=== PATIENT | male | born 1975 | race Caucasian/White ===

== ENCOUNTER 2023-06-04 09:07 | Outpatient (OUT) | payer OTHER, SELFPAY ==
[2023-06-04 09:30] LABS: Basophils Absolute Auto 0.1 10^3/uL (0.0-0.1); Basophils Percent Auto 1.1 % (0.2-2.0); Bilirubin Urine NEGATIVE (NEGATIVE); Blood Urine TRACE-I (NEGATIVE); Clarity Urine CLEAR (CLEAR); Color Urine YELLOW (YELLOW); Eosinophils Absolute Auto 0.3 10^3/uL (0.0-0.7); Eosinophils Percent Auto 3.3 % (0.9-7.0); Glucose Urine UA NEGATIVE (NEGATIVE); Hemoglobin 15.8 g/dL (14.0-18.0); Immature Granulocytes Abs Auto 0.02 10^3/uL (0.00-0.03); Immature Granulocytes Pct Auto 0.2 % (0.0-0.5); Ketones Urine NEGATIVE (NEGATIVE); Leukocyte Esterase Urine TRACE (NEGATIVE); Lymphocytes Absolute Auto 1.5 10^3/uL (1.2-3.8); Lymphocytes Percent Auto 17.6 % (20.5-60.0); Mean Corpuscular HGB Conc 34.3 g/dL (29.9-35.2); Mean Corpuscular Hemoglobin 29.8 pg (25.9-34.0); Mean Corpuscular Volume 86.6 fL (80.0-94.0); Mean Platelet Volume 10.4 fL (9.5-13.5); Monocytes Absolute Auto 0.9 10^3/uL (0.3-0.8); Monocytes Percent Auto 10.8 % (1.7-12.0); Neutrophils Absolute Auto 5.5 10^3/uL (1.4-6.5); Nitrite Urine NEGATIVE (NEGATIVE); Platelet Count 273 10^3/uL (150-450); Protein Urine NEGATIVE (NEG/TRACE); Red Blood Count 5.31 10^6/uL (4.70-6.10); Specific Gravity Urine >=1.030 (1.005-1.025); Urobilinogen Urine 0.2 EU/dL (0.2-1.0); White Blood Count 8.3 10^3/uL (4.0-11.0); pH Urine 5.5 (5.0-9.0)
[2023-06-04 09:39] LABS: Bacteria Urine NONE SEEN #/HPF (NONE SEEN); Mucus Urine NONE SEEN (NONE SEEN); RBC Urine 0-2 #/HPF (0-2); Squamous Epithelial Cell Urine RARE #/LPF (NONE/RARE); WBC Urine 0-2 #/HPF (NONE SEEN)
[2023-06-04 10:26] LABS: Free T4 0.94 ng/dL (0.76-1.46)
[2023-06-04 10:30] LABS: Alanine Aminotransferase 25 U/L (16-63); Albumin Globulin Ratio 1.1; Albumin Level 3.5 g/dL (3.4-5.0); Alkaline Phosphatase 130 U/L (46-116); Anion Gap 12.8; Aspartate Amino Transferase 15 U/L (15-37); BUN Creatinine Ratio 8.9; Bilirubin Total 0.6 mg/dL (0.2-1.0); Calcium 8.7 mg/dL (8.5-10.1); Carbon Dioxide 25.5 mmol/L (21.0-32.0); Chloride 104 mmol/L (98-107); Chol HDL Ratio 4.2; Cholesterol 129 mg/dL (<=200); Estimated GFR (African America >60 (>=60); Estimated GFR (Non-African Ame >60 (>=60); Globulin 3.2 g/dL; Glucose 101 mg/dL (74-106); HDL Cholesterol 31 mg/dL (40-60); Potassium 4.3 mmol/L (3.5-5.1); Sodium 138 mmol/L (136-145); Thyroid Stimulating Hormone 1.275 uIU/mL (0.358-3.740); Total Protein 6.7 g/dL (6.4-8.2); Triglycerides 86 mg/dL (<=150); VLDL CHOLESTEROL 17.2 mg/dL
[2023-06-04 12:10] LABS: Estimated Average Glucose 105 mg/dL; Glycohemoglobin A1C 5.3 % (4.5-6.2)
== END 2023-06-04 09:08 | disposition home or self-care (01) ==
LOC: LAB 09:10
PROVIDERS: PCP Nurse Practitioner; Visit Provider Nurse Practitioner
DX: E66.9 Obesity, unspecified (principal); Z72.0 Tobacco use; Z68.30 Body mass index [BMI] 30.0-30.9, adult
CPT/HCPCS: 36415; 80053; 80061; 81001; 83036; 84439; 84443; 85025

== ENCOUNTER 2023-07-06 15:11 | Outpatient (OUT) | payer OTHER, SELFPAY ==
[2023-07-06 16:23] LABS: Alanine Aminotransferase 23 U/L (16-63); Albumin Globulin Ratio 1.1; Albumin Level 3.6 g/dL (3.4-5.0); Alkaline Phosphatase 135 U/L (46-116); Aspartate Amino Transferase 12 U/L (15-37); Bilirubin Direct 0.1 mg/dL (0.0-0.2); Bilirubin Total 0.6 mg/dL (0.2-1.0); Gamma Glutamyl Transpeptidase 35 U/L (15-85); Globulin 3.3 g/dL; Total Protein 6.9 g/dL (6.4-8.2)
== END 2023-07-06 15:12 | disposition home or self-care (01) ==
LOC: LAB 15:12
PROVIDERS: PCP Nurse Practitioner; Visit Provider Nurse Practitioner
DX: R74.8 Abnormal levels of other serum enzymes (principal)
CPT/HCPCS: 36415; 80076; 82977

== ENCOUNTER 2024-01-18 14:38 | Outpatient (OUT) | payer OTHER, SELFPAY | END 2024-01-18 14:39 | disposition home or self-care (01) | LOC: PST 14:38 | PROVIDERS: PCP Nurse Practitioner; Visit Provider Surgery | DX: Z01.818 Encounter for other preprocedural examination (principal); Z12.11 Encounter for screening for malignant neoplasm of colon ==

== ENCOUNTER 2024-02-03 06:53 | Day surgery (SDC) | payer OTHER, SELFPAY ==
--- NOTE | 2024-02-03 | OP_ITS ---
OPERATION DATE: 02/03/2024 PREOPERATIVE DIAGNOSIS: Colorectal screening. POSTOPERATIVE DIAGNOSIS: Normal colonoscopy to cecum. PROCEDURE: Colonoscopy to cecum. SURGEON: Abhijeet Farias M.D. ANESTHESIA: Monitored anesthesia care. ESTIMATED BLOOD LOSS: Zero. INDICATIONS AND CONSENT: Patient is a 48-year-old male presents for colorectal screening. Indications, risks, benefits, alternatives of proceeding with colonoscopy were explained extensively to the patient, including the risks of bleeding, colon perforation or anesthetic complications. All of his questions were answered. Informed consent was obtained. PROCEDURE: Patient brought to the operating room, placed in the left lateral decubitus position. Monitored anesthesia care was provided. Rectal exam was performed which showed no masses or blood. The scope was inserted into the anal canal. Under direct visualization was advanced. It was advanced to the cecum where cecal markings were clearly identified. There was noted to be a good prep. Upon withdrawal of the scope, mucosal surfaces were carefully examined. There were no mass lesions or polyps. No inflammatory changes or ulcerations. No significant diverticulosis. The scope was retroflexed in the anal canal. There was no significant hemorrhoidal disease. Scope was then withdrawn. Patient tolerated procedure well, was sent to recovery room in good condition. Follow up screening colonoscopy should be in 10 years. CC: Saima Issa, DULCE DENT
[2024-02-03 07:00] VITALS: BP 113/77; PULSE 76; TEMP 36.3; O2SAT 97; BMI 34.3
[2024-02-03] MEDS: LACTATED RINGER'S SOLUTION 1,000 ML 50 ML IV (07:16)
[2024-02-03 08:47] VITALS: BP 111/72; PULSE 75; O2SAT 94
[2024-02-03 09:02] VITALS: BP 115/77; PULSE 71; O2SAT 98
== END 2024-02-03 09:18 | disposition home or self-care (01) ==
PROVIDERS: PCP Nurse Practitioner; Visit Provider Surgery
PROC: (CPT 812; principal; 2024-02-03 08:05)
DX: Z12.11 Encounter for screening for malignant neoplasm of colon (principal); E66.01 Morbid (severe) obesity due to excess calories; Z68.36 Body mass index [BMI] 36.0-36.9, adult; F17.210 Nicotine dependence, cigarettes, uncomplicated
CPT/HCPCS: 45378; J2704

== ENCOUNTER 2024-09-30 11:08 | Outpatient (OUT) | payer OTHER, SELFPAY ==
[2024-09-30 11:33] LABS: Basophils Absolute Auto 0.1 10^3/uL (0.0-0.1); Basophils Percent Auto 1.3 % (0.2-2.0); Eosinophils Absolute Auto 0.2 10^3/uL (0.0-0.7); Eosinophils Percent Auto 2.3 % (0.9-7.0); Hematocrit 46.1 % (42.0-54.0); Hemoglobin 15.8 g/dL (14.0-18.0); Immature Granulocytes Abs Auto 0.01 10^3/uL (0.00-0.03); Immature Granulocytes Pct Auto 0.1 % (0.0-0.5); Lymphocytes Percent Auto 21.4 % (20.5-60.0); Mean Corpuscular HGB Conc 34.3 g/dL (29.9-35.2); Mean Corpuscular Hemoglobin 30.9 pg (25.9-34.0); Mean Platelet Volume 10.4 fL (9.5-13.5); Monocytes Absolute Auto 1.2 10^3/uL (0.3-0.8); Monocytes Percent Auto 12.6 % (1.7-12.0); Neutrophils Absolute Auto 5.7 10^3/uL (1.4-6.5); Neutrophils Percent Auto 62.3 % (43.0-75.0); Platelet Count 267 10^3/uL (150-450); Red Blood Count 5.12 10^6/uL (4.70-6.10); Red Cell Distribution Width 12.5 % (11.0-15.0); White Blood Count 9.1 10^3/uL (4.0-11.0)
[2024-09-30 11:33] LABS: Bilirubin Urine NEGATIVE (NEGATIVE); Blood Urine NEGATIVE (NEGATIVE); Clarity Urine CLEAR (CLEAR); Color Urine LT. YELLOW (YELLOW); Glucose Urine UA NEGATIVE (NEGATIVE); Ketones Urine NEGATIVE (NEGATIVE); Leukocyte Esterase Urine NEGATIVE (NEGATIVE); Nitrite Urine NEGATIVE (NEGATIVE); Protein Urine NEGATIVE (NEG/TRACE); Specific Gravity Urine 1.015 (1.005-1.025); Urobilinogen Urine 0.2 EU/dL (0.2-1.0)
--- NOTE | 2024-09-30 11:40 | XR_ITS ---
The [address] [address] Patient Name: JENNY RAMAN MRN: [id number] date: 1975 Sex: M Assigned Patient Location: LAB Current Patient Location: Accession/Order Number: [id number] Exam Date: 09/30/2024 11:32 Report Date: 10/03/2024 07:17 At the request of: ZAMZAM MORRELL Procedure: XR knee RT 3V PROCEDURE: XR knee RT 3V COMPARISON: None. HISTORY: chronic right knee pain FINDINGS: BONES:No fracture, acute abnormality, or significant arthropathy. SOFT TISSUES:Negative. No visible soft tissue swelling. EFFUSION:None visible. OTHER: Negative. XR/XR knee RT 3V IMPRESSION: No acute radiographic abnormality Electronically authenticated by: GUILLERMO YOUNGBLOOD Date: 10/03/2024 07:17
[2024-09-30 11:45] LABS: Estimated Average Glucose 111 mg/dL; Glycohemoglobin A1C 5.5 % (4.5-6.2)
[2024-09-30 11:46] LABS: Bacteria Urine NONE SEEN #/HPF (NONE SEEN); Cast Seen? NONE SEEN #/LPF (NONE SEEN); Crystals Seen? None Seen #/HPF (None Seen); Mucus Urine NONE SEEN (NONE SEEN); RBC Urine 0-2 #/HPF (0-2); Squamous Epithelial Cell Urine NONE SEEN #/LPF (NONE/RARE); Urine Microscopic Indicated YES; WBC Urine 0-2 #/HPF (NONE SEEN)
[2024-09-30 11:47] LABS: Urine Culture Indicated NO
[2024-09-30 11:53] LABS: Erythrocyte Sedimentation Rate 10 mm/hr (<=15)
[2024-09-30 12:11] LABS: Alanine Aminotransferase 17 U/L (16-63); Albumin Globulin Ratio 1.2; Albumin Level 3.4 g/dL (3.4-5.0); Alkaline Phosphatase 133 U/L (46-116); Anion Gap 13.2; Aspartate Amino Transferase 10 U/L (15-37); BUN Creatinine Ratio 8.6; Bilirubin Total 0.5 mg/dL (0.2-1.0); C Reactive Protein <0.50 mg/dL (<=0.50); Calcium 8.5 mg/dL (8.5-10.1); Carbon Dioxide 26.2 mmol/L (21.0-32.0); Chloride 105 mmol/L (98-107); Estimated GFR (African America >60 (>=60 mL/min/1.73m^2); Estimated GFR (Non-African Ame >60 (>=60 mL/min/1.73m^2); Globulin 2.9 g/dL; Glucose 88 mg/dL (74-106); Potassium 4.4 mmol/L (3.5-5.1); Sodium 140 mmol/L (136-145); Total Protein 6.3 g/dL (6.4-8.2)
== END 2024-09-30 11:09 | disposition home or self-care (01) ==
LOC: LAB 11:10
PROVIDERS: PCP Nurse Practitioner; Visit Provider Nurse Practitioner
DX: R19.7 Diarrhea, unspecified (principal); R63.4 Abnormal weight loss; Z72.0 Tobacco use; M25.561 Pain in right knee; G89.29 Other chronic pain
CPT/HCPCS: 36415; 73562; 80053; 81001; 83036; 84443; 85025; 85652; 86140

== ENCOUNTER 2024-10-01 15:22 | Outpatient (REF) | payer OTHER, SELFPAY ==
--- OUTSIDE RECORDS SUMMARY | 2024-10-01 15:26 | XMS_ITS | CCD ---
Author Organization [facility] Care Team Providers Care Sales Specialist Name Role Phone Unavailable Primary Care Provider UnavailRUDY Davila Admitting Unavailable RUDY YANG Attending Unavailable MARY, DR CORCORAN LISTED Primary Care Unavaila MG Pedraza Consulting Unavailable RUDY YANG Consulting Unavailable TAWANNA, DR FENTON Admitting Unavailable TAWANNA, DR FENTON Attending Unavailable AICHHOLZ, CROP PICKER SAIMA Primary Care Unavailable TYRA KINGSLEY Consulting Unavailable REG, STU Consulting Unavailable SAIMA ISSA Primary Care Physician [phone] MD Clive Phillips Attending Provider [phone] Clive Phillips Attending Unavailable Clive Phillips Admitting Unavailable NON STAFF Primary Care Unavailable Aichholyumiko INDEPENDENT DRIVER, Saima Unavailable Samuel Santiago MD Primary Care Provider [phone] Mg FARIAS Attending Unavailable SAIMA ISSA Referring Unavailable Mg FARIAS Attending Unavailable Aichholz INDEPENDENT DRIVER, Saima Unavailable Aicpage INDEPENDENT DRIVER, Saima Unavailable SAIMA ISSA Attending Unavailable AMITA LARIOS Attending Unavailable AICHHOLZSAIMA Attending Unavailable FERHDAYANNAZ SAIMA Attending Unavailable FERHBERT SAIMA Attending Unavailable Allergies Allergy Classification Reported Allergen(s) Allergy Type Date of Onset Reaction(s) Facility (1 source) Penicillins Propensity to adverse reactions to drug 3 [facility] [place] (6 sources) Penicillin; Translations: [penicillin] Drug Allergy 1 Eruption of skin (disorder) [facility] (4 sources) Chlorhexidine; Translations: [chlorhexidine topical] Drug Allergy Eruption of skin (disorder) [facility] (6 sources) Penicillin V Drug Allergy 4 Unknown [facility] (3 sources) Penicillins Drug Intolerance 3 [facility] Medications Current Medications Medication Drug Class(es) Dates Sig (Normalized) Sig (Original) bacitracin 0.5 unt/mg / neomycin 0.0035 mg/mg / polymyxin b 10 unt/mg topical ointment (1 source) Aminoglycoside Antibacterial, Polymyxin-class Antibacterial Start: 03-11-2020 neomycin-bacitrac in-polymyxin (NEOSPORIN) ointment Start: 03-11-2020 neomycin-bacit racin-polymyxin (NEOSPORIN) ointment dicyclomine hydrochloride 20 mg oral tablet (2 sources) Anticholinergic Start: 09-26-2024 End: 10-11-2024 take 1 tablet by mouth every eight hours as needed for diarrhea and diarrhea dicyclomine (Bentyl) 20 MG tablet Indications: Diarrhea, unspecified type Take 1 tablet (20 mg) by mouth every 8 (eight) hours if needed (abd cramping/diarrhea) for up to 15 days 45 tablet 1 09/26/2024 10/11/2024 Active ibuprofen 400 mg oral tablet (1 source) Nonsteroidal Anti-inflammatory Drug take 1 tablet by mouth every six hours as needed ibuprofen (ADVIL;MOTRIN) 400 MG tablet Take 400 mg by mouth every 6 hours as needed. 0 Active naproxen 500 mg oral tablet (4 sources) Nonsteroidal Anti-inflammatory Drug Start: 05-28-2022 take 1 tablet by mouth twice daily as needed naproxen 500 mg Tab 500 mg = 1 tab(s), Oral, BID, PRN Inflammation, Refills(s) 0 Start Date: 05/28/22 Status: Ordered Start: 08-15-2013 End: 03-11-2020 take 1 tablet by mouth twice daily at mealtime naproxen sodium (ANAPROX DS) 550 MG tablet Take 1 tablet by mouth 2 times daily (with meals). 30 tablet 0 08/15/2013 03/11/2020 Discontinued (Therapy completed) ondansetron 4 mg disintegrating oral tablet (3 sources) Serotonin-3 Receptor Antagonist Start: 05-28-2022 take 1 tablet by mouth every six hours as needed for nausea ondansetron 4 mg Dis Tab 4 mg = 1 tab(s), Oral, q6hr, PRN Nausea/Vomiting, Refills(s) 0 Start Date: 05/28/22 Status: Ordered varenicline 0.5 mg oral tablet (2 sources) Partial Cholinergic Nicotinic Agonist Start: 06-09-2022 take 1 tablet by mouth once daily varenicline 0.5 mg oral tablet 0.5 mg = 1 tab(s), Oral, Daily, Other (see comment) Start Date: 06/09/22 Status: Ordered Completed/Discontinued Medications Medication Drug Class(es) Dates Sig (Normalized) Sig (Original) cetirizine hydrochloride 10 mg oral tablet (6 sources) Histamine-1 Receptor Antagonist Start: 11-25-2023 End: 09-26-2024 take 1 tablet by mouth in the morning cetirizine (ZyrTEC) 10 MG tablet Indications: Rash Take 1 tablet (10 mg) by mouth in the morning. 30 tablet 2 11/25/2023 09/26/2024 Discontinued doxycycline hyclate 100 mg oral capsule (2 sources) Tetracycline-clas s Drug Start: 03-11-2020 End: 03-11-2020 doxycycline hyclate (VIBRAMYCIN) capsule 100 mg Start: 03-11-2020 End: 03-21-2020 take 1 tablet by mouth twice daily doxycycline hyclate (VIBRA-TABS) 100 MG tablet Take 1 tablet by mouth 2 times daily for 10 days 20 tablet 0 03/11/2020 03/21/2020 Active metroNIDAZOLE 250 mg oral tablet (2 sources) Nitroimidazole Antimicrobial Start: 03-11-2020 End: 03-11-2020 metroNIDAZOLE (FLAGYL) tablet 500 mg Start: 03-11-2020 End: 03-21-2020 take 1 tablet by mouth three times daily metroNIDAZOLE (FLAGYL) 500 MG tablet Take 1 tablet by mouth 3 times daily for 10 days 30 tablet 0 03/11/2020 03/21/2020 Active Problems Active Problems Problem Classification Problem Date Documented Da te Episodic/Chronic Neoplasms of unspecified nature or uncertain behavior (1 source) Neoplasm of unspecified behavior of bone, soft tissue, and skin; Translations: [Neoplasm of unspecified behavior of bone, soft tissue, and skin] Onset: 09-16-2022 Episodic Open wounds of extremities (1 source) Dog bite of upper limb; Translations: [Dog bite of left upper extremity, initial encounter] Episodic Other congenital anomalies (3 sources) Dermoid cyst of face 06-09-2022 Chronic Other diseases of bladder and urethra (6 sources) Overactive bladder; Translations: [Overactive bladder] Onset: 11-25-2023 11-25-2023 Chronic Other gastrointestinal disorders (4 sources) Diarrhea; Translations: [Diarrhea, unspecified] Onset: 09-26-2024 09-26-2024 Episodic Other non-traumatic joint disorders (4 sources) Pain in right knee; Translations: [Pain in joint, lower leg] Onset: 09-26-2024 09-26-2024 Episodic Other nutritional; endocrine; and metabolic disorders (16 sources) Body mass index 30+ - obesity; Translations: [Body mass index (BMI) 36.0-36.9, adult] Onset: 11-25-2023 Resolved: 04-14-2024 06-02-2022 Chronic Other nutritional; endocrine; and metabolic disorders (1 source) Morbid obesity 12-22-2023 Chronic Other nutritional; endocrine; and metabolic disorders (4 sources) Unintentional weight loss; Translations: [Abnormal weight loss] Onset: 09-26-2024 09-26-2024 Episodic Residual codes; unclassified (11 sources) Tobacco user; Translations: [Tobacco use] Onset: 11-25-2023 11-25-2023 Episodic Screening and history of mental health and substance abuse codes (3 sources) Tobacco use and exposure - finding 06-04-2022 Chronic Substance-related disorders (3 sources) Nicotine dependence, cigarettes, uncomplicated; Translations: [Smoker] Onset: 05-26-2022 06-09-2022 Chronic Comment on above: Added secondary to d ocumentation in Social History. Substance-related disorders (9 sources) Marijuana user; Translations: [Cannabis use, unspecified, uncomplicated] Onset: 11-25-2023 11-25-2023 Episodic Unclassified (1 source) Patient encounter status 12-22-2023 Viral infection (1 source) COVID-19; Translations: [COVID-19] Onset: 08-15-2021 Past or Other Problems Problem Classification Problem Date Documented Da te Episodic/Chronic Abdominal hernia (15 sources) Unilateral inguinal hernia, without obstruction or gangrene, not specified as recurrent; Translations: [Inguinal hernia] Onset: 05-25-2022 Episodic E Codes: Natural/environment (1 source) Exposure to other specified factors, initial encounter; Translations: [EXPOSURE OTHER SPEC FACTORS INITIAL] Onset: 08-15-2021 Episodic Other connective tissue disease (3 sources) Plantar fasciitis; Translations: [Plantar fascial fibromatosis] Onset: 01-13-2024 01-13-2024 Episodic Other liver diseases (6 sources) Alkaline phosphatase raised; Translations: [Abnormal levels of other serum enzymes] Onset: 11-25-2023 11-25-2023 Episodic Other screening for suspected conditions (not mental disorders or infectious disease) (8 sources) Patient encounter status; Translations: [Encounter for screening for malignant neoplasm of colon] Onset: 11-25-2023 11-25-2023 Episodic Other skin disorders (6 sources) Miliaria; Translations: [Miliaria, unspecified] Onset: 11-25-2023 11-25-2023 Episodic Other skin disorders (6 sources) Lump on face; Translations: [Localized swelling, mass and lump, head] Onset: 11-25-2023 11-25-2023 Episodic Other skin disorders (7 sources) Eruption; Translations: [Rash and other nonspecific skin eruption] Onset: 11-25-2023 11-25-2023 Episodic Spondylosis; intervertebral disc disorders; other back problems (4 sources) Dorsalgia, unspecified; Translations: [Muscle spasm of back] Onset: 08-13-2021 Episodic Sprains and strains (1 source) Strain of muscle, fascia and tendon of lower back, initial encounter; Translations: [STRAIN MUSC FASC TENDON LW BACK INT] Onset: 08-15-2021 Episodic Viral infection (6 sources) Disease caused by 2019-nCoV; Translations: [COVID-19] Onset: 11-25-2023 Resolved: 11-25-2023 11-25-2023 Episodic Results Test Name Value Interpretation Reference Range Facility Outside Colonoscopyon 2023 Outside Colonoscopy [id number] #1.00TIFF Normal [facility] Reminderson 02-04-2024 Reminders - From: Sheila Smith LPN To: THAIN - Clinical; Sent: 02/04/2024 09:45:05 EDT Show up: 01/02/2034 07:00:00 EDT Subject: colonoscopy recall Due Date/Time: 02/02/2034 07:00:00 EDT Reminder/Recall Patient due for screening colonoscopy 02/02/2034. Normal [facility] Insurance Correspondenceon 0 01-21-2024 Insurance Correspondence [id number]#1.00TIFF [facility] Consent for Procedure/Surger yon 12-24-2023 Consent for Procedure/Surgery [id number] #1.00TIFF [facility] Facesheeton 12-23-2023 Facesheet [id number]# 1.00TIFF [facility] Ambulatory Visit Summaryon 0 12-22-2023 Ambulatory Visit Summary JENNY SU :1975 Visit Date:12/22/2023 Ambulatory Visit Instructions Your Diagnosis Screening for malignant neoplasm of colon Your Care Team Attending Physician - Mg FARIAS MD Primary Care Physician - SAIMA ISSA CNP Referring Physician - SAIMA ISSA CNP This Is Your Medications List Contact prescribing physician if questions or concerns cetirizine (cetirizine 10 mg Tab) Procedures Performed Repair of inguinal hernia using surgical mesh (06/16/2022), Excision of cyst (1984), Excision of cyst. Discharge Vitals Heart Rate (Peripheral) 76 Respiratory Rate 16 Blood Pressure 126/82 Height 177 cm Height 70 in Weight 114 kg Weight 250.8 lb BMI 36.39 Medications What How Much When Instructions Unchanged cetirizine (cetirizine 10 mg Tab) 1 Tablets By Mouth Every day Contact prescribing physician if questions or concerns Medications and Immunizations Administered Not Given influenza virus vaccine, inactivated, Patient Refuses Allergies chlorhexidine topical (Rash) penicillin (Rash) Problems Ongoing - Any problem that you are currently receiving treatment for. BMI 36.0-36.9,adult Left inguinal hernia Morbid obesity Screening for malignant neoplasm of colon Tobacco use Patient Survey You may receive a survey via text or e-mail asking about your office visit. Please share your experience with us by completing your survey. We appreciate your feedback and thank you for choosing us for your care. [facility] Physician Referralon 024 Physician Referral [id number] #1.00TIFF Normal [facility] Joel 09-16-2022 L Specimen: [id number] Received: 09/17/22 Status: MILDRED Barrerathuy Num: [id number] Spec Type: Surgical Subm Dr: Clive Phillips MD Tissues: A Soft Tissue/Surgical Margin-Other than Tumor,Mass,Lip or Lupe (RT FOREHEAD) Procedures: Rosa ROLLE/Neva L4 Age/ Patient Sex Location Account Attending Physician Jenny Su/Rosa CHAPMAN [id number] Clive Phillips MD SPEC NUM: [id number] RECD: 09/17/22 STATUS: MILDRED BARRERA NUM: [id number] KADE: 09/16/22 [facility] DR: Clive Phillips MD ENTERED: 09/17/22 [facility] DR: TIGIST TYPE: Surgical DEPT: S ORDERED: HE, Gross/Micro L4 ORDERED: HE, Gross/Micro L4 Pathological Diagnosis Soft tissue, right forehead, excision: - Mature adipose tissue consistent with lipoma. Clinical Information Mass, increasing in size, primary biopsy, D 49.2neoplasm of unspecified behavior of bone, soft tissue and skin Gross Description Received in formalin labeled with the patient's name, number and right forehead is a 3.8 x 3.0 x 1.3 cm yellow-benitez, firm tissue which is inked and sectioned revealing a homogeneous, yellow-benitez cut surface. Axle Turner sections are submitted in one cassette labeled A1. Microscopic Description One glass slide with H E stained material has been examined. The microscopic findings support the above pathologic diagnosis. CPT Codes 25170 Specimen: [id number] Received: 09/17/22 Status: MILDRED Barrera Num: [id number] Spec Type: Surgical Subm Dr: Clive Phillips MD Tissues: A Soft Tissue/Surgical Margin-Other than Tumor,Mass,Lip or Lupe (RT FOREHEAD) Procedures: HE, Gross/Micro L4 Patient: Jenny Su Gorge [id number] (Continued) Signed (signature on file) Juan Tavares MD 09/18/22956 [facility] CBC AUTO DIFFon 05-25-2022 BASO # 0.1 103/ul Normal 0.0-0.1 [facility] Comment on above: Performed By: #### C BC #### [facility] [address] [place] [address] Dr. Tacho Pena Basophils/100 WBC (Bld) 1.2 % Normal 0.2-2.0 [facility] Comment on above: Performed By: #### C BC #### [facility] [address] [place] [address] Dr. Tacho Pena EO # 0.3 103/ul Normal 0.0-0.7 [facility] Comment on above: Performed By: #### C BC #### [facility] [address] [place] [address] Dr. Tacho Pena Eosinophils/100 WBC (Bld) 3.3 % Normal 0.9-7.0 [facility] Comment on above: Performed By: #### C BC #### [facility] [address] [place] [address] Dr. Tacho Pena Erythrocyte distribution width (RBC) [Ratio] 13.0 % Normal 11.0-15.0 [facility] Comment on above: Performed By: #### C BC #### [facility] [address] [place] [address] Dr. Tacho Pena Hematocrit (Bld) [Volume fraction] 46.3 % Normal 42.0-54.0 [facility] Comment on above: Performed By: #### C BC #### [facility] [address] [place] [address] Dr. Tacho Pena Hemoglobin (Bld) [Mass/Vol] 15.7 g/dL Normal 14.0-18.0 [facility] Comment on above: Performed By: #### C BC #### [facility] [address] [place] [address] Dr. Tacho Pena IG # 0.03 10e3/ul Normal 0.00-0.03 [facility] Comment on above: Performed By: #### C BC #### [facility] [address] [place] [address] Dr. Tacho Pena IG % 0.4 % Normal 0.0-0.5 [facility] Comment on above: Performed By: #### C BC #### [facility] [address] [place] [address] Dr. Tacho Pena LYMPH # 2.2 103/ul Normal 1.2-3.8 [facility] Comment on above: Performed By: #### C BC #### [facility] [address] [place] [address] Dr. Tacho Pena Lymphocytes/100 WBC (Bld) 25.4 % Normal 20.5-60.0 [facility] Comment on above: Performed By: #### C BC #### [facility] [address] [place] [address] Dr. Tacho Pena MANUAL DIFF REQ NO Normal [facility] Comment on above: Performed By: #### C BC #### [facility] [address] [address] [address] Tacho Pena MCH (RBC) [Entitic mass] 29.7 pg Normal 25.9-34.0 [facility] Comment on above: Performed By: #### C BC #### [facility] [address] [place] [address] Dr. Tacho Pena MCHC (RBC) [Mass/Vol] 33.9 g/dL Normal 29.9-35.2 [facility] Comment on above: Performed By: #### C BC #### [facility] [address] [place] [address] Dr. Tacho Pena MCV (RBC) [Entitic vol] 87.7 fL Normal 80.0-94.0 [facility] Comment on above: Performed By: #### C BC #### [facility] [address] [place] [address] Dr. Tacho Pena MONO # 1.1 103/ul Critically high 0.3-0.8 [facility] Comment on above: Performed By: #### C BC #### [facility] [address] [place] [address] Dr. Tacho Pena Monocytes/100 WBC (Bld) 12.5 % Critically high 1.7-12.0 [facility] Comment on above: Performed By: #### C BC #### [facility] [address] [place] [address] Dr. Tacho Pena NEUT # 4.9 103/ul Normal 1.4-6.5 [facility] Comment on above: Performed By: #### C BC #### [facility] [address] [place] [address] Dr. Tacho Pena Neutrophils/100 WBC (Bld) 57.2 % Normal 43.0-75.0 [facility] Comment on above: Performed By: #### C BC #### [facility] [address] [place] [address] Dr. Tacho Pena Platelet mean volume (Bld) [Entitic vol] 10.2 fL Normal 9.5-13.5 [facility] Comment on above: Performed By: #### C BC #### [facility] [address], [place] [address] Dr. Tacho Pena PLT 269 103/ul Normal 150-450 [facility] Comment on above: Performed By: #### C BC #### [facility] [address], [place] [address] Dr. Tacho Pena RBC 5.28 106/ul Normal 4.70-6.10 [facility] Comment on above: Performed By: #### C BC #### [facility] [address], [place] [address] Dr. Tacho Pena WBC 8.6 103/ul Normal 4.0-11.0 [facility] Comment on above: Performed By: #### C BC #### [facility] [address], [place] [address] ABD/PELV W CONon 05-25-20 CT ABD/PELV W CON EXAMINATION: CT ABD/PELV W CON 05/25/2022. COMPARISON STUDY: None. HISTORY: Inguinal hernia TECHNIQUE: 3 mm sections were obtained from the lung bases through the pubic symphysis following administration of intravenous contrast. Coronal and sagittal reconstructed images were obtained. Dose reduction techniques were achieved by using automated exposure control and/or adjustment of mA and/or kV according to patient size and/or use of iterative reconstruction technique. CT abdomen: Subcentimeter right lower lobe calcified granulomas noted. The heart size is normal. There is no effusion identified. The gallbladder is partially contracted. Tiny calcified stones may be present proximally. Liver, spleen, pancreas and adrenals demonstrate no acute abnormality. A subcentimeter midpole right renal cyst, axial image #37 measures 3 mm. A midpole calyceal stone on the left measures [address] PELVIS: A left inguinal hernia contains fat as well as a segment of the proximal sigmoid colon. The hernia sac has transverse width of 6.9 cm. Bowel pattern does not appear to be obstructive. Urinary bladder and prostate appear unremarkable. Seminal vesicles are symmetric. Mild colonic diverticular disease is noted. Negative for appendicitis or diverticulitis. No significantly enlarged adenopathy or ascites noted. Lower lumbar spondylitic/facet arthritic changes most apparent at L5-S1. No acute osseous abnormality. IMPRESSION: 1. Left inguinal hernia contains fat as well as a short segment of the proximal sigmoid colon without obstruction. 2. Subcentimeter nonobstructive midpole left renal calculus. 3. Colonic diverticulosis without diverticulitis or appendicitis. Electronically authenticated by: STU REG Date: 2022-05-25 17:16 Normal [facility] ER URINE PROFILEon 2 Bilirubin Ql (U) Negative Normal NEGATIVE [facility] Comment on above: Performed By: #### E RUR #### [facility] [address] [place] [address] Dr. Tacho Pena Clarity (U) CLEAR Normal CLEAR [facility] Comment on above: Performed By: #### E RUR #### [facility] [address] [place] [address] Dr. Tacho Pena Color (U) YELLOW Normal YELLOW [facility] Comment on above: Performed By: #### E RUR #### [facility] [address] [place] [address] Dr. Tacho Pena ERUQUAN A micrscopic examination will be performed if indicated. Normal [facility] Comment on above: Performed By: #### E RUR #### [facility] [address] [place] [address] Dr. Tacho Pena Glucose Ql (U) Negative Normal NEGATIVE [facility] Comment on above: Performed By: #### E RUR #### [facility] [address] [address] [address] Tacho Pena Hemoglobin Ql (U) Negative Normal NEGATIVE [facility] Comment on above: Performed By: #### E RUR #### [facility] [address] [address] [address] Tacho Pena Ketones Ql (U) Negative Normal NEGATIVE [facility] Comment on above: Performed By: #### E RUR #### [facility] [address] [place] [address] Dr. Tacho Pena LEUKOCYTES Negative Normal NEGATIVE [facility] Comment on above: Performed By: #### E RUR #### [facility] [address] [place] [address] Dr. Tacho Pena Nitrite Ql (U) Negative Normal NEGATIVE [facility] Comment on above: Performed By: #### E RUR #### [facility] [address] [place] [address] Dr. Tacho Pena pH (U) 5.5 [pH] Normal 5-9 [facility] Comment on above: Performed By: #### E RUR #### [facility] [address] [place] [address] Dr. Tacho Pena SPEC GRAVITY 1.025 Normal 1.005-<=1.025 [facility] Comment on above: Performed By: #### E RUR #### [facility] [address] [place] [address] Dr. Tacho Pena UA PROTEIN Negative Normal NEGATIVE/ TRACE [facility] Comment on above: Performed By: #### E RUR #### [facility] [address] [place] [address] Dr. Tacho Pena UR MICRO IND NOT INDICATED Normal [facility] Comment on above: Performed By: #### E RUR #### [facility] [address] [place] [address] Dr. Tacho Pena Urobilinogen Qn (U) 0.2 {Darion'U}/dL Normal 0.2 - 1. 0 [facility] Comment on above: Performed By: #### E RUR #### [facility] [address] [place] [address] Dr. Tacho Pena PROF 14(COMP METB)on 022 Albumin [Mass/Vol] 3.4 g/dL Normal 3.4-5.0 [facility] Comment on above: Performed By: #### C MP #### [facility] [address] [place] [address] Dr. Tacho Pena Albumin/Globulin [Mass ratio] 1.1 {ratio} Normal [facility] Comment on above: Performed By: #### C MP #### [facility] [address] [place] [address] Dr. Tacho Pena ALP [Catalytic activity/Vol] 153 U/L Critically high 46-116 [facility] Comment on above: Performed By: #### C MP #### [facility] [address] [address] [address] Tacho Pena ALT [Catalytic activity/Vol] 16 U/L Normal 16-63 [facility] Comment on above: Performed By: #### C MP #### [facility] [address] [address] [address] Tacho Pena Anion gap [Moles/Vol] 13.2 mmol/L Normal [facility] Comment on above: Performed By: #### C MP #### [facility] [address] [address] [address] Tacho Pena AST [Catalytic activity/Vol] 12 U/L Critically low 15-37 [facility] Comment on above: Performed By: #### C MP #### [facility] [address] [address] [address] Tacho Pena Bilirubin [Mass/Vol] 0.4 mg/dL Normal 0.2-1.0 [facility] Comment on above: Performed By: #### C MP #### [facility] [address] [address] [address] Tacho Pena Calcium [Mass/Vol] 8.6 mg/dL Normal 8.5-10.1 [facility] Comment on above: Performed By: #### C MP #### [facility] [address] [address] [address] Tacho Pena Chloride [Moles/Vol] 103 mmol/L Normal 98-107 [facility] Comment on above: Performed By: #### C MP #### [facility] [address] [address] [address] Tacho Pena CO2 [Moles/Vol] 25.9 mmol/L Normal 21.0-32.0 [facility] Comment on above: Performed By: #### C MP #### [facility] [address] [address] [address] Tacho Pena Creatinine [Mass/Vol] 0.91 mg/dL Normal 0.70-1.30 [facility] Comment on above: Performed By: #### C MP #### [facility] [address] [address] [address] Tacho Pena EGFR-AF MICRONESIAN >60 Normal >=60 [facility] Comment on above: Performed By: #### C MP #### [facility] [address] [address] [address] Tacho Pena EGFR-NON AF MICRONESIAN >60 Normal >=60 [facility] Comment on above: Performed By: #### C MP #### [facility] [address] [address] [address] Tacho Pena Globulin (S) [Mass/Vol] 3.2 g/dL Normal [facility] Comment on above: Performed By: #### C MP #### [facility] [address] [place] [address] Dr. Tacho Pena Glucose [Mass/Vol] 93 mg/dL Normal 74-106 [facility] Comment on above: Performed By: #### C MP #### [facility] [address] [address] [address] Tacho Pena Potassium [Moles/Vol] 4.1 mmol/L Normal 3.5-5.1 [facility] Comment on above: Performed By: #### C MP #### [facility] [address] [place] [address] Dr. Tacho Pena Protein [Mass/Vol] 6.6 g/dL Normal 6.4-8.2 [facility] Comment on above: Performed By: #### C MP #### [facility] [address] [address] [address] Tacho Pena Sodium [Moles/Vol] 138 mmol/L Normal 136-145 [facility] Comment on above: Performed By: #### C MP #### [facility] [address] [address] [address] Tacho Pena Urea nitrogen [Mass/Vol] 9.0 mg/dL Normal 7.0-18.0 [facility] Comment on above: Performed By: #### C MP #### [facility] [address] [place] [address] Dr. Tacho Pena Urea nitrogen/Creatinine [Mass ratio] 9.9 mg/mg Normal [facility] Comment on above: Performed By: #### C MP #### [facility] [address] [place] [address] Dr. Tacho Pena PROTIMEon 05-25-2022 INR Coag (PPP) [Relative time] 0.96 {INR} Normal [facility] Comment on above: Performed By: #### P T, PTT #### [facility] [address] [place] [address] Dr. Tacho Pena INR GUIDELINES SEE BELOW Normal [facility] Comment on above: Result Comment: TRAVIS RED INR: 2.0 - 3.0 CONDITIONS NOT LISTED BELOW 2.5 - 3.5 FOR PROSTHETIC HEART VALVE REPLACEMENT 2.5 - 3.5 RECURRENT THROMBOSIS Performed By: #### P T, PTT #### [facility] [address] [place] [address] Dr. Tacho Pena PT Coag (PPP) [Time] 10.4 s Normal 9.0-11.6 [facility] Comment on above: Performed By: #### P T, PTT #### [facility] [address] [place] [address] Dr. Tacho Pena PTTon 05-25-2022 aPTT Coag (Bld) [Time] 28.4 s Normal 22.3-36.2 [facility] Comment on above: Performed By: #### P T, PTT #### [facility] [address] [place] [address] Dr. Tacho Pena Covid-19 PCR (CVDTB)on 07-20 SARS-CoV-2 (COVID-19) RNA SHERLEY+probe Ql (Unsp spec) Detected Critically abnormal NOT DETECTED [facility] Comment on above: Result Comment: This test is not yet approved or cleared by the [place] FDA. When there are no FDA-approved or cleared tests available, and other criteria are met, FDA can make tests available under an emergency access mechanism called an Emergency Use Authorization (EUA). The EUA for this test is supported by the [place] of Health and Human Service's (HHS's) declaration that circumstances exist to justify the emergency use of in vitro diagnostics for the detection and/or diagnosis of the virus that causes COVID-19. This EUA will remain in effect (meaning this test can be used) for the duration of the COVID-19 declaration justifying emergency of IVDs, unless it is terminated or revoked by FDA (after which the test may no longer be used). Performed By: #### C [facility] #### [facility] [address] [address] [address] Tacho Pena XR CHEST 1 Von 08-13-2021 XR CHEST 1 V EXAM: Portable chest REASON FOR EXAM: Midthoracic back pain and general body aches for 2 days. TECHNIQUE: A portable frontal view of the chest was obtained. COMPARISON: None. FINDINGS: The lungs are well-inflated and clear. The heart and mediastinum are normal. There is no mass or pathologic adenopathy. Osseous structures are normal. IMPRESSION: No acute cardiopulmonary process. Electronically authenticated by: MG POE Date: 2021-08-13 09:42 Normal [facility] XR RADIUS ULNA LEFT (2 VIEWS )on 03-11-2020 XR RADIUS ULNA LEFT (2 VIEWS) EXAMINATION: TWO XRAY VIEWS OF THE LEFT FOREARM 03/11/2020 5:15 pm COMPARISON: None. HISTORY: ORDERING SYSTEM PROVIDED HISTORY: dog bite TECHNOLOGIST PROVIDED HISTORY: dog bite FINDINGS: AP and lateral views of the left forearm demonstrate no acute osseous abnormality. No focal soft tissue abnormality. No soft tissue gas or radiopaque foreign body is identified. IMPRESSION: No acute osseous or soft tissue abnormality of the left forearm. Interpreted by: Srini Powell MD Signed by: Srini Powell MD 03/11/20 Final result Normal [facility] Vital Signs Date Time Vital Sign Value Performing Clinician Facility 09-26-2024 17:55-0500 Body height 177.8 cm Saima Issa NP Work Phone: [facility] 09-26-2024 17:55-0500 Body mass index (BMI) [Ratio] 33.12 kg/m2 Saima Issa NP Work Phone: [facility] 09-26-2024 17:55-0500 Body temperature 97.81 [degF] Saima Ferhholz INDEPENDENT DRIVER Work Phone: [facility] 09-26-2024 17:55-0500 Body weight 104.69 kg Saima Aichholz INDEPENDENT DRIVER Work Phone: [facility] 09-26-2024 17:55-0500 Diastolic blood pressure 88 mm[Hg] Saima Aichholz INDEPENDENT DRIVER Work Phone: [facility] 09-26-2024 17:55-0500 Heart rate 87 /min Saima Aichholz INDEPENDENT DRIVER Work Phone: [facility] 09-26-2024 17:55-0500 Respiratory rate 20 /min Saima Aichholz INDEPENDENT DRIVER Work Phone: [facility] 09-26-2024 17:55-0500 SaO2% (BldA) [Mass fraction] 97 % Saima Aichholz INDEPENDENT DRIVER Work Phone: [facility] 09-26-2024 17:55-0500 Systolic blood pressure 122 mm[Hg] Saima Aichholz INDEPENDENT DRIVER Work Phone: [facility] 12-22-2023 14:56-0500 Blood Pressure Location Mg MIKEL [facility] 12-22-2023 14:56-0500 Diastolic blood pressure 82 mm[Hg] Mg MCKEONL [facility] 12-22-2023 14:56-0500 Heart rate 76 /min Mg NILL [facility] 12-22-2023 14:56-0500 Respiratory rate 16 /min Mg MCKEONL [facility] 12-22-2023 14:56-0500 Systolic blood pressure 126 mm[Hg] Mg NILL [facility] 11-25-2023 15:01-0500 Body height 177.8 cm Saima Aichholz INDEPENDENT DRIVER Work Phone: [facility] 11-25-2023 15:01-0500 Body mass index (BMI) [Ratio] 36.13 kg/m2 Saimamariano Lacyholz INDEPENDENT DRIVER Work Phone: [facility] 11-25-2023 15:01-0500 Body temperature 97.81 [degF] Saimamariano Lacyholz INDEPENDENT DRIVER Work Phone: [facility] 11-25-2023 15:01-0500 Body weight 114.22 kg Saimamariano Lacyholz INDEPENDENT DRIVER Work Phone: [facility] 11-25-2023 15:01-0500 Diastolic blood pressure 86 mm[Hg] Saima Lacyholz INDEPENDENT DRIVER Work Phone: [facility] 11-25-2023 15:01-0500 Heart rate 86 /min Saima Bambiholz INDEPENDENT DRIVER Work Phone: [facility] 11-25-2023 15:01-0500 Respiratory rate 19 /min Saimamariano De Guzmanz INDEPENDENT DRIVER Work Phone: [facility] 11-25-2023 15:01-0500 SaO2% (BldA) [Mass fraction] 98 % Saimamariano Lacyholz INDEPENDENT DRIVER Work Phone: [facility] 11-25-2023 15:01-0500 Systolic blood pressure 142 mm[Hg] Saimamariano Lacyholz INDEPENDENT DRIVER Work Phone: [facility] 06-02-2022 14:02-0400 Blood Pressure Location Mg MCKEONAngeles [facility] 06-02-2022 14:02-0400 Diastolic blood pressure 83 mm[Hg] Mg MCKEONL [facility] 06-02-2022 14:02-0400 Heart rate 73 /min Mg FARIAS [facility] 06-02-2022 14:02-0400 Respiratory rate 16 /min Mg FARIAS [facility] 06-02-2022 14:02-0400 Systolic blood pressure 127 mm[Hg] Mg FARIAS [facility] 03-11-2020 16:10-0400 Body Temperature 98.6 [degF] [employer] [employer], [place] 03-11-2020 16:10-0400 BP Diastolic 84 mm[Hg] [facility] [place] [facility] [place] 03-11-2020 16:10-0400 BP Systolic 129 mm[Hg] [facility] [place] 03-11-2020 16:10-0400 Pulse (Heart Rate) 85 /min [facility] [place] 03-11-2020 16:10-0400 Pulse Oximetry 96 % [employer] , [place] 03-11-2020 16:10-0400 Respiratory Rate 16 /min [facility] [employer] [place] Encounters Encounter Date Encounter Type Care Provider Facility Start: 09-26-2024 End: 09-26-2024 Office outpatient visit 25 minutes Saima Issa INDEPENDENT DRIVER Work Phone: [facility] Comment on above: Weight loss, uninten tional (Primary Dx); Tobacco user; Obesity (BMI 30-39.9); Marijuana smoker; Chronic pain of right knee; Diarrhea, unspecified type Start: 09-26-2024 End: 09-26-2024 ambulatory SAIMA ISSA Not Available Start: 09-26-2024 End: 09-26-2024 Bamboo flowsheet Saima Issa INDEPENDENT DRIVER Work Phone: [facility] Start: 09-26-2024 End: 09-26-2024 Bamboo flowsheet Saima Issa INDEPENDENT DRIVER Work Phone: [facility] Start: 04-14-2024 End: 04-14-2024 ambulatory SAIMA AICSanazHOLZ Not Available Start: 02-03-2024 End: 02-04-2024 ambulatory Mg FARIAS Facility::[id number] Start: 01-13-2024 End: 01-13-2024 ambulatory SAIMA AICSanazHOLZ Not Available Start: 01-04-2024 End: 01-04-2024 ambulatory AMITA LARIOS Not Available Start: 12-22-2023 End: 12-23-2023 ambulatory Mg FARIAS Facility:[facility] Start: 12-22-2023 End: 12-22-2023 Patient encounter procedure Mg [place] [facility] Start: 12-18-2023 ambulatory Mg FARIAS Facility:Ifeanyi [facility] Start: 11-25-2023 End: 11-25-2023 Office outpatient visit 15 minutes Saima Aicsanazdayannaz INDEPENDENT DRIVER Work Phone: [facility] Comment on above: Rash (Primary Dx); Marijuana smoker; Tobacco user; BMI 36.0-36.9,adult; Colon cancer screening Start: 11-25-2023 End: 11-25-2023 ambulatory SAIMA LACYHOLZ Not Available Start: 11-25-2023 Bamboo flowsheet Saima Aichholz INDEPENDENT DRIVER Work Phone: [facility] Start: 11-25-2023 Bamboo flowsheet Saima Aichholz INDEPENDENT DRIVER Work Phone: [facility] Start: 09-16-2022 End: 09-16-2022 ambulatory Clive Phillips Facility:[facility] Start: 09-16-2022 End: 09-16-2022 ambulatory MD Clive Phillips Work Phone: [facility] Work Phone: Start: 09-16-2022 End: 09-16-2022 Departed Referred MD Clive Phillips Work Phone: [facility] [place] Start: 07-10-2022 End: 07-10-2022 Patient encounter procedure Mg FARIAS [facility] [employer] Start: 06-26-2022 End: 06-26-2022 Patient encounter procedure Mg FARIAS [facility] [employer] Start: 06-02-2022 End: 06-02-2022 Patient encounter procedure Mg FARIAS [facility] [employer] Start: 05-25-2022 End: 05-25-[address] JOSSY STACY Facility:[facility] Start: 08-13-2021 End: 08-13-2021 ambulatory RUDY YANG Facility:[facility] Start: 03-11-2020 End: 03-11-2020 Emergency department patient visit [facility] Start: 03-11-2020 End: 03-11-2020 Emergency department patient visit [facility] ED Comment on above: Dog bite of left upp er extremity, initial encounter (Primary Dx) Procedures Date Procedure Procedure Detail Performing Clinician Start: 02-03-2024 Colonoscopy Saima de la torre INDEPENDENT DRIVER Work Phone: Start: 06-16-2022 Inguinal hernioplasty Rosa FARIAS Start: 03-11-2020 MISCELLANEOUS NURSIN G CARE ORDER (SPECIFY) Start: 03-11-2020 Radex forearm 2 views Start: 10-19-1984 Excision of cyst Michae l NILL Comment on above: forehead Excision of cyst Mg NIL L Comment on above: forehead Excision of cyst Mg NIL L Comment on above: right face Plan of Treatment Date Care Activity Detail Author Start: 02-02-2034 Screening for malign ant neoplasm of colon [facility] Start: 03-11-2030 DTaP/Tdap/Td vaccine (2 - Td) DTaP/Tdap/Td vaccine (2 - Td) [facility] [place], [place] Start: 10-10-2024 End: 10-10-2024 Patient encounter procedure 10/10/2024 1:40 PM EST Office Visit [facility] [address] [place] [address] Saima Issa, INDEPENDENT DRIVER [address] [place] [phone] [facility] Start: 09-26-2024 End: 09-26-2024 Patient encounter procedure 09/26/2024 7:00 PM EST Office Visit [facility] [address] [place] [phone] Saima Issa, INDEPENDENT DRIVER [address] [place] [phone] Tobacco user (Primary Dx); Obesity (BMI 30-39.9) [facility] Comment on above: Tobacco user (Primar y Dx); Obesity (BMI 30-39.9) Start: 09-26-2024 End: 09-26-2025 C reactive protein [Mass/volume] in Serum or Plasma C-reactive protein Lab Routine Diarrhea, unspecified type Expected: 09/26/2024 (Approximate), Expires: 09/26/2025 [facility] Comment on above: Expected: 09/26/2024 (Approximate), Expires: 09/26/2025 Start: 09-26-2024 End: 09-26-2025 CBC W Auto Differential panel - Blood CBC and differential Lab Routine Weight loss, unintentional Diarrhea, unspecified type Expected: 09/26/2024 (Approximate), Expires: 09/26/2025 [facility] Comment on above: Expected: 09/26/2024 (Approximate), Expires: 09/26/2025 Start: 09-26-2024 End: 09-26-2025 Clostridioides difficile toxin A+B tcdA+tcdB genes [Presence] in Stool by SHERLEY with probe detection Clostridium difficile,EIA Microbiology Routine Diarrhea, unspecified type Expected: 09/26/2024 (Approximate), Expires: 09/26/2025 [facility] Comment on above: Expected: 09/26/2024 (Approximate), Expires: 09/26/2025 Start: 09-26-2024 End: 09-26-2025 Comprehensive metabolic 2000 panel - Serum or Plasma Comprehensive metabolic panel Lab Routine Weight loss, unintentional Diarrhea, unspecified type Expected: 09/26/2024 (Approximate), Expires: 09/26/2025 [facility] Comment on above: Expected: 09/26/2024 (Approximate), Expires: 09/26/2025 Start: 09-26-2024 End: 09-26-2025 Erythrocyte sedimentation rate Sedimentation rate, automated Lab Routine Diarrhea, unspecified type Expected: 09/26/2024 (Approximate), Expires: 09/26/2025 [facility] Comment on above: Expected: 09/26/2024 (Approximate), Expires: 09/26/2025 Start: 09-26-2024 End: 09-26-2025 Measurement of occult blood in single stool specimen Occult blood x 1, stool Lab Routine Diarrhea, unspecified type Expected: 09/26/2024 (Approximate), Expires: 09/26/2025 [facility] Comment on above: Expected: 09/26/2024 (Approximate), Expires: 09/26/2025 Start: 09-26-2024 End: 09-26-2025 Stool culture Stool culture Microbiology Routine Diarrhea, unspecified type Expected: 09/26/2024 (Approximate), Expires: 09/26/2025 [facility] Comment on above: Expected: 09/26/2024 (Approximate), Expires: 09/26/2025 Start: 09-26-2024 End: 09-26-2025 Thyrotropin [Units/volume] in Serum or Plasma TSH Lab Routine Weight loss, unintentional Expected: 09/26/2024 (Approximate), Expires: 09/26/2025 [facility] Comment on above: Expected: 09/26/2024 (Approximate), Expires: 09/26/2025 Start: 09-26-2024 End: 09-26-2025 Urinalysis complete panel - Urine Urinalysis with reflex microscopic (clean catch) Lab Routine Diarrhea, unspecified type Expected: 09/26/2024 (Approximate), Expires: 09/26/2025 [facility] Comment on above: Expected: 09/26/2024 (Approximate), Expires: 09/26/2025 Start: 09-26-2024 End: 09-26-2025 XR Knee - right 3 Views XR knee 3 views right Imaging Routine Chronic pain of right knee Expected: 09/26/2024 (Approximate), Expires: 09/26/2025 [facility] Work Phone: Comment on above: Expected: 09/26/2024 (Approximate), Expires: 09/26/2025 Start: 01-13-2024 End: 01-13-2024 Patient encounter procedure 01/13/2024 9:40 AM EDT Office Visit [facility] [address] [place] [phone] Saima Issa, INDEPENDENT DRIVER [address] [place] [phone] [facility] Start: 11-25-2023 End: 11-25-2023 Patient encounter procedure 11/25/2023 3:00 PM EST Office Visit [facility] [address] [place] [phone] Saima Issa, INDEPENDENT DRIVER [address] [place] [phone] Arrived [facility] Comment on above: Arrived Start: 06-19-2023 Influenza vaccination Influenza Vacc ine (#1) [facility] Start: 06-19-2020 Influenza vaccination Flu vacc ine (Season Ended) [place] Start: 2014 Lipid panel Lipid screen [place], [place] Start: 1989 [facility] [place] [place] Start: 1980 Pneumococcal 0-64 ye ars Vaccine (1 of 1 - PPSV23) Pneumococcal 0-64 years Vaccine (1 of 1 - PPSV23) [place], [place] Start: 1974 Screening for malign ant neoplasm of colon [facility] End: 03-11-2020 XR RADIUS ULNA LEFT (2 VIEWS) XR RADIUS ULNA LEFT (2 VIEWS) Imaging STAT Once for 1 Occurrences starting 03/11/2020 until 03/11/2020 [place] Comment on above: Once for 1 Occurrenc es starting 03/11/2020 until 03/11/2020 XR RADIUS ULNA LEFT (2 VIEWS) XR RADIUS ULNA LEFT (2 VIEWS) Imaging STAT 03/11/2020 5:15 PM EDT [place] Immunizations Immunization Date Immunization Notes Care Provider Fa cility 03-11-2020 diphtheria, tetanus toxoids and acellular pertussis vaccine, unspecified formulation [place] 03-11-2020 tetanus toxoid, reduced diphtheria toxoid, and acellular pertussis vaccine, adsorbed [place] NEGATED: Highlighted row has not occurred!12-22-2023 influenza virus vaccine, unspecified formulation Mg FARIAS [facility] [place] Payers Date Payer Category Payer Self-pay 2021 Medicaid [facility] MEDICAID [place] MED[place] [id number] 2021-Present [address] [place] [id number] 2021 Medicaid (Managed Care) [facility] MEDICAID [id number] 2019 Unknown [facility] MARINE xxxxxxxxxxxx 2019-Present [phone] [address] [place] [address] xxxxxxxxxxxx [id number] 1974 Unknown [id number] [id number]. 173 1974 Unknown [id number] [id number]. 593 1974 Unknown [id number] [id number]. 593 1974 Unknown [id number] [id number]. 727 1974 Unknown [id number] [id number]. 727 1974 Unknown [id number] [id number]. 1259 1974 Unknown [id number] [id number]. 1259 1974 Unknown [id number] 2.16.840.1.274947.3.579.2. 1259 1974 Unknown [id number] [id number]. 1259 1974 Unknown [id number] [id number]. 1259 1959 Unknown [id number] 1959 Unknown [id number] Unknown Other1 (STD) [id number] Unknown [id number]. 531 Social History Date Type Detail Facility Start: 03-11-2020 End: 11-16-2023 Tobacco smoking status GAIS Current every day smoker [place] Start: 03-11-2020 End: 01-11-2024 Cigarettes smoked current (pack per day) - Reported [place] Start: 03-11-2020 Alcohol intake Current non-dr venue attendant of alcohol (finding) [place] Start: 1975 Sex Assigned At Not on file M [place], [place] Exposure to SARS-CoV -2 (event) Unable to assess [place] Start: 06-02-2022 End: 12-22-2023 Heavy tobacco smoker (finding) [facility] Never [facility] Start: 11-16-2023 End: 01-11-2024 Male [facility] Start: 1975 Sex Assigned At Male F [facility] History of tobacco use Cigarette Smoker [facility] Start: 11-25-2023 End: 09-26-2024 Alcohol intake Lifetime non-drinker (finding) [facility] Start: 11-25-2023 Alcohol Comment caffine: soda: 6-8daily [facility] Do you belong to any clubs or organizations such as confucianist groups, unions, fraternal or athletic groups, or school groups? No [facility] Are you now , , , , never or living with a partner? [facility] How often to you hav e a drink containing alcohol? Never [facility] Medical Equipment Procedure Code Equipment Code Equipment Origin al Text Equipment Identifier Dates INGUINAL HERNIA REPAIR ADULT Mg FARIAS MD 06/16/22 Unknown Other FDA Start: 06-16-2022 INGUINAL HERNIA REPAIR ADULT Mg FARIAS MD 06/16/22 Unknown Other FDA Start: 06-16-2022 INGUINAL HERNIA REPAIR ADULT Mg FARIAS MD 06/16/22 Unknown Other FDA Start: 06-16-2022 Functional Status Date Assessment Result Facility 12-22-2023 Functional Status N/A [facility] 06-02-2022 N/A [facility] Clinical Notes 11-25-2023 to 09-26-2024 LOULOU HENDERSON - 09/26/2024 7:00 PM Shani Issa, TEO - 09/26/2024 7:00 PM ESTSaima Issa, INDEPENDENT DRIVER - 09/26/2024 6:24 PM ESTLisa Issa, INDEPENDENT DRIVER - 09/26/2024 6:23 PM ESTPatient Instructions Note Date & Type Note Facility 09-26-2024 History of Present illness Narrative Pt is having troubles with watery loose stools and at times INC of stools even at work. Pt states he is hardly constipated, he also has to stop after eating at times to go to the bathroom Right knee-sharp pain for 2-3 sec at a time when working in the last 3-4 months Pt states it is a stabbing pain that goes from 0-10 on the pain scale. Images from the original note were not included. Jenny Su is a 48 y.o. male presents with chief complaint of Knee Pain (Right pain ) HPI: Knee Pain The incident occurred more than 1 week ago. There was no injury mechanism. The pain is present in the right knee. The quality of the pain is described as aching (sharp). The pain is moderate. The pain has been Fluctuating since onset. Associated symptoms include an inability to bear weight. Pertinent negatives include no loss of motion, loss of sensation, muscle weakness, numbness or tingling. He reports no foreign bodies present. The symptoms are aggravated by weight bearing. He has tried acetaminophen for the symptoms. The treatment provided mild relief. Diarrhea This is a new problem. The problem occurs 5 to 10 times per day. The problem has been unchanged. The stool consistency is described as Watery. Associated symptoms include abdominal pain (cramping), arthralgias and weight loss. Pertinent negatives include no bloating, chills, coughing, fever, headaches, increased flatus, myalgias, sweats, URI or vomiting. Nothing aggravates the symptoms. There are no known risk factors. He has tried nothing for the symptoms. There is no history of inflammatory bowel disease or irritable bowel syndrome. SUBJECTIVE: MEDICATIONS: Current Outpatient Medications Medication Instructions dicyclomine (BENTYL) 20 mg, Oral, Every 8 hours PRN ALLERGIES: Allergies Allergen Reactions Penicillin V Unknown Penicillins REVIEW OF SYMPTOMS: Review of Systems Constitutional: Positive for weight loss. Negative for activity change, appetite change, chills, fatigue, fever and unexpected weight change. HENT: Negative for congestion, ear pain, rhinorrhea, sinus pressure and sore throat. Eyes: Negative for pain, discharge and visual disturbance. Respiratory: Negative for cough, chest tightness and shortness of breath. Cardiovascular: Negative for chest pain, palpitations and leg swelling. Gastrointestinal: Positive for abdominal pain (cramping) and diarrhea. Negative for bloating, constipation, flatus, nausea and vomiting. Genitourinary: Negative for decreased urine volume, flank pain and hematuria. Musculoskeletal: Positive for arthralgias. Negative for back pain, joint swelling and myalgias. Skin: Negative for color change, rash and wound. Neurological: Negative for dizziness, tingling, tremors, weakness, numbness and headaches. Psychiatric/Behavioral: Negative for agitation, hallucinations, sleep disturbance and suicidal ideas. The patient is not nervous/anxious. Hematological: Negative for adenopathy. Does not bruise/bleed easily. Endocrine: Positive for polydipsia and polyuria. Negative for polyphagia. Allergic/Immunologic: Negative for environmental allergies. PAST MEDICAL HISTORY Past Medical History: Diagnosis Date COVID last oct Elevated alkaline phosphatase level Left inguinal hernia Lump on face Miliaria OAB (overactive bladder) Tobacco user Past Surgical History: Procedure Laterality Date CYST REMOVAL Removed as a child family history includes Cancer in his maternal grandfather. OBJECTIVE: Visit Vitals BP 122/88 (BP Location: Left arm, Patient Position: Sitting, BP Cuff Size: Adult long) Pulse 87 Temp 97.8 F (Temporal) Resp 20 Ht 5' 10 Wt 230 lb 12.8 oz SpO2 97% BMI 33.12 kg/m Smoking Status Every Day BSA 2.28 m Physical Exam Vitals and nursing note reviewed. Constitutional: Appearance: Normal appearance. HENT: Head: Normocephalic. Right Ear: External ear normal. Left Ear: External ear normal. Nose: Nose normal. Mouth/Throat: Mouth: Mucous membranes are moist. Pharynx: Oropharynx is clear. Eyes: Extraocular Movements: Extraocular movements intact. Conjunctiva/sclera: Conjunctivae normal. Cardiovascular: Rate and Rhythm: Normal rate and regular rhythm. Pulses: Normal pulses. Heart sounds: Normal heart sounds. Pulmonary: Effort: Pulmonary effort is normal. Breath sounds: Normal breath sounds. No wheezing or rales. Abdominal: General: Bowel sounds are normal. Palpations: Abdomen is soft. Tenderness: There is no abdominal tenderness. There is no guarding or rebound. Hernia: No hernia is present. Musculoskeletal: Cervical back: Neck supple. Right lower leg: No edema. Left lower leg: No edema. Comments: No swelling or gross deformity, mild tenderness about ant knee No laxity, neg valgas/varus stress, neg mc george Lymphadenopathy: Cervical: No cervical adenopathy. Skin: General: Skin is warm and dry. Capillary Refill: Capillary refill takes 2 to 3 seconds. Neurological: General: No focal deficit present. Mental Status: He is alert. Psychiatric: Mood and Affect: Mood normal. Behavior: Behavior normal. Thought Content: Thought content normal. Judgment: Judgment normal. ASSESSMENT AND PLAN: Follow up in about 2 weeks (around 10/10/2024) for Recheck. Problem List Items Addressed This Visit Tobacco user The patient has been advised of the risks of continued smoking: stroke, NC, all forms of cancer, lung disease, and . Options for quitting smoking include: cold turkey, hypnosis, acupuncture, nicotine replacement meds (gum, lozenges, and patches), Buproprion, and Varenicline. At this time pt is encouraged to evaluate their goals for wanting to quit smoking, and reach out to provider when ready to start this process Marijuana smoker Obesity (BMI 30-39.9) Discussed with patient their BMI (actual, verses recommended). We have also discussed lifestyle modifications: attempts to perform physical activity as chronic conditions allow, also to monitor dietary intake: increasing protein/fruits/veggies and lowering carb intake (unless contraindicated). Limit sodas, juices, and sugary drinks. Has lost 21 pounds this year Chronic pain of right knee A lot of work kneeling on floor Check xray Relevant Orders XR knee 3 views right Weight loss, unintentional - Primary Not sure if related to diarrhea or not Check labs Relevant Orders CBC and differential Comprehensive metabolic panel TSH Diarrhea Unclear etiology No obvious GERD/gallbladder sxs, no bloody stools noted Check stool studies and labs Trial bentyl prn abd cramping Relevant Medications dicyclomine (Bentyl) 20 MG tablet Other Relevant Orders CBC and differential Comprehensive metabolic panel Urinalysis with reflex microscopic (clean catch) Sedimentation rate, automated C-reactive protein Stool culture Occult blood x 1, stool Clostridium difficile,EIA Associated Problem(s): Diarrhea Unclear etiology No obvious GERD/gallbladder sxs, no bloody stools noted Check stool studies and labs Trial bentyl prn abd cramping Associated Problem(s): Weight loss, unintentional Not sure if related to diarrhea or not Check labs Associated Problem(s): Chronic pain of right knee A lot of work kneeling on floor Check xray Associated Problem(s): Tobacco user The patient has been advised of the risks of continued smoking: stroke, NC, all forms of cancer, lung disease, and . Options for quitting smoking include: cold turkey, hypnosis, acupuncture, nicotine replacement meds (gum, lozenges, and patches), Buproprion, and Varenicline. At this time pt is encouraged to evaluate their goals for wanting to quit smoking, and reach out to provider when ready to start this process Associated Problem(s): Obesity (BMI 30-39.9) Discussed with patient their BMI (actual, verses recommended). We have also discussed lifestyle modifications: attempts to perform physical activity as chronic conditions allow, also to monitor dietary intake: increasing protein/fruits/veggies and lowering carb intake (unless contraindicated). Limit sodas, juices, and sugary drinks. Has lost 21 pounds this year documented in this encounter [facility] 09-26-2024 Instructions Saima Issa NP - 09/26/2024 7:00 PM EST Knee pain: xray knee Diarrhea and weight loss: check labs and stool samples Dicyclomine as needed for cramping abd documented in this encounter [facility] 12-22-2023 Note Chief Complaint consultation for colonoscopy HPI Staff 48 year old male presents on consultation from Saimamariano Issa for screening colonoscopy. Denies abdominal or rectal pain. No rectal bleeding. Reports one year history of alternating constipation and loose stools. Reports increase in frequency of bowel movements as well. Denies nausea or vomiting. No unexplained weight loss. Never had colonoscopy in the past. No known family history of colon cancer. History of Present Illness 48 yo male referred for colorectal screening; denies change in bms or blood in stools; no abdominal complaints, some intermittent alternating diarrhea/constipation, chronic; denies asa or NSAID use, no SBE prophylaxis; abdominal operations significant for LIHR, no previous colonoscopy; no fmhx of GI malignancy or IBD; smokes daily. Review of Systems PHQ Score Initial Depression Screen Score: 0 SCORE ROS - Provider Constitutional: no fever, no sweats, no weight loss. Eyes: no glasses, no blurred vision, no visual loss. ENMT: no dentures, no hoarseness, no swallowing difficulties, no hearing loss, no ear infection(s), no nose bleeds. Cardiovascular: normal blood pressure, no chest pain, regular heartbeat, no heart murmur. Respiratory: no shortness of breath, no cough, no asthma, no wheezing. Gastrointestinal: no nausea, no vomiting, no diarrhea, no constipation, no blood in stool, no change in bowel habits, no abdominal pain, no hepatitis. Genitourinary: no kidney stones, no urine infection, no dysuria. Musculoskeletal: no pain, no weakness. Skin: no changing moles, no rash, no skin lumps. Neurologic: no seizures, no epilepsy, no headache. Psychiatric: no emotional or psychiatric problem. Heme/Lymph: no bleeding problems, no anemia, no blood clots, no transfusions. Allergy/Immunologic: no swollen lymph nodes/glands, no IV drug abuse. Other: Additional ROS info: Except as noted in the above Review of Systems and in the History of Present Illness, all other systems have been reviewed and are negative or noncontributory. Physical Exam Vitals & Measurements HR: 76(Peripheral) RR: 16 BP: 126/82 HT: 70 in HT: 177 cm WT: 114 kg WT: 250.8 lb BMI: 36.39 HEENT: normal conjunctiva, sclera clear, no scleral icterus, EOM intact, PERRLA, oral mucosa moist without lesions. Neck: trachea midline, no mass, symmetric, no thyromegaly or nodules, no adenopathy Respiratory: lungs CTA, respirations non labored. Cardiovascular: regular rate and rhythm, no murmur, no pedal edema or varicosities. Gastrointestinal: obese, soft, non distended, no tenderness, no masses, no palpable hernias, diastasis recti no, no hepatosplenomegaly; normal bs Lymphatic: no cervical adenopathy, no supraclavicular adenopathy. Musculoskeletal: normal gait, digits and nails without infection, nodes, cyanosis, clubbing. Skin: no rashes, no lesions, no ulcers, no subcutaneous nodules, induration. Psychiatric/Neuro: oriented to time, place, person, judgement normal, affect appropriate for age, insight intact, no focal deficits. Tests: , review of old records completed , Discussed surgical options, risks, and possible complications with patient. Assessment/Plan 1. Screening for malignant neoplasm of colon (Z12.11: Encounter for screening for malignant neoplasm of colon) plan colonoscopy under anesthesia, informed consent obtained. 2. Tobacco use (Z72.0: Tobacco use) We strongly recommend to quit tobacco use. Cigarette smoking harms nearly every organ of the body, causes many diseases, and reduces the health of smokers in general. Quitting smoking lowers your risk for smoking-related diseases and can add years to your life. We encourage you to visit www.smokefree.gov access to helpful resources including free telephone support. If you decide on prescription treatment to help you quit, your family doctor would be happy to provide these. Follow-up No qualifying data available Problem List/Past Medical History Ongoing BMI 36.0-36.9,adult Left inguinal hernia Morbid obesity Screening for malignant neoplasm of colon Tobacco use Historical No qualifying data Procedure/Surgical History Repair of inguinal hernia using surgical mesh (06/16/2022), Excision of cyst (1984), Excision of cyst. Medications cetirizine 10 mg Tab, 10 mg= 1 tab(s), Oral, Daily Allergies chlorhexidine topical (Rash) penicillin (Rash) Social History Alcohol - Denies Alcohol Use, 06/02/2022 Substance Abuse Current, Marijuana, Daily, 06/02/2022 Tobacco - High Risk, 06/09/2022 10 or more cigarettes (1/2 pack or more)/day in last 30 days Tobacco Use:. Never Smokeless Tobacco Use:. Cigarettes, 20 per day. Started age 15.0 Years. Previous treatment: Medications. Ready to change: Yes. Household tobacco concerns: No. Yes, 12/22/2023 Family History Cardiac arrest: Father. Immunizations Vaccine Date Status Comments influenza virus vaccine, inactivated - Not Given Patient Refuses [facility] Comment on above: Result Comment: Elec tronically Signed By: ZONIA SEGURA, Mg Santizo\Date and Time Signed: 12/22/23 15:21 EST 11-25-2023 History of Present illness Narrative Associated Problem(s): Colon cancer screening Grandfather with history of colon cancer in his 80's Associated Problem(s): Rash Do to the wide spread nature of the rash, I will send to Dermatology Differentials: KP, or Rico Will add antihistamine for itching as well Rash all over not bad every day but does flair up. Entire body head to toe. Seen a lot of it on the entire back. Flairs up when hot and working, even relaxing at home it flairs up. Has had this been going on for a year now. Has not started a new medication. Rash is itchy and warm. Pt states he's not on any more stress then he always has been. Does not feel anxious. Pt is not cutting or burning wood. Images from the original note were not included. Jenny Su is a 47 y.o. male presents with chief complaint of No chief complaint on file. HPI: Rash This is a chronic problem. The current episode started more than 1 year ago. The problem has been gradually worsening since onset. The rash is diffuse. The rash is characterized by dryness and redness. He was exposed to nothing. Pertinent negatives include no cough, diarrhea, eye pain, facial edema, rhinorrhea, shortness of breath or sore throat. Past treatments include nothing. SUBJECTIVE: MEDICATIONS: Current Outpatient Medications Medication Instructions cetirizine (ZYRTEC) 10 mg, Oral, Daily ALLERGIES: Allergies Allergen Reactions Penicillin V Unknown REVIEW OF SYMPTOMS: Review of Systems Constitutional: Negative for activity change, appetite change and unexpected weight change. HENT: Negative for ear pain, nosebleeds, rhinorrhea, sneezing, sore throat, trouble swallowing and voice change. Eyes: Negative for pain, discharge and visual disturbance. Respiratory: Negative for apnea, cough, chest tightness, shortness of breath and wheezing. Cardiovascular: Negative for leg swelling. Gastrointestinal: Negative for abdominal distention, blood in stool, constipation and diarrhea. Genitourinary: Negative for decreased urine volume, difficulty urinating, dysuria and hematuria. Skin: Positive for rash. Negative for color change. Neurological: Negative for dizziness, tremors and seizures. Psychiatric/Behavioral: Negative for agitation, decreased concentration, hallucinations, self-injury and suicidal ideas. The patient is not nervous/anxious. Hematological: Negative for adenopathy. Does not bruise/bleed easily. Endocrine: Negative for cold intolerance, heat intolerance, polydipsia and polyuria. Allergic/Immunologic: Negative for environmental allergies and food allergies. PAST MEDICAL HISTORY Past Medical History: Diagnosis Date COVID last oct Elevated alkaline phosphatase level Left inguinal hernia Lump on face Miliaria OAB (overactive bladder) Tobacco user Past Surgical History: Procedure Laterality Date CYST REMOVAL Removed as a child family history includes Cancer in his maternal grandfather. OBJECTIVE: Visit Vitals BP 142/86 (BP Location: Left arm, Patient Position: Sitting, BP Cuff Size: Large adult long) Pulse 86 Temp 97.8 F (Temporal) Resp 19 Ht 5' 10 Wt 251 lb 12.8 oz SpO2 98% BMI 36.13 kg/m Smoking Status Every Day BSA 2.37 m Physical Exam Vitals reviewed. Constitutional: Appearance: Normal appearance. HENT: Head: Normocephalic. Right Ear: Tympanic membrane, ear canal and external ear normal. Left Ear: Tympanic membrane, ear canal and external ear normal. Nose: Nose normal. No congestion or rhinorrhea. Mouth/Throat: Mouth: Mucous membranes are moist. Pharynx: Oropharynx is clear. Eyes: Extraocular Movements: Extraocular movements intact. Conjunctiva/sclera: Conjunctivae normal. Cardiovascular: Rate and Rhythm: Normal rate and regular rhythm. Pulses: Normal pulses. Heart sounds: Normal heart sounds. Pulmonary: Effort: Pulmonary effort is normal. Breath sounds: Normal breath sounds. Abdominal: General: Bowel sounds are normal. Palpations: Abdomen is soft. Musculoskeletal: Cervical back: Neck supple. Skin: General: Skin is warm and dry. Capillary Refill: Capillary refill takes 2 to 3 seconds. Findings: Rash present. Comments: Widespread red bumpy rash Neurological: General: No focal deficit present. Mental Status: He is alert. Psychiatric: Mood and Affect: Mood normal. Behavior: Behavior normal. Thought Content: Thought content normal. Judgment: Judgment normal. ASSESSMENT AND PLAN: No follow-ups on file. Problem List Items Addressed This Visit Tobacco user Marijuana smoker BMI 36.0-36.9,adult Rash - Primary Do to the wide spread nature of the rash, I will send to Dermatology Differentials: KP, or Miliaris Will add antihistamine for itching as well Relevant Medications cetirizine (ZyrTEC) 10 MG tablet Other Relevant Orders Ambulatory referral to Dermatology Colon cancer screening Grandfather with history of colon cancer in his 80's Relevant Orders Ambulatory referral to General Surgery documented in this encounter [facility] Evaluation + Plan note Future Appointments Appointment Date:06/09/2022 12:30:00 PM Scheduled Provider: [facility] Appointment Type:Surgical PAT FT Appointment Date:06/09/2022 01:30:00 PM Scheduled Provider: Location:[facility] Appointment Type:Surgery PAT COVID Testing Appointment Date:06/16/2022 08:00:00 AM Scheduled Provider: Location:[facility] Appointment Type:Surgery FT [facility] Evaluation + Plan note Future Appointments Appointment Date:07/10/2022 10:40:00 AM Scheduled Provider:Mg FARIAS MD Location:[facility] Appointment Type:GS Post Op 15 [facility] Evaluation note No assessment inform ation available [facility] Work Phone: Evaluation note Diagnosis Rash- Primary Rash and other nonspecific skin eruption Marijuana smoker Tobacco user Tobacco use disorder BMI 36.0-36.9,adult Colon cancer screening Special screening for malignant neoplasms, colon [facility]* Diagnosis Rash- Primary Rash and other nonspecific skin eruption Marijuana smoker Tobacco user Tobacco use disorder BMI 36.0-36.9,adult Colon cancer screening Special screening for malignant neoplasms, colon Plantar fasciitis- Primary Plantar fascial fibromatosis BMI 36.0-36.9,adult Tobacco user Tobacco use disorder Plantar fasciitis- Primary Plantar fascial fibromatosis Elevated alkaline phosphatase level Obesity (BMI 30-39.9) Tobacco user Tobacco use disorder Weight loss, unintentional- Primary Loss of weight Tobacco user Tobacco use disorder Obesity (BMI 30-39.9) Marijuana smoker Chronic pain of right knee Diarrhea, unspecified type [facility] Narrative No data available for this section [facility] Hospital Discharge instructions No data available for this section [facility] Progress note No data available for this section [facility] Reason for referral (narrative)* Consultation (Routine) - Authorized Specialty Diagnoses / Procedures Referred By Contac t Referred To Contact Dermatology Diagnoses Rash Procedures ND OFFICE/OUTPATIENT NEW HIGH MDM 60 MINUTES Saima Issa NP [address] [place] [address] Wendy Amita Mariano, DYE FEEDER[employer]OP PICKER [address] [place] [address] Referral ID Status Reason Start Date Expiration Date Visits Requested Visits Authorized [id number] Authorized Specialty Services Required 11/25/2023 05/23/2024 1 1 * Consultation (Routine) - Pending Review Specialty Diagnoses / Procedures Referred By Contac t Referred To Contact General Surgery Diagnoses Colon cancer screening Procedures ND OFFICE/OUTPATIENT NEW HIGH MDM 60 MINUTES Saima Issa NP [address] [place] [address] Mg Farias MD [address] [facility] [address], [address] [place] [address] Referral ID Status Reason Start Date Expiration Date Visits Requested Visits Authorized [id number] Pending Review Specialty Services Required 11/25/2023 05/23/2024 1 1 [facility] Discharge Instructions * Attachments The following attachments cannot be sent through Care Everywhere. * Bites: Animal (Mongolian) documented in this encounter Assessments Diagnosis Dog bite of left upper extremity, initial encounter Advance Directives No Advanced Directives Records FoundDocuments on File Type Date Recorded Patient Axle Turner Expl anation Advance Directives and Living Will Power of Bottle Sorter Summary Purpose Family History No Family History Records FoundNo Family History Records FoundNo Family History Records Found No data available for this section No Family History Records FoundNo Family History Records Found Additional Source Comments Reason for Visit (unrecogniz ed section and content) Reason Comments Animal Bite bit on left forearm by stray dog Reason Comments Knee Pain Right pain (unrecognized sect ion and content) No Status Records FoundNo Status Records FoundNo Status Records FoundNo Status Records FoundNo Status Records Found INFORMATION SOURCE (unrecogn ized section and content) DATE CREATED AUTHOR 03/11/2020 [facility] DATE CREATED AUTHOR AUTHOR'S ORGANIZ ATION 05/26/2022 [facility] DATE CREATED AUTHOR AUTHOR'S ORGANIZ ATION 09/29/2022 [facility] DATE CREATED AUTHOR AUTHOR'S ORGANIZ ATION 02/16/2024 [facility] DATE CREATED AUTHOR AUTHOR'S ORGANIZ ATION 09/29/2024 [facility] Care Team (unrecognized sect ion and content) Team Status: Inactive Member Role Status Dates Clive Phillips MD Attending Provider Active Sales Specialist Relationship Specialty Start Date End Date Samuel Santiago MD [address] [place] [id number] PCP - General Family Medicine 11/16/23 Saima Issa NP [address] [place] [phone] Referring Physician Nurse Practitioner 05/06/23 Sales Specialist Relationship Specialty Start Date End Date Samuel Santiago MD [address] [place] [id number] PCP - General Family Medicine 11/16/23 Saima Issa NP [address] [place] [id number] Referring Physician Nurse Practitioner 05/06/23 Sales Specialist Relationship Specialty Start Date End Date Samuel Santiago MD [address] [place] [id number] PCP - General Family Medicine 11/16/23 Saima Issa NP [address] [place] [phone] [facility] 04/18/24 Saima Issa NP [address] [place] [phone] Referring Physician Nurse Practitioner 05/06/23 Sales Specialist Relationship Specialty Start Date End Date Samuel Santiago MD [address] [place] [id number] PCP - [facility] 11/16/23 Saima Issa NP [address] [place] [phone] [facility] 04/18/24 Saima Issa NP [address] [place] [phone] Referring Physician Nurse Practitioner 05/06/23 Goals (unrecognized section and content) Goals may be documented in a n alternate section FOR RECORDS PERTAINING TO PATIENTS WHO ARE OR HAVE BEEN ENROLLED IN A CHEMICAL DEPENDENCY/SUBSTANCEABUSE PROGRAM, SOME INFORMATION MAY BE OMITTED. This clinical summary was aggregated from multiple sources. Caution should be exercised in using it in the provision of clinical care. This summary normalizes information from multiple sources, and as a consequence, information in this document may materially change the coding, format and clinical context of patient data. In addition, data may be omitted in some cases. CLINICAL DECISIONS SHOULD BE BASED ON THE PRIMARY CLINICAL RECORDS. [facility]. provides no warranty or guarantee of the accuracy or completeness of information in this document.
[2024-10-01 16:04] LABS: Internal Control Within Normal Limits; Occult Blood Negative
[2024-10-01 16:32] LABS: C. Difficile PCR NEGATIVE
[2024-10-04 19:07] LABS: Ova + Parasite Exam Final report (.)
== END 2024-10-01 15:23 | disposition home or self-care (01) ==
LOC: LAB 15:22
PROVIDERS: PCP Nurse Practitioner; Visit Provider Nurse Practitioner
DX: R19.7 Diarrhea, unspecified (principal); R63.4 Abnormal weight loss; Z72.0 Tobacco use; M25.561 Pain in right knee; G89.29 Other chronic pain
CPT/HCPCS: 87045; 87046; 87177; 87209; 87427; 87493; G0328

== ENCOUNTER 2024-10-18 07:50 | Outpatient (OUT) | payer OTHER, SELFPAY ==
--- NOTE | 2024-10-18 07:52 | VEIN_ITS ---
The [address] [address] Patient Name: JENNY RAMAN MRN: [id number] date: 1975 Sex: M Assigned Patient Location: Current Patient Location: Accession/Order Number: [id number] Exam Date: 10/18/2024 08:24 Report Date: 10/18/2024 09:51 At the request of: ZAMZAM MORRELL Procedure: VC SEGMENTAL PRESSURES EXAM: VC SEGMENTAL PRESSURES HISTORY: I73.9. Leg numbness. Leg pain. COMPARISON: None. TECHNIQUE: Resting ABIs and segmental limb pressures. FINDINGS: Right resting FABRIZIO normal at 1.25. Left resting FABRIZIO normal at 1.3. Waveforms are multiphasic. Thigh pressures were abnormally elevated likely due to vascular rigidity. Waveforms are multiphasic. VEIN/VC SEGMENTAL PRESSURES IMPRESSION: Normal resting ABIs. Normal segmental pressures. Electronically authenticated by: Basilio ROCKWELL Date: 10/18/2024 09:51
--- OUTSIDE RECORDS SUMMARY | 2024-10-18 07:52 | XMS_ITS | CCD ---
Author Organization [facility] Care Team Providers Care Career Development Facilitator Name Role Phone Unavailable Primary Care Provider UnavailRUDY Davila Admitting Unavailable RUDY YANG Attending Unavailable MARY, NONE LISTED Primary Care Unavaila MG Pedraza Consulting Unavailable RUDY YANG Consulting Unavailable TAWANNA, DR FENTON Admitting Unavailable HAY, DR FENTON Attending Unavailable AICHHOLZ, ASSOCIATE ART DIRECTOR SAIMA Primary Care Unavailable TYRA KINGSLEY Consulting Unavailable REG, STU Consulting Unavailable SAIMA ISSA Primary Care Physician MD Clive Phillips Attending Provider [phone] Clive Phillips Attending Unavailable Clive Phillips Admitting Unavailable NON STAFF Primary Care Unavailable Aicpage SPRIGGER, Saima Unavailable Samuel Santiago MD Primary Care Provider [phone] Mg FARIAS Attending Unavailable SAIMA ISSA Referring Unavailable Mg FARIAS Attending Unavailable Aichholyumiko SPRIGGER, Saima Unavailable Luis Manuel SPRIGGER, Saima Unavailable LISA ISSAA Attending Unavailable AMITA NGUYEN Attending Unavailable STACYHSAIMA VANG Attending Unavailable AICHHOLZSAIMA Attending Unavailable AICHHOLZ, SAIMA Attending Unavailable STACYHCIERA SAIMA Attending Unavailable Allergies Allergy Classification Reported Allergen(s) Allergy Type Date of Onset Reaction(s) Facility (1 source) Penicillins Propensity to adverse reactions to drug 3 [facility] [place] (6 sources) Penicillin; Translations: [penicillin] Drug Allergy 1 Eruption of skin (disorder) [facility] (4 sources) Chlorhexidine; Translations: [chlorhexidine topical] Drug Allergy Eruption of skin (disorder) [facility] [place] (11 sources) Penicillin V Drug Allergy 4 Unknown [facility] (8 sources) Penicillins Drug Intolerance 3 [facility] Medications Current Medications Medication Drug Class(es) Dates Sig (Normalized) Sig (Original) bacitracin 0.5 unt/mg / neomycin 0.0035 mg/mg / polymyxin b 10 unt/mg topical ointment (1 source) Aminoglycoside Antibacterial, Polymyxin-class Antibacterial Start: 03-11-2020 neomycin-bacitrac in-polymyxin (NEOSPORIN) ointment Start: 03-11-2020 neomycin-bacit racin-polymyxin (NEOSPORIN) ointment dicyclomine hydrochloride 20 mg oral tablet (7 sources) Anticholinergic Start: 09-26-2024 End: 10-11-2024 take [...] Dermoid cyst of face 06-09-2022 Chronic Other connective tissue disease (4 sources) Pain in bilateral legs; Translations: [Pain in right leg] Onset: 10-10-2024 10-10-2024 Episodic Other diseases of bladder and urethra (11 sources) Overactive bladder; Translations: [Overactive bladder] Onset: 11-25-2023 11-25-2023 Chronic Other gastrointestinal disorders (11 sources) Diarrhea; Translations: [Diarrhea, unspecified] Onset: 09-26-2024 09-26-2024 Episodic Other non-traumatic joint disorders (9 sources) Pain in right knee; Translations: [Pain in joint, lower leg] Onset: 09-26-2024 09-26-2024 Episodic Other nutritional; endocrine; and metabolic disorders (20 sources) Body mass index 30+ - obesity; Translations: [Body mass index (BMI) 36.0-36.9, adult] Onset: 11-25-2023 Resolved: 04-14-2024 06-02-2022 Chronic Other nutritional; endocrine; and metabolic disorders (1 source) Morbid obesity 12-22-2023 Chronic Other nutritional; endocrine; and metabolic disorders (11 sources) Unintentional weight loss; Translations: [Abnormal weight loss] Onset: 09-26-2024 09-26-2024 Episodic Peripheral and visceral atherosclerosis (4 sources) Peripheral vascular disease, unspecified; Translations: [Peripheral vascular disease, unspecified] Onset: 10-10-2024 10-10-2024 Chronic Residual codes; unclassified (18 sources) Tobacco user; Translations: [Tobacco use] Onset: 11-25-2023 11-25-2023 Episodic Screening and history of mental health and substance abuse codes (3 sources) Tobacco use and exposure - finding 06-04-2022 Chronic Substance-related disorders (3 sources) Nicotine dependence, cigarettes, uncomplicated; Translations: [Smoker] Onset: 05-26-2022 06-09-2022 Chronic Comment on above: Added secondary to d ocumentation in Social History. Substance-related disorders (16 sources) Marijuana user; Translations: [Cannabis use, unspecified, uncomplicated] Onset: 11-25-2023 11-25-2023 Episodic Unclassified (1 source) Patient encounter status 12-22-2023 Viral infection (1 source) COVID-19; Translations: [COVID-19] Onset: 08-15-2021 Past or Other Problems Problem Classification Problem Date Documented Da te Episodic/Chronic Abdominal hernia (20 sources) Unilateral inguinal hernia, without obstruction or gangrene, not specified as recurrent; Translations: [Inguinal hernia] Onset: 05-25-2022 Episodic E Codes: Natural/environment (1 source) Exposure to other specified factors, initial encounter; Translations: [EXPOSURE OTHER SPEC FACTORS INITIAL] Onset: 08-15-2021 Episodic Other connective tissue disease (8 sources) Plantar fasciitis; Translations: [Plantar fascial fibromatosis] Onset: 01-13-2024 01-13-2024 Episodic Other liver diseases (11 sources) Alkaline phosphatase raised; Translations: [Abnormal levels of other serum enzymes] Onset: 11-25-2023 11-25-2023 Episodic Other screening for suspected conditions (not mental disorders or infectious disease) (13 sources) Patient encounter status; Translations: [Encounter for screening for malignant neoplasm of colon] Onset: 11-25-2023 11-25-2023 Episodic Other skin disorders (11 sources) Miliaria; Translations: [Miliaria, unspecified] Onset: 11-25-2023 11-25-2023 Episodic Other skin disorders (11 sources) Lump on face; Translations: [Localized swelling, mass and lump, head] Onset: 11-25-2023 11-25-2023 Episodic Other skin disorders (12 sources) Eruption; Translations: [Rash and other nonspecific skin eruption] Onset: 11-25-2023 11-25-2023 Episodic Spondylosis; intervertebral disc disorders; other back problems (4 sources) Dorsalgia, unspecified; Translations: [Muscle spasm of back] Onset: 08-13-2021 Episodic Sprains and strains (1 source) Strain of muscle, fascia and tendon of lower back, initial encounter; Translations: [STRAIN MUSC FASC TENDON LW BACK INT] Onset: 08-15-2021 Episodic Viral infection (11 sources) Disease caused by 2019-nCoV; Translations: [COVID-19] Onset: 11-25-2023 Resolved: 11-25-2023 11-25-2023 Episodic Results Test Name Value Interpretation Reference Range Facility OCCULT BLOOD*on 10-01-2024 [facility] OCCULT BLOOD Negative [facility] ALL CBC WITH AUTO DIFFon BASOPHILS ABSOLUTE AUTO 0.1 [facility] Basophils/100 WBC (Bld) 1.3 % 0.2 - 2.0 % [facility] Eosinophils/100 WBC (Bld) 2.3 % 0.9 - 7.0 % [facility] Erythrocyte distribution width (RBC) [Ratio] 12.5 % 11.0 - 15.0 % [facility] Hematocrit (Bld) [Volume fraction] 46.1 % 42.0 - 54.0 % [facility] Hemoglobin (Bld) [Mass/Vol] 15.8 g/dL 14.0 - 18.0 g/dL [facility] IMMATURE GRANULOCYTES ABS AUTO 0.01 [facility] Immature granulocytes/100 WBC (Bld) 0.1 % 0.0 - 0.5 % [facility] Interpretation and review of laboratory results Abnormal [facility] LYMPHOCYTES ABSOLUTE AUTO 2 [facility] Lymphocytes/100 WBC (Bld) 21.4 % 20.5 - 60.0 % [facility] MCH (RBC) [Entitic mass] 30.9 pg 25.9 - 34.0 pg [facility] MCHC (RBC) [Mass/Vol] 34.3 g/dL 29.9 - 35.2 g/dL [facility] MCV (RBC) [Entitic vol] 90 fL 80.0 - 94.0 fL [facility] MONOCYTES ABSOLUTE AUTO 1.2 High [facility] Monocytes/100 WBC (Bld) 12.6 % High 1.7 - 12.0 % [facility] NEUTROPHILS ABSOLUTE AUTO 5.7 [facility] Neutrophils/100 WBC (Bld) 62.3 % 43.0 - 75.0 % [facility] Platelet mean volume (Bld) [Entitic vol] 10.4 fL 9.5 - 13.5 [facility]L [facility] PLT 267 [facility] RBC 5.12 [facility] WBC 9.1 [facility] Outside Colonoscopyon 2023 Outside Colonoscopy [id number] D7#1.00TIFF Normal [facility] Reminderson 02-04-2024 Reminders -- From: Sheila Smith LPN To: [facility] - Clinical; Sent: 02/04/2024 09:45:05 EDT Show up: 01/02/2034 07:00:00 EDT Subject: colonoscopy recall Due Date/Time: 02/02/2034 07:00:00 EDT Reminder/Recall Patient due for screening colonoscopy 02/02/2034. Normal [facility] Insurance Correspondenceon 0 01-21-2024 Insurance Correspondence [id number]#1.00TIFF [facility] Consent for Procedure/Surger yon 12-24-2023 Consent for Procedure/Surgery [id number] B0#1.00TIFF [facility] Facesheeton 12-23-2023 Facesheet [id number] 8#1.00TIFF [facility] Ambulatory Visit Summaryon 0 12-22-2023 Ambulatory [...] you for choosing us for your care. [facility] Physician Referralon 024 Physician Referral [id number] #1.00TIFF [facility] Joel 09-16-2022 L Specimen: [id number] Received: 09/17/22 Status: MILDRED Barrera Num: [id number] Spec Type: Surgical Subm Dr: Clive Phillips MD Tissues: A Soft Tissue/Surgical Margin-Other than Tumor,Mass,Lip or Lupe (RT FOREHEAD) Procedures: Rosa ROLLE/Neva L4 Age/ Patient Sex Location Account Attending Physician Jenny uS/Rosa CHAPMAN [id number] Clive Phillips MD SPEC NUM: [id number] RECD: 09/17/22 STATUS: MILDRED BARRERA NUM: [id number] KADE: 09/16/[address]: Clive Phillips MD ENTERED: 09/17/[address] [facility] [address]: TIGIST TYPE: Surgical DEPT: S ORDERED: [...] sectioned revealing a homogeneous, yellow-benitez cut surface. Piano Builder sections are submitted in one cassette labeled A1. Microscopic Description One glass slide with H E stained material has been examined. The microscopic findings support the above pathologic diagnosis. CPT Codes 79275 Specimen: [id number] Received: 09/17/22 Status: MILDRED Barrera Num: [id number] Spec Type: Surgical Subm Dr: Clive Phillips MD Tissues: A Soft Tissue/Surgical Margin-Other than Tumor,Mass,Lip or Lupe (RT FOREHEAD) Procedures: HE, Gross/Neva L4 Patient: Jenny Su [id number] (Continued) Signed (signatur e on file) Juan Tavares MD 09/18/22 0957 [facility] CBC AUTO DIFFon 05-25-2022 BASO # 0.1 103/ul Normal 0.0-0.1 [facility] Comment on above: Performed By: #### C BC #### [facility] [address] [place] [address] Dr. Tacho Pena Basophils/100 WBC (Bld) 1.2 % Normal 0.2-2.0 [facility] Comment on above: Performed By: #### C BC #### [facility] [address] [address] [address] Tacho Pena EO # 0.3 103/ul Normal 0.0-0.7 [facility] Comment on above: Performed By: #### C BC #### [facility] [address] [place] [address] Dr. Tacho Pena Eosinophils/100 WBC (Bld) 3.3 % Normal 0.9-7.0 [facility] Comment on above: Performed By: #### C BC #### [facility] [address] [place] [address] Dr. Tacho Pena Erythrocyte distribution width (RBC) [Ratio] 13.0 % Normal 11.0-15.0 [facility] Comment on above: Performed By: #### C BC #### [facility] [address] [place] [address] Dr. Tacho Pena Hematocrit (Bld) [Volume fraction] 46.3 % Normal 42.0-54.0 [facility] Comment on above: Performed By: #### C BC #### [facility] [address] [place] [address] Dr. Tacho Pena Hemoglobin (Bld) [Mass/Vol] 15.7 g/dL Normal 14.0-18.0 [facility] Comment on above: Performed By: #### C BC #### [facility] [address] [place] [address] Dr. Tacho Pena IG # 0.03 10e3/ul Normal 0.00-0.03 [facility] Comment on above: Performed By: #### C BC #### [facility] [address] [place] [address] Dr. Tacho Pena IG % 0.4 % Normal 0.0-0.5 [facility] Comment on above: Performed By: #### C BC #### [facility] [address] [place] [address] Dr. Tacho Pena LYMPH # 2.2 103/ul Normal 1.2-3.8 [facility] Comment on above: Performed By: #### C BC #### [facility] [address] [place] [address] Dr. Tacho Pena Lymphocytes/100 WBC (Bld) 25.4 % Normal 20.5-60.0 [facility] Comment on above: Performed By: #### C BC #### [facility] [address] [place] [address] Dr. Tacho Pena MANUAL DIFF REQ NO Normal [facility] Comment on above: Performed By: #### C BC #### [facility] [address] [place] [address] Dr. Tacho Pena MCH (RBC) [Entitic mass] 29.7 pg Normal 25.9-34.0 [facility] Comment on above: Performed By: #### C BC #### [facility] [address] [place] [address] Dr. Tacho Pena MCHC (RBC) [Mass/Vol] 33.9 g/dL Normal 29.9-35.2 [facility] Comment on above: Performed By: #### C BC #### [facility] [address] [place] [address] Dr. Tacho Pena MCV (RBC) [Entitic vol] 87.7 fL Normal 80.0-94.0 [facility] Comment on above: Performed By: #### C BC #### [facility] [address] [place] [address] Dr. Tacho Pena MONO # 1.1 103/ul Critically high 0.3-0.8 [facility] Comment on above: Performed By: #### C BC #### [facility] [address] [place] [address] Dr. Tacho Pena Monocytes/100 WBC (Bld) 12.5 % Critically high 1.7-12.0 [facility] Comment on above: Performed By: #### C BC #### [facility] [address] [place] [address] Dr. Tacho Pena NEUT # 4.9 103/ul Normal 1.4-6.5 [facility] Comment on above: Performed By: #### C BC #### [facility] [address] [place] [address] Dr. Tacho Pena Neutrophils/100 WBC (Bld) 57.2 % Normal 43.0-75.0 [facility] Comment on above: Performed By: #### C BC #### [facility] [address] [place], [place] [address] Dr. Tacho Pena Platelet mean volume (Bld) [Entitic vol] 10.2 fL Normal 9.5-13.5 [facility] Comment on above: Performed By: #### C BC #### [facility] [id number] Tacho Pena PLT 269 103/ul Normal 150-450 [facility] Comment on above: Performed By: #### C BC #### [facility] [address] [address] [address] Tacho Pena RBC 5.28 106/ul Normal 4.70-6.10 [facility] Comment on above: Performed By: #### C BC #### [facility] [address] [place] [address] Dr. Tacho Pena WBC 8.6 103/ul Normal 4.0-11.0 [facility] Comment on above: Performed By: #### C BC #### [facility] [address] [place] [address] ABD/PELV W CONon [...] without diverticulitis or appendicitis. Electronically authenticated by: Zoomaal Date: 2022-05-25 17:16 Normal [facility] ER URINE PROFILEon 2 Bilirubin Ql (U) Negative Normal NEGATIVE [facility] Comment on above: Performed By: #### E RUR #### [facility] [address] [place] [address] Dr. aTcho Pena Clarity (U) CLEAR Normal CLEAR [facility] Comment on above: Performed By: #### E RUR #### [facility] [address] [place] [address] Dr. Tacho Pena Color (U) YELLOW Normal YELLOW [facility] Comment on above: Performed By: #### E RUR #### [facility] [address] [place] [address] Dr. Tacho BADILLO A micrscopic examination will be performed if indicated. Normal [facility] Comment on above: Performed By: #### E RUR #### [facility] [address] [place] [address] Dr. Tacho Pena Glucose Ql (U) Negative Normal NEGATIVE [facility] Comment on above: Performed By: #### E RUR #### [facility] [address] [place] [address] Dr. Tacho Pena Hemoglobin Ql (U) Negative Normal NEGATIVE [facility] Comment on above: Performed By: #### E RUR #### [facility] [address] [place] [address] Dr. Tacho Pena Ketones Ql (U) Negative Normal NEGATIVE [facility] Comment on above: Performed By: #### E RUR #### [facility] [address] [place] [address] Dr. Tacho Pena LEUKOCYTES Negative Normal NEGATIVE [facility] Comment on above: Performed By: #### E RUR #### [facility] [address] [place] [address] Dr. Tacho Pena Nitrite Ql (U) Negative Normal NEGATIVE [facility] Comment on above: Performed By: #### E RUR #### [facility] [address] [place] [address] Dr. Tacho Pena pH (U) 5.5 [pH] Normal 5-9 [facility] Comment on above: Performed By: #### E RUR #### [facility] [address] [place] [address] Dr. Tacho Pena SPEC GRAVITY 1.025 Normal 1.005-<=1.025 [facility] Comment on above: Performed By: #### E RUR #### [facility] [address] [place] [address] Dr. Tacho Pena UA PROTEIN Negative Normal NEGATIVE/ TRACE [facility] Comment on above: Performed By: #### E RUR #### [facility] [address] [place] [address] Dr. Tacho Pena UR MICRO IND NOT INDICATED Normal [facility] Comment on above: Performed By: #### E RUR #### [facility] [address] [place] [address] Dr. Tacho Pena Urobilinogen Qn (U) 0.2 {Darion'U}/dL Normal 0.2 - 1. 0 [facility] Comment on above: Performed By: #### E RUR #### [facility] [address] [place] [address] Dr. Tacho Pena PROF 14(COMP METB)on 022 Albumin [Mass/Vol] 3.4 g/dL Normal 3.4-5.0 [facility] Comment on above: Performed By: #### C MP #### [facility] [address] [place] [address] Dr. Tacho Pena Albumin/Globulin [Mass ratio] 1.1 {ratio} Normal [facility] Comment on above: Performed By: #### C MP #### [facility] [address] [place] [address] Dr. Tacho Pena ALP [Catalytic activity/Vol] 153 U/L Critically high 46-116 [facility] Comment on above: Performed By: #### C MP #### [facility] [address] [address] [address] Tacho Pena ALT [Catalytic activity/Vol] 16 U/L Normal 16-63 [facility] Comment on above: Performed By: #### C MP #### [facility] [address] [place] [address] Dr. Tacho Pena Anion gap [Moles/Vol] 13.2 mmol/L Normal [facility] Comment on above: Performed By: #### C MP #### [facility] [address] [place] [address] Dr. Tacho Pena AST [Catalytic activity/Vol] 12 U/L Critically low 15-37 [facility] Comment on above: Performed By: #### C MP #### [facility] [address] [place] [address] Dr. Tacho Pena Bilirubin [Mass/Vol] 0.4 mg/dL Normal 0.2-1.0 [facility] Comment on above: Performed By: #### C MP #### [facility] [address] [place] [address] Dr. Tacho Pena Calcium [Mass/Vol] 8.6 mg/dL Normal 8.5-10.1 [facility] Comment on above: Performed By: #### C MP #### [facility] [address] [place] [address] Dr. Tacho Pena Chloride [Moles/Vol] 103 mmol/L Normal 98-107 [facility] Comment on above: Performed By: #### C MP #### [facility] [address] [place] [address] Dr. Tacho Pena CO2 [Moles/Vol] 25.9 mmol/L Normal 21.0-32.0 [facility] Comment on above: Performed By: #### C MP #### [facility] [address] [address] [address] Tacho Pena Creatinine [Mass/Vol] 0.91 mg/dL Normal 0.70-1.30 [facility] Comment on above: Performed By: #### C MP #### [facility] [address] [address] [address] Tacho Pena EGFR-AF NIUEAN >60 Normal >=60 [facility] Comment on above: Performed By: #### C MP #### [facility] [address] [address] [address] Tacho Pena EGFR-NON AF NIUEAN >60 Normal >=60 [facility] Comment on above: Performed By: #### C MP #### [facility] [address] [place] [address] Dr. Tacho Pena Globulin (S) [Mass/Vol] 3.2 g/dL Normal [facility] Comment on above: Performed By: #### C MP #### [facility] [address] [place] [address] Dr. Tacho Pena Glucose [Mass/Vol] 93 mg/dL Normal 74-106 [facility] Comment on above: Performed By: #### C MP #### [facility] [address] [place] [address] Dr. Tacho Pena Potassium [Moles/Vol] 4.1 mmol/L Normal 3.5-5.1 [facility] Comment on above: Performed By: #### C MP #### [facility] [address] [place] [address] Dr. Tacho Pena Protein [Mass/Vol] 6.6 g/dL Normal 6.4-8.2 [facility] Comment on above: Performed By: #### C MP #### [facility] [address] [place] [address] Dr. Tacho Pena Sodium [Moles/Vol] 138 mmol/L Normal 136-145 [facility] Comment on above: Performed By: #### C MP #### [facility] [address] [place] [address] Dr. Tacho Pena Urea nitrogen [Mass/Vol] 9.0 mg/dL Normal 7.0-18.0 [facility] Comment on above: Performed By: #### C MP #### [facility] [address] [place] [address] Dr. Tacho Pena Urea nitrogen/Creatinine [Mass ratio] 9.9 mg/mg Normal [facility] Comment on above: Performed By: #### C MP #### [facility] [address] [place] [address] Dr. Tacho Pena PROTIMEon 05-25-2022 INR Coag (PPP) [Relative time] 0.96 {INR} Normal [facility] Comment on above: Performed By: #### P T, PTT #### [facility] [address] [place] [address] Dr. Tacho Pena INR GUIDELINES SEE BELOW Normal [facility] Comment on above: Result Comment: TRAVIS RED INR: 2.0 - 3.0 CONDITIONS NOT LISTED BELOW 2.5 - 3.5 FOR PROSTHETIC HEART VALVE REPLACEMENT 2.5 - 3.5 RECURRENT THROMBOSIS Performed By: #### P T, PTT #### [facility] [address] [place] [address] Dr. Tacho Pena PT Coag (PPP) [Time] 10.4 s Normal 9.0-11.6 [facility] Comment on above: Performed By: #### P T, PTT #### [facility] [address] [place] [address] Dr. Tacho Pena PTTon 05-25-2022 aPTT Coag (Bld) [Time] 28.4 s Normal 22.3-36.2 [facility] Comment on above: Performed By: #### P T, PTT #### [facility] [address] [place] [address] Dr. Tacho Pena [facility] SARS-CoV-2 (COVID-19) RNA SHERLEY+probe Ql (Unsp spec) Detected Critically abnormal NOT DETECTED [facility] Comment on above: Result Comment: This test is not yet approved or cleared by the [place] FDA. When there are no FDA-approved or cleared tests available, and other criteria are met, FDA can make tests available under an emergency access mechanism called an Emergency Use Authorization (EUA). The EUA for this test is supported by the Skid Machine Operator of Health and Human Service's (HHS's) declaration [...] longer be used). Performed By: #### [facility] #### [facility] [address] [place] [address] Dr. Tacho Pena XR CHEST 1 Von [...] MG POE Date: 2021-08-13 09:42 Normal [facility] XR RADIUS ULNA LEFT (2 VIEWS )on [...] Srini Powell MD 03/11/20 Final result Normal [facility] Vital Signs Date Time Vital Sign Value Performing Clinician Facility 10-10-2024 13:48-0500 Body height 177.8 cm Saima Issa NP Work Phone: [facility] 10-10-2024 13:48-0500 Body mass index (BMI) [Ratio] 33.43 kg/m2 Saima Issa SPRIGGER Work Phone: [facility] 10-10-2024 13:48-0500 Body temperature 97.81 [degF] Saima De Guzmanyumiko SPRIGGER Work Phone: [facility] 10-10-2024 13:48-0500 Body weight 105.69 kg Saima De Guzmanz SPRIGGER Work Phone: [facility] 10-10-2024 13:48-0500 Diastolic blood pressure 84 mm[Hg] Saima Lacyciera SPRIGGER Work Phone: [facility] 10-10-2024 13:48-0500 Heart rate 85 /min Saima Lacyciera SPRIGGER Work Phone: [facility] 10-10-2024 13:48-0500 Respiratory rate 18 /min Saima Issa SPRIGGER Work Phone: [facility] 10-10-2024 13:48-0500 SaO2% (BldA) [Mass fraction] 98 % Saima De Guzmanyumiko SPRIGGER Work Phone: [facility] 10-10-2024 13:48-0500 Systolic blood pressure 118 mm[Hg] Saima Lacyciera SPRIGGER Work Phone: [facility] 09-26-2024 17:55-0500 Body height 177.8 cm Saima De Guzmanz SPRIGGER Work Phone: [facility] 09-26-2024 17:55-0500 Body mass index (BMI) [Ratio] 33.12 kg/m2 Saimamariano De Guzmanz SPRIGGER Work Phone: [facility] 09-26-2024 17:55-0500 Body temperature 97.81 [degF] Saima Lacyciera SPRIGGER Work Phone: [facility] 09-26-2024 17:55-0500 Body weight 104.69 kg Saima De Guzmanyumiko SPRIGGER Work Phone: [facility] 09-26-2024 17:55-0500 Diastolic blood pressure 88 mm[Hg] Saima De Guzmanyumiko SPRIGGER Work Phone: [facility] 09-26-2024 17:55-0500 Heart rate 87 /min Saima Lacydayannaz SPRIGGER Work Phone: [facility] 09-26-2024 17:55-0500 Respiratory rate 20 /min Saima De Guzmanyumiko SPRIGGER Work Phone: [facility] 09-26-2024 17:55-0500 SaO2% (BldA) [Mass fraction] 97 % Saima Lacyciera SPRIGGER Work Phone: [facility] 09-26-2024 17:55-0500 Systolic blood pressure 122 mm[Hg] Saima Lacyciera SPRIGGER Work Phone: [facility] 12-22-2023 14:56-0500 Blood Pressure Location Mg NILL [facility] 12-22-2023 14:56-0500 Diastolic blood pressure 82 mm[Hg] Mg NILL [facility] 12-22-2023 14:56-0500 Heart rate 76 /min Mg NILL [facility] 12-22-2023 14:56-0500 Respiratory rate 16 /min Mg NILL [facility] 12-22-2023 14:56-0500 Systolic blood pressure 126 mm[Hg] Mg NILL [facility] 11-25-2023 15:01-0500 Body height 177.8 cm Saima Lacyciera SPRIGGER Work Phone: [facility] 11-25-2023 15:01-0500 Body mass index (BMI) [Ratio] 36.13 kg/m2 Saima Monroepage SPRIGGER Work Phone: [facility] 11-25-2023 15:01-0500 Body temperature 97.81 [degF] Saima Aichholz SPRIGGER Work Phone: [facility] 11-25-2023 15:01-0500 Body weight 114.22 kg Saima Aichholz SPRIGGER Work Phone: [facility] 11-25-2023 15:01-0500 Diastolic blood pressure 86 mm[Hg] Saima Aichholz SPRIGGER Work Phone: [facility] 11-25-2023 15:01-0500 Heart rate 86 /min Saima Aichholz SPRIGGER Work Phone: [facility] 11-25-2023 15:01-0500 Respiratory rate 19 /min Saima Aichholz SPRIGGER Work Phone: [facility] 11-25-2023 15:01-0500 SaO2% (BldA) [Mass fraction] 98 % Saima Aichholz SPRIGGER Work Phone: [facility] 11-25-2023 15:01-0500 Systolic blood pressure 142 mm[Hg] Saima Aichholz SPRIGGER Work Phone: [facility] 06-02-2022 14:02-0400 Blood Pressure Location Mg MCKEONL [facility] [place] 06-02-2022 14:02-0400 Diastolic blood pressure 83 mm[Hg] Mg NILL [facility] [place] 06-02-2022 14:02-0400 Heart rate 73 /min Mg NILL [facility] [place] 06-02-2022 14:02-0400 Respiratory rate 16 /min Mg MIKEL [facility] [place] 06-02-2022 14:02-0400 Systolic blood pressure 127 mm[Hg] Mg FARIAS [facility] [place] 03-11-2020 16:10-0400 Body Temperature 98.6 [degF] [facility] [place] 03-11-2020 16:10-0400 BP Diastolic 84 mm[Hg] [facility] [place] , [place] 03-11-2020 16:10-0400 BP Systolic 129 mm[Hg] [facility] [place] 03-11-2020 16:10-0400 Pulse (Heart Rate) 85 /[facility] [place] [place] 03-11-2020 16:10-0400 Pulse Oximetry 96 % [facility] [place] [facility] [place] 03-11-2020 16:10-0400 Respiratory Rate 16 /min [facility] [place] Encounters Encounter Date Encounter Type Care Provider Facility Start: 10-10-2024 End: 10-10-2024 Bamboo flowsheet Saima Issa SPRIGGER Work Phone: [facility] Start: 10-10-2024 End: 10-10-2024 Bamboo flowsheet Saima Issa SPRIGGER Work Phone: [facility] Start: 10-10-2024 End: 10-10-2024 Office outpatient visit 25 minutes Saima Issa SPRIGGER Work Phone: [facility] Comment on above: Bilateral leg pain ( Primary Dx); Obesity (BMI 30-39.9); Weight loss, unintentional; Tobacco user; Marijuana smoker; Diarrhea, unspecified type; PAD (peripheral artery disease) ([facility]) Start: 10-10-2024 End: 10-10-2024 ambulatory SAIMA ISSA Not Available Start: 10-01-2024 End: 10-01-2024 Clinisync Result Encounter Saima Issa SPRIGGER Work Phone: [facility]solic[facility] Start: 10-01-2024 End: 10-01-2024 Clinisync Result Encounter Saima Issa SPRIGGER Work Phone: [facility] Start: 09-30-2024 End: 09-30-2024 Clinisync Result Encounter Saima Issa SPRIGGER Work Phone: [facility] Start: 09-30-2024 End: 09-30-2024 Clinisync Result Encounter Saima Issa SPRIGGER Work Phone: [facility] Start: 09-26-2024 End: 09-26-2024 Office outpatient visit 25 minutes Saima Issa SPRIGGER Work Phone: [facility] Comment on above: Weight loss, uninten tional (Primary Dx); Tobacco user; Obesity (BMI 30-39.9); Marijuana smoker; Chronic pain of right knee; Diarrhea, unspecified type Start: 09-26-2024 End: 09-26-2024 ambulatory SAIMA LACYHOLZ Not Available Start: 09-26-2024 End: 09-26-2024 Bamboo flowsheet Saima Issa SPRIGGER Work Phone: [facility] Start: 09-26-2024 End: 09-26-2024 Bamboo flowsheet Saima Issa SPRIGGER Work Phone: [facility] Start: 04-14-2024 End: 04-14-2024 ambulatory SAIMA AICHHOLZ Not Available Start: 02-03-2024 End: 02-04-2024 ambulatory Mg FARIAS Facility:[id number] Start: 01-13-2024 End: 01-13-2024 ambulatory SAIMA AICHHOLZ Not Available Start: 01-04-2024 End: 01-04-2024 ambulatory AMITA NGUYEN Not Available Start: 12-22-2023 End: 12-23-2023 ambulatory Mg FARIAS Facility:[facility] Start: 12-22-2023 End: 12-22-2023 Patient encounter procedure Mg FARIAS [facility] Start: 12-18-2023 ambulatory Mg FARIAS Facility:Ifeany[facility] Start: 11-25-2023 End: 11-25-2023 Office outpatient visit 15 minutes Saima Issa SPRIGGER Work Phone: [facility] Comment on above: Rash (Primary Dx); Marijuana smoker; Tobacco user; BMI 36.0-36.9,adult; Colon cancer screening Start: 11-25-2023 End: 11-25-2023 ambulatory SAIMA LUIS MANUEL Not Available Start: 11-25-2023 Bamboo flowsheet Siama Luis Manuel SPRIGGER Work Phone: [facility] Start: 11-25-2023 Bamboo flowsheet Saima Luis Manuel SPRIGGER Work Phone: [facility] Start: 09-16-2022 End: 09-16-2022 ambulatory Clive Phillips Facility:[facility] Start: 09-16-2022 End: 09-16-2022 ambulatory MD Clive Phillips Work Phone: [facility] Work Phone: Start: 09-16-2022 End: 09-16-2022 Departed Referred MD Clive Phillips Work Phone: [facility] [place] Start: 07-10-2022 End: 07-10-2022 Patient encounter procedure Mg FARIAS [facility] Start: 06-26-2022 End: 06-26-2022 Patient encounter procedure Mg FARIAS [facility] Start: 06-02-2022 End: 06-02-2022 Patient encounter procedure Mg FARIAS [facility] Start: 05-25-2022 End: 05-25-[address] JOSSY STACY Facility:[facility] Start: 08-13-2021 End: 08-13-2021 ambulatory RUDY YANG Facility:[facility] Start: 03-11-2020 End: 03-11-2020 Emergency department patient visit [facility] Start: 03-11-2020 End: 03-11-2020 Emergency department patient visit [facility] ED Comment on above: Dog bite of left upp er extremity, initial encounter (Primary Dx) Procedures Date Procedure Procedure Detail Performing Clinician Start: 10-01-2024 OCCULT BLOOD* Saima vang SPRIGGER Work Phone: Start: 09-30-2024 ALL CBC WITH AUTO DIFF Saima Issa SPRIGGER Work Phone: Start: 02-03-2024 Colonoscopy Saima de la torre SPRIGGER Work Phone: Start: 06-16-2022 Inguinal hernioplasty M sandi ZONIA Start: 03-11-2020 MISCELLANEOUS NURSIN G CARE ORDER [...] malign ant neoplasm of colon [facility] Start: 03-11-2030 DTaP/Tdap/Td vaccine (2 - Td) DTaP/Tdap/Td vaccine (2 - Td) [place] Start: 10-10-2024 End: 10-10-2024 Patient encounter procedure [facility] Comment on above: Obesity (BMI 30-39.9 ) (Primary Dx); Weight loss, unintentional; Tobacco user; Marijuana smoker Start: 09-26-2024 End: 09-26-2024 Patient encounter procedure 09/26/2024 7:00 PM EST Office Visit [facility] [address] [place] [address] Saima Issa NP [address] [place] [address] Tobacco user (Primary Dx); Obesity (BMI 30-39.9) [facility] Comment on above: Tobacco user (Primar y Dx); Obesity (BMI 30-39.9) Start: 09-26-2024 End: 09-26-2025 C reactive protein [Mass/volume] in Serum or Plasma C-reactive protein Lab Routine Diarrhea, unspecified type Expected: 09/26/2024 (Approximate), Expires: 09/26/2025 [facility] Comment on above: Expected: 09/26/2024 (Approximate), Expires: 09/26/2025 Start: 09-26-2024 End: 09-26-2025 CBC W Auto Differential panel - Blood CBC and differential Lab Routine Weight loss, unintentional Diarrhea, unspecified type Expected: 09/26/2024 (Approximate), Expires: 09/26/2025 [facility] Comment on above: Expected: 09/26/2024 (Approximate), Expires: 09/26/2025 Start: 09-26-2024 End: 09-26-2025 Clostridioides difficile toxin A+B tcdA+tcdB genes [Presence] in Stool by SHERLEY with probe detection Clostridium difficile,EIA Microbiology Routine Diarrhea, unspecified type Expected: 09/26/2024 (Approximate), Expires: 09/26/2025 [facility] Comment on above: Expected: 09/26/2024 (Approximate), Expires: 09/26/2025 Start: 09-26-2024 End: 09-26-2025 Comprehensive metabolic 2000 panel - Serum or Plasma Comprehensive metabolic panel Lab Routine Weight loss, unintentional Diarrhea, unspecified type Expected: 09/26/2024 (Approximate), Expires: 09/26/2025 [facility] Comment on above: Expected: 09/26/2024 (Approximate), Expires: 09/26/2025 Start: 09-26-2024 End: 09-26-2025 Erythrocyte sedimentation rate Sedimentation rate, automated Lab Routine Diarrhea, unspecified type Expected: 09/26/2024 (Approximate), Expires: 09/26/2025 [facility] Comment on above: Expected: 09/26/2024 (Approximate), Expires: 09/26/2025 Start: 09-26-2024 End: 09-26-2025 Measurement of occult blood in single stool specimen Occult blood x 1, stool Lab Routine Diarrhea, unspecified type Expected: 09/26/2024 (Approximate), Expires: 09/26/2025 [facility] Comment on above: Expected: 09/26/2024 (Approximate), Expires: 09/26/2025 Start: 09-26-2024 End: 09-26-2025 Stool culture Stool culture Microbiology Routine Diarrhea, unspecified type Expected: 09/26/2024 (Approximate), Expires: 09/26/2025 [facility] Comment on above: Expected: 09/26/2024 (Approximate), Expires: 09/26/2025 Start: 09-26-2024 End: 09-26-2025 Thyrotropin [Units/volume] in Serum or Plasma TSH Lab Routine Weight loss, unintentional Expected: 09/26/2024 (Approximate), Expires: 09/26/2025 [facility] Comment on above: Expected: 09/26/2024 (Approximate), Expires: 09/26/2025 Start: 09-26-2024 End: 09-26-2025 Urinalysis complete panel - Urine Urinalysis with reflex microscopic (clean catch) Lab Routine Diarrhea, unspecified type Expected: 09/26/2024 (Approximate), Expires: 09/26/2025 [facility] Comment on above: Expected: 09/26/2024 (Approximate), Expires: 09/26/2025 Start: 09-26-2024 End: 09-26-2025 XR Knee - right 3 Views XR knee 3 views right Imaging Routine Chronic pain of right knee Expected: 09/26/2024 (Approximate), Expires: 09/26/2025 [facility] Work Phone: Comment on above: Expected: 09/26/2024 (Approximate), Expires: 09/26/2025 Start: 01-13-2024 End: 01-13-2024 Patient encounter procedure 01/13/2024 9:40 AM EDT Office Visit [facility] [address] [place] [id number] Saima Issa, TEO [address] [place] [phone] [facility] Start: 11-25-2023 End: 11-25-2023 Patient encounter procedure 11/25/2023 3:00 PM EST Office Visit [facility] [address] [place] [address] Saima Issa NP [address] [place] [address] Arrived [facility] Comment on above: Arrived Start: 06-19-2023 Influenza vaccination Influenza Vacc ine (#1) [facility] Start: 06-19-2020 Influenza vaccination Flu vacc ine (Season Ended) [place], [place] Start: 2014 Lipid panel Lipid screen [place], [place] Start: 1989 HIV screening HIV screen [place], [place] Start: 1980 Pneumococcal 0-64 ye ars Vaccine (1 of 1 - PPSV23) Pneumococcal 0-64 years Vaccine (1 of 1 - PPSV23) [place], [place] Start: 1974 Screening for malign ant neoplasm of colon [facility] End: 03-11-2020 XR RADIUS ULNA LEFT (2 VIEWS) XR RADIUS ULNA LEFT (2 VIEWS) Imaging STAT Once for 1 Occurrences starting 03/11/2020 until 03/11/2020 [place] Comment on above: Once for 1 Occurrenc es starting 03/11/2020 until 03/11/2020 XR RADIUS ULNA LEFT (2 VIEWS) XR RADIUS ULNA LEFT (2 VIEWS) Imaging STAT 03/11/2020 5:15 PM EDT [place] Immunizations Immunization Date Immunization Notes Care Provider Fa cility 03-11-2020 diphtheria, tetanus toxoids and acellular pertussis vaccine, unspecified formulation [facility] [place] 03-11-2020 tetanus toxoid, reduced diphtheria toxoid, and acellular pertussis vaccine, adsorbed [place] NEGATED: Highlighted row has not occurred!12-22-2023 influenza virus vaccine, unspecified formulation [facility] Payers Date Payer Category Payer Self-pay 2021 Medicaid [employer] [place] [employer] [id number] 2021-Present [address] [place] [address] [id number] 2021 Medicaid (Managed Care) [facility] MEDICAID [id number] 2019 Unknown [facility] [place] xxxxxxxxxxxx 2019-Present [phone] [address] [place] [address] xxxxxxxxxxxx [id number] 1974 Unknown [id number]. 173 1974 Unknown [id number] [id number]. 593 1974 Unknown [id number] [id number]. 593 1974 Unknown [id number] [id number]. 727 1974 Unknown [id number]. 727 1974 Unknown [id number] [id number]. 9 1974 Unknown [id number] [id number]. 9 1974 Unknown [id number] [id number]. 9 1974 Unknown [id number] [id number]. 9 1974 Unknown [id number] [id number]. 9 1974 Unknown [id number] [id number]. 9 1959 Unknown [id number] 1959 Unknown [id number] Unknown Other1 (STD) [id number] Unknown [id number] 531 Social History Date Type Detail Facility Start: 03-11-2020 End: 11-16-2023 Tobacco smoking status NHIS Current every day smoker [place] Start: 03-11-2020 End: 01-11-2024 Cigarettes smoked current (pack per day) - Reported [place] Start: 03-11-2020 Alcohol intake Current non-dr lead former of alcohol (finding) [place] Start: 1975 Sex Assigned At Not on file M [place], [place] Exposure to SARS-CoV -2 (event) Unable to assess [place] Start: 06-02-2022 End: 12-22-2023 Heavy tobacco smoker (finding) [facility] [place] Never [facility] Start: 11-16-2023 End: 01-11-2024 Male [facility] Start: 1975 Sex Assigned At Male F [facility] History of tobacco use Cigarette Smoker [facility] Start: 11-25-2023 End: 10-10-2024 Alcohol intake Lifetime non-drinker (finding) [facility] Start: 11-25-2023 Alcohol Comment caffine: soda: 6-8daily [facility] Do you belong to any clubs or organizations such as alevism groups, unions, fraternal or athletic groups, or [...] N/A [facility] [address] sekou [facility] 06-02-2022 N/A [facility] Clinical Notes 11-25-2023 to 10-10-2024 Saima Issa NP - 10/10/2024 2:25 PM ESTSaima Issa NP - 10/10/2024 2:25 PM Shani Issa NP - 10/10/2024 2:16 PM ESTLOULOU HENDERSON - 10/10/2024 1:40 PM ESTPatient Instructions Note Date & Type Note Facility 10-10-2024 History of Present illness Narrative Associated Problem(s): PAD (peripheral artery disease) (CMS/HCC) Check FABRIZIO's with segmental pressures Associated Problem(s): Bilateral leg pain Differentials: PAD, lumbar radiculopathy, pes planus Will give hand out on stretching exercises Associated Problem(s): Diarrhea Unclear etiology No obvious GERD/gallbladder sxs, no bloody stools noted Check stool studies and labs Trial bentyl prn abd cramping-did not try this at all either Does admit a lot stress Possible Gallbladder: does have occ RUQ pain, not associated with eating, does feel bloated at times after eating: pt wants to kind of wait and see if diarrhea continues to improve Pt states he is now only having diarrhea once a day now instead of 5-10 times daily. Right knee pain-no changes since last visit Pt has gain 3lbs since last visit Pt has not taken the dicyclomine at all. He has forgotten and only remembers when he is having a BM Images from the original note were not included. Jenny Su is a 48 y.o. male presents with chief complaint of Knee Pain and Diarrhea HPI: Pt states he is now only having diarrhea once a day now instead of 5-10 times daily. Right knee pain-no changes since last visit Pt has gain 3lbs since last visit Pt has not taken the dicyclomine at all. He has forgotten and only remembers when he is having a BM Right knee is better than last visit Does admit to bilat legs achy feeling, feels like they are tired all the time, no swelling in legs Does have lumbar back pain, no NT in legs, Diarrhea This is a recurrent problem. The current episode started more than 1 month ago. The problem occurs less than 2 times per day. The problem has been gradually improving. The stool consistency is described as Watery. The patient states that diarrhea does not awaken him from sleep. Associated symptoms include arthralgias. Pertinent negatives include no abdominal pain, bloating, coughing, headaches or vomiting. Nothing aggravates the symptoms. There are no known risk factors. He has tried nothing for the symptoms. The treatment provided mild relief. There is no history of irritable bowel syndrome or malabsorption. SUBJECTIVE: MEDICATIONS: Current Outpatient Medications Medication Instructions dicyclomine (BENTYL) 20 mg, Oral, Every 8 hours PRN ALLERGIES: Allergies Allergen Reactions Penicillin V Unknown Penicillins REVIEW OF SYMPTOMS: Review of Systems Constitutional: Negative for activity change, appetite change and unexpected weight change. HENT: Negative for ear pain, nosebleeds, sneezing, trouble swallowing and voice change. Eyes: Negative for pain, discharge and visual disturbance. Respiratory: Negative for apnea, cough, chest tightness and wheezing. Cardiovascular: Negative for leg swelling. Gastrointestinal: Positive for diarrhea. Negative for abdominal distention, abdominal pain, bloating, blood in stool, constipation and vomiting. Genitourinary: Negative for decreased urine volume, difficulty urinating, dysuria and hematuria. Musculoskeletal: Positive for arthralgias and back pain. Skin: Negative for color change. Neurological: Negative for dizziness, tremors, seizures and headaches. Psychiatric/Behavioral: Negative for agitation, decreased concentration, hallucinations, [...] his maternal grandfather. OBJECTIVE: Visit Vitals BP 118/84 (BP Location: Left arm, Patient Position: Sitting, BP Cuff Size: Adult long) Pulse 85 Temp 97.8 F (Temporal) Resp 18 Ht 5' 10 Wt 233 lb SpO2 98% BMI 33.43 kg/m Smoking Status Every Day BSA 2.29 m Physical Exam Vitals and nursing note [...] Normal pulses. Heart sounds: Normal heart sounds. Comments: Thickened nails bilat feet, decrease in hair distribution bilat LE Pulmonary: Effort: Pulmonary effort is normal. Breath sounds: Normal breath sounds. No wheezing or rales. Abdominal: General: Bowel sounds are normal. Palpations: Abdomen is soft. Tenderness: There is no abdominal tenderness. There is no guarding. Musculoskeletal: Cervical back: Neck supple. Right lower leg: No edema. Left lower leg: No edema. Comments: Mild tenderness to lower lumbar -SLR X2, MMT 5/5 bilat, DTR's 2+ bilat patellar/achilles Skin: General: Skin is warm and dry. Capillary Refill: Capillary refill takes 2 to 3 seconds. Neurological: General: No focal deficit present. Mental Status: He is alert. Psychiatric: Mood and Affect: Mood normal. Behavior: Behavior normal. Thought Content: Thought content normal. Judgment: Judgment normal. ASSESSMENT AND PLAN: Follow up in about 4 weeks (around 11/07/2024) for Recheck. Problem List Items Addressed This Visit Tobacco user The patient has been advised of the risks of continued smoking: stroke, GA, all forms of cancer, lung disease, and [...] drinks. Has lost 21 pounds this year Weight loss, unintentional Had labs completed, gained 3 pounds since last visit No new symptoms Pt would like to wait to see if things improve Fu 4 weeks Diarrhea Unclear etiology No obvious GERD/gallbladder sxs, no bloody stools noted Check stool studies and labs Trial bentyl prn abd cramping-did not try this at all either Does admit a lot stress Possible Gallbladder: does have occ RUQ pain, not associated with eating, does feel bloated at times after eating: pt wants to kind of wait and see if diarrhea continues to improve PAD (peripheral artery disease) ([facility]) Check FABRIZIO's with segmental pressures Bilateral leg pain - Primary Differentials: PAD, lumbar radiculopathy, pes planus Will give hand out on stretching exercises Associated Problem(s): Tobacco user The patient has been advised of the risks of continued smoking: stroke, GA, all forms of cancer, lung disease, and . Options for quitting smoking include: cold turkey, hypnosis, acupuncture, nicotine replacement meds (gum, lozenges, and patches), Buproprion, and Varenicline. At this time pt is encouraged to evaluate their goals for wanting to quit smoking, and reach out to provider when ready to start this process Associated Problem(s): Weight loss, unintentional Had labs completed, gained 3 pounds since last visit No new symptoms Pt would like to wait to see if things improve Fu 4 weeks Associated Problem(s): Obesity (BMI 30-39.9) Discussed with patient their BMI (actual, verses recommended). We have also discussed lifestyle modifications: attempts to perform physical activity as chronic conditions allow, also to monitor dietary intake: increasing protein/fruits/veggies and lowering carb intake (unless contraindicated). Limit sodas, juices, and sugary drinks. Has lost 21 pounds this year documented in this encounter [facility] 10-10-2024 Instructions Saima Issa NP - 10/10/2024 1:40 PM EST Order test on blood flow in legs: will send order to [facility], they should call you, if no call in 2 weeks, call them to schedule: [phone] Try increasing the fiber in your diet documented in this encounter [facility] 09-26-2024 History of Present illness Narrative Pt [...] of the risks of continued smoking: stroke, GA, all forms of cancer, lung disease, and [...] of the risks of continued smoking: stroke, GA, all forms of cancer, lung disease, and [...] pounds this year documented in this encounter [facility] 09-26-2024 Instructions Saima Issa NP - 09/26/2024 7:00 PM EST Knee pain: xray knee Diarrhea and weight loss: check labs and stool samples Dicyclomine as needed for cramping abd documented in this encounter [facility] 12-22-2023 Note Chief Complaint consultation for colonoscopy HPI Staff 48 year old male presents on consultation from Saima Issa for screening colonoscopy. Denies abdominal or [...] - Not Given Patient Refuses [facility] Comment on above: Result Comment: [...] Appointments Appointment Date:06/09/2022 12:30:00 PM Scheduled Provider: Location:[facility] Appointment Type:Surgical PAT FT Appointment Date:06/09/2022 01:30:00 PM Scheduled Provider: Location:[facility] Appointment Type:Surgery PAT COVID Testing Appointment Date:06/16/2022 08:00:00 AM Scheduled Provider: Location:[facility] Appointment Type:Surgery FT [facility] [place] Evaluation + Plan note Future Appointments Appointment Date:07/10/2022 10:40:00 AM Scheduled Provider:Mg FARIAS MD Location:[facility] Appointment Type:GS Post Op 15 [facility] General [facility] [place] Evaluation note No assessment inform ation available [facility] Work Phone: Evaluation note Diagnosis Rash- Primary [...] unspecified type [facility] [...] pain of right knee Diarrhea, unspecified type Bilateral leg pain- Primary Pain in soft tissues of limb Obesity (BMI 30-39.9) Weight loss, unintentional Loss of weight Tobacco user Tobacco use disorder Marijuana smoker Diarrhea, unspecified type PAD (peripheral artery disease) (CMS/HCC) Unspecified peripheral vascular disease [facility] Narrative No data available for this section [facility] [place] [facility] Discharge instructions No data available for this section [facility] [place] Progress note No data available for this section [facility] [place] Reason for referral (narrative)* Consultation (Routine) - Authorized Specialty Diagnoses / Procedures Referred By Contac t Referred To Contact Dermatology Diagnoses Rash Procedures IA OFFICE/OUTPATIENT NEW HIGH MDM 60 MINUTES Saima Issa NP [address] [place] [address] Amita Nguyen, DIRECTOR OF PROVIDER RELATIONS-ASSOCIATE ART DIRECTOR [address] [address] Referral ID Status Reason Start Date Expiration Date Visits Requested Visits Authorized [id number] Authorized Specialty Services Required 11/25/2023 05/23/2024 1 1 * Consultation (Routine) - Pending Review Specialty Diagnoses / Procedures Referred By Contac t Referred To Contact General Surgery Diagnoses Colon cancer screening Procedures IA OFFICE/OUTPATIENT NEW HIGH MDM 60 MINUTES Saima Issa NP [address] [place] [address] Mg Farias MD [address] [place] [address], [address] [place] [address] Referral ID Status Reason Start Date Expiration Date Visits Requested Visits Authorized [id number] Pending Review Specialty Services Required 11/25/2023 05/23/2024 1 1 [facility] * Attachments The following attachments cannot be sent through Care Everywhere. 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 Advance Directives and Living Will Power of Art Gilder Summary Purpose Family History No Family History Records FoundNo Family History Records FoundNo Family History Records Found No data available for this section No Family History Records FoundNo Family History Records Found Additional Source Comments Reason for Visit (unrecogniz ed section and content) Reason Comments Animal Bite bit on left forearm by stray dog Reason Comments Knee Pain Right pain Reason Comments Knee Pain Diarrhea (unrecognized sect ion and content) No Status Records FoundNo Status Records FoundNo Status Records FoundNo Status Records FoundNo Status Records Found INFORMATION SOURCE (unrecogn ized section and content) DATE CREATED AUTHOR 03/11/2020 [facility] DATE CREATED AUTHOR AUTHOR'S ORGANIZ ATION 05/26/2022 [facility] DATE CREATED AUTHOR AUTHOR'S ORGANIZ ATION 09/29/2022 [facility] DATE CREATED AUTHOR AUTHOR'S ORGANIZ ATION 02/16/2024 [facility] DATE CREATED AUTHOR AUTHOR'S ORGANIZ ATION 10/12/2024 [facility] Care Team (unrecognized sect ion and content) Team Status: Inactive Member Role Status Dates Clive Phillips MD Attending Provider Active Career Development Facilitator Relationship Specialty Start Date End Date Samuel Santiago MD [address] [place] [address] PCP - General Family Medicine 11/16/23 Saima Issa NP [address] [place] [address] Referring Physician Nurse Practitioner 05/06/23 Career Development Facilitator Relationship Specialty Start Date End Date Samuel Santiago MD [address] [place] [address] PCP - [facility] 11/16/23 Saima Issa NP [address] [place] [address] Referring Physician Nurse Practitioner 05/06/23 Career Development Facilitator Relationship Specialty Start Date End Date Samuel Santiago MD [address] [place] [address] PCP - General Family Medicine 11/16/23 Saima Issa NP [address] [place] [address] PCP - [facility] 04/18/24 Saima Issa NP [address] [place] [address] Referring Physician Nurse Practitioner 05/06/23 Career Development Facilitator Relationship Specialty Start Date End Date Samuel Santiago MD [address] [place] [address] PCP - General Family Medicine 11/16/23 Saima Issa NP [address] [place] [address] PCP - [facility] 04/18/24 aSima Issa NP [address] [place] [address] Referring Physician Nurse Practitioner 05/06/23 Career Development Facilitator Relationship Specialty Start Date End Date Samuel Santiago MD [address] [place] [phone] PCP - [facility] 11/16/23 Saima Issa NP [address] [place] [address] [facility] 04/18/24 Saima Issa NP [address] [place] [address] Referring Physician Nurse Practitioner 05/06/23 Career Development Facilitator Relationship Specialty Start Date End Date Samuel Santiago MD [address] [place] [address] PCP - [facility] 11/16/23 Saima Issa NP [address] [place] [address] [facility] 04/18/24 Saima Issa NP [address] [place] [address] Referring Physician Nurse Practitioner 05/06/23 Career Development Facilitator Relationship Specialty Start Date End Date Samuel Santiago MD [address] [place] [address] PCP - General Family [facility] 11/16/23 Saima Issa NP [address] [place] [address] PCP - [facility] 04/18/24 Saima Issa NP [address] [place] [address] Referring Physician Nurse Practitioner 05/06/23 Goals (unrecognized [...] BE BASED ON THE PRIMARY CLINICAL RECORDS. [facility] [employer] [facility]. provides no warranty or guarantee of the accuracy or completeness of information in this document.
== END 2024-10-18 07:51 | disposition home or self-care (01) ==
LOC: VC 07:50
PROVIDERS: PCP Nurse Practitioner; Visit Provider Nurse Practitioner
DX: I73.9 Peripheral vascular disease, unspecified (principal); M79.662 Pain in left lower leg; M79.661 Pain in right lower leg
CPT/HCPCS: 93923

== ENCOUNTER 2024-12-16 09:06 | Outpatient (OUT) | payer OTHER, SELFPAY ==
--- OUTSIDE RECORDS SUMMARY | 2024-12-16 09:26 | XMS_ITS | CCD ---
Author Organization [facility] Care Team Providers Care Specialized Developer Name Role Phone Unavailable Primary Care Provider UnavailRUDY Davila Admitting Unavailable RUDY YANG Attending Unavailable MARY, DR CORCORAN LISTED Primary Care Unavaila MG Pedraza Consulting Unavailable RUDY YANG Consulting Unavailable TAWANNA, DR FENTON Admitting Unavailable TAWANNA, DR FENTON Attending Unavailable AICHHOLZ, SOFTBALL COACH SAIMA Primary Care Unavailable TYRA KINGSLEY Consulting Unavailable REG, STU Consulting Unavailable AICHBERT, SAIMA J Primary Care Physician MD Clive Phillips Attending Provider [phone] Clive Phillips Attending Unavailable Clive Phillips Admitting Unavailable NON STAFF Primary Care Unavailable Aichholz WEB PRESS OPERATOR APPRENTICE, Saima Unavailable Samuel Santiago MD Primary Care Provider [phone] Mg FARIAS Attending Unavailable SAIMA ISSA Referring Unavailable Mg FARIAS Attending Unavailable Aichholz WEB PRESS OPERATOR APPRENTICE, Saima Unavailable Aichbert WEB PRESS OPERATOR APPRENTICE, Saima Unavailable LUIS MANUEL, SAIMA Attending Unavailable KOLTON ROLLE Attending Unavailable AICHHOLZ, SAIMA Referring Unavailable LIZA NGUYEN Attending Unavailable AICHHOLZ, SAIMA Attending Unavailable AICHHOLZ, SAIMA Attending Unavailable AICHHOLZ, SAIMA Attending Unavailable AICHHOLZ, SAIMA Attending Unavailable AICHHOLZ, SAIMA Attending Unavailable Allergies Allergy Classification Reported Allergen(s) Allergy Type Date of Onset Reaction(s) Facility (1 source) Penicillins Propensity to adverse reactions to drug 3 [place], [place] (6 sources) Penicillin; Translations: [penicillin] Drug Allergy 1 Eruption of skin (disorder) [facility] (4 sources) Chlorhexidine; Translations: [chlorhexidine topical] Drug Allergy Eruption of skin (disorder) [facility] (20 sources) Penicillin V Drug Allergy 4 Unknown [facility] (19 sources) Penicillins Drug Intolerance 3 [facility] Medications Current Medications Medication Drug Class(es) [...] every 6 hours as needed. 0 Active ammonium lactate 120 mg/ml topical cream (7 sources) Start: 11-23-2024 End: 11-23-2025 ammonium lactate (Amlactin) 12 % cream Indications: Corns and callosities Apply topically Daily 140 g 3 11/23/2024 11/23/2025 Active naproxen 500 mg oral tablet (4 [...] Dermoid cyst of face 06-09-2022 Chronic Other congenital anomalies (2 sources) Porokeratosis; Translations: [Other specified congenital malformations of skin] 11-23-2024 Chronic Other connective tissue disease (19 sources) Pain in bilateral legs; Translations: [Pain in right leg] Onset: 10-10-2024 10-10-2024 Episodic Other connective tissue disease (18 sources) Bilateral chronic pain of feet; Translations: [Pain in right foot] Onset: 11-10-2024 11-10-2024 Episodic Other connective tissue disease (2 sources) Pain in left foot; Translations: [Pain in left foot] 11-23-2024 Episodic Other diseases of bladder and urethra (20 sources) Overactive bladder; Translations: [Overactive bladder] Onset: 11-25-2023 11-25-2023 Chronic Other gastrointestinal disorders (20 sources) Diarrhea; Translations: [Diarrhea, unspecified] Onset: 09-26-2024 09-26-2024 Episodic Other lower respiratory disease (17 sources) Chronic cough; Translations: [Chronic cough] Onset: 11-10-2024 11-10-2024 Episodic Other non-traumatic joint disorders (20 sources) Pain in right knee; Translations: [Pain in joint, lower leg] Onset: 09-26-2024 09-26-2024 Episodic Other nutritional; endocrine; and metabolic disorders (20 sources) Body mass index 30+ - obesity; Translations: [Body mass index (BMI) 36.0-36.9, adult] Onset: 11-25-2023 Resolved: 04-14-2024 06-02-2022 Chronic Other nutritional; endocrine; and metabolic disorders (1 source) Morbid obesity 12-22-2023 Chronic Other nutritional; endocrine; and metabolic disorders (20 sources) Unintentional weight loss; Translations: [Abnormal weight loss] Onset: 09-26-2024 09-26-2024 Episodic Other skin disorders (2 sources) Callosity; Translations: [Corns and callosities] 11-23-2024 Episodic Peripheral and visceral atherosclerosis (17 sources) Peripheral vascular disease, unspecified; Translations: [Peripheral vascular disease, unspecified] Onset: 10-10-2024 10-10-2024 Chronic Residual codes; unclassified (20 sources) Tobacco user; Translations: [Tobacco use] Onset: 11-25-2023 11-25-2023 Episodic Screening and history of mental health and substance abuse codes (3 sources) Tobacco use and exposure - finding 06-04-2022 Chronic Substance-related disorders (3 sources) Nicotine dependence, cigarettes, uncomplicated; Translations: [Smoker] Onset: 05-26-2022 06-09-2022 Chronic Comment on above: Added secondary to d ocumentation in Social History. Unclassified (1 source) Patient encounter status 12-22-2023 [...] Onset: 08-15-2021 Episodic Other connective tissue disease (19 sources) Plantar fasciitis; Translations: [Plantar fascial fibromatosis] Onset: 01-13-2024 01-13-2024 Episodic Other liver diseases (20 sources) Alkaline phosphatase raised; Translations: [Abnormal levels of other serum enzymes] Onset: 11-25-2023 11-25-2023 Episodic Other screening for suspected conditions (not mental disorders or infectious disease) (20 sources) Patient encounter status; Translations: [Encounter for screening for malignant neoplasm of colon] Onset: 11-25-2023 11-25-2023 Episodic Other skin disorders (20 sources) Miliaria; Translations: [Miliaria, unspecified] Onset: 11-25-2023 11-25-2023 Episodic Other skin disorders (20 sources) Lump on face; Translations: [Localized swelling, mass and lump, head] Onset: 11-25-2023 11-25-2023 Episodic Other skin disorders (20 sources) Eruption; Translations: [Rash and other nonspecific skin eruption] Onset: 11-25-2023 11-25-2023 Episodic Spondylosis; intervertebral disc disorders; other back problems (4 sources) Dorsalgia, unspecified; Translations: [Muscle spasm of back] Onset: 08-13-2021 Episodic Sprains and strains (1 source) Strain of muscle, fascia and tendon of lower back, initial encounter; Translations: [STRAIN MUSC FASC TENDON LW BACK INT] Onset: 08-15-2021 Episodic Substance-related disorders (20 sources) Marijuana user; Translations: [Cannabis use, unspecified, uncomplicated] Onset: 11-25-2023 11-25-2023 Episodic Viral infection (20 sources) Disease caused by 2019-nCoV; Translations: [COVID-19] Onset: 11-25-2023 Resolved: 11-25-2023 11-25-2023 Episodic Results Test Name Value Interpretation Reference Range Facility OCCULT BLOOD*on 10-01-2024 [facility] OCCULT BLOOD Negative [facility] ALL CBC WITH AUTO DIFFon BASOPHILS ABSOLUTE AUTO 0.1 [facility] Basophils/100 WBC (Bld) 1.3 % 0.2 - 2.0 % [facility] Eosinophils/100 WBC (Bld) 2.3 % 0.9 - 7.0 % [facility] Erythrocyte distribution width (RBC) [Ratio] 12.5 % 11.0 - 15.0 % [facility] Hematocrit (Bld) [Volume fraction] 46.1 % 42.0 - 54.0 % [facility] Hemoglobin (Bld) [Mass/Vol] 15.8 g/dL 14.0 - 18.0 g/dL [facility] IMMATURE GRANULOCYTES ABS AUTO 0.01 [facility] Immature granulocytes/100 WBC (Bld) 0.1 % 0.0 - 0.5 % [facility] Interpretation and review of laboratory results Abnormal [facility] LYMPHOCYTES ABSOLUTE AUTO 2 [facility] Lymphocytes/100 WBC (Bld) 21.4 % 20.5 - 60.0 % [facility] MCH (RBC) [Entitic mass] 30.9 pg 25.9 - 34.0 pg [facility] MCHC (RBC) [Mass/Vol] 34.3 g/dL 29.9 - 35.2 g/dL [facility] MCV (RBC) [Entitic vol] 90 fL 80.0 - 94.0 fL [facility] MONOCYTES ABSOLUTE AUTO 1.2 High [facility] Monocytes/100 WBC (Bld) 12.6 % High 1.7 - 12.0 % [facility] NEUTROPHILS ABSOLUTE AUTO 5.7 [facility] Neutrophils/100 WBC (Bld) 62.3 % 43.0 - 75.0 % [facility] Platelet mean volume (Bld) [Entitic vol] 10.4 fL 9.5 - 13.5 fL [facility] TBH EO # 0.2 [facility]H PLT 267 [facility] TB RBC 5.12 [facility] WBC 9.1 [facility] Outside Colonoscopyon 2023 Outside Colonoscopy [id number] D7#1.00TIFF [facility] Reminderson 02-04-2024 Reminders -- From: Sheila Smith LPN To: N - Clinical; Sent: 02/04/2024 09:45:05 EDT Show up: 01/02/2034 07:00:00 EDT Subject: colonoscopy recall Due Date/Time: 02/02/2034 07:00:00 EDT Reminder/Recall Patient due for screening colonoscopy 02/02/2034. [facility] Insurance Correspondenceon 0 01-21-2024 Insurance Correspondence [id number]#1.00TIFF [facility] Consent for Procedure/Surger yon 12-24-2023 Consent for Procedure/Surgery [id number] B0#1.00TIFF [facility] Facesheeton 12-23-2023 Facesheet [id number] 8#1.00TIFF [facility] Ambulatory Visit Summaryon 0 12-22-2023 Ambulatory Visit Summary JAYDEN SU :1975 Visit Date:12/22/2023 Ambulatory Visit Instructions Your Diagnosis Screening for malignant neoplasm of colon Your Care Team Attending Physician - ZONIA SEGURA, Mg Pen[place] Primary Care Physician - SAIMA ISSA CNP [...] you for choosing us for your care. [facility] Physician Referralon 024 Physician Referral [id number] #1.00TIFF [facility] Joel 09-16-2022 L Specimen: [id number] Received: 09/17/22 Status: MILDRED Barrera Num: [id number] Spec Type: Surgical Subm Dr: Clive Phillips MD Tissues: A Soft Tissue/Surgical Margin-Other than Tumor,Mass,Lip or Lupe (RT FOREHEAD) Procedures: Rosa ROLLE/Micro L4 Age/ Patient Sex Location Account Attending Physician Jayden Su/Rosa CHAPMAN [id number] Clive Phillips MD SPEC NUM: [id number] RECD: 09/17/22 STATUS: MILDRED BARRERA NUM: [id number] KADE: 09/16/[address]: Clive Phillips MD ENTERED: 09/17/22 [facility] DR: TIGIST TYPE: Surgical DEPT: S ORDERED: Rosa ROLLE/Micro L4 ORDERED: Rosa ROLLE/Micro L4 Pathological Diagnosis Soft tissue, right forehead, [...] sectioned revealing a homogeneous, yellow-benitez cut surface. Jewel Waxer sections are submitted in one cassette labeled A1. Microscopic Description One glass slide with H E stained material has been examined. The microscopic findings support the above pathologic diagnosis. CPT Codes 62995 Specimen: [id number] Received: 09/17/22 Status: MILDRED Barrera Num: [id number] Spec Type: Surgical Subm Dr: Clive Phillips MD Tissues: A Soft Tissue/Surgical Margin-Other than Tumor,Mass,Lip or Lupe (RT FOREHEAD) Procedures: Rosa ROLLE/Neva L4 Patient: Jayden Su [id number] (Continued) Signed (signatur e on file) Juan Tavares MD 09/18/22 0957 [facility] CBC AUTO DIFFon 05-25-2022 BASO # 0.1 103/ul Normal 0.0-0.1 [facility] Comment on above: Performed By: #### C BC #### [facility] [address] [address] [address] Tacho Pena Basophils/100 WBC (Bld) 1.2 % Normal 0.2-2.0 [facility] Comment on above: Performed By: #### C BC #### [facility] [address] [address] [address] Tacho Pena EO # 0.3 103/ul Normal 0.0-0.7 [facility] Comment on above: Performed By: #### C BC #### [facility] [address] [address] [address] Tacho Pena Eosinophils/100 WBC (Bld) 3.3 % Normal 0.9-7.0 [facility] Comment on above: Performed By: #### C BC #### [facility] [address] [address] [address] Tacho Pena Erythrocyte distribution width (RBC) [Ratio] 13.0 % Normal 11.0-15.0 [facility] Comment on above: Performed By: #### C BC #### [facility] [address] [place] [address] Dr. Tacho Pena Hematocrit (Bld) [Volume fraction] 46.3 % Normal 42.0-54.0 [facility] Comment on above: Performed By: #### C BC #### [facility] [address] [address] [address] Tacho Pena Hemoglobin (Bld) [Mass/Vol] 15.7 g/dL Normal 14.0-18.0 [facility] Comment on above: Performed By: #### C BC #### [facility] [address] [place] [address] Dr. Tacho Pena IG # 0.03 10e3/ul Normal 0.00-0.03 [facility] Comment on above: Performed By: #### C BC #### [facility] [address] [place] [address] Dr. Tacho Pena IG % 0.4 % Normal 0.0-0.5 [facility] Comment on above: Performed By: #### C BC #### [facility] [address] [place] [address] Dr. Tacho Pena LYMPH # 2.2 103/ul Normal 1.2-3.8 [facility] Comment on above: Performed By: #### C BC #### [facility] [address] [place] [address] Dr. Tacho Pena Lymphocytes/100 WBC (Bld) 25.4 % Normal 20.5-60.0 [facility] Comment on above: Performed By: #### C BC #### [facility] [address] [place] [address] Dr. Tacho Pena MANUAL DIFF REQ NO Normal [facility] Comment on above: Performed By: #### C BC #### [facility] [address] [place] [address] Dr. Tacho Pena MCH (RBC) [Entitic mass] 29.7 pg Normal 25.9-34.0 [facility] Comment on above: Performed By: #### C BC #### [facility] [address] [place] [address] Dr. Tacho Pena MCHC (RBC) [Mass/Vol] 33.9 g/dL Normal 29.9-35.2 [facility] Comment on above: Performed By: #### C BC #### [facility] [address] [place] [address] Dr. Tacho Pena MCV (RBC) [Entitic vol] 87.7 fL Normal 80.0-94.0 [facility] Comment on above: Performed By: #### C BC #### [facility] [address] [place] [address] Dr. Tacho Pena MONO # 1.1 103/ul Critically high 0.3-0.8 [facility] Comment on above: Performed By: #### C BC #### [facility] [address] [place] [address] Dr. Tacho Pena Monocytes/100 WBC (Bld) 12.5 % Critically high 1.7-12.0 [facility] Comment on above: Performed By: #### C BC #### [facility] [address] [place] [address] Dr. Tacho Pena NEUT # 4.9 103/ul Normal 1.4-6.5 [facility] Comment on above: Performed By: #### C BC #### [facility] [address] [place] [address] Dr. Tacho Pena Neutrophils/100 WBC (Bld) 57.2 % Normal 43.0-75.0 [facility] Comment on above: Performed By: #### C BC #### [facility] [address] [place] [address] Dr. Tacho Pena Platelet mean volume (Bld) [Entitic vol] 10.2 fL Normal 9.5-13.5 [facility] Comment on above: Performed By: #### C BC #### [facility] [address] [place] [address] Dr. Tacho Pena PLT 269 103/ul Normal 150-450 [facility] Comment on above: Performed By: #### C BC #### [facility] [address] [place] [address] Dr. Tacho Pena RBC 5.28 106/ul Normal 4.70-6.10 [facility] Comment on above: Performed By: #### C BC #### [facility] [address] [place] [address] Dr. Tacho Pena WBC 8.6 103/ul Normal 4.0-11.0 [facility] Comment on above: Performed By: #### C BC #### [facility] [address] [place] [address] ABD/PELV W CONon 05-25-[address] ABD/PELV W CON EXAMINATION: CT ABD/PELV [...] diverticulitis or appendicitis. Electronically authenticated by: STU FINNEY Date: 2022-05-25 17:16 Normal [facility] ER URINE PROFILEon 2 Bilirubin Ql (U) Negative Normal NEGATIVE [facility] Comment on above: Performed By: #### E RUR #### [facility] [address] [place] [address] Dr. Tacho Pena Clarity (U) CLEAR Normal CLEAR [facility] Comment on above: Performed By: #### E RUR #### [facility] [address] [address] [address] Tacho Pena Color (U) YELLOW Normal YELLOW [facility] Comment on above: Performed By: #### E RUR #### [facility] [address] [place] [address] Dr. Tacho BADILLO A micrscopic examination will be performed if indicated. Normal [facility] Comment on above: Performed By: #### E RUR #### [facility] [address] [place] [address] Dr. Tacho Pena Glucose Ql (U) Negative Normal NEGATIVE [facility] Comment on above: Performed By: #### E RUR #### [facility] [address] [place] [address] Dr. Tacho Pena Hemoglobin Ql (U) Negative Normal NEGATIVE [facility] Comment on above: Performed By: #### E RUR #### [facility] [address] [place] [address] Dr. Tacho Pena Ketones Ql (U) Negative Normal NEGATIVE [facility] Comment on above: Performed By: #### E RUR #### [facility] [address] [place] [address] Dr. Tacho Pena LEUKOCYTES Negative Normal NEGATIVE [facility] Comment on above: Performed By: #### E RUR #### [facility] [address] [place] [address] Dr. Tacho Pena Nitrite Ql (U) Negative Normal NEGATIVE [facility] Comment on above: Performed By: #### E RUR #### [facility] [address] [place] [address] Dr. Tacho Pena pH (U) 5.5 [pH] Normal 5-9 [facility] Comment on above: Performed By: #### E RUR #### [facility] [address] [place] [address] Dr. Tacho Pena SPEC GRAVITY 1.025 Normal 1.005-<=1.025 [facility] Comment on above: Performed By: #### E RUR #### [facility] [address] [place] [address] Dr. Tacho Pena UA PROTEIN Negative Normal NEGATIVE/ TRACE [facility] Comment on above: Performed By: #### E RUR #### [facility] [address] [place] [address] Dr. Tacho Pena UR MICRO IND NOT INDICATED Normal [facility] Comment on above: Performed By: #### E RUR #### [facility] [address] [address] [address] Tacho Pena Urobilinogen Qn (U) 0.2 {Darion'U}/dL Normal 0.2 - 1. 0 [facility] Comment on above: Performed By: #### E RUR #### [facility] [address] [place] [address] Dr. Tacho Pena PROF 14(COMP METB)on 022 Albumin [Mass/Vol] 3.4 g/dL Normal 3.4-5.0 [facility] Comment on above: Performed By: #### C MP #### [facility] [address] [place] [address] Dr. Tacho Pena Albumin/Globulin [Mass ratio] 1.1 {ratio} Normal [facility] Comment on above: Performed By: #### C MP #### [facility] [address] [place] [address] Dr. Tacho Pena ALP [Catalytic activity/Vol] 153 U/L Critically high 46-116 [facility] Comment on above: Performed By: #### C MP #### [facility] [address] [place] [address] Dr. Tacho Pena ALT [Catalytic activity/Vol] 16 U/L Normal 16-63 [facility] Comment on above: Performed By: #### C MP #### [facility] [address] [place] [address] Dr. Tacho Pena Anion gap [Moles/Vol] 13.2 mmol/L Normal [facility] Comment on above: Performed By: #### C MP #### [facility] [address] [place] [address] Dr. Tacho Pena AST [Catalytic activity/Vol] 12 U/L Critically low 15-37 [facility] Comment on above: Performed By: #### C MP #### [facility] [address] [address] [address] Tacho Pena Bilirubin [Mass/Vol] 0.4 mg/dL Normal 0.2-1.0 [facility] Comment on above: Performed By: #### C MP #### [facility] [address] [address] [address] Tacho Pena Calcium [Mass/Vol] 8.6 mg/dL Normal 8.5-10.1 [facility] Comment on above: Performed By: #### C MP #### [facility] [address] [address] [address] Tacho Pena Chloride [Moles/Vol] 103 mmol/L Normal 98-107 [facility] Comment on above: Performed By: #### C MP #### [facility] [address] [place] [address] Dr. Tacho Pena CO2 [Moles/Vol] 25.9 mmol/L Normal 21.0-32.0 [facility] Comment on above: Performed By: #### C MP #### [facility] [address] [place] [address] Dr. Tacho Pena Creatinine [Mass/Vol] 0.91 mg/dL Normal 0.70-1.30 [facility] Comment on above: Performed By: #### C MP #### [facility] [address] [place] [address] Dr. Tacho Pena EGFR-AF TANZANIAN >60 Normal >=60 [facility] Comment on above: Performed By: #### C MP #### [facility] [address] [place] [address] Dr. Tacho Pena EGFR-NON AF TANZANIAN >60 Normal >=60 [facility] Comment on above: Performed By: #### C MP #### [facility] [address] [place] [address] Dr. Tacho Pena Globulin (S) [Mass/Vol] 3.2 g/dL Normal [facility] Comment on above: Performed By: #### C MP #### [facility] [address] [place] [address] Dr. Tacho Pena Glucose [Mass/Vol] 93 mg/dL Normal 74-106 [facility] Comment on above: Performed By: #### C MP #### [facility] [address] [address] [address] Tacho Pean Potassium [Moles/Vol] 4.1 mmol/L Normal 3.5-5.1 [facility] Comment on above: Performed By: #### C MP #### [facility] [address] [address] [address] Tacho Pena Protein [Mass/Vol] 6.6 g/dL Normal 6.4-8.2 [facility] Comment on above: Performed By: #### C MP #### [facility] [address] [address] [address] Tacho Pena Sodium [Moles/Vol] 138 mmol/L Normal 136-145 [facility] Comment on above: Performed By: #### C MP #### [facility] [address] [address] [address] Tacho Pena Urea nitrogen [Mass/Vol] 9.0 mg/dL Normal 7.0-18.0 [facility] Comment on above: Performed By: #### C MP #### [facility] [address] [address] [address] Tacho Pena Urea nitrogen/Creatinine [Mass ratio] 9.9 mg/mg Normal [facility] Comment on above: Performed By: #### C MP #### [facility] [address] [address] [address] Tacho Pena PROTIMEon 05-25-2022 INR Coag (PPP) [Relative time] 0.96 {INR} Normal [facility] Comment on above: Performed By: #### P T, PTT #### [facility] [address] [address] [address] Tacho Pena INR GUIDELINES SEE BELOW Normal [facility] Comment on above: Result Comment: TRAVIS RED INR: 2.0 - 3.0 CONDITIONS NOT LISTED BELOW 2.5 - 3.5 FOR PROSTHETIC HEART VALVE REPLACEMENT 2.5 - 3.5 RECURRENT THROMBOSIS Performed By: #### P T, PTT #### [facility] [address] [address] [address] Tacho Pena PT Coag (PPP) [Time] 10.4 s Normal 9.0-11.6 [facility] Comment on above: Performed By: #### P T, PTT #### [facility] [address] [id number] [address] Tacho Pena PTTon 05-25-2022 aPTT Coag (Bld) [Time] 28.4 s Normal 22.3-36.2 [facility] Comment on above: Performed By: #### P T, PTT #### [facility] [address] [address] [address] Tacho Pena Covid-19 PCR ([facility])on 07-20 SARS-CoV-2 (COVID-19) RNA SHERLEY+probe Ql (Unsp spec) Detected Critically abnormal NOT DETECTED [facility] Comment on above: Result Comment: This test is not yet approved or cleared by the [place] FDA. When there are no FDA-approved or cleared tests available, and other criteria are met, FDA can make tests available under an emergency access mechanism called an Emergency Use Authorization (EUA). The EUA for this test is supported by the Foreign Collection Clerk of Health and Human Service's (HHS's) declaration [...] longer be used). Performed By: #### C VDTBH #### [facility] [address] [address] [address] Tacho Pena XR CHEST 1 Von [...] MG POE Date: 2021-08-13 09:42 Normal [facility] XR RADIUS ULNA LEFT (2 VIEWS )on [...] Srini Powell MD 03/11/20 Final result Normal [facility] Vital Signs Date Time Vital Sign Value Performing Clinician Facility 12-07-2024 10:39-0500 Body mass index (BMI) [Ratio] 33.83 kg/m2 Saima Luis Manuel WEB PRESS OPERATOR APPRENTICE Work Phone: [facility] 12-07-2024 10:39-0500 Body temperature 98.1 [degF] Saima Luis Manuel WEB PRESS OPERATOR APPRENTICE Work Phone: [facility] 12-07-2024 10:39-0500 Body weight 106.96 kg Saima Fersanazbert WEB PRESS OPERATOR APPRENTICE Work Phone: [facility] 12-07-2024 10:39-0500 Diastolic blood pressure 84 mm[Hg] Saima Fersanazbert WEB PRESS OPERATOR APPRENTICE Work Phone: [facility] 12-07-2024 10:39-0500 Heart rate 67 /min Saima Luis Manuel WEB PRESS OPERATOR APPRENTICE Work Phone: [facility] 12-07-2024 10:39-0500 Respiratory rate 18 /min Saima Luis Manuel WEB PRESS OPERATOR APPRENTICE Work Phone: [facility] 12-07-2024 10:39-0500 SaO2% (BldA) [Mass fraction] 97 % Saima Luis Manuel WEB PRESS OPERATOR APPRENTICE Work Phone: [facility] 12-07-2024 10:39-0500 Systolic blood pressure 122 mm[Hg] Saima Monroepage WEB PRESS OPERATOR APPRENTICE Work Phone: [facility] 11-23-2024 14:14-0500 Body height 177.8 cm Kolton Rolle DPM Work Phone: [facility] 11-23-2024 14:14-0500 Body mass index (BMI) [Ratio] 33.43 kg/m2 Kolton Rolle DPM Work Phone: [facility] 11-23-2024 14:14-0500 Body weight 105.69 kg Kolton Rolle DPM Work Phone: [facility] 11-10-2024 14:25-0500 Body height 177.8 cm Saima Monroepage WEB PRESS OPERATOR APPRENTICE Work Phone: [facility] 11-10-2024 14:25-0500 Body mass index (BMI) [Ratio] 33.63 kg/m2 Saima Luis Manuel WEB PRESS OPERATOR APPRENTICE Work Phone: [facility] 11-10-2024 14:25-0500 Body temperature 98.1 [degF] Saima Luis Manuel WEB PRESS OPERATOR APPRENTICE Work Phone: [facility] 11-10-2024 14:25-0500 Body weight 106.32 kg Saima Gabz WEB PRESS OPERATOR APPRENTICE Work Phone: [facility] 11-10-2024 14:25-0500 Diastolic blood pressure 88 mm[Hg] Saima Luis Manuel WEB PRESS OPERATOR APPRENTICE Work Phone: [facility] 11-10-2024 14:25-0500 Heart rate 75 /min Saima Gabz WEB PRESS OPERATOR APPRENTICE Work Phone: [facility] 11-10-2024 14:25-0500 Respiratory rate 20 /min Saima Gabz WEB PRESS OPERATOR APPRENTICE Work Phone: [facility] 11-10-2024 14:25-0500 SaO2% (BldA) [Mass fraction] 96 % Saima Luis Manuel WEB PRESS OPERATOR APPRENTICE Work Phone: [facility] 11-10-2024 14:25-0500 Systolic blood pressure 128 mm[Hg] Saimamariano Lacyholz WEB PRESS OPERATOR APPRENTICE Work Phone: [facility] 10-10-2024 13:48-0500 Body height 177.8 cm Saima Ferhholz WEB PRESS OPERATOR APPRENTICE Work Phone: [facility] 10-10-2024 13:48-0500 Body mass index (BMI) [Ratio] 33.43 kg/m2 Saima Bambiholz WEB PRESS OPERATOR APPRENTICE Work Phone: [facility] 10-10-2024 13:48-0500 Body temperature 97.81 [degF] Saima Ferhholz WEB PRESS OPERATOR APPRENTICE Work Phone: [facility] 10-10-2024 13:48-0500 Body weight 105.69 kg Saima Ferhholz WEB PRESS OPERATOR APPRENTICE Work Phone: [facility] 10-10-2024 13:48-0500 Diastolic blood pressure 84 mm[Hg] Saima Bambiholz WEB PRESS OPERATOR APPRENTICE Work Phone: [facility] 10-10-2024 13:48-0500 Heart rate 85 /min Saima Ferhholz WEB PRESS OPERATOR APPRENTICE Work Phone: [facility] 10-10-2024 13:48-0500 Respiratory rate 18 /min Saima Ferhholz WEB PRESS OPERATOR APPRENTICE Work Phone: [facility] 10-10-2024 13:48-0500 SaO2% (BldA) [Mass fraction] 98 % Saima Bambiholz WEB PRESS OPERATOR APPRENTICE Work Phone: [facility] 10-10-2024 13:48-0500 Systolic blood pressure 118 mm[Hg] Saima Aichholz WEB PRESS OPERATOR APPRENTICE Work Phone: [facility] 09-26-2024 17:55-0500 Body height 177.8 cm Saima Aichholz WEB PRESS OPERATOR APPRENTICE Work Phone: [facility] 09-26-2024 17:55-0500 Body mass index (BMI) [Ratio] 33.12 kg/m2 Saima Aichholz WEB PRESS OPERATOR APPRENTICE Work Phone: [facility] 09-26-2024 17:55-0500 Body temperature 97.81 [degF] Saima Lacybert WEB PRESS OPERATOR APPRENTICE Work Phone: [facility] 09-26-2024 17:55-0500 Body weight 104.69 kg Saima De Guzmanz WEB PRESS OPERATOR APPRENTICE Work Phone: [facility] 09-26-2024 17:55-0500 Diastolic blood pressure 88 mm[Hg] Saima Lacydayannaz WEB PRESS OPERATOR APPRENTICE Work Phone: [facility] 09-26-2024 17:55-0500 Heart rate 87 /min Saima Lacydayannaz WEB PRESS OPERATOR APPRENTICE Work Phone: [facility] 09-26-2024 17:55-0500 Respiratory rate 20 /min Saima De Guzmanz WEB PRESS OPERATOR APPRENTICE Work Phone: [facility] 09-26-2024 17:55-0500 SaO2% (BldA) [Mass fraction] 97 % Saima De Guzmanz WEB PRESS OPERATOR APPRENTICE Work Phone: [facility] 09-26-2024 17:55-0500 Systolic blood pressure 122 mm[Hg] Saima De Guzmanz WEB PRESS OPERATOR APPRENTICE Work Phone: [facility] 12-22-2023 14:56-0500 Blood Pressure Location Mg MIKEL [facility] 12-22-2023 14:56-0500 Diastolic blood pressure 82 mm[Hg] Mg MCKEONL [facility] 12-22-2023 14:56-0500 Heart rate 76 /min Mg MCKEONL [facility] 12-22-2023 14:56-0500 Respiratory rate 16 /min Mg MCKEONL [facility] 12-22-2023 14:56-0500 Systolic blood pressure 126 mm[Hg] Mg MCKEONL [facility] 11-25-2023 15:01-0500 Body height 177.8 cm Saima De Guzmanz WEB PRESS OPERATOR APPRENTICE Work Phone: [facility] 11-25-2023 15:01-0500 Body mass index (BMI) [Ratio] 36.13 kg/m2 Saimamariano Lacyholz WEB PRESS OPERATOR APPRENTICE Work Phone: [facility] 11-25-2023 15:01-0500 Body temperature 97.81 [degF] Saima De Guzmanz WEB PRESS OPERATOR APPRENTICE Work Phone: [facility] 11-25-2023 15:01-0500 Body weight 114.22 kg Saimamariano Lacyholz WEB PRESS OPERATOR APPRENTICE Work Phone: [facility] 11-25-2023 15:01-0500 Diastolic blood pressure 86 mm[Hg] Saima Lacyholz WEB PRESS OPERATOR APPRENTICE Work Phone: [facility] 11-25-2023 15:01-0500 Heart rate 86 /min Saima Lacyholz WEB PRESS OPERATOR APPRENTICE Work Phone: [facility] 11-25-2023 15:01-0500 Respiratory rate 19 /min Saima Bambiholz WEB PRESS OPERATOR APPRENTICE Work Phone: [facility] 11-25-2023 15:01-0500 SaO2% (BldA) [Mass fraction] 98 % Saima Lacyholz WEB PRESS OPERATOR APPRENTICE Work Phone: [facility] 11-25-2023 15:01-0500 Systolic blood pressure 142 mm[Hg] Saima Lacyholz WEB PRESS OPERATOR APPRENTICE Work Phone: [facility] 06-02-2022 14:02-0400 Blood Pressure Location Mg FARIAS [facility] [place] 06-02-2022 14:02-0400 Diastolic blood pressure 83 mm[Hg] Mg MCKEONL [facility] [place] 06-02-2022 14:02-0400 Heart rate 73 /min Mg FARIAS [facility] [place] 06-02-2022 14:02-0400 Respiratory rate 16 /min Mg FARIAS [facility] 06-02-2022 14:02-0400 Systolic blood pressure 127 mm[Hg] Mg FARIAS [facility] 03-11-2020 16:10-0400 Body Temperature 98.6 [degF] [facility] [place] [facility]11[facility] 16:10-0400 BP Diastolic 84 mm[Hg] [facility] [place] 03-11-2020 16:10-0400 BP Systolic 129 mm[Hg] [facility] [place] [facility] [place] 03-11-2020 16:10-0400 Pulse (Heart Rate) 85 /min [facility] [place] 03-11-2020 16:10-0400 Pulse Oximetry 96 % [facility] [place] 03-11-2020 16:10-0400 Respiratory Rate 16 /min [facility] [place] Encounters Encounter Date Encounter Type Care Provider Facility Start: 12-07-2024 End: 12-07-2024 Bamboo flowsheet Saima Issa WEB PRESS OPERATOR APPRENTICE Work Phone: [facility] Start: 12-07-2024 End: 12-07-2024 Bamboo flowsheet Saima Issa WEB PRESS OPERATOR APPRENTICE Work Phone: [facility] Start: 12-07-2024 End: 12-07-2024 Office outpatient visit 15 minutes Saima Issa WEB PRESS OPERATOR APPRENTICE Work Phone: [facility] Comment on above: Chronic cough (Prima ry Dx); Weight loss, unintentional; Obesity (BMI 30-39.9); Tobacco user; Bilateral leg pain; Chronic pain of both feet Start: 12-07-2024 End: 12-07-2024 ambulatory SAIMA ISSA Not Available Start: 12-05-2024 End: 12-05-2024 Telephone encounter Saima Issa WEB PRESS OPERATOR APPRENTICE Work Phone: [facility] Comment on above: Chronic cough (Prima ry Dx) Start: 11-23-2024 End: 11-23-2024 Office outpatient new 30 minutes Kolton Rolle DPM Work Phone: [facility] Comment on above: Porokeratosis (Prima ry Dx); Left foot pain; Chronic pain of both feet; Corns and callosities Start: 11-23-2024 End: 11-23-2024 ambulatory KOLTON ROLLE Not Available Start: 11-23-2024 End: 11-23-2024 Bamboo flowsheet Kolton Rolle DPM Work Phone: [facility] Start: 11-23-2024 End: 11-23-2024 Bamboo flowsheet Koltonsimon Rolle DPM Work Phone: [facility] Start: 11-10-2024 End: 11-10-2024 Bamboo flowsheet Saima Issa WEB PRESS OPERATOR APPRENTICE Work Phone: [facility] Start: 11-10-2024 End: 11-10-2024 Bamboo flowsheet Saima Issa WEB PRESS OPERATOR APPRENTICE Work Phone: [facility] Start: 11-10-2024 End: 11-10-2024 Office outpatient visit 25 minutes Saima Issa WEB PRESS OPERATOR APPRENTICE Work Phone: [facility] Comment on above: Chronic pain of both feet (Primary Dx); Diarrhea, unspecified type; Bilateral leg pain; Obesity (BMI 30-39.9); Weight loss, unintentional; Tobacco user; Marijuana smoker; PAD (peripheral artery disease) ([facility] Chronic cough Start: 11-10-2024 End: 11-10-2024 ambulatory SAIMA ISSA Not Available Start: 10-10-2024 End: 10-10-2024 Bamboo flowsheet Saima Issa WEB PRESS OPERATOR APPRENTICE Work Phone: [facility] Start: 10-10-2024 End: 10-10-2024 Bamboo flowsheet Saima De Guzmanyumiko WEB PRESS OPERATOR APPRENTICE Work Phone: [facility] Start: 10-10-2024 End: 10-10-2024 Office outpatient visit 25 minutes Saima De Guzmanyumiko WEB PRESS OPERATOR APPRENTICE Work Phone: [facility] Comment on above: Bilateral leg pain ( Primary Dx); Obesity (BMI 30-39.9); Weight loss, unintentional; Tobacco user; Marijuana smoker; Diarrhea, unspecified type; PAD (peripheral artery disease) ([facility]) Start: 10-10-2024 End: 10-10-2024 ambulatory SAIMA BAMBIHOLZ Not Available Start: 10-01-2024 End: 10-01-2024 Clinisync Result Encounter Saima Lacybert WEB PRESS OPERATOR APPRENTICE Work Phone: [facility] Unsolicited Start: 10-01-2024 End: 10-01-2024 Clinisync Result Encounter Saima Issa WEB PRESS OPERATOR APPRENTICE Work Phone: [facility] Unsolicited Start: 09-30-2024 End: 09-30-2024 Clinisync Result Encounter Saima Issa WEB PRESS OPERATOR APPRENTICE Work Phone: [facility] Unsolicited Start: 09-30-2024 End: 09-30-2024 Clinisync Result Encounter Saima Lacybert WEB PRESS OPERATOR APPRENTICE Work Phone: [facility] Unsolicited Start: 09-26-2024 End: 09-26-2024 Office outpatient visit 25 minutes Saima Luis Manuel WEB PRESS OPERATOR APPRENTICE Work Phone: [facility] Comment on above: Weight loss, uninten tional (Primary Dx); Tobacco user; Obesity (BMI 30-39.9); Marijuana smoker; Chronic pain of right knee; Diarrhea, unspecified type Start: 09-26-2024 End: 09-26-2024 ambulatory SAIMA FERHHOLZ Not Available Start: 09-26-2024 End: 09-26-2024 Bamboo flowsheet Saima Luis Manuel WEB PRESS OPERATOR APPRENTICE Work Phone: [facility] Start: 09-26-2024 End: 09-26-2024 Bamboo flowsheet Saima Luis Manuel WEB PRESS OPERATOR APPRENTICE Work Phone: [facility] Start: 04-14-2024 End: 04-14-2024 ambulatory SAIMA LUIS MANUEL Not Available Start: 02-03-2024 End: 02-04-2024 ambulatory Mg Gorge ZONIA Facility:[id number] Start: 01-13-2024 End: 01-13-2024 ambulatory SAIMA LUIS MANUEL Not Available Start: 01-04-2024 End: 01-04-2024 ambulatory LIZA NGUYEN Not Available Start: 12-22-2023 End: 12-23-2023 ambulatory Mg MCKEONL Facility:[facility] Start: 12-22-2023 End: 12-22-2023 Patient encounter procedure Mg FARIAS General Surgery N[facility]/Patrica [facility] Start: 12-18-2023 ambulatory Mg FARIAS Facility: [facility] Start: 11-25-2023 End: 11-25-2023 Office outpatient visit 15 minutes Saima Issa WEB PRESS OPERATOR APPRENTICE Work Phone: [facility] Comment on above: Rash (Primary Dx); Marijuana smoker; Tobacco user; BMI 36.0-36.9,adult; Colon cancer screening Start: 11-25-2023 Bamboo flowsheet Saima Luis Manuel WEB PRESS OPERATOR APPRENTICE Work Phone: [facility] Start: 11-25-2023 Bamboo flowsheet Saima Issa WEB PRESS OPERATOR APPRENTICE Work Phone: [facility] Start: 09-16-2022 End: 09-16-2022 ambulatory Clive Phillips Facility:[facility] Start: 09-16-2022 End: 09-16-2022 ambulatory MD Clive Phillips Work Phone: [facility] Work Phone: Start: 09-16-2022 End: 09-16-2022 Departed Referred MD Clive Phillips Work Phone: [facility] [place] Start: 07-10-2022 End: 07-10-2022 Patient encounter procedure Mg MCKEONAngeles [facility] [place] Start: 06-26-2022 End: 06-26-2022 Patient encounter procedure Mg Pennington ZONIA [facility] Start: 06-02-2022 End: 06-02-2022 Patient encounter procedure Mg Pennington ZONIA [facility] Start: 05-25-2022 End: 05-25-[address] JOSSY STACY Facility:[facility] Start: 08-13-2021 End: 08-13-2021 ambulatory RUDY YANG Facility:[facility] Start: 03-11-2020 End: 03-11-2020 Emergency department patient visit [facility] Start: 03-11-2020 End: 03-11-2020 Emergency department patient visit [facility] ED Comment on above: Dog bite of left upp er extremity, initial encounter (Primary Dx) Procedures Date Procedure Procedure Detail Performing Clinician Start: 10-01-2024 OCCULT BLOOD* Saima vang WEB PRESS OPERATOR APPRENTICE Work Phone: Start: 09-30-2024 ALL CBC WITH AUTO DIFF Saima Issa WEB PRESS OPERATOR APPRENTICE Work Phone: Start: 02-03-2024 Colonoscopy Saima de la torre WEB PRESS OPERATOR APPRENTICE Work Phone: Start: 06-16-2022 Inguinal hernioplasty Rosa FARIAS Start: 03-11-2020 MISCELLANEOUS NURSIN G CARE ORDER (SPECIFY) Start: 03-11-2020 Radex forearm 2 views Start: 10-19-1984 Excision of cyst Michae l ZONIA Comment on above: forehead Excision of cyst Mg Reynoso Comment on above: forehead Excision of cyst Mg Reynoso Comment on above: right face Plan of Treatment Date Care Activity Detail Author Start: 02-02-2034 Screening for malign ant neoplasm of colon [facility] Start: 03-11-2030 DTaP/Tdap/Td vaccine (2 - Td) DTaP/Tdap/Td vaccine (2 - Td) [place], [place] Start: 01-18-2025 End: 01-18-2025 Patient encounter procedure 01/18/2025 9:00 AM EDT Office Visit [facility] [address] [place] [phone] Saima Issa NP [address] [place] [place] [address] [facility] Start: 12-07-2024 End: 12-07-2024 Patient encounter procedure [facility] Comment on above: Chronic cough (Prima ry Dx); Weight loss, unintentional; Obesity (BMI 30-39.9); Tobacco user Start: 12-05-2024 End: 12-05-2025 XR Chest 2 Views XR chest 2 views Imaging Routine Chronic cough Expected: 12/05/2024 (Approximate), Expires: 12/05/2025 [facility] Work Phone: Comment on above: Expected: 12/05/2024 (Approximate), Expires: 12/05/2025 Start: 11-30-2024 End: 11-30-2024 Patient encounter procedure 11/30/2024 2:20 PM EST Office Visit [facility] [address] [place] [phone] Saima Issa, TEO [address] [place] [phone] [facility] Start: 11-23-2024 End: 11-23-2024 Patient encounter procedure 11/23/2024 2:15 PM EST Office Visit [facility] [address] [place] [phone] Kolton Rolle, DPM [address] [place], [place] [id number] Chronic pain of both feet [facility] Comment on above: Chronic pain of both feet Start: 11-10-2024 End: 11-10-2025 Creatinine [Mass/volume] in Serum or Plasma Creatinine Lab Routine Weight loss, unintentional Tobacco user Chronic cough Expected: 11/10/2024 (Approximate), Expires: 11/10/2025 [facility] Comment on above: Expected: 11/10/2024 (Approximate), Expires: 11/10/2025 Start: 11-10-2024 End: 11-10-2025 CT Chest W contrast IV CT chest w IV contrast Imaging Routine Weight loss, unintentional Tobacco user Chronic cough Expected: 11/10/2024 (Approximate), Expires: 11/10/2025 [facility] Work Phone: Comment on above: Expected: 11/10/2024 (Approximate), Expires: 11/10/2025 Start: 11-10-2024 End: 11-10-2024 Patient encounter procedure 11/10/2024 2:00 PM EST Office Visit [facility] [address] [place] [address] Saima Issa, TEO [address] [place] [address] Diarrhea, unspecified type (Primary Dx); Bilateral leg pain; Obesity (BMI 30-39.9); Weight loss, unintentional; Tobacco user; Marijuana smoker [facility] Comment on above: Diarrhea, unspecifie d type (Primary Dx); Bilateral leg pain; Obesity (BMI 30-39.9); Weight loss, unintentional; Tobacco user; Marijuana smoker Start: 10-10-2024 End: 10-10-2024 Patient encounter procedure [facility] Comment on above: Obesity (BMI 30-39.9 ) (Primary Dx); Weight loss, unintentional; Tobacco user; Marijuana smoker Start: 09-26-2024 End: 09-26-2024 Patient encounter procedure 09/26/2024 7:00 PM EST Office Visit [facility] [address] [place] [address] Saima Issa NP [address] [place] [address] Tobacco user (Primary Dx); Obesity (BMI 30-39.9) [facility] Comment on above: Tobacco user (Primar y Dx); Obesity (BMI 30-39.9) Start: 09-26-2024 End: 09-26-2025 C reactive protein [Mass/volume] in Serum or Plasma C-reactive protein Lab Routine Diarrhea, unspecified type Expected: 09/26/2024 (Approximate), Expires: 09/26/2025 [facility] Comment on above: Expected: 09/26/2024 (Approximate), Expires: 09/26/2025 Start: 09-26-2024 End: 09-26-2025 CBC W Auto Differential panel - Blood CBC and differential Lab Routine Weight loss, unintentional Diarrhea, unspecified type Expected: 09/26/2024 (Approximate), Expires: 09/26/2025 [facility] Comment on above: Expected: 09/26/2024 (Approximate), Expires: 09/26/2025 Start: 09-26-2024 End: 09-26-2025 Clostridioides difficile toxin A+B tcdA+tcdB genes [Presence] in Stool by SHERLEY with probe detection Clostridium difficile,EIA Microbiology Routine Diarrhea, unspecified type Expected: 09/26/2024 (Approximate), Expires: 09/26/2025 [facility] Comment on above: Expected: 09/26/2024 (Approximate), Expires: 09/26/2025 Start: 09-26-2024 End: 09-26-2025 Comprehensive metabolic 2000 panel - Serum or Plasma Comprehensive metabolic panel Lab Routine Weight loss, unintentional Diarrhea, unspecified type Expected: 09/26/2024 (Approximate), Expires: 09/26/2025 [facility] Comment on above: Expected: 09/26/2024 (Approximate), Expires: 09/26/2025 Start: 09-26-2024 End: 09-26-2025 Erythrocyte sedimentation rate Sedimentation rate, automated Lab Routine Diarrhea, unspecified type Expected: 09/26/2024 (Approximate), Expires: 09/26/2025 [facility] Comment on above: Expected: 09/26/2024 (Approximate), Expires: 09/26/2025 Start: 09-26-2024 End: 09-26-2025 Measurement of occult blood in single stool specimen Occult blood x 1, stool Lab Routine Diarrhea, unspecified type Expected: 09/26/2024 (Approximate), Expires: 09/26/2025 [facility] Comment on above: Expected: 09/26/2024 (Approximate), Expires: 09/26/2025 Start: 09-26-2024 End: 09-26-2025 Stool culture Stool culture Microbiology Routine Diarrhea, unspecified type Expected: 09/26/2024 (Approximate), Expires: 09/26/2025 [facility] Comment on above: Expected: 09/26/2024 (Approximate), Expires: 09/26/2025 Start: 09-26-2024 End: 09-26-2025 Thyrotropin [Units/volume] in Serum or Plasma TSH Lab Routine Weight loss, unintentional Expected: 09/26/2024 (Approximate), Expires: 09/26/2025 [facility] Comment on above: Expected: 09/26/2024 (Approximate), Expires: 09/26/2025 Start: 09-26-2024 End: 09-26-2025 Urinalysis complete panel - Urine Urinalysis with reflex microscopic (clean catch) Lab Routine Diarrhea, unspecified type Expected: 09/26/2024 (Approximate), Expires: 09/26/2025 [facility] Comment on above: Expected: 09/26/2024 (Approximate), Expires: 09/26/2025 Start: 09-26-2024 End: 09-26-2025 XR Knee - right 3 Views XR knee 3 views right Imaging Routine Chronic pain of right knee Expected: 09/26/2024 (Approximate), Expires: 09/26/2025 [facility] Work Phone: Comment on above: Expected: 09/26/2024 (Approximate), Expires: 09/26/2025 Start: 01-13-2024 End: 01-13-2024 Patient encounter procedure 01/13/2024 9:40 AM EDT Office Visit [facility] [address] [place] [phone] Saima Issa, WEB PRESS OPERATOR APPRENTICE [address] [place] [phone] [facility] Start: 11-25-2023 End: 11-25-2023 Patient encounter procedure 11/25/2023 3:00 PM EST Office Visit [facility] [address] [place] [phone] Saima Issa, WEB PRESS OPERATOR APPRENTICE [address] [place] [phone] Arrived [facility] Comment on above: Arrived Start: 06-19-2023 Influenza vaccination Influenza Vacc ine (#1) [facility] Start: 06-19-2020 Influenza vaccination Flu vacc ine (Season Ended) [place], [place] Start: 2014 Lipid panel Lipid screen [place], [place] Start: 1989 HIV screening HIV screen [facility] [place], [place] Start: 1980 Pneumococcal 0-64 ye ars Vaccine (1 of 1 - PPSV23) Pneumococcal 0-64 years Vaccine (1 of 1 - PPSV23) [place], [place] Start: 1974 Screening for malign ant neoplasm of colon [facility] Pulmonary function report Pulmonary Function Test Imaging Routine Chronic cough Tobacco user Ordered: 12/07/2024 [facility] Work Phone: Comment on above: Ordered: 12/07/2024 End: 03-11-2020 XR RADIUS ULNA LEFT (2 VIEWS) XR RADIUS ULNA LEFT (2 VIEWS) Imaging STAT Once for 1 Occurrences starting 03/11/2020 until 03/11/2020 [place], [place] Comment on above: Once for 1 Occurrenc es starting 03/11/2020 until 03/11/2020 XR RADIUS ULNA LEFT (2 VIEWS) XR RADIUS ULNA LEFT (2 VIEWS) Imaging STAT 03/11/2020 5:15 PM EDT [place], [place] Immunizations Immunization Date Immunization Notes Care Provider Fa cility 03-11-2020 diphtheria, tetanus toxoids and acellular pertussis vaccine, unspecified formulation [place], [place] 03-11-2020 tetanus toxoid, reduced diphtheria toxoid, and acellular pertussis vaccine, adsorbed [place] NEGATED: Highlighted row has not occurred!12-22-2023 influenza virus vaccine, unspecified formulation Mg ZONIA [facility] Payers Date Payer Category Payer Self-pay 2021 Medicaid [employer] [place] [employer] [id number] 2021-Present [address] [place] [phone] [id number] 2021 Medicaid (Managed Care) [facility] MEDICAID [id number] 2019 Unknown [facility] [facility] xxxxxxxxxxxx 2019-Present [phone] [address] [facility] [place] [address] [id number] 1974 Unknown [id number] 2.16.840.1.456669.3.579.2. 173 1974 Unknown [id number] 2.16.840.1.914823.3.579.2. 593 1974 Unknown [id number] 2.16.840.1.203167.3.579.2. 593 1974 Unknown [id number] 2.16.840.1.305351.3.579.2. 727 1974 Unknown [id number] 2.16.840.1.486266.3.579.2. 727 1974 Unknown [id number] 2.16.840.1.480778.3.579.2. 9 1974 Unknown [id number] 2.16.840.1.856926.3.579.2. 9 1974 Unknown [id number] 2.16.840.1.492624.3.579.2. 9 1974 Unknown [id number] 2.16.840.1.407196.3.579.2. 9 1974 Unknown [id number] 2.16.840.1.050594.3.579.2. 9 1974 Unknown [id number] 2.16.840.1.262262.3.579.2. 9 1974 Unknown [id number] 2.16.840.1.922680.3.579.2. 9 1974 Unknown [id number] 2.16.840.1.763833.3.579.2. 9 1959 Unknown [id number] 1959 Unknown [id number] Unknown Other1 (STD) [id number] Unknown [id number] [id number]. 531 Social History Date Type Detail Facility Start: 03-11-2020 End: 11-23-2024 Tobacco smoking status NHIS Current every day smoker [place], [place] Start: 03-11-2020 End: 01-11-2024 Cigarettes smoked current (pack per day) - Reported [place], [place] Start: 03-11-2020 Alcohol intake Current non-dr product examiner of alcohol (finding) [place], [place] Start: 1975 Sex Assigned At Not on file [place] Exposure to SARS-CoV -2 (event) Unable to assess [place] Start: 06-02-2022 End: 12-22-2023 Heavy tobacco smoker (finding) [facility] Start: 11-16-2023 End: 01-11-2024 Male [facility] Start: 1975 Sex Assigned At Male F [facility] History of tobacco use Cigarette Smoker [facility] Start: 11-25-2023 End: 12-07-2024 Alcohol intake Lifetime non-drinker (finding) [facility] Start: 11-25-2023 Alcohol Comment caffine: soda: 6-8daily [facility] Do you belong to any clubs or organizations such as bahai groups, unions, fraternal or athletic groups, or [...] N/A [facility] [place] 06-02-2022 N/A Juanita Mcdonald [facility] [place] Clinical Notes 11-25-2023 to 12-07-2024 Saima Issa NP - 12/07/2024 11:29 AM Shani Issa NP - 12/07/2024 11:28 AM Shani Issa NP - 12/07/2024 10:30 AM Shani Issa NP - 12/07/2024 7:47 AM ESTPatient Instructions Note Date & Type Note Facility 12-07-2024 History of Present illness Narrative Associated Problem(s): Chronic pain of both feet Better after podiatry procedure Associated Problem(s): Bilateral leg pain Feeling better Images from the original note were not included. Jayden Su is a 48 y.o. male presents with chief complaint of No chief complaint on file. HPI: Feet feel better, less leg pain and not much back pain Cough This is a chronic problem. The current episode started more than 1 year ago. The problem has been waxing and waning. Episode frequency: daily. The cough is Productive of brown sputum. Associated symptoms include heartburn (occ), shortness of breath (at times), weight loss and wheezing (at night). Pertinent negatives include no chest pain, chills, ear congestion, ear pain, fever, headaches, hemoptysis, nasal congestion, postnasal drip, rash, rhinorrhea, sore throat or sweats. Nothing aggravates the symptoms. Risk factors for lung disease include smoking/tobacco exposure. He has tried nothing for the symptoms. There is no history of asthma, COPD, emphysema or environmental allergies. SUBJECTIVE: MEDICATIONS: Current Outpatient Medications Medication Instructions ammonium lactate (Amlactin) 12 % cream Topical, Daily ALLERGIES: Allergies Allergen Reactions Penicillin V Unknown Penicillins REVIEW OF SYMPTOMS: Review of Systems Constitutional: Positive for weight loss. Negative for activity change, appetite change, chills, fever and unexpected weight change. HENT: Negative for ear pain, nosebleeds, postnasal drip, rhinorrhea, sneezing, sore throat, trouble swallowing and voice change. Eyes: Negative for pain, discharge and visual disturbance. Respiratory: Positive for cough, shortness of breath (at times) and wheezing (at night). Negative for apnea, hemoptysis and chest tightness. Cardiovascular: Negative for chest pain and leg swelling. Gastrointestinal: Positive for heartburn (occ). Negative for abdominal distention, blood in stool, constipation and diarrhea. Genitourinary: Negative for decreased urine volume, difficulty urinating, dysuria and hematuria. Skin: Negative for color change and rash. Neurological: Negative for dizziness, tremors, seizures and [...] his maternal grandfather. OBJECTIVE: Visit Vitals BP 122/84 (BP Location: Left arm, Patient Position: Sitting, BP Cuff Size: Adult long) Pulse 67 Temp 98.1 F (Temporal) Resp 18 Wt 235 lb 12.8 oz SpO2 97% BMI 33.83 kg/m Smoking Status Every Day BSA 2.3 m Physical Exam Vitals and nursing note reviewed. Constitutional: General: He is not in acute distress. Appearance: Normal appearance. He is obese. He is not ill-appearing. HENT: Head: Normocephalic. Right Ear: External ear normal. Left Ear: External ear normal. Nose: Nose normal. Mouth/Throat: Mouth: Mucous membranes are moist. Pharynx: Oropharynx is clear. Eyes: Extraocular Movements: Extraocular movements intact. Conjunctiva/sclera: Conjunctivae normal. Cardiovascular: Rate and Rhythm: Normal rate and regular rhythm. Pulses: Normal pulses. Heart sounds: Normal heart sounds. No murmur heard. Pulmonary: Effort: Pulmonary effort is normal. No respiratory distress. Breath sounds: Normal breath sounds. No stridor. No wheezing, rhonchi or rales. Abdominal: General: Bowel sounds are normal. There is no distension. Palpations: Abdomen is soft. There is no mass. Tenderness: There is no abdominal tenderness. There is no rebound. Musculoskeletal: Cervical back: Neck supple. Right lower leg: No edema. Left lower leg: No edema. Skin: General: Skin is warm and dry. Capillary Refill: Capillary refill takes 2 to 3 seconds. Neurological: General: No focal deficit present. Mental Status: He is alert. Psychiatric: Mood and Affect: Mood normal. Behavior: Behavior normal. Thought Content: Thought content normal. Judgment: Judgment normal. ASSESSMENT AND PLAN: Follow up in about 6 weeks (around 01/18/2025) for Recheck. Problem List Items Addressed This Visit Tobacco user The patient has been advised of the risks of continued smoking: stroke, UT, all forms of cancer, lung disease, and . Options for quitting smoking include: cold turkey, hypnosis, acupuncture, nicotine replacement meds (gum, lozenges, and patches), Buproprion, and Varenicline. At this time pt is encouraged to evaluate their goals for wanting to quit smoking, and reach out to provider when ready to start this process Smoked: 32 years, 1.5ppd Relevant Orders Pulmonary Function Test Obesity (BMI 30-39.9) Discussed with patient their BMI (actual, verses recommended). We have also discussed lifestyle modifications: attempts to perform physical activity as chronic conditions allow, also to monitor dietary intake: increasing protein/fruits/veggies and lowering carb intake (unless contraindicated). Limit sodas, juices, and sugary drinks. Weight loss, unintentional Weight 12/12: 251 lbs, 09/26/24 230 Checked labs 10/11: no acute findings except sl elevated ALP Had colonscopy in 02/04/24: normal Stabilized at this time Bilateral leg pain Feeling better Chronic cough - Primary Insurance will not cover CT chest 11/28/24 Will need to start with cxr Risk factors: unintentional weight loss, strong smoking history Suspicion pt has COPD/Emphysema, however with weight loss (which has now stablized) CT still recommended Order PFT as well Relevant Orders Pulmonary Function Test Chronic pain of both feet Better after podiatry procedure Associated Problem(s): Tobacco user The patient has been advised of the risks of continued smoking: stroke, UT, all forms of cancer, lung disease, and . Options for quitting smoking include: cold turkey, hypnosis, acupuncture, nicotine replacement meds (gum, lozenges, and patches), Buproprion, and Varenicline. At this time pt is encouraged to evaluate their goals for wanting to quit smoking, and reach out to provider when ready to start this process Smoked: 32 years, 1.5ppd Associated Problem(s): Weight loss, unintentional Weight 12/12: 251 lbs, 09/26/24 230 Checked labs 10/11: no acute findings except sl elevated ALP Had colonscopy in 02/04/24: normal Stabilized at this time Associated Problem(s): Obesity (BMI 30-39.9) Discussed with patient their BMI (actual, verses recommended). We have also discussed lifestyle modifications: attempts to perform physical activity as chronic conditions allow, also to monitor dietary intake: increasing protein/fruits/veggies and lowering carb intake (unless contraindicated). Limit sodas, juices, and sugary drinks. Associated Problem(s): Chronic cough Insurance will not cover CT chest 11/28/24 Will need to start with cxr Risk factors: unintentional weight loss, strong smoking history Suspicion pt has COPD/Emphysema, however with weight loss (which has now stablized) CT still recommended Order PFT as well documented in this encounter [facility] 12-07-2024 Instructions Saima Issa NP - 12/07/2024 10:30 AM EST We will check chest xray: you can walk in to do that We will order pulmonary function testing (breathing test) [facility] will call you documented in this encounter [facility] 12-05-2024 Telephone encounter Note Contact pt, his insurance will not approve a CT chest, they want us to start with a CXR, I have an order for this, fax it to where ever he wants and we will go from there [facility] 12-05-2024 Miscellaneous Notes Contact pt, his insurance will not approve a CT chest, they want us to start with a CXR, I have an order for this, fax it to where ever he wants and we will go from there documented in this encounter [facility] 12-05-2024 History of Present illness Narrative Associated Problem(s): Chronic cough Insurance will not cover CT chest 11/28/24 We will start with cxr then documented in this encounter [facility] 11-23-2024 History of Present illness Narrative Images from the original note were not included. Subjective Patient ID: Jayden Su is a 48 y.o. male who presents for Foot Pain (Jayden Su 48yo presents as New patient with referral from Igor Issa. Patient states pain started 2 months ago. Patient points to callused area of the left heel. SS 10). HPI This is a new patient who presents to clinic via referral with concern of left foot pain. Patient states that he has noticed pain in the left heel. This has been going on for a few months. The last few months he has noted a large callus formation on the plantar aspect of the left feel that seems to be in the direct location of his symptomatology. He has tried various creams without relief. Review of Systems Constitutional: Negative for activity change and appetite change. Respiratory: Negative for chest tightness and shortness of breath. Cardiovascular: Negative for chest pain. Musculoskeletal: Positive for arthralgias and gait problem. Skin: Negative for color change and wound. Neurological: Negative for weakness and numbness. Psychiatric/Behavioral: Negative for agitation and behavioral problems. Hematological: Does not bruise/bleed easily. Endocrine: Negative for cold intolerance and heat intolerance. Allergic/Immunologic: Negative for immunocompromised state. Past medical History Past Medical History: Diagnosis Date COVID last oct Elevated alkaline phosphatase level Left inguinal hernia Lump on face Miliaria OAB (overactive bladder) Tobacco user Medications Current Outpatient Medications: ammonium lactate (Amlactin) 12 % cream, Apply topically Daily, Disp: 140 g, Rfl: 3 Allergies Penicillin v and Penicillins Past Surgical History Past Surgical History: Procedure Laterality Date CYST REMOVAL Removed as a child Family History Family History Problem Relation Name Age of Onset Cancer Maternal Grandfather Objective Physical Exam Constitutional: General: He is not in acute distress. HENT: Head: Atraumatic. Cardiovascular: Pulses: Normal pulses. Musculoskeletal: Cervical back: No tenderness. Comments: Pes planovalgus morphology. Skin: Capillary Refill: Capillary refill takes less than 2 seconds. Comments: Left foot: Hyperkeratotic tissue with central core noted plantar medial calcaneal region. Skin lines passed through the lesion. No pinpoint, thrombosed capillaries. Lesion is tender with direct palpation. There are also other scattered porokeratotic lesions in the plantar left foot that are nonpainful. Neurological: General: No focal deficit present. Mental Status: He is alert. Psychiatric: Mood and Affect: Mood normal. Behavior: Behavior normal. Assessment/Plan ICD-10-CM 1. Porokeratosis Q82.8 2. Left foot pain M79.672 3. Chronic pain of both feet M79.671 Ambulatory referral to Podiatry G89.29 M79.672 4. Corns and callosities L84 ammonium lactate (Amlactin) 12 % cream Patient was examined and evaluated. He has a lesion consistent with porokeratosis. I discussed causes and treatment options for porokeratotic lesions. Lesion is symptomatic and on an anatomic area that is prone to irritation. I have debrided the porokeratotic lesion sharply with a sterile #15 blade and enucleated the lesion until pinpoint bleeding was encountered. The base of the lesion was cauterized with a single 30 second application of 10% phenol. Lesion was packed with 55% salicylic acid and an occlusive offloading dressing was applied. I discussed preventative measures for calluses including daily debridements with a pumice stone or emery board. I have recommended ammonium lactate cream daily to the hyperkeratotic tissue to encourage sloughing of the skin. Prescription was sent to patient's pharmacy. For now we will follow-up as needed. This note was created with the assistance of a speech recognition program. While intending to generate a timely document that accurately reflects the content of the visit, no guarantee can be provided that every grammatical or spelling mistake has been or will be identified or corrected. Thank you for your understanding. Kolton Rolle DPM documented in this encounter [facility] 11-10-2024 History of Present illness Narrative Associated Problem(s): Chronic pain of both feet Has multiple callouses and pain bilat feet Also pes planus Refer to podiatry Associated Problem(s): PAD (peripheral artery disease) ([facility]) Normal segmental pressures Associated Problem(s): Weight loss, unintentional Had labs completed, gained 3 pounds since last visit No new symptoms Pt would like to wait to see if things improve Fu 4 weeks Sore dry spot on bottom of left foot heel that can be painful using old cream that he had from his principal technical writer about a year ago Images from the original note were not included. Jayden Su is a 48 y.o. male presents with chief complaint of No chief complaint on file. HPI: Diarrhea: very intermittent, no blood, notes if doesn't eat gets diarrhea, but if eats in the morning then none. Leg pains: are better, does have lower back pain, mild-severe. Stiffness, better as day goes on. No loss of bowel/bladder function, non NT LE. No swelling legs. No blood in urine. Heel pain left heal: present for several months : several painful callouses both feet, also has rash to feet Cough: hacky, no wheeze, occ short of breath, no blood SUBJECTIVE: MEDICATIONS: No current outpatient medications ALLERGIES: Allergies Allergen Reactions Penicillin V Unknown Penicillins REVIEW OF SYMPTOMS: Review of Systems Constitutional: Negative for activity change, appetite change and unexpected weight change. HENT: Negative for ear pain, nosebleeds, sneezing, trouble swallowing and voice change. Eyes: Negative for pain, discharge and visual disturbance. Respiratory: Positive for cough and shortness of breath. Negative for apnea, chest tightness and wheezing. Cardiovascular: Negative for leg swelling. Gastrointestinal: Negative for abdominal distention, blood in stool, constipation and diarrhea. Genitourinary: Negative for decreased urine volume, difficulty urinating, dysuria and hematuria. Musculoskeletal: Positive for arthralgias. Skin: Positive for rash. Negative for color [...] his maternal grandfather. OBJECTIVE: Visit Vitals BP 128/88 (BP Location: Left arm, Patient Position: Sitting, BP Cuff Size: Adult long) Pulse 75 Temp 98.1 F (Temporal) Resp 20 Ht 5' 10 Wt 234 lb 6.4 oz SpO2 96% BMI 33.63 kg/m Smoking Status Every Day BSA 2.29 m Physical Exam Vitals and nursing note reviewed. Constitutional: Appearance: Normal appearance. He is obese. HENT: Head: Normocephalic. Right Ear: External ear normal. Left Ear: External ear normal. Nose: Nose normal. Mouth/Throat: Mouth: Mucous membranes are moist. Pharynx: Oropharynx is clear. Eyes: Extraocular Movements: Extraocular movements intact. Conjunctiva/sclera: Conjunctivae normal. Cardiovascular: Rate and Rhythm: Normal rate and regular rhythm. Pulses: Normal pulses. Heart sounds: Normal heart sounds. Pulmonary: Effort: Pulmonary effort is normal. Breath sounds: Wheezing and rhonchi present. No rales. Comments: Both clear with cough Abdominal: General: Bowel sounds are normal. Palpations: Abdomen is soft. Musculoskeletal: Cervical back: Neck supple. Right lower leg: No edema. Left lower leg: No edema. Skin: General: Skin is warm and dry. Capillary Refill: Capillary refill takes 2 to 3 seconds. Findings: Lesion (painful callouses to soul of feet) and rash (bilat feet with rash c/w tinea, mocasin type,) present. Neurological: General: No focal deficit present. Mental Status: He is alert. Psychiatric: Mood and Affect: Mood normal. Behavior: Behavior normal. Thought Content: Thought content normal. Judgment: Judgment normal. ASSESSMENT AND PLAN: Follow up in about 6 weeks (around 12/22/2024) for Recheck. Problem List Items Addressed This Visit Tobacco user The patient has been advised of the risks of continued smoking: stroke, UT, all forms of cancer, lung disease, and . Options for quitting smoking include: cold turkey, hypnosis, acupuncture, nicotine replacement meds (gum, lozenges, and patches), Buproprion, and Varenicline. At this time pt is encouraged to evaluate their goals for wanting to quit smoking, and reach out to provider when ready to start this process Relevant Orders CT chest w IV contrast Creatinine Marijuana smoker Obesity (BMI 30-39.9) Discussed with [...] see if things improve Fu [address] chest w IV contrast Creatinine Diarrhea - Primary Unclear etiology No obvious GERD/gallbladder sxs, no bloody stools noted Check stool studies and labs: normal Trial bentyl prn abd cramping-did not try this at all either Does admit a lot stress Discussed further work up of gallbadder or IBS, he wants to hold for now Encouraged use of bentyl. PAD (peripheral artery disease) (CMS/HCC) Normal segmental pressures Bilateral leg pain Normal segmental pressures Does do stretching exercises: helps some Not as much pain recently, but has not been working as much I did offer further work up of lumbar as etiology, he declines at this time Chronic cough Relevant Orders CT chest w IV contrast Creatinine Chronic pain of both feet Has multiple callouses and pain bilat feet Also pes planus Refer to podiatry Relevant Orders Ambulatory referral to Podiatry Associated Problem(s): Tobacco user The patient has been advised of the risks of continued smoking: stroke, UT, all forms of cancer, lung disease, and [...] drinks. Has lost 21 pounds this year Associated Problem(s): Bilateral leg pain Normal segmental pressures Does do stretching exercises: helps some Not as much pain recently, but has not been working as much I did offer further work up of lumbar as etiology, he declines at this time Associated Problem(s): Diarrhea Unclear etiology No obvious GERD/gallbladder sxs, no bloody stools noted Check stool studies and labs: normal Trial bentyl prn abd cramping-did not try this at all either Does admit a lot stress Discussed further work up of gallbadder or IBS, he wants to hold for now Encouraged use of bentyl. documented in this encounter [facility] 11-10-2024 Instructions Saima Issa NP - 11/10/2024 2:00 PM EST Foot doctor: Dr Rolle ([place]) they should call Weight loss: lung CT scan [facility] documented in this encounter [facility] 10-10-2024 History of Present illness Narrative Associated Problem(s): PAD (peripheral artery disease) ([facility]) Check FABRIZIO's with segmental pressures Associated Problem(s): [...] from the original note were not included. Jayden Su is a 48 y.o. male presents [...] of the risks of continued smoking: stroke, UT, all forms of cancer, lung disease, and [...] continues to improve PAD (peripheral artery disease) ([facility]) Check FABRIZIO's with segmental pressures Bilateral leg pain - Primary Differentials: PAD, lumbar radiculopathy, pes planus Will give hand out on stretching exercises Associated Problem(s): Tobacco user The patient has been advised of the risks of continued smoking: stroke, UT, all forms of cancer, lung disease, and [...] this year documented in this encounter [facility] 10-10-2024 Instructions Saima Issa NP - 10/10/2024 1:40 PM EST Order test on blood flow in legs: will send order to [facility], they should call you, if no call in 2 weeks, call them to schedule: [phone] Try increasing the fiber in your diet documented in this encounter [facility] 09-26-2024 History of Present illness Narrative Pt [...] from the original note were not included. Jayden Su is a 48 y.o. male presents [...] of the risks of continued smoking: stroke, UT, all forms of cancer, lung disease, and [...] of the risks of continued smoking: stroke, UT, all forms of cancer, lung disease, and [...] this year documented in this encounter [facility] 09-26-2024 Instructions Saima Issa NP - 09/26/2024 7:00 PM EST Knee pain: xray knee Diarrhea and weight loss: check labs and stool samples Dicyclomine as needed for cramping abd documented in this encounter [facility] 12-22-2023 Note Chief Complaint consultation for colonoscopy [...] vaccine, inactivated - Not Given Patient Refuses [facility] Comment on above: Result Comment: Elec tronically Signed By: ZONIA SEGURA, Mg R\.br\Date and Time Signed: 12/22/23 15:21 EST 11-25-2023 History of Present illness Narrative Associated Problem(s): Colon cancer screening Grandfather with history of colon cancer in his 80's Associated Problem(s): Rash Do to the wide spread nature of the rash, I will send to Dermatology Differentials: SHANICE, or Rico Will add antihistamine for itching [...] from the original note were not included. Jayden Su is a 47 y.o. male presents [...] Appointments Appointment Date:06/09/2022 12:30:00 PM Scheduled Provider: Location:[facility] Appointment Type:Surgical PAT FT Appointment Date:06/09/2022 01:30:00 PM Scheduled Provider: Location:[facility] Appointment Type:Surgery PAT COVID Testing Appointment Date:06/16/2022 08:00:00 AM Scheduled Provider: Location:[facility] Appointment Type:Surgery FT [facility] [place] Evaluation + Plan note Future Appointments Appointment Date:07/10/2022 10:40:00 AM Scheduled Provider:Mg FARIAS MD Location:[facility] Appointment Type:GS Post Op 15 [facility] [place] Evaluation note No assessment inform ation available [facility] Work Phone: Evaluation note Diagnosis Rash- [...] [facility] [...] artery disease) (CMS/HCC) Unspecified peripheral vascular disease Chronic pain of both feet- Primary Diarrhea, unspecified type Bilateral leg pain Pain in soft tissues of limb Obesity (BMI 30-39.9) Weight loss, unintentional Loss of weight Tobacco user Tobacco use disorder Marijuana smoker PAD (peripheral artery disease) ([facility]) Unspecified peripheral vascular disease Chronic cough Cough documented in this encounter [facility]* [...] Diarrhea, unspecified type PAD (peripheral artery disease) ([facility]) Unspecified peripheral vascular disease Chronic pain of both feet- Primary Diarrhea, unspecified type Bilateral leg pain Pain in soft tissues of limb Obesity (BMI 30-39.9) Weight loss, unintentional Loss of weight Tobacco user Tobacco use disorder Marijuana smoker PAD (peripheral artery disease) ([facility]) Unspecified peripheral vascular disease Chronic cough Cough Porokeratosis- Primary Other specified congenital anomaly of skin Left foot pain Pain in soft tissues of limb Chronic pain of both feet Corns and callosities documented in this encounter [facility]* [...] Diarrhea, unspecified type PAD (peripheral artery disease) ([facility]/H[facility]) Unspecified peripheral vascular disease Chronic pain of both feet- Primary Diarrhea, unspecified type Bilateral leg pain Pain in soft tissues of limb Obesity (BMI 30-39.9) Weight loss, unintentional Loss of weight Tobacco user Tobacco use disorder Marijuana smoker PAD (peripheral artery disease) (CMS/HCC) Unspecified peripheral vascular disease Chronic cough Cough Chronic cough- Primary Cough documented in this encounter [facility]* Diagnosis Rash- Primary Rash and [...] artery disease) (CMS/HCC) Unspecified peripheral vascular disease Chronic pain of both feet- Primary Diarrhea, unspecified type Bilateral leg pain Pain in soft tissues of limb Obesity (BMI 30-39.9) Weight loss, unintentional Loss of weight Tobacco user Tobacco use disorder Marijuana smoker PAD (peripheral artery disease) ([facility]/H[facility]) Unspecified peripheral vascular disease Chronic cough Cough Chronic cough- Primary Cough Chronic cough- Primary Cough Weight loss, unintentional Loss of weight Obesity (BMI 30-39.9) Tobacco user Tobacco use disorder Bilateral leg pain Pain in soft tissues of limb Chronic pain of both feet documented in this encounter [facility] course Narrative No data available for this section [facility] Discharge instructions No data available for this section [facility] Progress note No data available for this section [facility] Reason for referral (narrative)* Consultation (Routine) - Authorized Specialty Diagnoses / Procedures Referred By Contac t Referred To Contact Dermatology Diagnoses Rash Procedures OK OFFICE/OUTPATIENT NEW HIGH MDM 60 MINUTES Saima Issa NP [address] [place] [address] Liza Nguyen, ELEMENTARY INSTRUCTIONAL COACH-SOFTBALL COACH [address] [place] [address] Referral ID Status Reason Start Date Expiration Date Visits Requested Visits Authorized [id number] Authorized Specialty Services Required 11/25/2023 05/23/2024 1 1 * Consultation (Routine) - Pending Review Specialty Diagnoses / Procedures Referred By Contac t Referred To Contact General Surgery Diagnoses Colon cancer screening Procedures OK OFFICE/OUTPATIENT NEW HIGH MDM 60 MINUTES Saima Issa NP [address] [place] [address] Mg Farias MD [address] [place] [address], [address] [place] [address] Referral ID Status Reason Start Date Expiration Date Visits Requested Visits Authorized [id number] Pending Review Specialty Services Required 11/25/2023 05/23/2024 1 1 [facility] Instructions * Attachments The following attachments cannot be sent through Care Everywhere. 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 Patient states pain started 2 months ago. Patient points to callused area of the left heel. SS 10 Specialty Diagnoses / Procedures Referred By Contabdi t Referred To Contact Podiatry Diagnoses Chronic pain of both feet Procedures OK OFFICE/OUTPATIENT NEW HIGH MDM 60 MINUTES Saima Issa NP [address] [place] [address] Phone: tel: fax: Kolton Rolle, DPM [address] [place] [address] Phone: tel: fax: Referral ID Status Reason Start Date Expiration Date V isits Requested Visits Authorized [id number] Closed Specialty Services Required 11/10/2024 05/09/2025 1 1 (unrecognized sect ion and content) No Status Records FoundNo Status Records FoundNo Status Records FoundNo Status Records FoundNo Status Records Found INFORMATION SOURCE (unrecogn ized section and content) DATE CREATED AUTHOR 03/11/2020 [facility] DATE CREATED AUTHOR AUTHOR'S ORGANIZ ATION 05/26/2022 [facility] DATE CREATED AUTHOR AUTHOR'S ORGANIZ ATION 09/29/2022 [facility] DATE CREATED AUTHOR AUTHOR'S ORGANIZ ATION 02/16/2024 [facility] DATE CREATED AUTHOR AUTHOR'S ORGANIZ ATION 12/09/[address] [facility] dical Specialists [facility] Care Team (unrecognized sect ion and content) Team Status: Inactive Member Role Status Dates Clive Phillips MD Attending Provider Active Specialized Developer Relationship Specialty Start Date End Date Samuel Santiago MD [address] [place] [address] PCP - General Family Medicine 11/16/23 Saima Issa NP [address] [place] [address] Referring Physician Nurse Practitioner 05/06/23 Specialized Developer Relationship Specialty Start Date End Date Samuel Santiago MD [address] [place] [address] PCP - General Family [facility] 11/16/23 Saima Issa NP [address] [place] [address] Referring Physician Nurse Practitioner 05/06/23 Specialized Developer Relationship Specialty Start Date End Date Samuel Santiago MD [address] [place] [address] PCP - [facility] 11/16/23 Saima Issa NP [address] [place] [address] [facility] 04/18/24 Saima Issa NP [address] [place] [address] Referring Physician Nurse Practitioner 05/06/23 Specialized Developer Relationship Specialty Start Date End Date Samuel Santiago MD [address] [place] [address] PCP - [facility] 11/16/23 Saima Issa NP [address] [place] [address] PCP - [facility] 04/18/24 Saima Issa NP [address] [place] [address] Referring Physician Nurse Practitioner 05/06/23 Specialized Developer Relationship Specialty Start Date End Date Samuel Santiago MD [address] [place] [address] PCP - [facility] 11/16/23 Saima Issa NP [address] [place] [address] [facility] 04/18/24 Saima Issa NP [address] [place] [address] Referring Physician Nurse Practitioner 05/06/23 Specialized Developer Relationship Specialty Start Date End Date Samuel aSntiago MD [address] [place] [address] PCP - [facility] 11/16/23 Saima Issa NP [address] [place] [address] [facility] 04/18/24 Saima Issa NP [address] [place] [address] Referring Physician Nurse Practitioner 05/06/23 Specialized Developer Relationship Specialty Start Date End Date Samuel Santiago MD [address] [place] [address] PCP - General Family Medicine 11/16/23 Saima Issa NP [address] [place] [address] PCP - [facility] 04/18/24 Saima Issa NP [address] [place] [address] Referring Physician Nurse Practitioner 05/06/23 Specialized Developer Relationship Specialty Start Date End Date Samuel Santiago MD [address] [place] [address] PCP - [facility] 11/16/23 Saima Issa NP [address] [place] [address] [facility] 04/18/24 Saima Issa NP [address] [place] [address] Referring Physician Nurse Practitioner 05/06/23 Specialized Developer Relationship Specialty Start Date End Date Samuel Santiago MD [address] [place] [address] PCP - [facility] 11/16/23 Saima Issa NP [address] [place] [address] [facility] 04/18/24 Saima Issa NP [address] [place] [address] Referring Physician Nurse Practitioner 05/06/23 Specialized Developer Relationship Specialty Start Date End Date Samuel Santiago MD [address] [place] [address] PCP - [facility] 11/16/23 Saima Issa NP [address] [place] [address] [facility] 04/18/24 Saima Issa NP [address] [place] [address] Referring Physician Nurse Practitioner 05/06/23 Specialized Developer Relationship Specialty Start Date End Date Samuel Santiago MD [address] [place] [address] PCP - [facility] 11/16/23 Saima Issa NP [address] [place] [address] [facility] 04/18/24 Saima Issa NP [address] [place] [address] Referring Physician Nurse Practitioner 05/06/23 Specialized Developer Relationship Specialty Start Date End Date Samuel Santiago MD [address] [place] [address] PCP - General Family [facility] 11/16/23 Saima Issa NP [address] [place] [address] PCP - [facility] 04/18/24 Saima Issa NP [address] [place] [address] Referring Physician Nurse Practitioner 05/06/23 Specialized Developer Relationship Specialty Start Date End Date Samuel Santiago MD [address] [place] [address] PCP - [facility] 11/16/23 Saima Issa NP [address] [place] [address] [facility] 04/18/24 Saima Issa NP [address] [place] [address] Referring Physician Nurse Practitioner 05/06/23 Specialized Developer Relationship Specialty Start Date End Date Samuel Santiago MD [address] [place] [address] PCP - [facility] 11/16/23 Saima Issa NP [address] [place] [address] [facility] 04/18/24 Saima Issa NP [address] [place] [address] Referring Physician Nurse Practitioner 05/06/23 Goals (unrecognized [...] BE BASED ON THE PRIMARY CLINICAL RECORDS. [employer] provides no warranty or guarantee of the accuracy or completeness of information in this document.
[2024-12-16 09:30] LABS: Hemoglobin 15.7 g/dL (14.0-18.0)
--- NOTE | 2024-12-16 10:30 | RT_ITS ---
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 Findings were considered accurate and reproducible, with exception of FVC which did not meet ATS standards. Both pre- and post-bronchodilator values utilized for spirometry. Spirometry (based on pre-bronchodilator values): -FEV1/FVC: Low normal @ 71% -FEV1: Moderately reduced @ 76% -FVC: Normal @ 84% -There is no significant bronchodilator response. Lung volumes by plethysmography (based on pre-bronchodilator values): -RV: Increased @ 156% -TLC: Normal @ 110% Diffusion capacity: -DLCO: Mild reduction @ 78% when corrected for Hb 15.7g/dL Impressions: -Spirometry trends towards moderate obstruction - possible the ratio would be diagnostic for obstruction (FEV/FVC <70%) if he were able to perform the FVC maneuvers correctly. No bronchodilator response. Increased RV suggests air trapping. Mild diffusion impairment. Despite not meeting ATS criteria with FVC, the overall PFT suggests moderate COPD/emphysema. Clinical correlation required. Electronically Signed On 12-21-2024 11:49:37 EST by Luis Eduardo Calderón
[2024-12-16] MEDS: ALBUTEROL SULFATE 2.5 MG/3 ML VIAL NEB IH (10:31)
--- NOTE | 2024-12-16 11:02 | XR_ITS ---
The [place] [id number] Patient Name: JENNY RAMAN MRN: [id number] date: 1975 Sex: M Assigned Patient Location: CARD Current Patient Location: CARD Accession/Order Number: [id number] Exam Date: 12/16/2024 13:34 Report Date: 12/16/2024 13:36 At the request of: ZAMZAM MORRELL NP Procedure: XR chest 2V PA AND LATERAL CHEST: CLINICAL HISTORY: Chronic cough and wheezing COMPARISON: 08/13/2021 There is no focal parenchymal consolidation, effusion or pneumothorax. The cardiac, hilar and mediastinal silhouettes are within normal limits. There is no vascular congestion. The visualized bony thorax is intact. XR/XR chest 2V IMPRESSION: NO ACUTE CARDIOPULMONARY ABNORMALITY. Impression dictated by: Esther Varela M.D.12/16/2024 1:36 PM Dictation Location: [place] [address] Electronically authenticated by: [id number] Y Date: 12/16/2024 13:36
== END 2024-12-16 09:07 | disposition home or self-care (01) ==
LOC: CARD 09:06
PROVIDERS: PCP Nurse Practitioner; Visit Provider Nurse Practitioner
DX: R05.3 Chronic cough (principal); Z72.0 Tobacco use
CPT/HCPCS: 36415; 71046; 85018; 94060; 94726; 94729; 99406; 99407

== ENCOUNTER 2025-01-09 09:57 | Outpatient (OUT) | payer OTHER, SELFPAY ==
--- NOTE | 2025-01-09 | CT_ITS ---
The [address] [address] Patient Name: JENNY RAMAN MRN: [id number] date: 1975 Sex: M Assigned Patient Location: CT Current Patient Location: CT Accession/Order Number: [id number] Exam Date: 01/09/2025 14:15 Report Date: 01/09/2025 14:18 At the request of: ZAMZAM MORRELL NP Procedure: CT chest w con CT CHEST WITH INTRAVENOUS CONTRAST: CLINICAL HISTORY: [place] Use, Unintentional Weight Loss, Chronic Cough COMPARISON: None TECHNIQUE: Spiral images were obtained through the chest following intravenous administration of IV contrast. This CT exam was performed using one or more following dose reduction techniques: Automated exposure control, adjustment of the mA and/or kV according to patient size, or use of iterative reconstruction technique. FINDINGS: Mediastinum:Partially calcified left lobe thyroid nodule measuring 3.5 cm. Thoracic aorta appears normal in caliber. Pulmonary trunk appears nondilated. No pericardial effusion or lymphadenopathy. The esophagus is grossly unremarkable. Lungs:Emphysema. No consolidation pneumothorax or pleural effusion. Calcified granuloma right lower lobe. Diffuse bronchial wall thickening. 2, 3 mm nodule is seen involving the right middle lobe best seen on series 4 image 51. Abd:No acute findings. Soft tissues/Bones: No acute findings. Osseous structures demonstrate degenerative change. CT/CT chest w con IMPRESSION: No acute process. 3.5 cm partially calcified left lobe thyroid nodule. This can be further evaluated by ultrasound. Emphysema. 3 mm nodules right middle lobe. Fleischner Society guidelines for follow-up and management of incidentally detected pulmonary nodules: Multiple Solid Nodules: Nodule size less than 6 mm In a low-risk patient, no routine follow-up. In a high-risk patient, optional CT at 12 months. - Low risk patients include individuals with minimal or absent history of smoking and other known risk factors. - High risk patients include individuals with a history or smoking or known risk factors. Radiology 2017 http://pubs.rsna.org/doi/full/10.1148/radiol.[email or web address] Impression dictated by: Jhon Rush Jr., D.O.01/09/2025 2:18 PM Dictation Location: [place] Electronically authenticated by: [id number] Y Date: 01/09/2025 14:18
== END 2025-01-09 09:58 | disposition home or self-care (01) ==
LOC: CT 09:57
PROVIDERS: PCP Nurse Practitioner; Visit Provider Nurse Practitioner
DX: R63.4 Abnormal weight loss (principal); Z72.0 Tobacco use; R05.3 Chronic cough; E04.1 Nontoxic single thyroid nodule; J43.9 Emphysema, unspecified; R91.8 Other nonspecific abnormal finding of lung field
CPT/HCPCS: 71260

== ENCOUNTER 2025-01-16 10:14 | Outpatient (OUT) | payer OTHER, SELFPAY ==
--- NOTE | 2025-01-16 10:16 | US_ITS ---
The [address] [address] Patient Name: JENNY RAMAN MRN: [id number] date: 1975 Sex: M Assigned Patient Location: US Current Patient Location: US Accession/Order Number: [id number] Exam Date: 01/16/2025 11:30 Report Date: 01/16/2025 11:37 At the request of: ZAMZAM MORRELL NP Procedure: US thyroid THYROID ULTRASOUND COMPARISON: Chest CT 01/09/2025 CLINICAL DATA: Follow-up nodule The right thyroid lobe measures 6.1 x 1.7 x 1.3 cm . Left lobe measures 6.2 x 3.9 x 3.8 cm. The isthmus measures approximately 8 mm. There is normal echogenicity. There is a hypoechoic nodule with vascularity at the midpole on the right measuring 12 x 6 x 11 mm (TI-RADS 4). Also at the midpole on that side laterally is a heterogeneous hypoechoic nodule measuring 9 x 7 x 7 mm (TI-RADS 4). At the midpole there is yet another slightly hyperechoic nodular area measuring 8 x 6 x 8 mm (TI-RADS 3). On the left, at the mid pole there is a large multiloculated cystic nodule with septations and central soft tissue component with calcification measuring 4.8 x 3.5 x 3.7 cm in size (TI-RADS 3). US/US thyroid IMPRESSION: MULTIPLE THYROID NODULES, DESCRIBED. THE MORE SUSPICIOUS OF THE NODULES ON THE RIGHT ARE SMALL AND THEREFORE ULTRASOUND FOLLOW-UP IN ONE YEAR IS RECOMMENDED. Impression dictated by: Esther Varela M.D.01/16/2025 11:37 AM Dictation Location: [place] [address] Electronically authenticated by: [id number] Y Date: 01/16/2025 11:37
--- OUTSIDE RECORDS SUMMARY | 2025-01-16 10:24 | XMS_ITS | CCD ---
Author Organization [facility] Care Team Providers Care Garnett Mechanic Name Role Phone Unavailable Primary Care Provider UnavailRUDY Davila Admitting Unavailable RUDY YANG Attending Unavailable MARY, DR CORCORAN LISTED Primary Care Unavaila MG Pedraza Consulting Unavailable RUDY YANG Consulting Unavailable TAWANNA, DR FENTON Admitting Unavailable TAWANNA, DR FENTON Attending Unavailable AICHHOLZ, CLAMP OPERATOR SAIMA Primary Care Unavailable TYRA KINGSLEY Consulting Unavailable REG, STU Consulting Unavailable AICHBERT, SAIMA J Primary Care Physician [phone] MD Clive Phillips Attending Provider [phone] Clive Phillips Attending Unavailable Clive Phillips Admitting Unavailable NON STAFF Primary Care Unavailable Aichholz SUPERVISOR INSTRUMENT MECHANICS, Saima Unavailable Samuel Santiago MD Primary Care Provider [phone] Mg FARIAS Attending Unavailable SAIMA ISSA Referring Unavailable Mg FARIAS Attending Unavailable Aichholz SUPERVISOR INSTRUMENT MECHANICS, Saima Unavailable Aichbert SUPERVISOR INSTRUMENT MECHANICS, Saima Unavailable LUIS MANUEL, SAIMA Attending Unavailable KOLTON ROLLE Attending Unavailable AICHHOLZ, SAIMA Referring Unavailable LIZA NGUYEN Attending Unavailable AICHHOLZ, SAIMA Attending Unavailable AICHHOLZ, SAIMA Attending Unavailable AICHHOLZ, SAIMA Attending Unavailable AICHHOLZ, SAIMA Attending Unavailable AICHHOLZ, SAIMA Attending Unavailable Allergies Allergy Classification Reported Allergen(s) Allergy Type Date of Onset Reaction(s) Facility (1 source) Penicillins Propensity to adverse reactions to drug 3 [place], [place] (6 sources) Penicillin; Translations: [penicillin] Drug Allergy 1 Eruption of skin (disorder) [facility] Rep[facility] (4 sources) Chlorhexidine; Translations: [chlorhexidine topical] Drug Allergy Eruption of skin (disorder) [facility] (20 sources) Penicillin V Drug Allergy 4 Unknown [facility] Healthcare (20 sources) Penicillins Drug Intolerance 3 [facility] Healthcare Medications Current Medications Medication [...] Active ammonium lactate 120 mg/ml topical cream (12 sources) Start: 11-23-2024 End: 11-23-2025 ammonium lactate [...] Classification Problem Date Documented Da te Episodic/Chronic Chronic obstructive pulmonary disease and bronchiectasis (4 sources) Pulmonary emphysema; Translations: [Emphysema, unspecified] Onset: 12-21-2024 Resolved: 12-21-2024 12-21-2024 Chronic Neoplasms of unspecified nature or uncertain behavior [...] skin] 11-23-2024 Chronic Other connective tissue disease (20 sources) Bilateral chronic pain of feet; Translations: [Pain in right foot] Onset: 11-10-2024 11-10-2024 Episodic Other connective tissue disease (2 sources) Pain in left foot; Translations: [Pain in left foot] 11-23-2024 Episodic Other diseases of bladder and urethra (20 sources) Overactive bladder; Translations: [Overactive bladder] Onset: 11-25-2023 11-25-2023 Chronic Other lower respiratory disease (20 sources) Chronic cough; Translations: [Chronic cough] Onset: 11-10-2024 11-10-2024 Episodic Other nutritional; endocrine; and metabolic disorders (20 sources) Body mass index 30+ - obesity; Translations: [Body mass index (BMI) 36.0-36.9, adult] Onset: 11-25-2023 Resolved: 04-14-2024 06-02-2022 Chronic Other nutritional; endocrine; and metabolic disorders (1 source) Morbid obesity 12-22-2023 Chronic Other skin disorders (2 sources) Callosity; Translations: [Corns and callosities] 11-23-2024 Episodic Peripheral and visceral atherosclerosis (20 sources) Peripheral vascular disease, unspecified; Translations: [Peripheral vascular disease, unspecified] Onset: 10-10-2024 10-10-2024 Chronic Screening and history of mental health and substance abuse codes (3 sources) Tobacco use and exposure - finding 06-04-2022 Chronic Substance-related disorders (3 sources) Nicotine dependence, cigarettes, uncomplicated; Translations: [Smoker] Onset: 05-26-2022 06-09-2022 Chronic Comment on above: Added secondary to d ocumentation in Social History. Thyroid disorders (2 sources) Thyroid nodule; Translations: [Nontoxic single thyroid nodule] Onset: 01-09-2025 01-09-2025 Chronic Unclassified (1 source) Patient encounter status 12-22-2023 [...] Onset: 08-15-2021 Episodic Other connective tissue disease (20 sources) Plantar fasciitis; Translations: [Plantar fascial fibromatosis] Onset: 01-13-2024 01-13-2024 Episodic Other connective tissue disease (20 sources) Pain in bilateral legs; Translations: [Pain in right leg] Onset: 10-10-2024 10-10-2024 Episodic Other gastrointestinal disorders (20 sources) Diarrhea; Translations: [Diarrhea, unspecified] Onset: 09-26-2024 09-26-2024 Episodic Other liver diseases (20 sources) Alkaline phosphatase raised; Translations: [Abnormal levels of other serum enzymes] Onset: 11-25-2023 11-25-2023 Episodic Other non-traumatic joint disorders (20 sources) Pain in right knee; Translations: [Pain in joint, lower leg] Onset: 09-26-2024 09-26-2024 Episodic Other nutritional; endocrine; and metabolic disorders (20 sources) Unintentional weight loss; Translations: [Abnormal weight loss] Onset: 09-26-2024 09-26-2024 Episodic Other screening for suspected conditions (not [...] nonspecific skin eruption] Onset: 11-25-2023 11-25-2023 Episodic Residual codes; unclassified (20 sources) Tobacco user; Translations: [Tobacco use] Onset: 11-25-2023 11-25-2023 Episodic Spondylosis; intervertebral disc [...] Test Name Value Interpretation Reference Range Facility CT CHEST W CONTRASTon [address] [address] [place] Scan Report Signed Patient: JAYDEN SU MR#: [id number] : 1975 Acct:[id number] Age/Sex: 49 / M ADM Date: 01/09/25 Loc: CT Attending Dr: Saima Issa NP Ordering Physician: Saima Issa NP Date of Service: 01/09/25 Procedure(s): CT chest w con Accession Number(s): [id number] cc: Saima Issa NP [address] [address] Patient Name: JAYDEN SU MRN: [facility]:[id number] date: 1975 Sex: M Assigned Patient Location: CT Current Patient Location: CT Accession/Order Number: [id number] Exam Date: 01/09/2025 14:15 Report Date: 01/09/2025 14:18 At the request of: SAIMA ISSA NP Procedure: CT chest w con CT CHEST WITH INTRAVENOUS CONTRAST: CLINICAL HISTORY: Tabaco Use, Unintentional Weight Loss, Chronic Cough COMPARISON: None TECHNIQUE: Spiral images were obtained through the chest following intravenous administration of IV contrast. This CT exam was performed using one or more following dose reduction techniques: Automated exposure control, adjustment of the mA and/or kV according to patient size, or use of iterative reconstruction technique. FINDINGS: Mediastinum:Partial ly calcified left lobe thyroid nodule measuring 3.5 cm. Thoracic aorta appears normal in caliber. Pulmonary trunk appears nondilated. No pericardial effusion or lymphadenopathy. The esophagus is grossly unremarkable. Lungs:Emphysema. No consolidation pneumothorax or pleural effusion. Calcified granuloma right lower lobe. Diffuse bronchial wall thickening. 2, 3 mm nodule is seen involving the right middle lobe best seen on series 4 image 51. Abd:No acute findings. Soft tissues/Bones: No acute findings. Osseous structures demonstrate degenerative change. CT/CT chest w con IMPRESSION: No acute process. 3.5 cm partially calcified left lobe thyroid nodule. This can be further evaluated by ultrasound. Emphysema. 3 mm nodules right middle lobe. Fleischner Society guidelines for follow-up and management of incidentally detected pulmonary nodules: Multiple Solid Nodules: Nodule size less than 6 mm In a low-risk patient, no routine follow-up. In a high-risk patient, optional CT at 12 months. - Low risk patients include individuals with minimal or absent history of smoking and other known risk factors. - High risk patients include individuals with a history or smoking or known risk factors. Radiology 2017 http://pubs.rsna.or g/doi/full/10.1148/ radiol.9547987696 Impression dictated by: Jhon Rush Jr., D.O.01/09/2025 2:18 PM Dictation Location: [place] [address] Electronically authenticated by: [id number] Y Date: 01/09/2025 14:18 Dictated By: Jhon Rush M.D. Signed By: 01/09/25 1421 DD/ 1418 TD/TT: Grain Scooper: [facility] Radiology, Radiologist, MD - 01/09/2025 [place] [address] CT Scan Report Signed Patient: JAYDEN SU MR#: [id number] : 1975 Acct:[id number] Age/Sex: 49 / M ADM Date: 01/09/25 Loc: CT Attending Dr: Saima Issa NP Ordering Physician: Saima Issa NP Date of Service: 01/09/25 Procedure(s): CT chest w con Accession Number(s): [id number] cc: Saima Issa NP [place] [address] Patient Name: JAYDEN SU MRN: [facility]:[id number] date: 1975 Sex: M Assigned Patient Location: CT Current Patient Location: CT Accession/Order Number: [id number] Exam Date: 01/09/2025 14:15 Report Date: 01/09/2025 14:18 At the request of: SAIMA ISSA NP Procedure: CT chest w con CT CHEST WITH INTRAVENOUS CONTRAST: CLINICAL HISTORY: Tabaco Use, Unintentional Weight Loss, Chronic Cough COMPARISON: None TECHNIQUE: Spiral images were obtained through the chest following intravenous administration of IV contrast. This CT exam was performed using one or more following dose reduction techniques: Automated exposure control, adjustment of the mA and/or kV according to patient size, or use of iterative reconstruction technique. FINDINGS: Mediastinum:Partial ly calcified left lobe thyroid nodule measuring 3.5 cm. Thoracic aorta appears normal in caliber. Pulmonary trunk appears nondilated. No pericardial effusion or lymphadenopathy. The esophagus is grossly unremarkable. Lungs:Emphysema. No consolidation pneumothorax or pleural effusion. Calcified granuloma right lower lobe. Diffuse bronchial wall thickening. 2, 3 mm nodule is seen involving the right middle lobe best seen on series 4 image 51. Abd:No acute findings. Soft tissues/Bones: No acute findings. Osseous structures demonstrate degenerative change. CT/CT chest w con IMPRESSION: No acute process. 3.5 cm partially calcified left lobe thyroid nodule. This can be further evaluated by ultrasound. Emphysema. 3 mm nodules right middle lobe. Fleischner Society guidelines for follow-up and management of incidentally detected pulmonary nodules: Multiple Solid Nodules: Nodule size less than 6 mm In a low-risk patient, no routine follow-up. In a high-risk patient, optional CT at 12 months. - Low risk patients include individuals with minimal or absent history of smoking and other known risk factors. - High risk patients include individuals with a history or smoking or known risk factors. Radiology 2017 http://pubs.rsna.or g/doi/full/10.1148/ radiol.3663358100 Impression dictated by: Jhon Rush Jr., D.O.01/09/2025 2:18 PM Dictation Location: [place] [address] Electronically authenticated by: [id number] Y Date: 01/09/2025 14:18 Dictated By: Jhon Rush M.D. Signed By: 01/09/25 1421 DD/ 1418 TD/TT: Grain Scooper: [facility] [employer] Radiology Study observation (narrative) [facility] CT CHEST W CONTRASTOrdered B y: Radiologist Radiology on 01-09-2025 [facility] [employer] Work Phone: RT PULMONARY FUNCTION TESTon 12-21-2024 [place] [id number] Respiratory Report Signed Patient: JAYDEN SU MR#: [id number] : 1975 Acct:[id number] Age/Sex: 48 / M ADM Date: 12/16/24 Loc: CARD Attending Dr: Saima Issa NP Ordering Physician: Saima Issa NP Date of Service: 12/16/24 Procedure(s): RT pulmonary function test Accession Number(s): [id number] cc: [facility] Test Date: 2024-12-16 Pat Name: JAYDEN SU Department: Room: - Gender: Male Circuit Manager: Randall Valdivia RRT : 1975 Requested By: SAIMA ISSA Order Number: [id number] MD: Luis Eduardo Calderón Interpretive Statements Pulmonary function testing was completed according to ATS criteria. Findings were considered accurate and reproducible, with exception of FVC which did not meet ATS standards. Both pre- and post-bronchodilator values utilized for spirometry. Spirometry (based on pre-bronchodilator values): -FEV1/FVC: Low normal @ 71% -FEV1: Moderately reduced @ 76% -FVC: Normal @ 84% -There is no significant bronchodilator response. Lung volumes by plethysmography (based on pre-bronchodilator values): -RV: Increased @ 156% -TLC: Normal @ 110% Diffusion capacity: -DLCO: Mild reduction @ 78% when corrected for Hb 15.7g/dL Impressions: -Spirometry trends towards moderate obstruction - possible the ratio would be diagnostic for obstruction (FEV/FVC <70%) if he were able to perform the FVC maneuvers correctly. No bronchodilator response. Increased RV suggests air trapping. Mild diffusion impairment. Despite not meeting ATS criteria with FVC, the overall PFT suggests moderate COPD/emphysema. Clinical correlation required. Electronically Signed On 12-21-2024 11:49:37 EST by Luis Eduardo Calderón Dictated By: Luis Eduardo Calderón D.O. Signed By: 12/21/24 1150 DD/ 0930 TD/TT: Grain Scooper: [facility] Radiology, Radiologist, - 12/21/2024 The [place] [id number] Respiratory Report Signed Patient: JAYDEN SU MR#: [id number] : 1975 Acct:[id number] Age/Sex: 48 / M ADM Date: 12/16/24 Loc: CARD Attending Dr: Saima Issa NP Ordering Physician: Saima Issa NP Date of Service: 12/16/24 Procedure(s): RT pulmonary function test Accession Number(s): [id number] cc: [facility] Test Date: 2024-12-16 Pat Name: JAYEDN SU Department: Room: - Gender: Male Circuit Manager: Randall Valdivia RRT : 1975 Requested By: SAIMA ISSA Order Number: [id number] Reading MD: Luis Eduardo Calderón Interpretive Statements Pulmonary function testing was completed according to ATS criteria. Findings were considered accurate and reproducible, with exception of FVC which did not meet ATS standards. Both pre- and post-bronchodilator values utilized for spirometry. Spirometry (based on pre-bronchodilator values): -FEV1/FVC: Low normal @ 71% -FEV1: Moderately reduced @ 76% -FVC: Normal @ 84% -There is no significant bronchodilator response. Lung volumes by plethysmography (based on pre-bronchodilator values): -RV: Increased @ 156% -TLC: Normal @ 110% Diffusion capacity: -DLCO: Mild reduction @ 78% when corrected for Hb 15.7g/dL Impressions: -Spirometry trends towards moderate obstruction - possible the ratio would be diagnostic for obstruction (FEV/FVC <70%) if he were able to perform the FVC maneuvers correctly. No bronchodilator response. Increased RV suggests air trapping. Mild diffusion impairment. Despite not meeting ATS criteria with FVC, the overall PFT suggests moderate COPD/emphysema. Clinical correlation required. Electronically Signed On 12-21-2024 11:49:37 EST by Luis Eduardo Calderón Dictated By: Luis Eduardo Calderón D.O. Signed By: 12/21/24 1150 DD/ 0930 TD/TT: Grain Scooper: [facility] RT PULMONARY FUNCTION TESTOr dered By: Radiologist Radiology on 12-21-2024 [facility] Work Phone: ALL HEMOGLOBINon 12-16-2024 Hemoglobin (Bld) [Mass/Vol] 15.7 g/dL 14.0 - 18.0 g/dL [facility] RT PULMONARY FUNCTION TESTon 12-16-2024 Radiology Study observation (narrative) [facility] XR CHEST 2Von 12-16-2024 [place] [address] XRay Report Signed Patient: JAYDEN SU MR#: [id number] : 1975 Acct:[id number] Age/Sex: 48 / M ADM Date: 12/16/24 Loc: CARD Attending Dr: Saima Issa NP Ordering Physician: Saima Issa NP Date of Service: 12/16/24 Procedure(s): XR chest 2V Accession Number(s): [id number] cc: Saima Issa NP The [address] [id number] Patient Name: JAYDEN SU MRN: [facility]:[id number] date: 1975 Sex: M Assigned Patient Location: CARD Current Patient Location: CARD Accession/Order Number: [id number] Exam Date: 12/16/2024 13:34 Report Date: 12/16/2024 13:36 At the request of: SAIMA ISSA NP Procedure: XR chest 2V PA AND LATERAL CHEST: CLINICAL HISTORY: Chronic cough and wheezing COMPARISON: 08/13/2021 There is no focal parenchymal consolidation, effusion or pneumothorax. The cardiac, hilar and mediastinal silhouettes are within normal limits. There is no vascular congestion. The visualized bony thorax is intact. XR/XR chest 2V IMPRESSION: NO ACUTE CARDIOPULMONARY ABNORMALITY. Impression dictated by: Esther Varela M.D.12/16/2024 1:36 PM Dictation Location: [place] [address] Electronically authenticated by: [id number] Y Date: 12/16/2024 13:36 Dictated By: Esther Varela M.D. Signed By: 12/16/248 DD/ 35 TD/TT: Grain Scooper: [facility] Radiology, Radiologist, MD - 12/16/2024 The [place] [id number] XRay Report Signed Patient: JAYDEN SU MR#: [id number] : 1975 Acct:[id number] Age/Sex: 48 / M ADM Date: 12/16/24 Loc: CARD Attending Dr: Saima Issa NP Ordering Physician: Saima Issa NP Date of Service: 12/16/24 Procedure(s): XR chest 2V Accession Number(s): [id number] cc: Saima Issa NP [address] [address] Patient Name: JAYDEN SU MRN: [facility]:[id number] date: 1975 Sex: M Assigned Patient Location: CARD Current Patient Location: CARD Accession/Order Number: [id number] Exam Date: 12/16/2024 13:34 Report Date: 12/16/2024 13:36 At the request of: SAIMA ISSA NP Procedure: XR chest 2V PA AND LATERAL CHEST: CLINICAL HISTORY: Chronic cough and wheezing COMPARISON: 08/13/2021 There is no focal parenchymal consolidation, effusion or pneumothorax. The cardiac, hilar and mediastinal silhouettes are within normal limits. There is no vascular congestion. The visualized bony thorax is intact. XR/XR chest 2V IMPRESSION: NO ACUTE CARDIOPULMONARY ABNORMALITY. Impression dictated by: Esther Varela M.D.12/16/2024 1:36 PM Dictation Location: [place] [address] Electronically authenticated by: [id number] Y Date: 12/16/2024 13:36 Dictated By: Esther Varela M.D. Signed By: 12/16/24 1338 DD/ 1336 TD/TT: Grain Scooper: [facility] Radiology Study observation (narrative) [facility] XR CHEST 2VOrdered By: [employer] [facility] Radiology on 12-16-2024 [facility] Work Phone: OCCULT BLOOD*on 10-01-2024 [facility] OCCULT BLOOD Negative [facility] ALL CBC WITH AUTO DIFFon BASOPHILS ABSOLUTE AUTO 0.1 [facility] Basophils/100 WBC (Bld) 1.3 % 0.2 - 2.0 % [facility] Eosinophils/100 WBC (Bld) 2.3 % 0.9 - 7.0 % [facility] Erythrocyte distribution width (RBC) [Ratio] 12.5 % 11.0 - 15.0 % [facility] Hematocrit (Bld) [Volume fraction] 46.1 % 42.0 - 54.0 % [facility] Hemoglobin (Bld) [Mass/Vol] 15.8 g/dL 14.0 - 18.0 g/dL [facility] IMMATURE GRANULOCYTES ABS AUTO 0.01 [facility] Immature granulocytes/100 WBC (Bld) 0.1 % 0.0 - 0.5 % [facility] Interpretation and review of laboratory results Abnormal [facility] LYMPHOCYTES ABSOLUTE AUTO 2 [facility] Lymphocytes/100 WBC (Bld) 21.4 % 20.5 - 60.0 % [facility] MCH (RBC) [Entitic mass] 30.9 pg 25.9 - 34.0 pg [facility] MCHC (RBC) [Mass/Vol] 34.3 g/dL 29.9 - 35.2 g/dL [facility] MCV (RBC) [Entitic vol] 90 fL 80.0 - 94.0 fL [facility] MONOCYTES ABSOLUTE AUTO 1.2 High [facility] Monocytes/100 WBC (Bld) 12.6 % High 1.7 - 12.0 % [facility] NEUTROPHILS ABSOLUTE AUTO 5.7 [facility] Neutrophils/100 WBC (Bld) 62.3 % 43.0 - 75.0 % [facility] Platelet mean volume (Bld) [Entitic vol] 10.4 fL 9.5 - 13.5 fL [facility] TBH EO # 0.2 [facility] TBH PLT [address] [facility] RBC 5.12 [facility] TB WBC 9.1 [facility] Outside Colonoscopyon 2023 Outside Colonoscopy [id number] D7#1.00TIFF [facility] Reminderson 02-04-2024 Reminders -- From: Sheila Smith LPN To: GSN - Clinical; Sent: 02/04/2024 09:45:05 EDT Show up: 01/02/2034 07:00:00 EDT Subject: colonoscopy recall Due Date/Time: 02/02/2034 07:00:00 EDT Reminder/Recall Patient due for screening colonoscopy 02/02/2034. [facility] Insurance Correspondenceon 0 01-21-2024 Insurance Correspondence [id number] 588#1.00TIFF [facility] Consent for Procedure/Surger yon 12-24-2023 Consent for Procedure/Surgery [id number] B0#1.00TIFF [facility] Facesheeton 12-23-2023 Facesheet [id number] 8#1.00TIFF [facility] Ambulatory Visit Summaryon 0 12-22-2023 Ambulatory Visit Summary JAYDEN SU :1975 Visit Date:12/22/2023 Ambulatory Visit Instructions Your Diagnosis Screening for malignant neoplasm of colon Your Care Team Attending Physician - ZONIA SEGURA, Mg [place] Primary Care Physician - LUIS MANUEL CARDONA, SAIMA [place] Referring Physician - SAIMA ISSA CNP This [...] you for choosing us for your care. [facility] Physician Referralon 024 Physician Referral [id number] 4C#1.00TIFF [facility] 09-16-2022 L Specimen: [id number] Received: 09/17/22 Status: MILDRED Barrera Num: [id number] Spec Type: Surgical Subm Dr: Clive Phillips MD Tissues: A Soft Tissue/Surgical Margin-Other than Tumor,Mass,Lip or Lupe (RT FOREHEAD) Procedures: Rosa ROLLE/Neva Roldan Age/ Patient Sex Location Account Attending Physician Jayden Su/Rosa CHAPMAN [id number] Clive Phillips MD SPEC NUM: [id number] RECD: 09/17/22 STATUS: MILDRED GONCALVESWan NUM: [id number] KADE: 09/16/221054 SUBM DR: Clive Phillips MD ENTERED: 09/17/[address]: SPEC TYPE: Surgical DEPT: S ORDERED: SARIAH Gross/Micro L4 ORDERED: SARIAH Gross/Micro L4 Pathological Diagnosis Soft tissue, right [...] sectioned revealing a homogeneous, yellow-benitez cut surface. Rn Relief Charge sections are submitted in one cassette labeled A1. Microscopic Description One glass slide with H E stained material has been examined. The microscopic findings support the above pathologic diagnosis. CPT Codes 85953 Specimen: [id number] Received: 09/17/22 Status: MILDRED Barrera Num: [id number] Spec Type: Surgical Subm Dr: Clive Phillips MD Tissues: A Soft Tissue/Surgical Margin-Other than Tumor,Mass,Lip or Lupe (RT FOREHEAD) Procedures: Rosa ROLLE/Micro L4 Patient: Jayden Su [id number] (Continued) Signed (signatur e on file) Juan Tavares MD 09/18/22 0957 [facility] CBC AUTO DIFFon 05-25-2022 BASO # 0.1 103/ul Normal 0.0-0.1 [facility] Comment on above: Performed By: #### C BC #### [facility] [address] [place] [address] Dr. Tacho Pena Basophils/100 WBC (Bld) 1.2 % Normal 0.2-2.0 [facility] Comment on above: Performed By: #### C BC #### [facility] [address] [place] [address] Dr. Tacho Pena EO # 0.3 103/ul Normal 0.0-0.7 [facility] Comment on above: Performed By: #### C BC #### [facility] [address] [place] [address] Dr. Tacho Pena Eosinophils/100 WBC (Bld) 3.3 % Normal 0.9-7.0 [facility] Comment on above: Performed By: #### C BC #### [facility] [address] [place] [address] Dr. Tacho Pena Erythrocyte distribution width (RBC) [Ratio] 13.0 % Normal 11.0-15.0 [facility] Comment on above: Performed By: #### C BC #### [facility] [address] [place] [address] Dr. Tacho Pena Hematocrit (Bld) [Volume fraction] 46.3 % Normal 42.0-54.0 [facility] Comment on above: Performed By: #### C BC #### [facility] [address] [address] [address] Tacho Pena Hemoglobin (Bld) [Mass/Vol] 15.7 g/dL Normal 14.0-18.0 [facility] Comment on above: Performed By: #### C BC #### [facility] [address] [place] [address] Dr. Tacho Pena IG # 0.03 10e3/ul Normal 0.00-0.03 [facility] Comment on above: Performed By: #### C BC #### [facility] [address] [place] [address] Dr. Tacho Pena IG % 0.4 % Normal 0.0-0.5 [facility] Comment on above: Performed By: #### C BC #### [facility] [address] [place] [address] Dr. Tacho Pena LYMPH # 2.2 103/ul Normal 1.2-3.8 [facility] Comment on above: Performed By: #### C BC #### [facility] [address] [place] [address] Dr. Tacho Pena Lymphocytes/100 WBC (Bld) 25.4 % Normal 20.5-60.0 [facility] Comment on above: Performed By: #### C BC #### [facility] [address] [place] [address] Dr. Tacho Pena MANUAL DIFF REQ NO Normal [facility] Comment on above: Performed By: #### C BC #### [facility] [address] [place] [address] Dr. Tacho Pena MCH (RBC) [Entitic mass] 29.7 pg Normal 25.9-34.0 [facility] Comment on above: Performed By: #### C BC #### [facility] [address] [place] [address] Dr. Tacho Pena MCHC (RBC) [Mass/Vol] 33.9 g/dL Normal 29.9-35.2 [facility] Comment on above: Performed By: #### C BC #### [facility] [address] [address] [address] Tacho Pena MCV (RBC) [Entitic vol] 87.7 fL Normal 80.0-94.0 [facility] Comment on above: Performed By: #### C BC #### [facility] [address] [address] [address] Tacho Pena MONO # 1.1 103/ul Critically high 0.3-0.8 [facility] Comment on above: Performed By: #### C BC #### [facility] [address] [address] [address] Tacho Pena Monocytes/100 WBC (Bld) 12.5 % Critically high 1.7-12.0 [facility] Comment on above: Performed By: #### C BC #### [facility] [address] [address] [address] Tacho Pena NEUT # 4.9 103/ul Normal 1.4-6.5 [facility] Comment on above: Performed By: #### C BC #### [facility] [address] [place] [address] Dr. Tacho Pena Neutrophils/100 WBC (Bld) 57.2 % Normal 43.0-75.0 [facility] Comment on above: Performed By: #### C BC #### [facility] [address] [address] [address] Tacho Pena Platelet mean volume (Bld) [Entitic vol] 10.2 fL Normal 9.5-13.5 [facility] Comment on above: Performed By: #### C BC #### [facility] [address] [address] [address] Tacho Pena PLT 269 103/ul Normal 150-450 [facility] Comment on above: Performed By: #### C BC #### [facility] [address] [address] [address] Tacho Pena RBC 5.28 106/ul Normal 4.70-6.10 [facility] Comment on above: Performed By: #### C BC #### [facility] [address] [place], [place] [address] Dr. Tacho Pena WBC 8.6 103/ul Normal 4.0-11.0 [facility] Comment on above: Performed By: #### C BC #### [facility] [address] [place], [place] [address] ABD/PELV W CONon [...] STU FINNEY Date: 2022-05-25 17:16 Normal [facility] ER URINE PROFILEon 2 Bilirubin Ql (U) Negative Normal NEGATIVE [facility] Comment on above: Performed By: #### E RUR #### [facility] [address] [place] [address] Dr. Tacho Pena Clarity (U) CLEAR Normal CLEAR [facility] Comment on above: Performed By: #### E RUR #### [facility] [address] [place] [address] Dr. Tacho Pena Color (U) YELLOW Normal YELLOW [facility] Comment on above: Performed By: #### E RUR #### [facility] [address] [place] [address] Dr. Tacho Pena ERUAHJan A micrscopic examination will be performed if indicated. Normal [facility] Comment on above: Performed By: #### E RUR #### [facility] [address] [place] [address] Dr. Tacho Pena Glucose Ql (U) Negative Normal NEGATIVE [facility] Comment on above: Performed By: #### E RUR #### [facility] [address] [place] [address] Dr. Tacho Pena Hemoglobin Ql (U) Negative Normal NEGATIVE [facility] Comment on above: Performed By: #### E RUR #### [facility] [address] [place] [address] Dr. Tacho Pena Ketones Ql (U) Negative Normal NEGATIVE [facility] Comment on above: Performed By: #### E RUR #### [facility] [address] [place] [address] Dr. Tacho Pena LEUKOCYTES Negative Normal NEGATIVE [facility] Comment on above: Performed By: #### E RUR #### [facility] [address] [place] [address] Dr. Tacho Pena Nitrite Ql (U) Negative Normal NEGATIVE [facility] Comment on above: Performed By: #### E RUR #### [facility] [address] [place] [address] Dr. Tacho Pena pH (U) 5.5 [pH] Normal 5-9 [facility] Comment on above: Performed By: #### E RUR #### [facility] [address] [place] [address] Dr. Tacho Pena SPEC GRAVITY 1.025 Normal 1.005-<=1.025 [facility] Comment on above: Performed By: #### E RUR #### [facility] [address] [place] [address] Dr. Tacho Pena UA PROTEIN Negative Normal NEGATIVE/ TRACE [facility] Comment on above: Performed By: #### E RUR #### [facility] [address] [place] [address] Dr. Tacho Pena UR MICRO IND NOT INDICATED Normal [facility] Comment on above: Performed By: #### E RUR #### [facility] [address] [place] [address] Dr. Tacho Pena Urobilinogen Qn (U) 0.2 {Darion'U}/dL Normal 0.2 - 1. 0 [facility] Comment on above: Performed By: #### E RUR #### [facility] [address] [place] [address] Dr. Tacho Pena PROF 14(COMP METB)on 022 Albumin [Mass/Vol] 3.4 g/dL Normal 3.4-5.0 [facility] Comment on above: Performed By: #### C MP #### [facility] [address] [place] [address] Dr. Tacho Pena Albumin/Globulin [Mass ratio] 1.1 {ratio} Normal [facility] Comment on above: Performed By: #### C MP #### [facility] [address] [place] [address] Dr. Tacho Pena ALP [Catalytic activity/Vol] 153 U/L Critically high 46-116 [facility] Comment on above: Performed By: #### C MP #### [facility] [address] [place] [address] Dr. Tacho Pena ALT [Catalytic activity/Vol] 16 U/L Normal 16-63 [facility] Comment on above: Performed By: #### C MP #### [facility] [address] [place] [address] Dr. Tacho Pena Anion gap [Moles/Vol] 13.2 mmol/L Normal [facility] Comment on above: Performed By: #### C MP #### [facility] [address] [address] [address] Tacho Pena AST [Catalytic activity/Vol] 12 U/L Critically low 15-37 [facility] Comment on above: Performed By: #### C MP #### [facility] [address] [address] [address] Tacho Pena Bilirubin [Mass/Vol] 0.4 mg/dL Normal 0.2-1.0 [facility] Comment on above: Performed By: #### C MP #### [facility] [address] [address] [address] Tacho Pena Calcium [Mass/Vol] 8.6 mg/dL Normal 8.5-10.1 [facility] Comment on above: Performed By: #### C MP #### [facility] [address] [address] [address] Tacho Pena Chloride [Moles/Vol] 103 mmol/L Normal 98-107 [facility] Comment on above: Performed By: #### C MP #### [facility] [address] [address] [address] Tacho Pena CO2 [Moles/Vol] 25.9 mmol/L Normal 21.0-32.0 [facility] Comment on above: Performed By: #### C MP #### [facility] [address] [address] [address] Tacho Pena Creatinine [Mass/Vol] 0.91 mg/dL Normal 0.70-1.30 [facility] Comment on above: Performed By: #### C MP #### [facility] [address] [address] [address] Tacho Pena EGFR-AF TURKISH >60 Normal >=60 [facility] Comment on above: Performed By: #### C MP #### [facility] [address] [address] [address] Tacho Pena EGFR-NON AF TURKISH >60 Normal >=60 [facility] Comment on above: Performed By: #### C MP #### [facility] [address] [address] [address] Tacho Pena Globulin (S) [Mass/Vol] 3.2 g/dL Normal [facility] Comment on above: Performed By: #### C MP #### [facility] [address] [address] [address] Tacho Pnea Glucose [Mass/Vol] 93 mg/dL Normal 74-106 [facility] Comment on above: Performed By: #### C MP #### [facility] [address] [place] [address] Dr. Tacho Pena Potassium [Moles/Vol] 4.1 mmol/L Normal 3.5-5.1 [facility] Comment on above: Performed By: #### C MP #### [facility] [address] [place] [address] Dr. Tacho Pena Protein [Mass/Vol] 6.6 g/dL Normal 6.4-8.2 [facility] Comment on above: Performed By: #### C MP #### [facility] [address] [place] [address] Dr. Tacho Pena Sodium [Moles/Vol] 138 mmol/L Normal 136-145 [facility] Comment on above: Performed By: #### C MP #### [facility] [address] [place] [address] Dr. Tacho Pena Urea nitrogen [Mass/Vol] 9.0 mg/dL Normal 7.0-18.0 [facility] Comment on above: Performed By: #### C MP #### [facility] [address] [place] [address] Dr. Tacho Pena Urea nitrogen/Creatinine [Mass ratio] 9.9 mg/mg Normal [facility] Comment on above: Performed By: #### C MP #### [facility] [address] [place] [address] Dr. Tacho Pena PROTIMEon 05-25-2022 INR Coag (PPP) [Relative time] 0.96 {INR} Normal [facility] Comment on above: Performed By: #### P T, PTT #### [facility] [address] [address] [address] Tacho Pena INR GUIDELINES SEE BELOW Normal [facility] Comment on above: Result Comment: TRAVIS RED INR: 2.0 - 3.0 CONDITIONS NOT LISTED BELOW 2.5 - 3.5 FOR PROSTHETIC HEART VALVE REPLACEMENT 2.5 - 3.5 RECURRENT THROMBOSIS Performed By: #### P T, PTT #### [facility] [address] [address] [address] Tacho Pena PT Coag (PPP) [Time] 10.4 s Normal 9.0-11.6 [facility] Comment on above: Performed By: #### P T, PTT #### [facility] [address] [place] [address] Dr. Tacho Pena PTTon 05-25-2022 aPTT Coag (Bld) [Time] 28.4 s Normal 22.3-36.2 [facility] Comment on above: Performed By: #### P T, PTT #### [facility] [address] [place] [address] Dr. Tacho Pena Covid-19 PCR (CVDTBH)on 07-20 SARS-CoV-2 (COVID-19) RNA SHERLEY+probe Ql (Unsp spec) Detected Critically abnormal NOT DETECTED [facility] Comment on above: Result Comment: This test is not yet approved or cleared by the [place] FDA. When there are no FDA-approved or cleared tests available, and other criteria are met, FDA can make tests available under an emergency access mechanism called an Emergency Use Authorization (EUA). The EUA for this test is supported by the [place] of Health and Human Service's (HHS's) declaration [...] used). Performed By: #### C VDTBH #### [facility] [address] [place] [address] Dr. Tacho Pena XR CHEST 1 Von [...] MG POE Date: 2021-08-13 09:42 Normal [facility] XR RADIUS ULNA LEFT (2 VIEWS [...] Srini Powell MD 03/11/20 Final result Normal [place] Vital Signs Date Time Vital Sign Value Performing Clinician Facility 12-07-2024 10:39-0500 Body mass index (BMI) [Ratio] 33.83 kg/m2 Saima Issa [employer] Work Phone: [facility] 12-07-2024 10:39-0500 Body temperature 98.1 [degF] Saima Luis Manuel [employer] Work Phone: [facility] 12-07-2024 10:39-0500 Body weight 106.96 kg Saima Issa [employer] Work Phone: [facility] 12-07-2024 10:39-0500 Diastolic blood pressure 84 mm[Hg] Saima Luis Manuel [employer] Work Phone: [facility] 12-07-2024 10:39-0500 Heart rate 67 /min Saima Issa [employer] Work Phone: [facility] 12-07-2024 10:39-0500 Respiratory rate 18 /min Saima Issa [employer] Work Phone: [facility] 12-07-2024 10:39-0500 SaO2% (BldA) [Mass fraction] 97 % Saima Issa [employer] Work Phone: [facility] 12-07-2024 10:39-0500 Systolic blood pressure 122 mm[Hg] Saima Issa [employer] Work Phone: [facility] 11-23-2024 14:14-0500 Body height 177.8 cm Kolton Rolle DPM Work Phone: [facility] 11-23-2024 14:14-0500 Body mass index (BMI) [Ratio] 33.43 kg/m2 Kolton Rolle DPM Work Phone: [facility] 11-23-2024 14:14-0500 Body weight 105.69 kg Kolton Rolle DPM Work Phone: [facility] 11-10-2024 14:25-0500 Body height 177.8 cm Saima Issa [employer] Work Phone: [facility] 11-10-2024 14:25-0500 Body mass index (BMI) [Ratio] 33.63 kg/m2 Saima Issa [employer] Work Phone: [facility] 11-10-2024 14:25-0500 Body temperature 98.1 [degF] Saima Issa [employer] Work Phone: [facility] 11-10-2024 14:25-0500 Body weight 106.32 kg Saima Issa [employer] Work Phone: [facility] 11-10-2024 14:25-0500 Diastolic blood pressure 88 mm[Hg] Saima Issa [employer] Work Phone: [facility] 11-10-2024 14:25-0500 Heart rate 75 /min Saima Lacybert [employer] Work Phone: [facility] 11-10-2024 14:25-0500 Respiratory rate 20 /min Saimamariano De Guzmanz [employer] Work Phone: [facility] 11-10-2024 14:25-0500 SaO2% (BldA) [Mass fraction] 96 % Saima Bambiholz [employer] Work Phone: [facility] 11-10-2024 14:25-0500 Systolic blood pressure 128 mm[Hg] Saima Bambiholz [employer] Work Phone: [facility] 10-10-2024 13:48-0500 Body height 177.8 cm Saima Ferhholz [employer] Work Phone: [facility] 10-10-2024 13:48-0500 Body mass index (BMI) [Ratio] 33.43 kg/m2 Saima Bambiholz [employer] Work Phone: [facility] 10-10-2024 13:48-0500 Body temperature 97.81 [degF] Saima Bambiholz [employer] Work Phone: [facility] 10-10-2024 13:48-0500 Body weight 105.69 kg Saima Ferhholz [employer] Work Phone: [facility] 10-10-2024 13:48-0500 Diastolic blood pressure 84 mm[Hg] Saima Bambiholz [employer] Work Phone: [facility] 10-10-2024 13:48-0500 Heart rate 85 /min Saima Bambiholz [employer] Work Phone: [facility] 10-10-2024 13:48-0500 Respiratory rate 18 /min Saima Ferhholz [employer] Work Phone: [facility] 10-10-2024 13:48-0500 SaO2% (BldA) [Mass fraction] 98 % Saima Bambiholz [employer] Work Phone: [facility] 10-10-2024 13:48-0500 Systolic blood pressure 118 mm[Hg] Saima Aichholz [employer] Work Phone: [facility] 09-26-2024 17:55-0500 Body height 177.8 cm Saimamariano Monroehholz [employer] Work Phone: [facility] 09-26-2024 17:55-0500 Body mass index (BMI) [Ratio] 33.12 kg/m2 Saima Aichholz [employer] Work Phone: [facility] 09-26-2024 17:55-0500 Body temperature 97.81 [degF] Saima Ferhholz [employer] Work Phone: [facility] 09-26-2024 17:55-0500 Body weight 104.69 kg Saima Aichholz [employer] Work Phone: [facility] 09-26-2024 17:55-0500 Diastolic blood pressure 88 mm[Hg] Saima Aichholz [employer] Work Phone: [facility] 09-26-2024 17:55-0500 Heart rate 87 /min Asima Aichholz [employer] Work Phone: [facility] 09-26-2024 17:55-0500 Respiratory rate 20 /min Saima Aichholz [employer] Work Phone: [facility] 09-26-2024 17:55-0500 SaO2% (BldA) [Mass fraction] 97 % Saima Ferhholz [employer] Work Phone: [facility] 09-26-2024 17:55-0500 Systolic blood pressure 122 mm[Hg] Saima Aichholz [employer] Work Phone: [facility] 12-22-2023 14:56-0500 Blood Pressure Location Mg FARIAS [facility] 12-22-2023 14:56-0500 Diastolic blood pressure 82 mm[Hg] Mg FARIAS [facility] 12-22-2023 14:56-0500 Heart rate 76 /min Mg FARIAS [facility] 12-22-2023 14:56-0500 Respiratory rate 16 /min Mg [facility] 12-22-2023 14:56-0500 Systolic blood pressure 126 mm[Hg] Mg [facility] 11-25-2023 15:01-0500 Body height 177.8 cm Saima Aichholz [employer] Work Phone: [facility] 11-25-2023 15:01-0500 Body mass index (BMI) [Ratio] 36.13 kg/m2 Saima Aichholz [employer] Work Phone: [facility] 11-25-2023 15:01-0500 Body temperature 97.81 [degF] Saima Aichholz [employer] Work Phone: [facility] 11-25-2023 15:01-0500 Body weight 114.22 kg Saima Aichholz [employer] Work Phone: [facility] 11-25-2023 15:01-0500 Diastolic blood pressure 86 mm[Hg] Saima Aichholz [employer] Work Phone: [facility] 11-25-2023 15:01-0500 Heart rate 86 /min Saima Aichholz [employer] Work Phone: [facility] 11-25-2023 15:01-0500 Respiratory rate 19 /min Saima Aichholz [employer] Work Phone: [facility] 11-25-2023 15:01-0500 SaO2% (BldA) [Mass fraction] 98 % Saima Aichholz [employer] Work Phone: [facility] 11-25-2023 15:01-0500 Systolic blood pressure 142 mm[Hg] Saima Aichholz [employer] Work Phone: [facility] 06-02-2022 14:02-0400 Blood Pressure Location Mg FARIAS [facility] [place] 06-02-2022 14:02-0400 Diastolic blood pressure 83 mm[Hg] Mg NILL [facility] [place] 06-02-2022 14:02-0400 Heart rate 73 /min Mg NILL [facility] [place] 06-02-2022 14:02-0400 Respiratory rate 16 /min Mg NILL [facility] [place] 06-02-2022 14:02-0400 Systolic blood pressure 127 mm[Hg] Mg NILL [facility] [place] 03-11-2020 16:10-0400 Body Temperature 98.6 [degF] [facility] [place] [place] [facility] 16:10-0400 BP Diastolic 84 mm[Hg] [facility] [place] [facility] [place] 03-11-2020 16:10-0400 BP Systolic 129 mm[Hg] [facility] [place] [facility] [place] 03-11-2020 16:10-0400 Pulse (Heart Rate) 85 /min [facility] [place] 03-11-2020 16:10-0400 Pulse Oximetry 96 % [facility] [place] 03-11-2020 16:10-0400 Respiratory Rate 16 /min [facility] [place] [facility] [place] Encounters Encounter Date Encounter Type Care Provider Facility Start: 01-09-2025 End: 01-09-2025 Clinisync Result Encounter Saima Issa [employer] Work Phone: [facility] Unsolicited Start: 01-09-2025 End: 01-09-2025 Clinisync Result Encounter Saima Issa NP Work Phone: [facility] Unsolicited Start: 01-09-2025 End: 01-09-2025 Orders Only Saima Issa [employer] Work Phone: [facility] Comment on above: Thyroid nodule (CMS/ HCC) (Primary Dx) Start: 12-16-2024 End: 12-21-2024 Clinisync Result Encounter Saima Lacybert [employer] Work Phone: [facility] External [facility] Unsolicited Start: 12-16-2024 End: 12-21-2024 Clinisync Result Encounter Saima Lacybert [employer] Work Phone: [facility] Unsolicited Start: 12-07-2024 End: 12-07-2024 Bamboo flowsheet Saima Lacybert [employer] Work Phone: [facility] Start: 12-07-2024 End: 12-07-2024 Bamboo flowsheet Saima Lacybert [employer] Work Phone: [facility] Start: 12-07-2024 End: 12-07-2024 Office outpatient visit 15 minutes Saima Ferkristiebert [employer] Work Phone: [facility] Comment on above: Chronic cough (Prima ry Dx); Weight loss, unintentional; Obesity (BMI 30-39.9); Tobacco user; Bilateral leg pain; Chronic pain of both feet Start: 12-07-2024 End: 12-07-2024 ambulatory SAIMA FERKristieBERT Not Available Start: 12-05-2024 End: 12-05-2024 Telephone encounter Saima Lacybert [employer] Work Phone: [facility] Comment on above: Chronic cough (Prima ry Dx) Start: 11-23-2024 End: 11-23-2024 Office outpatient new 30 minutes Kolton Rolle DPM Work Phone: [facility] Comment on above: Porokeratosis (Prima ry Dx); Left foot pain; Chronic pain of both feet; Corns and callosities Start: 11-23-2024 End: 11-23-2024 ambulatory KOLTON ROLLE Not Available Start: 11-23-2024 End: 11-23-2024 Bamboo flowsheet Kolton Rolle DPM Work Phone: [facility] Start: 11-23-2024 End: 11-23-2024 Bamboo flowsheet Kolton Rolle DPM Work Phone: [facility] Start: 11-10-2024 End: 11-10-2024 Bamboo flowsheet Saima Luis Manuel [employer] Work Phone: [facility] Start: 11-10-2024 End: 11-10-2024 Bamboo flowsheet Saima Aichholz [employer] Work Phone: [facility] Start: 11-10-2024 End: 11-10-2024 Office outpatient visit 25 minutes Saimamariano Issa [employer] Work Phone: [facility] Comment on above: Chronic pain of both feet (Primary Dx); Diarrhea, unspecified type; Bilateral leg pain; Obesity (BMI 30-39.9); Weight loss, unintentional; Tobacco user; Marijuana smoker; PAD (peripheral artery disease) ([facility]); Chronic cough Start: 11-10-2024 End: 11-10-2024 ambulatory SAIMA AICHHOLZ Not Available Start: 10-10-2024 End: 10-10-2024 Bamboo flowsheet Saima Aichholz [employer] Work Phone: [facility] Start: 10-10-2024 End: 10-10-2024 Bamboo flowsheet Saima Ferhholz [employer] Work Phone: [facility] Start: 10-10-2024 End: 10-10-2024 Office outpatient visit 25 minutes Saima Luis Manuel [employer] Work Phone: [facility] Comment on above: Bilateral leg pain ( Primary Dx); Obesity (BMI 30-39.9); Weight loss, unintentional; Tobacco user; Marijuana smoker; Diarrhea, unspecified type; PAD (peripheral artery disease) ([facility]) Start: 10-10-2024 End: 10-10-2024 ambulatory SAIMA AICHHOLZ Not Available Start: 10-01-2024 End: 10-01-2024 Clinisync Result Encounter Saima Issa [employer] Work Phone: [facility] Unsolicited Start: 10-01-2024 End: 10-01-2024 Clinisync Result Encounter Saima De Guzmanz [employer] Work Phone: [facility] Unsolicited Start: 09-30-2024 End: 09-30-2024 Clinisync Result Encounter Saima Issa [employer] Work Phone: [facility] Unsolicited Start: 09-30-2024 End: 09-30-2024 Clinisync Result Encounter Saima Issa [employer] Work Phone: [facility] Unsolicited Start: 09-26-2024 End: 09-26-2024 Office outpatient visit 25 minutes Saima De Guzamnz [employer] Work Phone: [facility] Comment on above: Weight loss, uninten tional (Primary Dx); Tobacco user; Obesity (BMI 30-39.9); Marijuana smoker; Chronic pain of right knee; Diarrhea, unspecified type Start: 09-26-2024 End: 09-26-2024 ambulatory SAIMA AICHHOLZ Not Available Start: 09-26-2024 End: 09-26-2024 Bamboo flowsheet Saima Aichholz [employer] Work Phone: [facility] Start: 09-26-2024 End: 09-26-2024 Bamboo flowsheet Saima Aichholz [employer] Work Phone: [facility] Start: 04-14-2024 End: 04-14-2024 ambulatory SAIMA AICHHOLZ Not Available Start: 02-03-2024 End: 02-04-2024 ambulatory Mg FARIAS Facility:[id number] Start: 01-13-2024 End: 01-13-2024 ambulatory SAIMA AICHHOLZ Not Available Start: 01-04-2024 End: 01-04-2024 ambulatory LIZA NGUYEN Not Available Start: 12-22-2023 End: 12-23-2023 ambulatory Mg FARIAS Facility:[facility] Start: 12-22-2023 End: 12-22-2023 Patient encounter procedure Mg MCKEONL General Surgery [facility] Start: 12-18-2023 ambulatory Mg FARIAS Facility:[facility] Start: 11-25-2023 End: 11-25-2023 Office outpatient visit 15 minutes Saima Issa [employer] Work Phone: [facility] Comment on above: Rash (Primary Dx); Marijuana smoker; Tobacco user; BMI 36.0-36.9,adult; Colon cancer screening Start: 11-25-2023 Bamboo flowsheet Saima Issa [employer] Work Phone: [facility] Start: 11-25-2023 Bamboo flowsheet Saima Issa [employer] Work Phone: [facility] Start: 09-16-2022 End: 09-16-2022 ambulatory Clive Phillips Facility:[facility] Start: 09-16-2022 End: 09-16-2022 ambulatory MD Clive Phillips Work Phone: [facility] Work Phone: Start: 09-16-2022 End: 09-16-2022 Departed Referred MD Clive Phillips Work Phone: [facility] [place] Start: 07-10-2022 End: 07-10-2022 Patient encounter procedure Mg FARIAS [facility] [place] Start: 06-26-2022 End: 06-26-2022 Patient encounter procedure Mg FARIAS [facility] Surgery [place] Start: 06-02-2022 End: 06-02-2022 Patient encounter procedure Mg FARIAS [facility] [place] Start: 05-25-2022 End: 05-25-[address] JOSSY STACY Facility:[facility] Start: 08-13-2021 End: 08-13-2021 ambulatory RUDY YANG Facility:[facility] Start: 03-11-2020 End: 03-11-2020 Emergency department patient visit [place] Start: 03-11-2020 End: 03-11-2020 Emergency department patient visit [place] ED Comment on above: Dog bite of left upp er extremity, initial encounter (Primary Dx) Procedures Date Procedure Procedure Detail Performing Clinician Start: 01-09-2025 CT CHEST W CONTRAST Naty Issa [employer] Work Phone: Start: 12-16-2024 XR CHEST 2V Saima de la torre [employer] Work Phone: Start: 12-16-2024 RT PULMONARY FUNCTION TEST Saima Issa [employer] Work Phone: Start: 12-16-2024 ALL HEMOGLOBIN Saima hughesolyumiko [employer] Work Phone: Start: 10-01-2024 OCCULT BLOOD* Saima vang [employer] Work Phone: Start: 09-30-2024 ALL CBC WITH AUTO DIFF Saima Issa [employer] Work Phone: Start: 02-03-2024 Colonoscopy Saima de la torre [employer] Work Phone: Start: 06-16-2022 Inguinal hernioplasty Rosa painterveronica ZONIA Start: 03-11-2020 MISCELLANEOUS NURSIN G CARE ORDER (SPECIFY) Start: 03-11-2020 Radex forearm 2 views Start: 10-19-1984 Excision of cyst Gunner FARIAS Comment on above: forehead Excision of cyst Mg Reynoso Comment on above: forehead Excision of cyst Mg Reynoso Comment on above: right face Plan of Treatment Date Care Activity Detail Author Start: 02-02-2034 Screening for malign ant neoplasm of colon [facility] Start: 03-11-2030 DTaP/Tdap/Td vaccine (2 - Td) DTaP/Tdap/Td vaccine (2 - Td) [place] Start: 01-18-2025 End: 01-18-2025 Patient encounter procedure 01/18/2025 9:00 AM EDT Office Visit [facility] [address] [place] [phone] Saima Issa NP [address] [place] [address] [facility] Start: 01-09-2025 End: 01-09-2026 US Thyroid gland US thyroid Imaging Routine Thyroid nodule (CMS/HCC) Expected: 01/09/2025 (Approximate), Expires: 01/09/2026 [facility] Work Phone: Comment on above: Expected: 01/09/2025 (Approximate), Expires: 01/09/2026 Start: 12-07-2024 End: 12-07-2024 Patient encounter procedure [facility] Comment on above: Chronic cough (Prima ry Dx); Weight loss, unintentional; Obesity (BMI 30-39.9); Tobacco user Start: 12-05-2024 End: 12-05-2025 XR Chest 2 Views XR chest 2 views Imaging Routine Chronic cough Expected: 12/05/2024 (Approximate), Expires: 12/05/2025 [facility] Work Phone: Comment on above: Expected: 12/05/2024 (Approximate), Expires: 12/05/2025 Start: 11-30-2024 End: 11-30-2024 Patient encounter procedure 11/30/2024 2:20 PM EST Office Visit [facility] [address] [place] [phone] Saima Issa, TEO [address] [place] [phone] [facility] Start: 11-23-2024 End: 11-23-2024 Patient encounter procedure 11/23/2024 2:15 PM EST Office Visit [facility] [address] [place] [phone] Kolton Rolle, DPM [address] [place], [place] [id number] Chronic pain of both feet [facility] Comment on above: Chronic pain of both feet Start: 11-10-2024 End: 11-10-2025 Creatinine [Mass/volume] in Serum or Plasma Creatinine Lab Routine Weight loss, unintentional Tobacco user Chronic cough Expected: 11/10/2024 (Approximate), Expires: 11/10/2025 [facility] Comment on above: Expected: 11/10/2024 (Approximate), Expires: 11/10/2025 Start: 11-10-2024 End: 11-10-2025 CT Chest W contrast IV CT chest w IV contrast Imaging Routine Weight loss, unintentional Tobacco user Chronic cough Expected: 11/10/2024 (Approximate), Expires: 11/10/2025 [facility] Work Phone: Comment on above: Expected: 11/10/2024 (Approximate), Expires: 11/10/2025 Start: 11-10-2024 End: 11-10-2024 Patient encounter procedure 11/10/2024 2:00 PM EST Office Visit [facility] [address] [place] [address] Saima Issa NP [address] [place] [phone] Diarrhea, unspecified type (Primary Dx); Bilateral leg pain; Obesity (BMI 30-39.9); Weight loss, unintentional; Tobacco user; Marijuana smoker [facility] Comment on above: Diarrhea, unspecifie d type (Primary Dx); Bilateral leg pain; Obesity (BMI 30-39.9); Weight loss, unintentional; Tobacco user; Marijuana smoker Start: 10-10-2024 End: 10-10-2024 Patient encounter procedure [facility] Comment on above: Obesity (BMI 30-39.9 ) (Primary Dx); Weight loss, unintentional; Tobacco user; Marijuana smoker Start: 09-26-2024 End: 09-26-2024 Patient encounter procedure 09/26/2024 7:00 PM EST Office Visit [facility] [address] [place] [address] Saima Issa NP [address] [place] [phone] Tobacco user (Primary Dx); Obesity (BMI 30-39.9) [facility] Comment on above: Tobacco user (Primar y Dx); Obesity (BMI 30-39.9) Start: 09-26-2024 End: 09-26-2025 C reactive protein [Mass/volume] in Serum or Plasma C-reactive protein Lab Routine Diarrhea, unspecified type Expected: 09/26/2024 (Approximate), Expires: 09/26/2025 [facility] Comment on above: Expected: 09/26/2024 (Approximate), Expires: 09/26/2025 Start: 09-26-2024 End: 09-26-2025 CBC W Auto Differential panel - Blood CBC and differential Lab Routine Weight loss, unintentional Diarrhea, unspecified type Expected: 09/26/2024 (Approximate), Expires: 09/26/2025 [facility] Comment on above: Expected: 09/26/2024 (Approximate), Expires: 09/26/2025 Start: 09-26-2024 End: 09-26-2025 Clostridioides difficile toxin A+B tcdA+tcdB genes [Presence] in Stool by SHERLEY with probe detection Clostridium difficile,EIA Microbiology Routine Diarrhea, unspecified type Expected: 09/26/2024 (Approximate), Expires: 09/26/2025 [facility] Comment on above: Expected: 09/26/2024 (Approximate), Expires: 09/26/2025 Start: 09-26-2024 End: 09-26-2025 Comprehensive metabolic 2000 panel - Serum or Plasma Comprehensive metabolic panel Lab Routine Weight loss, unintentional Diarrhea, unspecified type Expected: 09/26/2024 (Approximate), Expires: 09/26/2025 [facility] Comment on above: Expected: 09/26/2024 (Approximate), Expires: 09/26/2025 Start: 09-26-2024 End: 09-26-2025 Erythrocyte sedimentation rate Sedimentation rate, automated Lab Routine Diarrhea, unspecified type Expected: 09/26/2024 (Approximate), Expires: 09/26/2025 [facility] Comment on above: Expected: 09/26/2024 (Approximate), Expires: 09/26/2025 Start: 09-26-2024 End: 09-26-2025 Measurement of occult blood in single stool specimen Occult blood x 1, stool Lab Routine Diarrhea, unspecified type Expected: 09/26/2024 (Approximate), Expires: 09/26/2025 [facility] Comment on above: Expected: 09/26/2024 (Approximate), Expires: 09/26/2025 Start: 09-26-2024 End: 09-26-2025 Stool culture Stool culture Microbiology Routine Diarrhea, unspecified type Expected: 09/26/2024 (Approximate), Expires: 09/26/2025 [facility] Comment on above: Expected: 09/26/2024 (Approximate), Expires: 09/26/2025 Start: 09-26-2024 End: 09-26-2025 Thyrotropin [Units/volume] in Serum or Plasma TSH Lab Routine Weight loss, unintentional Expected: 09/26/2024 (Approximate), Expires: 09/26/2025 [facility] Comment on above: Expected: 09/26/2024 (Approximate), Expires: 09/26/2025 Start: 09-26-2024 End: 09-26-2025 Urinalysis complete panel - Urine Urinalysis with reflex microscopic (clean catch) Lab Routine Diarrhea, unspecified type Expected: 09/26/2024 (Approximate), Expires: 09/26/2025 [facility] Comment on above: Expected: 09/26/2024 (Approximate), Expires: 09/26/2025 Start: 09-26-2024 End: 09-26-2025 XR Knee - right 3 Views XR knee 3 views right Imaging Routine Chronic pain of right knee Expected: 09/26/2024 (Approximate), Expires: 09/26/2025 [facility] Work Phone: Comment on above: Expected: 09/26/2024 (Approximate), Expires: 09/26/2025 Start: 01-13-2024 End: 01-13-2024 Patient encounter procedure 01/13/2024 9:40 AM EDT Office Visit [facility] [address] [place] [phone] Saima Issa, TEO [address] [place] [phone] [facility] Start: 11-25-2023 End: 11-25-2023 Patient encounter procedure 11/25/2023 3:00 PM EST Office Visit [facility] [address] [place] [address] Saima Issa, [employer] [address] [place] [phone] Arrived [facility] Comment on above: Arrived Start: 06-19-2023 Influenza vaccination Influenza Vacc ine (#1) [facility] Start: 06-19-2020 Influenza vaccination Flu vacc ine (Season Ended) [place], [place] Start: 2014 Lipid panel Lipid screen [place], [place] Start: 1989 HIV screening HIV screen [facility] [place] Start: 1980 Pneumococcal 0-64 ye ars Vaccine (1 of 1 - PPSV23) Pneumococcal 0-64 years Vaccine (1 of 1 - PPSV23) [place], [place] Start: 1974 Screening for malign ant neoplasm of colon [facility] Pulmonary function report Pulmonary Function Test Imaging Routine Chronic cough Tobacco user Ordered: 12/07/2024 [facility] Work Phone: Comment on above: Ordered: 12/07/2024 End: 03-11-2020 XR RADIUS ULNA LEFT (2 VIEWS) XR RADIUS ULNA LEFT (2 VIEWS) Imaging STAT Once for 1 Occurrences starting 03/11/2020 until 03/11/2020 [place] Comment on above: Once for 1 Occurrenc es starting 03/11/2020 until 03/11/2020 XR RADIUS ULNA LEFT (2 VIEWS) XR RADIUS ULNA LEFT (2 VIEWS) Imaging STAT 03/11/2020 5:15 PM EDT [place] Immunizations Immunization Date Immunization Notes Care Provider Fa cility 03-11-2020 diphtheria, tetanus toxoids and acellular pertussis vaccine, unspecified formulation [place] 03-11-2020 tetanus toxoid, reduced diphtheria toxoid, and acellular pertussis vaccine, adsorbed [place] NEGATED: Highlighted row has not occurred!12-22-2023 influenza virus vaccine, unspecified formulation Mg FARIAS General Surgery [place] Payers Date Payer Category Payer Self-pay 2021 Medicaid [facility] MEDICAID [place] MEDICA[place] [id number] 2021-Present [address] [place] [phone] [id number] 2021 Medicaid (Managed Care) [facility] MEDICAID [id number] 2019 Unknown [facility] RORYETTER MARINE xxxxxxxxxxxx 2019-Present [phone] [address] [place] [address] xxxxxxxxxxxx [id number] 1974 Unknown [id number] [id number]. 173 1974 Unknown [id number] [id number]. 593 1974 Unknown [id number] 2.16.840.1.342602.3.579.2. 593 1974 Unknown [id number] 2.16.840.1.429471.3.579.2. 727 1974 Unknown [id number] 2.16.840.1.413777.3.579.2. 727 1974 Unknown [id number] 2.16.840.1.343131.3.579.2. 9 1974 Unknown [id number] 2.16.840.1.463778.3.579.2. 9 1974 Unknown [id number] 2.16.840.1.098812.3.579.2. 9 1974 Unknown [id number] 2.16.840.1.218969.3.579.2. 1259 1974 Unknown [id number] 2.16.840.1.887737.3.579.2. 9 1974 Unknown [id number] 2.16.840.1.245890.3.579.2. 1259 1974 Unknown [id number] 2.16.840.1.497969.3.579.2. 9 1974 Unknown [id number] 2.16.840.1.900723.3.579.2. 1259 1959 Unknown [id number] 1959 Unknown [id number] Unknown Other1 (STD) [id number] Unknown [id number]. 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) [place] Start: 1975 Sex Assigned At Not on file M [place] Exposure to SARS-CoV -2 (event) Unable to assess [place] Start: 06-02-2022 End: 12-22-2023 Heavy tobacco smoker (finding) [facility] Never [facility] Start: 11-16-2023 End: 01-11-2024 Male [facility] Start: 1975 Sex Assigned At Male F [facility] History of tobacco use Cigarette Smoker [facility] Start: 11-25-2023 End: 12-07-2024 Alcohol intake Lifetime non-drinker (finding) [facility] Start: 11-25-2023 Alcohol Comment caffine: soda: 6-8daily [facility] Do you belong to any clubs or organizations such as evangelical groups, unions, fraternal or athletic groups, or [...] FDA Start: 06-16-2022 INGUINAL HERNIA REPAIR ADULT ZONIA SEGURA, Mg [place] 06/16/22 Unknown Other FDA Start: 06-16-2022 Functional Status Date Assessment Result Facility 12-22-2023 Functional Status N/A [facility] se[facility] 06-02-2022 N/A [facility] [place] Clinical Notes 11-25-2023 to 12-07-2024 Saima Issa NP - 12/07/2024 11:29 AM ESTSaima Issa NP - 12/07/2024 11:28 AM ESTSaima Issa NP - 12/07/2024 10:30 AM ESTSaima Issa NP - 12/07/2024 7:47 AM ESTPatient [...] of the risks of continued smoking: stroke, MD, all forms of cancer, lung disease, and [...] of the risks of continued smoking: stroke, MD, all forms of cancer, lung disease, and [...] as well documented in this encounter [facility] 12-07-2024 Instructions Saima Issa NP - 12/07/2024 10:30 AM EST We will check chest xray: you can walk in to do that We will order pulmonary function testing (breathing test) [facility] will call you documented in this encounter [facility] 12-05-2024 Telephone encounter Note Contact pt, his insurance will not approve a CT chest, they want us to start with a CXR, I have an order for this, fax it to where ever he wants and we will go from there [facility] 12-05-2024 Miscellaneous Notes Contact pt, his insurance will not approve a CT chest, they want us to start with a CXR, I have an order for this, fax it to where ever he wants and we will go from there documented in this encounter [facility] 12-05-2024 History of Present illness Narrative Associated Problem(s): Chronic cough Insurance will not cover CT chest 11/28/24 We will start with cxr then documented in this encounter [facility] 11-23-2024 History of Present illness Narrative Images [...] Rolle DPM documented in this encounter [facility] 11-10-2024 History of Present illness Narrative Associated Problem(s): Chronic pain of both feet Has multiple callouses and pain bilat feet Also pes planus Refer to podiatry Associated Problem(s): PAD (peripheral artery disease) ([facility]) Normal segmental pressures Associated Problem(s): Weight loss, unintentional Had labs completed, gained 3 pounds since last visit No new symptoms Pt would like to wait to see if things improve Fu 4 weeks Sore dry spot on bottom of left foot heel that can be painful using old cream that he had from his administrative services officer about a year ago Images from the [...] of the risks of continued smoking: stroke, MD, all forms of cancer, lung disease, and [...] of the risks of continued smoking: stroke, MD, all forms of cancer, lung disease, and [...] of bentyl. documented in this encounter [facility] 11-10-2024 Instructions Saima Issa NP - 11/10/2024 2:00 PM EST Foot doctor: Dr Rolle ([place]) they should call Weight loss: lung CT scan [facility] documented in this encounter [facility] 10-10-2024 History of Present illness Narrative Associated Problem(s): PAD (peripheral artery disease) ([facility]) Check FABRIZIO's with segmental pressures Associated Problem(s): [...] of the risks of continued smoking: stroke, MD, all forms of cancer, lung disease, and [...] continues to improve PAD (peripheral artery disease) ([facility]) Check FABRIZIO's with segmental pressures Bilateral leg pain - Primary Differentials: PAD, lumbar radiculopathy, pes planus Will give hand out on stretching exercises Associated Problem(s): Tobacco user The patient has been advised of the risks of continued smoking: stroke, MD, all forms of cancer, lung disease, and [...] this year documented in this encounter [facility] 10-10-2024 Instructions Saima Issa NP - 10/10/2024 1:40 PM EST Order test on blood flow in legs: will send order to [facility], they should call you, if no call in 2 weeks, call them to schedule: [phone] Try increasing the fiber in your diet documented in this encounter [facility] 09-26-2024 History of Present illness [...] of the risks of continued smoking: stroke, MD, all forms of cancer, lung disease, and [...] of the risks of continued smoking: stroke, MD, all forms of cancer, lung disease, and [...] this year documented in this encounter [facility] 09-26-2024 Instructions Saima Issa NP - 09/26/2024 7:00 PM EST Knee pain: xray knee Diarrhea and weight loss: check labs and stool samples Dicyclomine as needed for cramping abd documented in this encounter [facility] 12-22-2023 Note Chief Complaint consultation [...] vaccine, inactivated - Not Given [facility] Comment on above: Result Comment: [...] to General Surgery documented in this encounter [facility] Evaluation + Plan note Future Appointments Appointment Date:06/09/2022 12:30:00 PM Scheduled Provider: Location:[facility] Appointment Type:Surgical PAT FT Appointment Date:06/09/2022 01:30:00 PM Scheduled Provider: Location:[facility] Appointment Type:Surgery PAT COVID Testing Appointment Date:06/16/2022 08:00:00 AM Scheduled Provider: Location:[facility] Appointment Type:Surgery FT [facility] [place] Evaluation + Plan note Future Appointments Appointment Date:07/10/2022 10:40:00 AM Scheduled Provider:Mg FARIAS MD Location:[facility] Appointment Type:GS Post Op 15 [facility] [place] Evaluation note No assessment inform ation available [facility] Work Phone: Evaluation note Diagnosis Rash- [...] disorder Marijuana smoker PAD (peripheral artery disease) ([facility]) Unspecified peripheral vascular disease Chronic cough Cough documented in this encounter [facility] HealthcareEvaluation note* Diagnosis Rash- Primary Rash [...] Diarrhea, unspecified type PAD (peripheral artery disease) ([facility]) Unspecified peripheral vascular disease Chronic pain of both feet- Primary Diarrhea, unspecified type Bilateral leg pain Pain in soft tissues of limb Obesity (BMI 30-39.9) Weight loss, unintentional Loss of weight Tobacco user Tobacco use disorder Marijuana smoker PAD (peripheral artery disease) ([facility]) Unspecified peripheral vascular disease Chronic cough Cough Porokeratosis- Primary Other specified congenital anomaly of skin Left foot pain Pain in soft tissues of limb Chronic pain of both feet Corns and callosities documented in this encounter [facility] HealthcareEvaluation note* Diagnosis Rash- Primary Rash [...] Diarrhea, unspecified type PAD (peripheral artery disease) ([facility]) Unspecified peripheral vascular disease Chronic pain of both feet- Primary Diarrhea, unspecified type Bilateral leg pain Pain in soft tissues of limb Obesity (BMI 30-39.9) Weight loss, unintentional Loss of weight Tobacco user Tobacco use disorder Marijuana smoker PAD (peripheral artery disease) ([facility]) Unspecified peripheral vascular disease Chronic cough Cough Chronic cough- Primary Cough documented in this encounter [facility] [...] Diarrhea, unspecified type PAD (peripheral artery disease) ([facility]) Unspecified peripheral vascular disease Chronic pain of both feet- Primary Diarrhea, unspecified type Bilateral leg pain Pain in soft tissues of limb Obesity (BMI 30-39.9) Weight loss, unintentional Loss of weight Tobacco user Tobacco use disorder Marijuana smoker PAD (peripheral artery disease) ([facility]) Unspecified peripheral vascular disease Chronic cough Cough Chronic cough- Primary Cough Chronic cough- Primary Cough Weight loss, unintentional Loss of weight Obesity (BMI 30-39.9) Tobacco user Tobacco use disorder Bilateral leg pain Pain in soft tissues of limb Chronic pain of both feet documented in this encounter [facility]* [...] of limb Chronic pain of both feet Thyroid nodule (CMS/HCC)- Primary Nontoxic uninodular goiter [facility] this encounter [facility] Narrative No data available for this section [facility] Discharge instructions No data available for this section [facility] Progress note No data available for this section [facility] Reason for referral (narrative)* Consultation (Routine) - Authorized Specialty Diagnoses / Procedures Referred By Donny t Referred To Contact Dermatology Diagnoses Rash Procedures GA OFFICE/OUTPATIENT NEW HIGH MDM 60 MINUTES Saima Issa, TEO [address] [place] [address] Liza Nguyen, ADULT CAREGIVER-CLAMP OPERATOR [address] [place] [address] Referral ID Status Reason Start Date Expiration Date Visits Requested Visits Authorized [id number] Authorized Specialty Services Required 11/25/2023 05/23/2024 1 1 * Consultation (Routine) - Pending Review Specialty Diagnoses / Procedures Referred By Donny chopra Referred To Contact General Surgery Diagnoses Colon cancer screening Procedures GA OFFICE/OUTPATIENT NEW HIGH MDM 60 MINUTES Saima Issa NP [address] [place] [address] Mg Farias MD [address] [facility] [address], [address] [place] [address] Referral ID Status Reason Start Date Expiration Date Visits Requested Visits Authorized [id number] Pending Review Specialty Services Required 11/25/2023 05/23/2024 1 1 [facility] Dis[facility] Instructions * Attachments The following attachments cannot be sent through Care Everywhere. * Bites: Animal (Albanian) documented in this encounter Assessments Diagnosis Dog bite of left upper extremity, initial encounter Advance Directives Documents on File Type Date Recorded Patient Rn Relief Charge Expl anation Advance Directives and Living Will Power of Broach Operator Summary Purpose Family History No Family History [...] 10 Specialty Diagnoses / Procedures Referred By Donny chopra Referred To Contact Podiatry Diagnoses Chronic pain of both feet Procedures GA OFFICE/OUTPATIENT NEW HIGH MDM 60 MINUTES Saima Issa NP [address] [place] [address] Phone: tel: fax: Kolton Rolle, DPM [address] [place] [address] Phone: tel: fax: Referral ID Status Reason Start Date Expiration Date V isits Requested Visits Authorized [id number] Closed Specialty Services Required 11/10/2024 05/09/2025 1 1 (unrecognized sect ion and content) No Status Records FoundNo Status Records FoundNo Status Records FoundNo Status Records FoundNo Status Records Found INFORMATION SOURCE (unrecogn ized section and content) DATE CREATED AUTHOR 03/11/2020 [facility] DATE CREATED AUTHOR AUTHOR'S ORGANIZ ATION 05/26/2022 [facility] DATE CREATED AUTHOR AUTHOR'S ORGANIZ ATION 09/29/2022 [facility] DATE CREATED AUTHOR AUTHOR'S ORGANIZ ATION 02/16/2024 [facility] DATE CREATED AUTHOR AUTHOR'S ORGANIZ ATION 12/09/2024 [facility] dical Specialists [facility] Care Team (unrecognized sect ion and content) Team Status: Inactive Member Role Status Dates Clive Phillips MD Attending Provider Active Garnett Mechanic Relationship Specialty Start Date End Date Samuel Santiago MD [address] [place] [address] PCP - General Family Medicine 11/16/23 Saima Issa NP [address] [place] [address] Referring Physician Nurse Practitioner 05/06/23 Garnett Mechanic Relationship Specialty Start Date End Date Samuel Santiago MD [address] [place] [address] PCP - General Family Medicine 11/16/23 Saima Issa NP [address] [place] [address] Referring Physician Nurse Practitioner 05/06/23 Garnett Mechanic Relationship Specialty Start Date End Date Samuel Santiago MD [address] [place] [address] PCP - General [facility] 11/16/23 Saima Issa NP [address] [place] [address] [facility] 04/18/24 Saima Issa NP [address] [place] [address] Referring Physician Nurse Practitioner 05/06/23 Garnett Mechanic Relationship Specialty Start Date End Date Samuel Santiago MD [address] [place] [address] PCP - [facility] 11/16/23 Saima Issa NP [address] [place] [address] [facility] 04/18/24 Saima Issa NP [address] [place] [address] Referring Physician Nurse Practitioner 05/06/23 Garnett Mechanic Relationship Specialty Start Date End Date Samuel Santiago MD [address] [place] [address] PCP - [facility] 11/16/23 Saima Issa NP [address] [place] [address] [facility] 04/18/24 Saima Issa NP [address] [place] [address] Referring Physician Nurse Practitioner 05/06/23 Garnett Mechanic Relationship Specialty Start Date End Date Samuel Santiago MD [address] [place] [address] PCP - General [facility] 11/16/23 Saima Issa NP [address] [place] [address] [facility] 04/18/24 Saima Issa NP [address] [place] [address] Referring Physician Nurse Practitioner 05/06/23 Garnett Mechanic Relationship Specialty Start Date End Date Samuel Santiago MD [address] [place] [address] PCP - [facility] 11/16/23 Saima Issa NP [address] [place] [address] PCP [facility] 04/18/24 Saima Issa NP [address] [place] [address] Referring Physician Nurse Practitioner 05/06/23 Garnett Mechanic Relationship Specialty Start Date End Date Naderer, Samuel, MD [address] [place] [address] PCP - General [facility] 11/16/23 Saima Issa NP [address] [place] [address] [facility] 04/18/24 Saima Issa NP [address] [place] [address] Referring Physician Nurse Practitioner 05/06/23 Garnett Mechanic Relationship Specialty Start Date End Date Samuel Santiago MD [address] [place] [address] PCP - [facility] 11/16/23 Saima Issa NP [address] [place] [address] [facility] 04/18/24 Saima Issa NP [address] [place] [address] Referring Physician Nurse Practitioner 05/06/23 Garnett Mechanic Relationship Specialty Start Date End Date Samuel Santiago MD [address] [place] [address] PCP - [facility] 11/16/23 Saima Issa NP [address] [place] [address] [facility] 04/18/24 Saima Issa NP [address] [place] [address] Referring Physician Nurse Practitioner 05/06/23 Garnett Mechanic Relationship Specialty Start Date End Date Samuel Santiago MD [address] [place] [address] PCP - General Family [facility] 11/16/23 Saima Issa NP [address] [place] [address] [facility] 04/18/24 Saima Issa NP [address] [place] [address] Referring Physician Nurse Practitioner 05/06/23 Garnett Mechanic Relationship Specialty Start Date End Date Samuel Santiago MD [address] [place] [address] PCP - [facility] Family [facility] 11/16/23 Saima Issa NP [address] [place] [address] [facility] 04/18/24 Saima Issa NP [address] [place] [address] Referring Physician Nurse Practitioner 05/06/23 Garnett Mechanic Relationship Specialty Start Date End Date Samuel Santiago MD [address] [place] [address] PCP - [facility] 11/16/23 Saima Issa NP [address] [place] [address] [facility] 04/18/24 Saima Issa NP [address] [place] [address] Referring Physician Nurse Practitioner 05/06/23 Garnett Mechanic Relationship Specialty Start Date End Date Samuel Santiago MD [address] [place] [address] PCP - [facility] 11/16/23 Saima Issa NP [address] [place] [address] [facility] 04/18/24 Saima Issa NP [address] [place] [address] Referring Physician Nurse Practitioner 05/06/23 Garnett Mechanic Relationship Specialty Start Date End Date Samuel Santiago MD [address] [place] [address] PCP - [facility] 11/16/23 Saima Issa NP [address] [place] [address] PCP - [facility] 04/18/24 Saima Issa NP [address] [place] [address] Referring Physician Nurse Practitioner 05/06/23 Garnett Mechanic Relationship Specialty Start Date End Date Samuel Santiago MD [address] [place] [address] PCP - General Family Medicine 11/16/23 Saima Issa NP [address] [place] [address] [facility] 04/18/24 Saima Issa NP [address] [place] [address] Referring Physician Nurse Practitioner 05/06/23 Goals (unrecognized [...] ON THE PRIMARY CLINICAL RECORDS. [facility] [employer] [facility]. provides no warranty or guarantee of the accuracy or completeness of information in this document.
== END 2025-01-16 10:15 | disposition home or self-care (01) ==
LOC: US 10:14
PROVIDERS: PCP Nurse Practitioner; Visit Provider Nurse Practitioner
DX: E04.1 Nontoxic single thyroid nodule (principal); E04.2 Nontoxic multinodular goiter
CPT/HCPCS: 76536

== ENCOUNTER 2025-07-05 13:35 | Outpatient (OUT) | payer OTHER, SELFPAY ==
--- OUTSIDE RECORDS SUMMARY | 2025-07-05 13:39 | XMS_ITS | Encounter Summary ---
Author Organization [facility] Address [address] [place] [address] Care Team Providers Care Technical Support Director Name Role Phone Saima Issa NP Unavailable [phone] Samuel Santiago MD Primary Care Provider [phone] Saima Issa NP Unavailable [phone] Encounter Details Date Type Department Care Team (Late st Contact Info) Description 10/18/2024 Clinisync Result Encounter [facility] External Department Unsolicited Saima Issa NP [address] [place] [address] Social History Tobacco Use Types Packs/Day Years Used Date Smoking Tobacco: Every Day Cigarettes Alcohol Use Standard Drinks/Week Comments Never 0 (1 standard drink = 0.6 oz pur e alcohol) caffine: soda: 6-8daily Social Connection and Isolation Panel [NHANES] A nswer Date Recorded In a typical week, how many times do you talk on the phone with family, friends, or neighbors? Patient declined 01/11/2024 How often do you get togethe r with friends or relatives? Patient declined 01/11/2024 How often do you attend muslim or taoist serv ices? Patient declined 01/11/2024 Do you belong to any clubs o r organizations such as muslim groups, unions, fraternal or athletic groups, or school groups? No 01/11/2024 How often do you attend meet ings of the clubs or organizations you belong to? Never 01/11/2024 Are you , , di vorced, , never , or living with a partner? 01/11/2024 AUDIT-C Answer Date Recorded Q1: How often do you have a drink containing alcohol? Never 01/11/2024 Q2: How many drinks containi ng alcohol do you have on a typical day when you are drinking? Patient does not drink Q3: How often do you have si x or more drinks on one occasion? Never 01/11/2024 Overall Financial Resource Strain (CARDIA) Answe r Date Recorded How hard is it for you to pa y for the very basics like food, housing, medical care, and heating? Patient declined 01/11/2024 PHQ-2 Answer Date Recorded Patient Health Questionnaire-2 Score 0 11/25/2023 Exercise Vital Sign Answer Date Recorde d On average, how many days pe r week do you engage in moderate to strenuous exercise (like a brisk walk)? Patient declined On average, how many minutes do you engage in exercise at this level? Patient declined 01/11/2024 Hunger Vital Sign Answer Date Recorded Within the past 12 months, y ou worried that your food would run out before you got the money to buy more. Patient declined Within the past 12 months, t he food you bought just didn't last and you didn't have money to get more. Patient declined PRAPARE - Transportation Answer Date Re corded In the past 12 months, has l ack of transportation kept you from medical appointments or from getting medications? No 12/18 In the past 12 months, has l ack of transportation kept you from meetings, work, or from getting things needed for daily living? No 01/11/2024 Housing Stability Vital Sign Answer Darrian e Recorded In the last 12 months, was t here a time when you were not able to pay the mortgage or rent on time? No 01/11/2024 In the last 12 months, how many places have you lived? 1 01/11/2024 In the last 12 months, was t here a time when you did not have a steady place to sleep or slept in a skilled nursing (including now)? No 01/11/2024 Sex and Gender Information Value Date Recorded Sex Assigned at Not on file Legal Sex Male 11:24 AM EDT Gender Identity Not on file Sexual Orientation Not on file documented as of this encounter Plan of Treatment Upcoming Encounters Date Type Department Care Team (Late st Contact Info) Description 07/12/2025 11:20 AM EDT Office Visit [facility] [place] [facility] [address] [facility] [address] [place] [address] Stacie Jones MD [address] [facility] [address] [place] [address] documented as of this encounter Procedures Procedure Name Priority Date/Time Associated Diagnosis Comments SEGMENTAL BLOOD PRESSURE 10/18/2024 9:51 AM EST documented in this encounter Results * SEGMENTAL BLOOD PRESSURE (10/18/2024 9:51 AM EST) Anatomical Region Laterality Modality Radiographic Lexi ging 10/18/2024 9:51 AM EST Narrative 10/18/2024 9:54 [place] [address] Vein Report Signed Patient: JAYDEN RAMAN MR#: [id number] : 1975 Acct:[id number] Age/Sex: 48 / M ADM Date: 10/18/24 Loc: [facility] Attending Dr: Saima Issa MOP MAKER Ordering Physician: Saima Issa NP Date of Service: 10/18/24 Procedure(s): VC SEGMENTAL PRESSURES Accession Number(s): [id number] cc: Saima Issa NP [place] [id number] Patient Name: JAYDEN RAMAN MRN: [id number] date: 1975 Sex: M Assigned Patient Location: Current Patient Location: Accession/Order Number: [id number] Exam Date: 10/18/2024 08:24 Report Date: 10/18/2024 09:51 At the request of: SAIMA ISSA Procedure: VC SEGMENTAL PRESSURES EXAM: VC SEGMENTAL PRESSURES HISTORY: I73.9. Leg numbness. Leg pain. COMPARISON: None. TECHNIQUE: Resting ABIs and segmental limb pressures. FINDINGS: Right resting FABRIZIO normal at 1.25. Left resting FABRIZIO normal at 1.3. Waveforms are multiphasic. Thigh pressures were abnormally elevated likely due to vascular rigidity. Waveforms are multiphasic. VEIN/VC SEGMENTAL PRESSURES IMPRESSION: Normal resting ABIs. Normal segmental pressures. Electronically authenticated by: Basilio SCHWARTZ Date: 10/18/2024 09:51 Dictated By: Basilio Schwartz M.D. Signed By: 10/18/2454 DD/ TD/TT: Call Center Coordinator: Procedure Note Radiology, Radiologist, MD - 10/18/2024 [place] [address] Vein Report Signed Patient: JAYDEN RAMAN RMR#: [id number] : 1975Acct:[id number] Age/Sex: 48 / MADM Date: 10/18/24 Loc: [facility] Attending Dr: Saima Issa NP Ordering Physician: Saima Issa NP Date of Service: 10/18/24 Procedure(s): VC SEGMENTAL PRESSURES Accession Number(s): [id number] cc: Saima Issa NP [place] [id number] Patient Name: JAYDEN RAMAN MRN: [facility]:[id number] date: 1975 Sex: M Assigned Patient Location: Current Patient Location: Accession/Order Number: [id number] Exam Date: 10/18/2024 08:24 Report Date: 10/18/2024 09:51 At the request of: SAIMA ISSA Procedure: VC SEGMENTAL PRESSURES EXAM: VC SEGMENTAL PRESSURES HISTORY: I73.9. Leg numbness. Leg pain. COMPARISON: None. TECHNIQUE: Resting ABIs and segmental limb pressures. FINDINGS: Right resting FABRIZIO normal at 1.25. Left resting FABRIZIO normal at1.3. Waveforms are multiphasic. Thigh pressures were abnormally elevated likelydue to vascular rigidity. Waveforms are multiphasic. VEIN/VC SEGMENTAL PRESSURES IMPRESSION: Normal resting ABIs. Normal segmental pressures. Electronically authenticated by: Basilio SCHWARTZ Date: 10/18/2024 09:51 Dictated By: Basilio Schwartz M.D. Signed By:10/18/24953 DD/ 0 TD/TT: Call Center Coordinator: us Saima Issa NP IMG XR PROCEDURES Final Result documented in this encounter Visit Diagnoses Not on filedocumented in this encounter Care Teams Technical Support Director Relationship Specialty Start Date End Date Samuel Santiago MD PCP - General Family Medicine 11/16/23 Saima Issa NP [address] [place] [address] PCP - [facility] 04/18/24 Saima Issa NP Referring Physician Nurse Practitioner 05/06/23 documented as of this encounter
--- OUTSIDE RECORDS SUMMARY | 2025-07-05 13:39 | XMS_ITS | Encounter Summary ---
Author Organization [facility] Address [address] [facility] [place] [address] Care Team Providers Care Ethanol Maintenance Mechanic Name Role Phone Saima Issa MARKETING INTELLIGENCE ANALYST Unavailable [phone] Samuel Santiago MD Primary Care Provider [phone] Saima Issa MARKETING INTELLIGENCE ANALYST Unavailable [phone] Encounter Details Date Type Department Care Team (Late st Contact Info) Description 10/03/2024 Orders Only [facility] [place] [facility] [address] [place] [address] Saima Issa NP [address] [place] [address] Social History Tobacco Use Types Packs/Day Years [...] declined 01/11/2024 How often do you attend latter-day or mandaeism serv ices? Patient declined 01/11/2024 Do you belong to any clubs o r organizations such as latter-day groups, unions, fraternal or athletic groups, or [...] place to sleep or slept in a mcc (including now)? No 01/11/2024 Sex and Gender Information Value Date Recorded Sex Assigned at Not on file Legal Sex Male 11:24 AM EDT Gender Identity Not on file Sexual Orientation Not on file documented as of this encounter Plan of Treatment Upcoming Encounters Date Type Department Care Team (Late st Contact Info) Description 07/12/2025 11:20 AM EDT Office Visit [facility] [place] [facility] [address] [facility] [address] [place] [address] Stacie Jones MD [address] [facility] [address] [place] [address] documented as of this encounter Procedures Procedure Name Priority Date/Time Associated Diagnosis Comments XR KNEE 3 VIEWS RIGHT Routine 10/03/2024 10:12 AM EST documented in this encounter Results * XR knee 3 views right (10/03/2024 10:12 AM EST) Anatomical Region Laterality Modality Lower Extremities, Knee Right Radiogra phic Imaging us Saima Issa MARKETING INTELLIGENCE ANALYST IMG XR PROCEDURES Final Result documented in this encounter Visit Diagnoses Not on filedocumented in this encounter Care Teams Ethanol Maintenance Mechanic Relationship Specialty Start Date End Date Samuel Santiago MD PCP - General Family Medicine 11/16/23 Saima Issa NP [address] [place] [address] PCP - [facility] 04/18/24 Saima Issa NP Referring Physician Nurse Practitioner 05/06/23 documented as of this encounter
--- OUTSIDE RECORDS SUMMARY | 2025-07-05 13:39 | XMS_ITS | Clinical Summary ---
Author Organization [facility] Address [address], [address] [place] [address] Care Team Providers Care Gauge And Instrument Inspector Name Role Phone Unavailable Primary Care Provider Unavailabl e Allergies Active Allergy Reactions Criticality Noted Date Comments Penicillins 04/25/2013 Medications ibuprofen (ADVIL;MOTRIN) 400 MG tablet Take 400 mg by mouth every 6 hours as needed. Active Immunizations Immunization Administration Dates Next Due TDaP, ADACEL (age 10y-64y), BOOSTRIX (age 10y+), IM, 0.5mL 03/11/2020 Social History Tobacco Use Types Packs/Day Years Used Date Smoking Tobacco: Every Day Cigarettes Smokeless Tobacco: Never Alcohol Use Standard Drinks/Week Comments No 0 (1 standard drink = 0.6 oz pur e alcohol) Sex and Gender Information Value Date Recorded Sex Assigned at Not on file Legal Sex Male 12:33 PM EST Gender Identity Not on file Sexual Orientation Not on file Last Filed Vital Signs Vital Sign Reading Time Taken Comments Blood Pressure 129/84 03/11/2020 4:10 PM EDT Pulse 85 03/11/2020 4:10 PM EDT Temperature 37 C (98.6 F) 03/11/2020 4:10 PM EDT Respiratory Rate 16 03/11/2020 4:10 PM EDT Oxygen Saturation 96% 03/11/2020 4:10 PM EDT Inhaled Oxygen Concentration - - Weight - - Height - - Body Mass Index - - Plan of Treatment Not on file Insurance NATALYA NIEVES MARINE
--- OUTSIDE RECORDS SUMMARY | 2025-07-05 13:39 | XMS_ITS | Encounter Summary ---
Author Organization [facility] Address [address] [facility] [address] Care Team Providers Care Sandwich Hand Name Role Phone Saima Issa AIR AND MISSILE DEFENSE CREWMEMBER Unavailable [phone] Samuel Santiago MD Primary Care Provider [phone] Saima Issa AIR AND MISSILE DEFENSE CREWMEMBER Unavailable [phone] Encounter Details Date Type Department Care Team (Late st Contact Info) Description 01/31/2025 Orders Only [facility] [address] [facility] [address] [place] [address] Stacie Jones MD [address] [facility] [address] [place] [address] Social History Tobacco Use Types Packs/Day Years [...] declined 01/11/2024 How often do you attend hindu or spiritism serv ices? Patient declined 01/11/2024 Do you belong to any clubs o r organizations such as hindu groups, unions, fraternal or athletic groups, or [...] place to sleep or slept in a senior living (including now)? No 01/11/2024 Sex and Gender Information Value Date Recorded Sex Assigned at Not on file Legal Sex Male 11:24 AM EDT Gender Identity Not on file Sexual Orientation Not on file documented as of this encounter Plan of Treatment Upcoming Encounters Date Type Department Care Team (Late st Contact Info) Description 07/12/2025 11:20 AM EDT Office Visit [facility] [address] [place] [address] [place] [address] Stacie Jones MD [address] [place] [address] [place] [address] documented as of this encounter Procedures Procedure Name Priority Date/Time Associated Diagnosis Comments FINE NEEDLE ASPIRATE Routine 01/30/2025 10:22 AM EDT documented in this encounter Results * Fine Needle Aspirate (01/30/2025 10:22 AM EDT) Stacie Jones MD IN CLINIC/BEDSIDE ORDERABLES Final Result documented in this encounter Visit Diagnoses Not on filedocumented in this encounter Care Teams Sandwich Hand Relationship Specialty Start Date End Date Samuel Santiago MD PCP - General Family Medicine 11/16/23 Saima Issa NP [address] [place] [address] PCP - [facility] 04/18/24 Saima Issa NP Referring Physician Nurse Practitioner 05/06/23 documented as of this encounter
--- OUTSIDE RECORDS SUMMARY | 2025-07-05 13:39 | XMS_ITS | Clinical Summary ---
Author Organization [facility] Address [address] [place] [address] Care Team Providers Care Roofing Sales Representative Name Role Phone Saima Issa WIRELESS CONSTRUCTION MANAGER Unavailable [phone] Samuel Santiago MD Primary Care Provider [phone] Saima Issa WIRELESS CONSTRUCTION MANAGER Unavailable [phone] Allergies Active Allergy Reactions Criticality Noted Date Comments Penicillin V Unknown 11/16/2023 Penicillins 04/25/2013 Medications ammonium lactate (Amlactin) 12 % creamIndications :Corns and callosities Apply topically Daily 140 g 3 5 11/23/19 26 Active albuterol HFA 90 mcg/act inhalerIndicatio ns:Pulmonary emphysema, unspecified emphysema type (HCC) Inhale 2 puffs every 6 (six) hours if needed for shortness of breath or wheezing 18 g 5 Active budesonide-formo terol (Symbicort) 160-4.5 MCG/ACT inhalerIndicatio ns:Pulmonary emphysema, unspecified emphysema type (HCC) Inhale 2 puffs in the morning and 2 puffs before bedtime. Rinse mouth with water after use to reduce aftertaste and incidence of candidiasis. Do not swallow. 10.2 g 5 5 Active clotrimazole (Lotrimin) 1 % creamIndications :Tinea cruris Apply topically in the morning and before bedtime. Do all this for 15 days. 60 g 1 5 06/07/20 25 Active Problems Problem Noted Date Diagnosed Date Tinea cruris 05/23/2025 Other headache syndrome 05/23/2025 Assessment & Plan (05/23/2025 2:23 PM EDT): Non specific pattern Recommend drinking 64 oz of water daily and trial an over the counter loratadine allergy pill to see if this helps if not better contact office in the next few weeks Cigarette nicotine dependence without complicati on 01/18/2025 Assessment & Plan (05/23/2025 6:55 AM EDT): The patient has been advised of the risks of continued smoking: stroke, CT, all forms of cancer, lung disease, and . Options for quitting smoking include: cold turkey, hypnosis, acupuncture, nicotine replacement meds (gum, lozenges, and patches), Buproprion, and Varenicline. At this time pt is encouraged to evaluate their goals for wanting to quit smoking, and reach out to provider when ready to start this process Assessment & Plan (01/18/2025 6:14 AM EDT): The patient has been advised of the risks of continued smoking: stroke, CT, all forms of cancer, lung disease, and . Options for quitting smoking include: cold turkey, hypnosis, acupuncture, nicotine replacement meds (gum, lozenges, and patches), Buproprion, and Varenicline. At this time pt is encouraged to evaluate their goals for wanting to quit smoking, and reach out to provider when ready to start this process Lung nodule 01/18/2025 Assessment & Plan (01/18/2025 9:33 AM EDT): Fu CT chest in 1 year Thyroid nodule 01/09/2025 Assessment & Plan (05/23/2025 6:55 AM EDT): Calvin butcher Assessment & Plan (01/18/2025 6:13 AM EDT): US thyroid: 01/16/25: 3 nodules on right : [id number], [id number], [id number], left: 4.8x3.5x3.7cm:cystic multi loculated nodule Will refer to ENT Emphysema/COPD 12/21/2024 Overview (01/09/2025): PFT's: 12/2024 FEV1 76%, , FVC 84%, FEV1/FVC: 71%, mod copd/emphysema Lung CT : 2 3mm nodules, fu in 12 months Assessment & Plan (05/23/2025 6:55 AM EDT): PFT: mod copd/emphysema CT chest: 3 mm nodule (01/10) fu in 12 months Recommend smoking cessation inhalers: breztri and albuterol Assessment & Plan (01/18/2025 9:30 AM EDT): PFT: mod copd/emphysema CT chest: 3 mm nodule (01/10) fu in 12 months Recommend smoking cessation Add inhalers: breztri and albuterol Chronic cough 11/10/2024 Assessment & Plan (12/07/2024 11:28 AM EST): Insurance will not cover CT chest 11/28/24 Will need to start with cxr Risk factors: unintentional weight loss, strong smoking history Suspicion pt has COPD/Emphysema, however with weight loss (which has now stablized) CT still recommended Order PFT as well Assessment & Plan (12/05/2024 7:17 PM EST): Insurance will not cover CT chest 11/28/24 We will start with cxr then Chronic pain of both feet 11/10/2024 Assessment & Plan (12/07/2024 11:29 AM EST): Better after podiatry procedure Assessment & Plan (11/10/2024 4:09 PM EST): Has multiple callouses and pain bilat feet Also pes planus Refer to podiatry PAD (peripheral artery disease) 10/10/2024 Assessment & Plan (11/10/2024 2:46 PM EST): Normal segmental pressures Assessment & Plan (10/10/2024 2:25 PM EST): Check FABRIZIO's with segmental pressures Bilateral leg pain 10/10/2024 Assessment & Plan (12/07/2024 11:28 AM EST): Feeling better Assessment & Plan (11/10/2024 4:05 PM EST): Normal segmental pressures Does do stretching exercises: helps some Not as much pain recently, but has not been working as much I did offer further work up of lumbar as etiology, he declines at this time Assessment & Plan (10/10/2024 2:25 PM EST): Differentials: PAD, lumbar radiculopathy, pes planus Will give hand out on stretching exercises Chronic pain of right knee 09/26/2024 Assessment & Plan (09/26/2024 6:22 PM EST): A lot of work kneeling on floor Check xray Weight loss, unintentional 09/26/2024 Assessment & Plan (12/07/2024 11:29 AM EST): Weight 12/12: 251 lbs, 09/26/24 230 Checked labs 10/11: no acute findings except sl elevated ALP Had colonscopy in 02/04/24: normal Stabilized at this time Assessment & Plan (11/10/2024 2:40 PM EST): Had labs completed, gained 3 pounds since last visit No new symptoms Pt would like to wait to see if things improve Fu 4 weeks Assessment & Plan (10/10/2024 2:16 PM EST): Had labs completed, gained 3 pounds since last visit No new symptoms Pt would like to wait to see if things improve Fu 4 weeks Assessment & Plan (09/26/2024 6:23 PM EST): Not sure if related to diarrhea or not Check labs Diarrhea 09/26/2024 Assessment & Plan (11/10/2024 2:46 PM EST): Unclear etiology No obvious GERD/gallbladder sxs, no bloody stools noted Check stool studies and labs: normal Trial bentyl prn abd cramping-did not try this at all either Does admit a lot stress Discussed further work up of gallbadder or IBS, he wants to hold for now Encouraged use of bentyl. Assessment & Plan (10/10/2024 2:16 PM EST): Unclear etiology No obvious GERD/gallbladder sxs, no bloody stools noted Check stool studies and labs Trial bentyl prn abd cramping-did not try this at all either Does admit a lot stress Possible Gallbladder: does have occ RUQ pain, not associated with eating, does feel bloated at times after eating: pt wants to kind of wait and see if diarrhea continues to improve Assessment & Plan (09/26/2024 6:24 PM EST): Unclear etiology No obvious GERD/gallbladder sxs, no bloody stools noted Check stool studies and labs Trial bentyl prn abd cramping Obesity (BMI 30-39.9) 04/14/2024 Assessment & Plan (01/18/2025 6:10 AM EDT): Discussed with patient their BMI (actual, verses recommended). We have also discussed lifestyle modifications: attempts to perform physical activity as chronic conditions allow, also to monitor dietary intake: increasing protein/fruits/veggies and lowering carb intake (unless contraindicated). Limit sodas, juices, and sugary drinks. Assessment & Plan (12/07/2024 7:44 AM EST): Discussed with patient their BMI (actual, verses recommended). We have also discussed lifestyle modifications: attempts to perform physical activity as chronic conditions allow, also to monitor dietary intake: increasing protein/fruits/veggies and lowering carb intake (unless contraindicated). Limit sodas, juices, and sugary drinks. Assessment & Plan (11/10/2024 7:07 AM EST): Discussed with patient their BMI (actual, verses recommended). We have also discussed lifestyle modifications: attempts to perform physical activity as chronic conditions allow, also to monitor dietary intake: increasing protein/fruits/veggies and lowering carb intake (unless contraindicated). Limit sodas, juices, and sugary drinks. Has lost 21 pounds this year Assessment & Plan (10/10/2024 7:07 AM EST): Discussed with patient their BMI (actual, verses recommended). We have also discussed lifestyle modifications: attempts to perform physical activity as chronic conditions allow, also to monitor dietary intake: increasing protein/fruits/veggies and lowering carb intake (unless contraindicated). Limit sodas, juices, and sugary drinks. Has lost 21 pounds this year Assessment & Plan (09/26/2024 6:07 PM EST): Discussed with patient their BMI (actual, verses recommended). We have also discussed lifestyle modifications: attempts to perform physical activity as chronic conditions allow, also to monitor dietary intake: increasing protein/fruits/veggies and lowering carb intake (unless contraindicated). Limit sodas, juices, and sugary drinks. Has lost 21 pounds this year Plantar fasciitis 01/13/2024 Assessment & Plan (04/14/2024 1:26 PM EDT): Continue with HEP, will reach out if needs additional managment Assessment & Plan (01/13/2024 10:13 AM EDT): Continue with HEP, will reach out if needs additional managment Left inguinal hernia 11/25/2023 OAB (overactive bladder) 11/25/2023 Miliaria 11/25/2023 Lump on face 11/25/2023 Elevated alkaline phosphatase level 11/25/2023 Marijuana smoker 11/25/2023 Colon cancer screening 11/25/2023 Assessment & Plan (11/25/2023 3:58 PM EST): Grandfather with history of colon cancer in his 80's Resolved Problems Problem Noted Date Diagnosed Date Resolved Date Emphysema, unspecified 01/18/202501/18 Centrilobular emphysema 12/21/2024 03/0 02/2025 COVID 11/25/2023 11/25/2023 Overview (11/25/2023): last oct Tobacco user 11/25/2023 01/18/2025 Assessment & Plan (12/07/2024 11:30 AM EST): The patient has been advised of the risks of continued smoking: stroke, CT, all forms of cancer, lung disease, and . Options for quitting smoking include: cold turkey, hypnosis, acupuncture, nicotine replacement meds (gum, lozenges, and patches), Buproprion, and Varenicline. At this time pt is encouraged to evaluate their goals for wanting to quit smoking, and reach out to provider when ready to start this process Smoked: 32 years, 1.5ppd Assessment & Plan (11/10/2024 7:07 AM EST): The patient has been advised of the risks of continued smoking: stroke, CT, all forms of cancer, lung disease, and . Options for quitting smoking include: cold turkey, hypnosis, acupuncture, nicotine replacement meds (gum, lozenges, and patches), Buproprion, and Varenicline. At this time pt is encouraged to evaluate their goals for wanting to quit smoking, and reach out to provider when ready to start this process Assessment & Plan (10/10/2024 7:07 AM EST): The patient has been advised of the risks of continued smoking: stroke, CT, all forms of cancer, lung disease, and . Options for quitting smoking include: cold turkey, hypnosis, acupuncture, nicotine replacement meds (gum, lozenges, and patches), Buproprion, and Varenicline. At this time pt is encouraged to evaluate their goals for wanting to quit smoking, and reach out to provider when ready to start this process Assessment & Plan (09/26/2024 7:28 AM EST): The patient has been advised of the risks of continued smoking: stroke, CT, all forms of cancer, lung disease, and . Options for quitting smoking include: cold turkey, hypnosis, acupuncture, nicotine replacement meds (gum, lozenges, and patches), Buproprion, and Varenicline. At this time pt is encouraged to evaluate their goals for wanting to quit smoking, and reach out to provider when ready to start this process Assessment & Plan (04/14/2024 1:24 PM EDT): The patient has been advised of the risks of continued smoking: stroke, CT, all forms of cancer, lung disease, and . Options for quitting smoking include: cold turkey, hypnosis, acupuncture, nicotine replacement meds (gum, lozenges, and patches), Buproprion, and Varenicline. At this time pt is encouraged to evaluate their goals for wanting to quit smoking, and reach out to provider when ready to start this process Assessment & Plan (01/13/2024 10:12 AM EDT): Recommend smoking cessation Hand out on the benefits of quitting smoking Advised of risks of continued smoking: stroke, CT, cancer, lung disease declines BMI 36.0-36.9,adult 11/25/2023 04/14/20 24 Rash 11/25/2023 05/23/2025 Assessment & Plan (11/25/2023 3:56 PM EST): Do to the wide spread nature of the rash, I will send to Dermatology Differentials: SHANICE, or Rico Will add antihistamine for itching as well Encounters Date Type Department Care Team Description 05/23/2025 1:40 PM EDT Office Visit [facility] [address] [place] [address] Saima Issa NP Other headache syndrome (Primary Dx); Pulmonary emphysema, unspecified emphysema type (HCC); Thyroid nodule ; Cigarette nicotine dependence without complication; Tinea cruris 05/23/2025 Bamboo flowsheet [facility] [address] [place] [address] Saima Issa NP from Last 3 Months Immunizations Immunization Administration Dates Next Due Tdap 03/11/2020 Family History Medical History Relation Name Comments Cancer Maternal Grandfather Relation Name Status Comments Father Maternal Grandfather Mother Alive Social History Tobacco Use Types Packs/Day Years Used Date Smoking Tobacco: Every Day Cigarettes Tobacco Cessation:Ready to Q uit: Not Asked; Counseling Given: Not Answered Alcohol Use Standard Drinks/Week Comments Never 0 [...] How often do you attend latter-day or tenriism serv ices? Patient declined 01/11/2024 Do you [...] place to sleep or slept in a penitentiary (including now)? No 01/11/2024 Sex and Gender Information Value Date Recorded Sex Assigned at Not on file Legal Sex Male 11:24 AM EDT Gender Identity Not on file Sexual Orientation Not on file Last Filed Vital Signs Vital Sign Reading Time Taken Comments Blood Pressure 106/80 05/23/2025 1:44 PM EDT Pulse 90 05/23/2025 1:44 PM EDT Temperature 37.2 C (99 F) 05/23/2025 1:44 PM EDT Respiratory Rate 22 05/23/2025 1:44 PM EDT Oxygen Saturation 96% 05/23/2025 1:44 PM EDT Inhaled Oxygen Concentration - - Weight 109 kg (240 lb 12.8 oz) 05/23/2025 1:44 P M EDT Height 177.8 cm (5' 10 ) 02/15/2025 10:08 AM EDT Body Mass Index 34.55 02/15/2025 10:08 AM EDT Plan of Treatment Upcoming Encounters Date Type Department Care Team (Late st Contact Info) Description 07/12/2025 11:20 AM EDT Office Visit [facility] [address] [facility] [address] [place] [id number] Stacie Jones MD [address] [place] [address] [place] [address] Health Maintenance Due Date Last Done Comments CT Colonography 1974 FIT-DNA 1974 FIT 1974 FOBT 1974 Sigmoidoscopy 1974 Colonoscopy 02/02/2034 02/03/2024, 02/03/2024 Colorectal Cancer Screening 02/02/2034 Influenza Vaccine Discontinued Insurance [employer] Care Teams Roofing Sales Representative Relationship Specialty Start Date End Date Samuel Santiago MD PCP - General Family Medicine 11/16/23 Saima Issa NP [address] [facility] [place] [address] PCP - [facility] 04/18/24 Saima Issa NP Referring Physician Nurse Practitioner 05/06/23
--- OUTSIDE RECORDS SUMMARY | 2025-07-05 13:39 | XMS_ITS | Encounter Summary ---
Author Organization [facility] Address [address] [facility] [place] [address] Care Team Providers Care Hosiery Looper Name Role Phone Saima Issa INFORMATION ENGINEER Unavailable [phone] Samuel Santiago MD Primary Care Provider [phone] Saima Issa NP Unavailable [phone] Encounter Details Date Type Department Care Team (Late st Contact Info) Description 01/09/2025 Orders Only [facility] [address] [place] [address] Saima Issa NP [address] [place] [address] Social History Tobacco Use Types Packs/Day Years [...] declined 01/11/2024 How often do you attend samaritan or buddhism serv ices? Patient declined 01/11/2024 Do you belong to any clubs o r organizations such as samaritan groups, unions, fraternal or athletic groups, or [...] place to sleep or slept in a half-way (including now)? No 01/11/2024 Sex and Gender Information Value Date Recorded Sex Assigned at Not on file Legal Sex Male 11:24 AM EDT Gender Identity Not on file Sexual Orientation Not on file documented as of this encounter Plan of Treatment Upcoming Encounters Date Type Department Care Team (Late st Contact Info) Description 07/12/2025 11:20 AM EDT Office Visit [facility] [address] [facility] [address] [place] [address] Stacie Jones MD [address] [facility] [address] [place] [address] documented as of this encounter Visit Diagnoses Not on filedocumented in this encounter Care Teams Hosiery Looper Relationship Specialty Start Date End Date Samuel Santiago MD PCP - General Family Medicine 11/16/23 Saima Issa NP [address] [facility] [place] [address] PCP - [facility] 04/18/24 Saima Issa NP Referring Physician Nurse Practitioner 05/06/23 documented as of this encounter
--- OUTSIDE RECORDS SUMMARY | 2025-07-05 13:39 | XMS_ITS | Encounter Summary ---
Author Organization [facility] Address [address] [facility] [place] [address] Care Team Providers Care Laboratory Chemical Assistant Name Role Phone Saima Issa RECORDS AND INFORMATION MANAGER Unavailable [phone] Samuel Santiago MD Primary Care Provider [phone] Saima Issa NP Unavailable [phone] Encounter Details Date Type Department Care Team (Late st Contact Info) Description 11/24/2023 Abstract [facility] [address] [place] [address] Saima Issa RECORDS AND INFORMATION MANAGER [address] [place] [address] Social History Tobacco Use Types Packs/Day Years Used Date Smoking Tobacco: Every Day Cigarettes PHQ-2 Answer Date Recorded Patient Health Questionnaire-2 Score 0 11/25/2023 Sex and Gender Information Value Date Recorded Sex Assigned at Not on file Legal Sex Male 11:24 AM EDT Gender Identity Not on file Sexual Orientation Not on file documented as of this encounter Functional Status * Over the past 2 weeks, how often have you been bothered by any of the following problems? Question Answer Date of Assessment Author Little interest or pleasure in doing things Not at all 11/25/2023 3:17 PM Eleazar Erickson MA Feeling down, depressed, or hopeless Not at all 11/25/2023 3:17 PM Eleazar Erickson MA Patient Health Questionnaire-2 Score 0 11/25/2023 3:17 PM Sunita Erickson MA documented as of this encounter Plan of Treatment Upcoming Encounters Date Type Department Care Team (Late st Contact Info) Description 07/12/2025 11:20 AM EDT Office Visit [facility] [address] [facility] [address] [place] [address] Stacie Jones MD [address] [facility] [address] [place] [address] documented as of this encounter Visit Diagnoses Not on filedocumented in this encounter Care Teams Laboratory Chemical Assistant Relationship Specialty Start Date End Date Samuel Santiago MD PCP - General Family Medicine 11/16/23 Saima Issa NP [address] [place] [address] PCP - [facility] 04/18/24 Saima Issa NP Referring Physician Nurse Practitioner 05/06/23 documented as of this encounter
--- OUTSIDE RECORDS SUMMARY | 2025-07-05 13:39 | XMS_ITS | Encounter Summary ---
Author Organization [facility] Address [address] [place] [address] Care Team Providers Care Senior Cognos Developer Name Role Phone Saima Issa NP Unavailable [phone] Samuel Santiago MD Primary Care Provider [phone] Saima Issa NP Unavailable [phone] Encounter Details Date Type Department Care Team (Late st Contact Info) Description 10/03/2024 Clinisync Result Encounter [facility] Unsolicited Saima Issa NP [address] [place] [address] Social History Tobacco Use Types Packs/Day Years [...] declined 01/11/2024 How often do you attend uatsdin or worship serv ices? Patient declined 01/11/2024 Do you belong to any clubs o r organizations such as uatsdin groups, unions, fraternal or athletic groups, or [...] place to sleep or slept in a correction (including now)? No 01/11/2024 Sex and Gender Information Value Date Recorded Sex Assigned at Not on file Legal Sex Male 11:24 AM EDT Gender Identity Not on file Sexual Orientation Not on file documented as of this encounter Plan of Treatment Upcoming Encounters Date Type Department Care Team (Late st Contact Info) Description 07/12/2025 11:20 AM EDT Office Visit [facility] [address] [facility] [address] [place] [address] Stacie Jones MD [address] [facility] [address] [place] [address] documented as of this encounter Procedures Procedure Name Priority Date/Time Associated Diagnosis Comments XR KNEE 3 VIEWS RIGHT 10/03/2024 7:17 AM EST documented in this encounter Results * XR knee 3 views right (10/03/2024 7:17 AM EST) Anatomical Region Laterality Modality Lower Extremities, Knee Right Radiogra phic Imaging 10/03/2024 7:17 AM EST Narrative 10/03/2024 7:20 AM EST [address] [address] XRay Report Signed Patient: JAYDEN RAMAN MR#: [id number] : 1975 Acct:[id number] Age/Sex: 48 / M ADM Date: 09/30/24 Loc: LAB Attending Dr: Saima Issa [employer] Ordering Physician: Saima Issa NP Date of Service: 09/30/24 Procedure(s): XR knee RT 3V Accession Number(s): [id number] cc: Saima Issa NP [address] [address] Patient Name: JAYDEN RAMAN MRN: [id number] date: 1975 Sex: M Assigned Patient Location: LAB Current Patient Location: Accession/Order Number: [id number] Exam Date: 09/30/2024 11:32 Report Date: 10/03/2024 07:17 At the request of: SAIMA ISSA Procedure: XR knee RT 3V PROCEDURE: XR knee RT 3V COMPARISON: None. HISTORY: chronic right knee pain FINDINGS: BONES:No fracture, acute abnormality, or significant arthropathy. SOFT TISSUES:Negative. No visible soft tissue swelling. EFFUSION:None visible. OTHER: Negative. XR/XR knee RT 3V IMPRESSION: No acute radiographic abnormality Electronically authenticated by: GUILLERMO YOUNGBLOOD Date: 10/03/2024 07:17 Dictated By: Guillermo Youngblood M.D. Signed By: 10/03/24719 DD/ 6 TD/TT: Storage Engineer: Procedure Note Radiology, Radiologist, MD - 10/03/2024 [place] [address] XRay Report Signed Patient: JAYDEN RAMAN RMR#: [id number] : 1975Acct:[id number] Age/Sex: 48 / MADM Date: 09/30/24 Loc: LAB Attending Dr: Saima Issa [employer] Ordering Physician: Saima Issa NP Date of Service: 09/30/24 Procedure(s): XR knee RT 3V Accession Number(s): [id number] cc: Saima Issa NP [place] [id number] Patient Name: JAYDEN RAMAN MRN: [id number] date: 1975 Sex: M Assigned Patient Location: LAB Current Patient Location: Accession/Order Number: [id number] Exam Date: 09/30/2024 11:32 Report Date: 10/03/2024 07:17 At the request of: SAIMA ISSA Procedure: XR knee RT 3V PROCEDURE: XR knee RT 3V COMPARISON: None. HISTORY: chronic right knee pain FINDINGS: BONES:No fracture, acute abnormality, or significant arthropathy. SOFT TISSUES:Negative. No visible soft tissue swelling. EFFUSION:None visible. OTHER: Negative. XR/XR knee RT 3V IMPRESSION: No acute radiographic abnormality Electronically authenticated by: GUILLERMO YOUNGBLOOD Date: 10/03/2024 07:17 Dictated By: Guillermo Yuongblood M.D. Signed By:10/03/24719 DD/ 6 TD/TT: Storage Engineer: us Saima Issa [employer]OLSMITH IMG XR PROCEDURES Final Result documented in this encounter Visit Diagnoses Not on filedocumented in this encounter Care Teams Senior Cognos Developer Relationship Specialty Start Date End Date Samuel Santiago MD PCP - General Family Medicine 11/16/23 Saima Issa NP [address] [place] [address] PCP - [facility] 04/18/24 Saima Issa NP Referring Physician Nurse Practitioner 05/06/23 documented as of this encounter
--- NOTE | 2025-07-05 13:43 | US_ITS ---
The [address] [address] Patient Name: JENNY RAMAN MRN: [id number] date: 1975 Sex: M Assigned Patient Location: US Current Patient Location: Accession/Order Number: [id number] Exam Date: 07/05/2025 13:48 Report Date: 07/06/2025 08:27 At the request of: PELON TOBAR MD Procedure: US thyroid THYROID ULTRASOUND CLINICAL DATA: Follow-up multiple nodules COMPARISON: 01/16/2025 The right thyroid lobe measures 4.8 x 1.1 x 1.6 cm . The left lobe is enlarged measuring 5.8 x 4.4 x 3.9 cm. The isthmus measures 4-5 mm .There is slight heterogeneity of the thyroid parenchyma. At the midpole on the right, there is a hypoechoic nodule with associated blood flow measuring 11 x 6 29 mm (TI-RADS 4). This is not significantly changed. Directly superior to it is a subtle, nearly isoechoic nodule with hypoechoic rim measuring 7 x 7 x 8 mm (TI-RADS 3), also not significantly changed. At the midpole laterally, there is an additional similar heterogeneous hypoechoic nodular area measuring 8 x 6 x 6 mm (TI-RADS 4). On the left, there is a large complex, predominantly cystic nodule with thick septa having associated calcification as well as blood flow. It measures 5.1 x 3.9 x 4.2 cm (TI-RADS 4). Although this lesion was reported to have been drained since the prior, these measurements are slightly larger. No new nodularity seen. US/US thyroid IMPRESSION: SIMILAR SOLID RIGHT THYROID NODULES. COMPLEX CYSTIC LEFT THYROID NODULE, MINIMALLY LARGER. Impression dictated by: Esther Varela M.D. 07/06/2025 8:27 AM Dictation Location: [place] [address] Electronically authenticated by: [id number] Y Date: 07/06/2025 08:27
--- OUTSIDE RECORDS SUMMARY | 2025-07-05 14:12 | XMS_ITS | CCD ---
Author Organization [facility]iniSy[facility] Care Team Providers Care Electrical Subcontractor Name Role Phone Unavailable Primary Care Provider UnavailRUDY Davila Admitting Unavailable RUDY YANG Attending Unavailable MARY, DR CORCORAN LISTED Primary Care Unavaila MG Pedraza Consulting Unavailable RUDY YANG Consulting Unavailable TAWANNA, DR FENTON Admitting Unavailable TAWANNA, DR FENTON Attending Unavailable AICHHOLZ, GUARD MANAGER SAIMA Primary Care Unavailable TYRA KINGSLEY Consulting Unavailable REG, STU Consulting Unavailable AICHHOLCanelo, SAIMA J Primary Care Physician MD Clive Phillips Attending Provider Aicpage NURSING HOME ASSISTANT ADMINISTRATOR, Saima Unavailable Samuel Santiago MD Primary Care Provider [phone] Mg FARIAS Attending Unavailable SAIMA ISSA Referring Unavailable Mg FAIRAS Attending Unavailable Aichholz NURSING HOME ASSISTANT ADMINISTRATOR, Saima Unavailable Aichholcanelo NURSING HOME ASSISTANT ADMINISTRATOR, Saima Unavailable Pelon Tobar MD Attending Provider Unavailab Pelon Munoz Jr Attending Unavailable Pelon Tobar Jr Admitting Unavailable TIMPELON BRADLEY Attending Unavailable JERIMIBernarda PELON H Admitting Unavailable Aichbert Saima J Primary Care Unavailable AICHHOLZ, SAIMA Attending Unavailable KOLTON ROLLE Attending Unavailable AICHHOLZ, SAIMA Referring Unavailable AICHHOLZ, SAIMA Attending Unavailable AICHHOLZ, SAIMA Attending Unavailable TIMMIS PELON H Attending Unavailable AICHHOLZ, SAIMA Referring Unavailable TIMMIS, PELON H Attending Unavailable AICHHOLZ, SAIMA Referring Unavailable AICHHOLZ, SAIMA Attending Unavailable AICHHOLZ, SAIMA Attending Unavailable AICHHOLZ, SAIMA Attending Unavailable Allergies Allergy Classification Reported Allergen(s) Allergy Type Date of Onset Reaction(s) Facility (1 source) Penicillins Propensity to adverse reactions to drug 3 [place], [place] (7 sources) Penicillin; Translations: [penicillin] Drug Allergy 1 Eruption of skin (disorder) [facility] (4 sources) Chlorhexidine; Translations: [chlorhexidine topical] Drug Allergy Eruption of skin (disorder) [facility] (20 sources) Penicillin V Drug Allergy 4 Unknown [facility] (20 sources) Penicillins Drug Intolerance 3 [facility] Medications Current Medications Medication Drug Class(es) Dates Sig (Normalized) Sig (Original) [id number] 200 actuat albuterol 0.09 mg/actuat metered dose inhaler (13 sources) beta2-Adrenergic Agonist Start: 01-18-2025 End: 02-17-2025 take 2 puff(s) by inhalation every six hours for wheezing albuterol HFA 90 mcg/act inhaler Indications: Pulmonary emphysema, unspecified emphysema type (HCC) Inhale 2 puffs every 6 (six) hours if needed for shortness of breath or wheezing 18 g 01/18/2025 Active bacitracin 0.5 unt/mg / neomycin 0.0035 mg/mg / polymyxin b 10 unt/mg topical ointment (1 source) Aminoglycoside Antibacterial, Polymyxin-class Antibacterial Start: 03-11-2020 neomycin-bacitrac in-polymyxin (NEOSPORIN) ointment Start: 03-11-2020 neomycin-bacit racin-polymyxin (NEOSPORIN) ointment 120 actuat budesonide 0.16 mg/actuat / formoterol fumarate 0.0048 mg/actuat / glycopyrrolate 0.009 mg/actuat metered dose inhaler (6 sources) Corticosteroid, beta2-Adrenergic Agonist Start: 01-18-2025 End: 02-17-2025 take 2 puff(s) by mouth in the morning Yakjwzt-Rvvrdyqvrjn-Zkqnmqziaw (Breztri Aerosphere) 160-9-4.8 MCG/ACT aerosol Indications: Pulmonary emphysema, unspecified emphysema type (CMS/HCC) Inhale 2 puffs in the morning and 2 puffs before bedtime. Rinse mouth after use. 10.7 g 2 01/18/2025 02/01/2025 Discontinued (Cost of medication) clotrimazole 10 mg/ml topical cream (2 sources) Azole Antifungal Start: 05-23-2025 End: 06-07-2025 clotrimazole (Lotrimin) 1 % cream Indications: Tinea cruris Apply topically in the morning and before bedtime. Do all this for 15 days. 60 g 1 05/23/2025 06/07/2025 Active dicyclomine hydrochloride 20 mg oral tablet (7 [...] Active ammonium lactate 120 mg/ml topical cream (20 sources) Start: 11-23-2024 End: 11-23-2025 ammonium lactate [...] Drug Class(es) Dates Sig (Normalized) Sig (Original) 60 actuat budesonide 0.16 mg/actuat / formoterol fumarate 0.0045 mg/actuat metered dose inhaler (11 sources) Corticosteroid, beta2-Adrenergic Agonist Start: 02-01-2025 End: 06-22-2025 take 2 puff(s) by inhalation in the morning budesonide-formote rol (Symbicort) 160-4.5 MCG/ACT inhaler Indications: Pulmonary emphysema, unspecified emphysema type (HCC) Inhale 2 puffs in the morning and 2 puffs before bedtime. Rinse mouth with water after use to reduce aftertaste and incidence of candidiasis. Do not swallow. 10.2 g 5 02/02/2025 05/23/2025 Discontinued (Reorder) cetirizine hydrochloride 10 mg oral tablet (6 [...] Episodic/Chronic Chronic obstructive pulmonary disease and bronchiectasis (20 sources) Pulmonary emphysema; Translations: [Emphysema, unspecified] Onset: 12-21-2024 Resolved: 01-18-2025 12-21-2024 Chronic Headache; including migraine (4 sources) Headache disorder; Translations: [Other headache syndrome] Onset: 05-23-2025 05-23-2025 Episodic Mycoses (4 sources) Tinea cruris; Translations: [Tinea cruris] Onset: 05-23-2025 05-23-2025 Episodic Open wounds of extremities (1 source) Dog bite of upper limb; Translations: [Dog bite of left upper extremity, initial encounter] Episodic Other congenital anomalies (3 sources) Dermoid cyst of face 06-09-2022 Chronic Other congenital anomalies (2 sources) Porokeratosis; Translations: [Other specified congenital malformations of skin] 11-23-2024 Chronic Other connective tissue disease (2 sources) Pain in left foot; Translations: [Pain in left foot] 11-23-2024 Episodic Other diseases of bladder and urethra (20 sources) Overactive bladder; Translations: [Overactive bladder] Onset: 11-25-2023 11-25-2023 Chronic Other nutritional; endocrine; and metabolic disorders [...] exposure - finding 06-04-2022 Chronic Substance-related disorders (20 sources) Nicotine dependence, cigarettes, uncomplicated; Translations: [Smoker] Onset: 05-26-2022 06-09-2022 Chronic Comment on above: Added secondary to d ocumentation in Social History. Thyroid disorders (20 sources) Thyroid nodule; Translations: [Nontoxic single thyroid [...] 10-10-2024 10-10-2024 Episodic Other connective tissue disease (20 sources) Bilateral chronic pain of feet; Translations: [Pain in right foot] Onset: 11-10-2024 11-10-2024 Episodic Other gastrointestinal disorders (20 sources) Diarrhea; Translations: [Diarrhea, unspecified] Onset: 09-26-2024 09-26-2024 Episodic Other liver diseases (20 sources) Alkaline phosphatase raised; Translations: [Abnormal levels of other serum enzymes] Onset: 11-25-2023 11-25-2023 Episodic Other lower respiratory disease (20 sources) Chronic cough; Translations: [Chronic cough] Onset: 11-10-2024 11-10-2024 Episodic Other lower respiratory disease (15 sources) Nodule of lung; Translations: [Solitary pulmonary nodule] Onset: 01-18-2025 01-18-2025 Episodic Other non-traumatic joint disorders (20 sources) [...] and other nonspecific skin eruption] Onset: 11-25-2023 Resolved: 05-23-2025 11-25-2023 Episodic Residual codes; unclassified (20 sources) Tobacco user; Translations: [Tobacco use] Onset: 11-25-2023 Resolved: 01-18-2025 11-25-2023 Episodic Spondylosis; intervertebral disc disorders; other [...] Test Name Value Interpretation Reference Range Facility Lab - AP Resultson Lab - AP Results [id number] D#[id number] Normal [facility] Pathology Sendout Teston Pathology Send Out. See Report Normal [facility] Comment on above: Order Comment: Fine Needle Aspiration thyroid left mid lobe 10 slides, 1 cytolyte, and 1 affirma Performed By: #### 2 [id number] #### [facility] (DEFAULT) [address] [place] [address] Coding Summaryon 02-01-2025 Coding Summary HTMLBase 64 BukndxlhEEv1hVq+PGh lYWQ+GX1JMKEfY54fnW TuhR4pZ1EMEIgKFfveC GFXLPfRJoSqquKxSM0f aXNjZXJu IC8+IH9kPVTvSskvzDX pz0I2xKT0R70fiv6gDV mauHF9TEJxMlJlgzqrd 8adfAn4WFvjBxzsXaYq YYZckA86ZKX0aO16Or1 1nCAsjJZcl5iraFc6Nn IrBNHzOBZ2kTyzTTkeb 4HvTMNtZ96ggKHzu8T2 IGNvbGxhcHNlOyBlbXB 3pX2nAMmgiyrlx3ypmr ljZfp3xg44qJVbl4F0n RN6N0SodeK5OCBchHVg QsllaDOJgN5vjijka5i mtkkqBgOxJOKbAZt4WH m7ZXGzvLqlYaBpMM32J NG1DUUzbtIuW2FjBCMt oQxiYwY3c8E4Av1VS7O TKocaW0FZHOZTATfokW Q+HV91pr22U8CmRfljX wj0OWMbASM5gRB4oO8x ROYvWVjtg7A5pOH7H6K wkoHrpb7aw4iaYPPgPW evU94ffOSkz2H8PZIjp VZ5MWPgaDfuOvUvzW97 Oyc+AMMakKxtr6WaOlf oh8usv3umaAx5IjpyHJ YmidUigVuzMBL5c2NyB m9dCPDzeJT9tMS2qL1w QwPmOxU0UIgkV479NzM nbPSbClxxL26eH1PgwQ A+AMHcFwq6HXMvaKtmG M7yI0ZcUTPofcbunLRl mXjtZY9tTQRvmsnzCDN jyS9fQJOqP8c9LzGhXb A8LDxhT1WbQUFtagvuV a33jL0eVvTuByI2OYaq J5LjzpQ3JGFioONjLQj yQEU2S11iq6Z4ZWIbRR XoGAZ2fER0cN9khOtst jogbGVmdDsgdmVydGlj LLhkNUlrD768QIQveQk nPkNvZGluZyBEYXRlOi AgMDQvMTYvMjAyNTwvd GQ+CQBpAXO8tXijPNRn uUZxCTthZu7feKicyRo kWS7xLZKxueqzXNNlhB 8wHLVzbKDpoMqeKE7vT BAelbuoj697UiUnDKJ9 MQTcnCMuB8JbrX9aNmQ dGTYzVGGbS2YhrMHhFM bmC626MLtpJbS4JEGiq pXhA3FzGLNuzAftAlU2 w4O5Iu5Ic4XrklhnH5R glLIiTtFiYvpaXEg8Q4 RkPjwvdHI+ZO70CECbW M27VZe3OYP6xQugCIvj TDTiU0SacZ6kPnRlCLN kZGRkOyc+PHRhYmxlIH dpZHRoPScxMDAlJyBzd RxvZR4iJo9mDCSbGJLp rKjkvYMsKaCtr7ahVCH uZVfsTD1znWeuQ8DzeU K5GQDhy4r5Vo35N77eH 3JvdXA+AHOcnQS4gDI4 kG0bImEtEeJ4RKrdZ73 3WsImqZQuXedap7ebs2 urdNr1TbZ5AROnwzEre CeeUQC5e4ZkLr28A90e IHdpZHRoPSIxNSUiIHZ brEhglc1taX0zCs7+PG AvoLP2tEL9dV1bNaBeH nH2BHcuW818SrAfbSCu Yqail3duv5vvxXk6CfM lLXCdjcEibFeaODM4r4 FdMy37C3CpxAshc2JgZ bh2jz46tFNbz3R2wBQ2 X9FmXDKnssdceRUorGy oZF0pCEHangikGIYruV 1iBCSdB1d0DvFqMvQ6Q PktN5LvadS1QMAlwIVk AJDvgQIYdC4uzscpg5s uvupnXmEwTODwXCv8UG j7SNSalBkzMbDwMLD1H aL1UXJ8kWDzdR8tyQko veeroT8dPjf+BLA1tSD sgNNVOF3pOqesfHZ+PH EdHBT3xInvJFdiVHMyq H0kXQMvK4i7ItGnLvG0 VDdeB0IzgsQ3PQSbqVQ sKLKgrKPTkE8vepmjp7 rszzcbOyYsELMxQEz3Q Yt8XEBefLxeVhGtONA5 GuB7ISO6eGXnjC0upQd ljjfdxX3jIce+QmlydG mzQNY1OOx5V1TnDip9S KHwwUouIV9xeEBoFNnz Jc5llQraeBdjQW6sWQS phjdhe012FhGpd6ujBQ QgwGWgVTwvWVB8Y43dm 3L9OWHoKDLfURU8rTN7 sC5sgShsifdgrNUydUp gdmVydGljYWwtYWxpZ2 73RSMgwTalBhLkBXe5B 9ErUfk9DVDxeNgxMM1o bEHwNEmpSx3vjYzylXp cGL1eUARnabzof891Ni Rcq7qhQXQzvRBfOXaqZ AP6Z38kr9L0AMMhSBGx OXS0tIJ5qB7wgDfsrym gbGVmdDsgdmVydGljYW tdOHwkE937UNVpkMudK fJfkGn5F4OsExz7BCTb tRwxHB8wtPXtKLbxTz1 euLzcbQoxRH2nRPOtug cpn728TvVfo3rdSIZlb KOzJFipQWU8A00zw2B4 GYCsJVPxREJ8mFK7xE8 hbGlnbjogbGVmdDsgdm YjeJfgLKzsEIjkQ229I HRvcDsnPlBhdGllbnQg EFziDVu2M7JxCgagpNQ +TT15MEZtAU08lIFtoH Mwj5teeMs0HzUsQQIlH EQ5bUapQAboc2GuTHNy Z22beGTnw8T7TENkmYn yqJLlNdLyhFY8hF5eJE hpkfzfh3hqurjrQropd 7pwqr47xV95V83kXYda ZHRoPSIzMCUiIHZhbGl buv6utR7uXb0+PGNvbC B4kUO6aV6oAASvKhV0U DpbC261VkQbjFPuSelz n9hjm8bmeBt1XcI9FQC vvwSmaZobWQP6i7ViIp 53K57oYFvsQWSvUEUbK KAlFVPzjEpfjm1tlU9d Ii8+IUPwfGP3lGY2xP2 tVgDjHqM9JUzjQ236Ud ZobORnSlbrP23hK6Nxd XA+YIZwChh8VYZjnJci IE0nuNNwEDplGw1eCCS 5AgUpLmNhJYreE7XrVE LkjkpufembnXR1KBKtU TUrqX03Oy6dlBchVNNe qXSJwX0jnbwnx0ovwyx iFvHoYOHrJQf5OFh4UE BpoEgxNhQtTRE2NfQ6Z QT3rFOgrE5ltFwdwcyl xQ1iP7YaSWKyphktMo2 9eS4lGlYnPoQ9MOqkKf c+T15GODmXGkuqOBqYT ExJUDwvdGQ+PHRkIHN0 dNmcUWlyOPStjA9tZNK zK2c8BeFwOyW7EPjgJ1 KeTUCurczkDu81zF8iI kWdXuU8PUxdH7IbekL8 GBUetNWgHAkpMHD7W96 mq3M7LUBiBPBaSNF4iV D9oM9ilZsjlpcyrUWbr DsgdmVydGljYWwtYWxp S436PPHwoMfyXfYoBxK iYcL8FdL3B7SpPut7DL IfkEsnLK3ugXWgHNneC t6wnDaaqFfgJW6yPWYy cqhvHCHiyR1bDRFwaGS zqGsrSD5dSSRzephrk4 81XkUdIBA7WSNruREdB 8WicT2lHlLiUOVxPKOo T1DneDYiRCfiT536VSn sItU5ZHEvtjVwC0SvBJ HkxJurBfY6d0X2Md04H CBZZWFyczwvdGQ+PHRk FSB1qOnjDEnoYGBrbJ0 iGVYfG9v2KwOeCmK1YL bbC4RkHLHtdxzkGa93i B7fYhLhEtB1BHdwU0Pb gzP3PSCdrWAqSMahQVZ 3P51ri9V1KLDfXLUwBD Z6aCU5oU7kyKtufggtj GVmdDsgdmVydGljYWwt MZdwG287QIOfsJdfPs2 JASX0F6QsPfw1HLRkuR thDT9qlJUmZCtgNi8jc UylyEgcZL2iHDZgirms ALWqrX0xSINncGMgnHl kSP5nBTUdgevfi343Xl XvYCN1AECjlKRoS3Rst V6gYzMpBRAmBIItU7Bu gTOlIRijZ437BKfwYvI 1EEUdlnKuI2OoZANhuQ enWmB2j1L1Ut7VDPamj GQ+ZN78zd57Q0JpZxgy Vst3TOWsLBT5nQT2hO0 gRWDrWEoqj1X2eQH1D1 OdsrZmnq3ly3kjZBJrF OxfY15akYFax0Q8QFSk cRS8OXCneXptRgRyqF0 3Oyc+MIEuzVzdg6TzId jfq1ojr2sugSd9ZyNhL UMdwcKdvNbhPUJ6z5Ee So46O52zQBauEGSuWEB kECJdVAXgmSacbi3iqK 9wIi8+PHHzqFL9gXN9z I1eByMiGhF4HUbcG498 ImEauZAbFxlze4yvd9r wwQa5NtIfFNSlfxGwsJ stWEO7s3DlOs84U3Jfq Dqel3EcLxq6mi50zCSq e3O5sLN4Z2NcFYEpxpx ufBObrHztKV3sVPZstb ghBSDzpU9cPKDwO1o8P yImHmJ0HGatS3ZfeoT5 IGJvbGQgMTBwdCBUaW1 kvxdpd6yaqmeaPeIrGV GzSCy0PBo8LFLloVlxG qCwXLB2DwZ2QUV8sJMn nT3btZipxlffqG1sOai +HZy1z2ebsARcPA7bgS C8FN54ZJ75jJYhb8E7e AU9Q5HkHLIbcffnqwnr tSH7PTDsJEUeeY31Ic9 aoNozCc6bMMSkLWY2YX AcnPZfA5RbuC1bTdDfF ZTrCIQcH5ExgGVxDMiz A974RRkjWtA0PNMzggW yZ2NuIEEuyDwsQlM0a5 P9Xv8IUM31DA90VU89o GFnp0N6bLW7M2DbHEDl azsitsoutKM2CZZlMPY unY08Gn2jxDzsFq6tJQ BeTEL2TGVkpXLwB0Vtm C9xHiAsZTUdNBXdD6Kk qPNuNEgmQ583EBiaXmX 1PHIeiqUpG8SxXLOynL sbUxS8d2Q5Tu8WOz78I L59FY26nMKja6E6qFR2 H2VuENNhuhiuutqavBR 7QRWvZQRjqA45Gv0iaW kzYn5xLBYnJLT3KRYuz CEkP8GbwW9bPmQeVZWm EQMgX0YnzHGpJQcuI89 7CEqkWjB8MVNieqVcP1 WdWXFboPqmUnB9h3X9O r2OSCbazkx3D5DuPxcv dHI+ZW15VHLmJB63bDR ukUInm5sthCp2SnKoBO UuUIU5pPmcFWlqr3WjE RPtZ10zxXSsk4Q5NFSl bGx (more content not included)... [facility] 01-31-2025 L Specimen: [id number] Received: 01/31/25 Status: MILDRED Barrera Num: [id number] Spec Type: Cytology Subm Dr: PELON TOBAR MD Tissues: A FNA SLIDES NOPATH (LT MID LOBE THYROID) Procedures: Cyto Int and Re, PAPSTN/11 Age/ Patient Sex Location Account Attending Physician Jayden Su 49/M [facility] [id number] PELON TOBAR MD SPEC NUM: [id number] RECD: 01/31/25 STATUS: MILDRED BARRERA NUM: [id number] KADE: 01/31/[address] [facility] DR: PELON TOBAR MD ENTERED: 01/31/25 [facility] DR: Isabelle,Rochelle Lees MD SPEC TYPE: Cytology DEPT: NCYT ENTERED BY: [id number] RECV BY: [id number] ORDERED: Cyto Int and Re, PAPSTN/11 ORDERED: Cyto Int and Re, PAPSTN/11 Pathological Diagnosis Thyroid nodule, left mid lobe, FNA cytology: - Paucicellular smears with obscuring clot, minor soft colloid, rare histiocytes in 2 tiny clusters, and background rare dispersed follicular cells without distinctive follicular groups observable, very limited for overall assessment, and is consistent with the category 1 [place] system: Nondiagnostic Clinical Information Thyroid nodule Gross Description Received fixed in Cytolyt is 46 ml dark red opaque fixed fluid for cytology said to have been obtained as Thyroid Left Mid Lobe. ThinPrep preparations are prepared for microscopic examination. Also received are 10 spray fixed smeared slides for pap and a Thyroseq vial stored at -20 for microscopic examination. (YC/nh) Specimen: [id number] Received: 01/31/25 Status: MILDRED Barrera Num: [id number] Spec Type: Cytology Subm Dr: PELON TOBAR MD Tissues: A FNA SLIDES NOPATH (LT MID LOBE THYROID) Procedures: Cyto Int and Re, PAPSTN/11 Patient: Jayden Su [id number] (Continued) Specimen: [id number] Received: 01/31/25 (Continued) Signed (signatur e on file) Stanford Pena MD 02/01/25 1602 Specimen: [id number] Received: 01/31/25 Status: MILDRED Barrera Num: [id number] Spec Type: Cytology Subm Dr: PELON TOBAR MD Tissues: A FNA SLIDES NOPATH (LT MID LOBE THYROID) Procedures: Cyto Int and Re, PAPSTN/11 Patient: Jayden Su [id number] (Continued) Specimen: [id number] Received: 01/31/25 (Continued) Microscopic Description Microscopic examination is performed CPT Codes 80145 Specimen: [id number] Received: 01/31/25 Status: MILDRED Barrera Num: [id number] Spec Type: Cytology Subm Dr: PELON TOBAR MD Tissues: A FNA SLIDES NOPATH (LT MID LOBE THYROID) Procedures: Cyto Int and Re, PAPSTN/11 Patient: Jayden Su [id number] (Continued) Signed (signatur e on file) Ortiz-Johnny Pena MD 02/01/25 1602 Normal [facility] US Guidance for Aspiration/I nject/Biopsyon 01-30-2025 US Guidance for Aspiration/Inject/Bio psy Begin Addendum #1 COLLECTION DATE: 01/31/2025 PATHOLOGICAL DIAGNOSIS Thyroid nodule, left mid lobe, FNA cytology: -Paucicellular smears with obscuring clot, minor soft colloid, rare histiocytes in 2 tiny clusters, and background rare dispersed follicular cells without distinctive follicular groups observable, very limited for overall assessment, and is consistent with the category 1 [place] system: Nondiagnostic Final Dictated by: Srini Lees MD Dictated DT/TM: 02/13/25 11:23 Signed (Electronic Signature): Srini Lees MD 02/13/25 11:23 a Technologist: LORE EXAMINATION: US Guidance for Aspiration/Inject/B iopsy HISTORY: Nontoxic goiter, unspecified COMPARISON: No relevant comparison available. TECHNIQUE: After obtaining informed consent, ultrasound-guided fine needle aspiration was performed in the usual sterile manner. FINDINGS: IMAGING: Ultrasound. BIOPSY NEEDLE: 19-gauge 2 inch LOCATION: 4 cm left thyroid mixed solid and cystic nodule SPECIMEN TYPE: 6 total fine-needle aspirates, 3 for the removal of 25 cc of slightly red clear fluid. 3 Fine-needle aspirates of the remaining solid components LOCAL ANESTHETIC: 3cc 1% lidocaine. COMPLICATIONS: None. LABORATORY: Prepared slide smears and washings for cell block evaluation. OTHER: molecular studies. PATHOLOGY: Pending. An addendum will be added when results are available. IMPRESSION: 1. Uneventful ultrasound guided fine needle aspiration (FNA). 2. Pathology results are pending. Final Dictated by: Srini Lees MD Dictated DT/TM: 01/31/25 7:12 Signed (Electronic Signature): Srini Lees MD 01/31/25 7:16 am Technologist: [facility] Provider Orderson 01-26-2025 Provider Orders [id number] 94#[id number] [facility] [place] [address] Ultrasound Report Signed Patient: JAYDEN SU MR#: [id number] : 1975 Acct:[id number] Age/Sex: 49 / M ADM Date: 01/16/25 Loc: US Attending Dr: Saima Issa NP Ordering Physician: Saima Issa NP Date of Service: 01/16/25 Procedure(s): US thyroid Accession Number(s): [id number] cc: Saima Issa NP [place] [id number] Patient Name: JAYDEN SU MRN: [id number] date: 1975 Sex: M Assigned Patient Location: US Current Patient Location: US Accession/Order Number: [id number] Exam Date: 01/16/2025 11:30 Report Date: 01/16/2025 11:37 At the request of: SAIMA ISSA NP Procedure: US thyroid THYROID ULTRASOUND COMPARISON: Chest CT 01/09/2025 CLINICAL DATA: Follow-up nodule The right thyroid lobe measures 6.1 x 1.7 x 1.3 cm . Left lobe measures 6.2 x 3.9 x 3.8 cm. The isthmus measures approximately 8 mm. There is normal echogenicity. There is a hypoechoic nodule with vascularity at the midpole on the right measuring 12 x 6 x 11 mm (TI-RADS 4). Also at the midpole on that side laterally is a heterogeneous hypoechoic nodule measuring 9 x 7 x 7 mm (TI-RADS 4). At the midpole there is yet another slightly hyperechoic nodular area measuring 8 x 6 x 8 mm (TI-RADS 3). On the left, at the mid pole there is a large multiloculated cystic nodule with septations and central soft tissue component with calcification measuring 4.8 x 3.5 x 3.7 cm in size (TI-RADS 3). US/US thyroid IMPRESSION: MULTIPLE THYROID NODULES, DESCRIBED. THE MORE SUSPICIOUS OF THE NODULES ON THE RIGHT ARE SMALL AND THEREFORE ULTRASOUND FOLLOW-UP IN ONE YEAR IS RECOMMENDED. Impression dictated by: Esthre Varela M.D.01/16/2025 11:37 AM Dictation Location: [place] [address] Electronically authenticated by: [id number] Y Date: 01/16/2025 11:37 Dictated By: Esther Varela M.D. Signed By: 01/16/25 1140 DD/ 1137 TD/TT: Sports Leadership Instructor: [facility] Radiology, Radiologist, MD - 01/16/[address] [address] Ultrasound Report Signed Patient: JAYDEN SU MR#: [id number] : 1975 Acct:[id number] Age/Sex: 49 / M ADM Date: 01/16/25 Loc: US Attending Dr: Saima Issa NP Ordering Physician: Saima Issa NP Date of Service: 01/16/25 Procedure(s): US thyroid Accession Number(s): [id number] cc: Saima Issa NP The [address] [address] Patient Name: JAYDEN SU MRN: [id number] date: 1975 Sex: M Assigned Patient Location: US Current Patient Location: US Accession/Order Number: [id number] Exam Date: 01/16/2025 11:30 Report Date: 01/16/2025 11:37 At the request of: SAIMA ISSA NP Procedure: US thyroid THYROID ULTRASOUND COMPARISON: Chest CT 01/09/2025 CLINICAL DATA: Follow-up nodule The right thyroid lobe measures 6.1 x 1.7 x 1.3 cm . Left lobe measures 6.2 x 3.9 x 3.8 cm. The isthmus measures approximately 8 mm. There is normal echogenicity. There is a hypoechoic nodule with vascularity at the midpole on the right measuring 12 x 6 x 11 mm (TI-RADS 4). Also at the midpole on that side laterally is a heterogeneous hypoechoic nodule measuring 9 x 7 x 7 mm (TI-RADS 4). At the midpole there is yet another slightly hyperechoic nodular area measuring 8 x 6 x 8 mm (TI-RADS 3). On the left, at the mid pole there is a large multiloculated cystic nodule with septations and central soft tissue component with calcification measuring 4.8 x 3.5 x 3.7 cm in size (TI-RADS 3). US/US thyroid IMPRESSION: MULTIPLE THYROID NODULES, DESCRIBED. THE MORE SUSPICIOUS OF THE NODULES ON THE RIGHT ARE SMALL AND THEREFORE ULTRASOUND FOLLOW-UP IN ONE YEAR IS RECOMMENDED. Impression dictated by: Esther Varela M.D.01/16/2025 11:37 AM Dictation Location: [place] [address] Electronically authenticated by: [id number] Y Date: 01/16/2025 11:37 Dictated By: Esther Varela M.D. Signed By: 01/16/25 1140 DD/ 1137 TD/TT: Sports Leadership Instructor: [facility] Radiology Study observation (narrative) [facility] US Thyroid glandOrdered By: Radiologist Radiology on 01-16-2025 [facility] Work Phone: CT CHEST W CONTRASTon [address] [address] [address] Scan Report Signed Patient: JAYDEN SU MR#: [id number] : 1975 Acct:[id number] Age/Sex: 49 / M ADM Date: 01/09/25 Loc: CT Attending Dr: Saima Issa NP Ordering Physician: Saima Issa NP Date of Service: 01/09/25 Procedure(s): CT chest w con Accession Number(s): [id number] cc: Saima Issa NP [address] [address] Patient Name: JAYDEN SU MRN: [id number] date: 1975 Sex: M Assigned Patient Location: CT Current Patient Location: CT Accession/Order Number: [id number] Exam Date: 01/09/2025 14:15 Report Date: 01/09/2025 [...] known risk factors. Radiology 2017 http://pubs.rsna.or g/doi/full/10.1148/ radiol.5860156818 Impression dictated by: Jhon Rush Jr., D.O.01/09/2025 2:18 PM Dictation Location: [place] [address] Electronically authenticated by: [id number] Y Date: 01/09/2025 14:18 Dictated By: Jhon Rush M.D. Signed By: 01/09/25 1421 DD/ 1418 TD/TT: Sports Leadership Instructor: [facility] Radiology, Radiologist, MD - 01/09/2025 [place] [address] CT Scan Report Signed Patient: JAYDEN SU MR#: [id number] : 1975 Acct:[id number] Age/Sex: 49 / M ADM Date: 01/09/25 Loc: CT Attending Dr: Saima Issa NP Ordering Physician: Saima Issa NP Date of Service: 01/09/25 Procedure(s): CT chest w con Accession Number(s): [id number] cc: Saima Issa NP [place] [id number] Patient Name: JAYDEN SU MRN: [facility]:[id number] date: 1975 Sex: M Assigned Patient Location: CT Current Patient Location: CT Accession/Order Number: [id number] Exam Date: 01/09/2025 14:15 Report Date: 01/09/2025 [...] known risk factors. Radiology 2017 http://pubs.rsna.or g/doi/full/10.1148/ radiol.8442987660 Impression dictated by: Jhon Rush Jr., D.O.01/09/2025 2:18 PM Dictation Location: [place] [address] Electronically authenticated by: [id number] Y Date: 01/09/2025 14:18 Dictated By: Jhon Rush M.D. Signed By: 01/09/25 1421 DD/ 1418 TD/TT: Sports Leadership Instructor: [facility] [place] [employer] Radiology Study observation (narrative) [facility] CT CHEST W CONTRASTOrdered B y: Radiologist Radiology on 01-09-2025 [facility] [place] [employer] Work Phone: RT PULMONARY FUNCTION TESTon 12-21-2024 [place] [address] Respiratory Report Signed Patient: JAYDEN SU MR#: [id number] : 1975 Acct:[id number] Age/Sex: 48 / M ADM Date: 12/16/24 Loc: CARD Attending Dr: Saima Issa NP Ordering Physician: Saima Issa NP Date of Service: 12/16/24 Procedure(s): RT pulmonary function test Accession Number(s): [id number] cc: [facility] Test Date: 2024-12-16 Pat Name: JAYDEN SU Department: Room: - Gender: Male Infection Control Manager: Randall Valdivia RRT : 1975 Requested By: SAIMA ISSA Order Number: [id number] Reading MD: Luis Eduardo Calderón Interpretive Statements [...] Signed By: 12/21/24 1150 DD/ 0930 TD/TT: Sports Leadership Instructor: [facility] Radiology, Radiologist, - 12/21/2024 [place] [address] Respiratory Report Signed Patient: JAYDEN SU MR#: [id number] : 1975 Acct:[id number] Age/Sex: 48 / M ADM Date: 12/16/24 Loc: CARD Attending Dr: Saima Issa NP Ordering Physician: Saima Issa NP Date of Service: 12/16/24 Procedure(s): RT pulmonary function test Accession Number(s): [id number] cc: [facility] Test Date: 2024-12-16 Pat Name: JAYDEN SU Department: Room: - Gender: Male Infection Control Manager: Randall Valdivia RRT : 1975 Requested By: SAIMA ISSA Order Number: [id number] Reading MD: Luis Eduardo Calderón Interpretive Statements [...] Signed By: 12/21/24 1150 DD/ 0930 TD/TT: Sports Leadership Instructor: [email or web address] RT PULMONARY FUNCTION TESTOr dered By: Radiologist Radiology on 12-21-2024 [email or web address] Work Phone: ALL HEMOGLOBINon 12-16-2024 Hemoglobin (Bld) [Mass/Vol] 15.7 g/dL 14.0 - 18.0 g/dL [facility] RT PULMONARY FUNCTION TESTon 12-16-2024 Radiology Study observation (narrative) [facility] XR CHEST 2Von 12-16-[address] [address] XRay Report Signed Patient: JAYDEN SU MR#: [id number] : 1975 Acct:[id number] Age/Sex: 48 / M ADM Date: 12/16/24 Loc: CARD Attending Dr: Saima Issa NP Ordering Physician: Saima Issa NP Date of Service: 12/16/24 Procedure(s): XR chest 2V Accession Number(s): [id number] cc: Saima Issa NP [place] [address] Patient Name: JAYDEN US MRN: [facility]:[id number] date: 1975 Sex: M Assigned Patient Location: CARD Current Patient Location: CARD Accession/Order Number: [id number] Exam Date: 12/16/2024 13:34 Report Date: 12/16/2024 [...] Esther Varela M.D.12/16/2024 1:36 PM Dictation Location: [place] [address] Electronically authenticated by: [id number] Y Date: 12/16/2024 13:36 Dictated By: Esther Varela M.D. Signed By: 12/16/24 1338 DD/ 35 TD/TT: Sports Leadership Instructor: [facility] Radiology, Radiologist, - 12/16/[address] [address] XRay Report Signed Patient: JAYDEN SU MR#: [id number] : 1975 Acct:[id number] Age/Sex: 48 / M ADM Date: 12/16/24 Loc: CARD Attending Dr: Saima Issa NURSING HOME ASSISTANT ADMINISTRATOR Ordering Physician: Saima Issa NP Date of Service: 12/16/24 Procedure(s): XR chest 2V Accession Number(s): [id number] cc: Saima Issa NP The [place] [id number] Patient Name: JAYDEN SU MRN: [id number] date: 1975 Sex: M Assigned Patient Location: CARD Current Patient Location: CARD Accession/Order Number: [id number] Exam Date: 12/16/2024 13:34 Report Date: 12/16/2024 [...] Esther Varela M.D.12/16/2024 1:36 PM Dictation Location: [place] [address] Electronically authenticated by: [id number] Y Date: 12/16/2024 13:36 Dictated By: Esther Varela M.D. Signed By: 12/16/248 DD/ 35 TD/TT: Sports Leadership Instructor: [facility] Radiology Study observation (narrative) [facility] XR CHEST 2VOrdered By: [facility] Rad[facility] on 12-16-2024 [facility] Work Phone: OCCULT BLOOD*on 10-01-2024 [facility] OCCULT BLOOD Negative [facility] ALL CBC WITH AUTO DIFFon 12- 13-2024 BASOPHILS ABSOLUTE AUTO 0.1 [facility] Basophils/100 WBC (Bld) 1.3 % 0.2 - 2.0 % [facility] Eosinophils/100 WBC (Bld) 2.3 % 0.9 - 7.0 % [facility] Erythrocyte distribution width (RBC) [Ratio] 12.5 % 11.0 - 15.0 % [facility] Hematocrit (Bld) [Volume fraction] 46.1 % 42.0 - 54.0 % [facility] Hemoglobin (Bld) [Mass/Vol] 15.8 g/dL 14.0 - 18.0 g/dL [facility] IMMATURE GRANULOCYTES ABS AUTO 0.01 [facility] Immature granulocytes/100 WBC (Bld) 0.1 % 0.0 - 0.5 % [facility] Interpretation and review of laboratory results Abnormal [facility] LYMPHOCYTES ABSOLUTE AUTO 2 [facility] Lymphocytes/100 WBC (Bld) 21.4 % 20.5 - 60.0 % [facility] MCH (RBC) [Entitic mass] 30.9 pg 25.9 - 34.0 pg [facility] MCHC (RBC) [Mass/Vol] 34.3 g/dL 29.9 - 35.2 g/dL [facility] MCV (RBC) [Entitic vol] 90 fL 80.0 - 94.0 fL [facility] MONOCYTES ABSOLUTE AUTO 1.2 High [facility] Monocytes/100 WBC (Bld) 12.6 % High 1.7 - 12.0 % [facility] NEUTROPHILS ABSOLUTE AUTO 5.7 [facility] Neutrophils/100 WBC (Bld) 62.3 % 43.0 - 75.0 % [facility] Platelet mean volume (Bld) [Entitic vol] 10.4 fL 9.5 - 13.5 fL [facility] TB EO # 0.2 [facility] TB PLT 267 [facility] RBC 5.12 [facility] WBC 9.1 [facility] Outside Colonoscopyon 2023 Outside Colonoscopy [id number] D7#1.00TIFF [facility] Reminderson 02-04-2024 Reminders -- From: Sheila Smith LPN To: GSN - Clinical; Sent: 02/04/2024 09:45:05 EDT Show up: 01/02/2034 07:00:00 EDT Subject: colonoscopy recall Due Date/Time: 02/02/2034 07:00:00 EDT Reminder/Recall Patient due for screening colonoscopy 02/02/2034. Normal [facility] Insurance Correspondenceon 0 01-21-2024 Insurance Correspondence [id number] 588#1.00TIFF [facility] Consent for Procedure/Surger yon 12-24-2023 Consent for Procedure/Surgery [id number] B0#1.00TIFF [facility] Facesheeton 12-23-2023 Facesheet [id number] 8#1.00TIFF [facility] Ambulatory Visit Summaryon 0 12-22-2023 Ambulatory Visit [...] you for choosing us for your care. Normal [facility] Physician Referralon 024 Physician Referral [id number] 4C#1.00TIFF Normal [facility] CBC AUTO DIFFon 05-25-2022 BASO # 0.1 103/ul Normal 0.0-0.1 [facility] Comment on above: Performed By: #### C BC #### [facility] [address] [place] [address] Dr. Tacho Pena Basophils/100 WBC (Bld) 1.2 % Normal 0.2-2.0 [facility] Comment on above: Performed By: #### C BC #### [facility] [address] [place] [address] Dr. Tacho Pena EO # 0.3 103/ul Normal 0.0-0.7 [facility] Comment on above: Performed By: #### C BC #### [facility] [address] [place] [address] [address] Tacho Pena Eosinophils/100 WBC (Bld) 3.3 % Normal 0.9-7.0 [facility] Comment on above: Performed By: #### C BC #### [facility] [address] [place] [address] [address] Tacho Pena Erythrocyte distribution width (RBC) [Ratio] 13.0 % Normal 11.0-15.0 [facility] Comment on above: Performed By: #### C BC #### [facility] [address] [place] [address] Dr. Tacho Pena Hematocrit (Bld) [Volume fraction] 46.3 % Normal 42.0-54.0 [facility] Comment on above: Performed By: #### C BC #### [facility] [address] [place] [address] Dr. Tacho Pena Hemoglobin (Bld) [Mass/Vol] 15.7 g/dL Normal 14.0-18.0 [facility] Comment on above: Performed By: #### C BC #### [facility] [address] [place] [address] Dr. Tacho Pena IG # 0.03 10e3/ul Normal 0.00-0.03 [facility] Comment on above: Performed By: #### C BC #### [facility] [address] [place] [address] Dr. Tacho Pena IG % 0.4 % Normal 0.0-0.5 [facility] Comment on above: Performed By: #### C BC #### [facility] [address] [place] [address] Dr. Tacho Pena LYMPH # 2.2 103/ul Normal 1.2-3.8 [facility] Comment on above: Performed By: #### C BC #### [facility] [address] [place] [address] Dr. Tacho Pena Lymphocytes/100 WBC (Bld) 25.4 % Normal 20.5-60.0 [facility] Comment on above: Performed By: #### C BC #### [facility] [address] [place] [address] Dr. Tacho Pena MANUAL DIFF REQ NO Normal [facility] Comment on above: Performed By: #### C BC #### [facility] [address] [place] [address] Dr. Tacho Pena MCH (RBC) [Entitic mass] 29.7 pg Normal 25.9-34.0 [facility] Comment on above: Performed By: #### C BC #### [facility] [address] [place] [address] Dr. Tacho Pena MCHC (RBC) [Mass/Vol] 33.9 g/dL Normal 29.9-35.2 [facility] Comment on above: Performed By: #### C BC #### [facility] [address] [place] [address] Dr. Tacho Pena MCV (RBC) [Entitic vol] 87.7 fL Normal 80.0-94.0 [facility] Comment on above: Performed By: #### C BC #### [facility] [address] [place] [address] [address] Tacho Pena MONO # 1.1 103/ul Critically high 0.3-0.8 [facility] Comment on above: Performed By: #### C BC #### [facility] [address] [place] [address] [address] Tacho Pean Monocytes/100 WBC (Bld) 12.5 % Critically high 1.7-12.0 [facility] Comment on above: Performed By: #### C BC #### [facility] [address] [place] [address] [address] Tacho Pena NEUT # 4.9 103/ul Normal 1.4-6.5 [facility] Comment on above: Performed By: #### C BC #### [facility] [address] [place] [address] Dr. Tacho Pena Neutrophils/100 WBC (Bld) 57.2 % Normal 43.0-75.0 [facility] Comment on above: Performed By: #### C BC #### [facility] [address] [place] [address] [address] Tacho Pena Platelet mean volume (Bld) [Entitic vol] 10.2 fL Normal 9.5-13.5 [facility] Comment on above: Performed By: #### C BC #### [facility] [address] [place] [address] [address] Tacho Pena PLT 269 103/ul Normal 150-450 [facility] Comment on above: Performed By: #### C BC #### [facility] [address] [place] [address] [address] Tacho Pena RBC 5.28 106/ul Normal 4.70-6.10 [facility] Comment on above: Performed By: #### C BC #### [facility] [address] [place] [address] [address] Tacho Pena WBC 8.6 103/ul Normal 4.0-11.0 [facility] Comment on above: Performed By: #### C BC #### [facility] [address] [place] [address] [address] ABD/PELV W CONon [...] without diverticulitis or appendicitis. Electronically authenticated by: [place] Date: 2022-05-25 17:16 Normal [facility] ER URINE PROFILEon 2 Bilirubin Ql (U) Negative Normal NEGATIVE [facility] Comment on above: Performed By: #### E RUR #### [facility] [address] [place] [address] Dr. Tacho Pena Clarity (U) CLEAR Normal CLEAR [facility] Comment on above: Performed By: #### E RUR #### [facility] [address] [place] [address] [address] Tacho Pena Color (U) YELLOW Normal YELLOW [facility] Comment on above: Performed By: #### E RUR #### [facility] [address] [place] [address] Dr. Tacho BADILLO A micrscopic examination will be performed if indicated. Normal [facility] Comment on above: Performed By: #### E RUR #### [facility] [address] [place] [address] Dr. Tacho Pena Glucose Ql (U) Negative Normal NEGATIVE [facility] Comment on above: Performed By: #### E RUR #### [facility] [address] [place] [address] Dr. Tacho Pena Hemoglobin Ql (U) Negative Normal NEGATIVE [facility] Comment on above: Performed By: #### E RUR #### [facility] [address] [place] [address] Dr. Tacho Pena Ketones Ql (U) Negative Normal NEGATIVE [facility] Comment on above: Performed By: #### E RUR #### [facility] [address] [place] [address] Dr. Tacho Pena LEUKOCYTES Negative Normal NEGATIVE [facility] Comment on above: Performed By: #### E RUR #### [facility] [address] [place] [address] Dr. Tcaho Pena Nitrite Ql (U) Negative Normal NEGATIVE [facility] Comment on above: Performed By: #### E RUR #### [facility] [address] [place] [address] Dr. Tacho Pena pH (U) 5.5 [pH] Normal 5-9 [facility] Comment on above: Performed By: #### E RUR #### [facility] [address] [place] [address] Dr. Tacho Pena SPEC GRAVITY 1.025 Normal 1.005-<=1.025 [facility] Comment on above: Performed By: #### E RUR #### [facility] [address] [place] [address] Dr. Tacho Pena UA PROTEIN Negative Normal NEGATIVE/ TRACE [facility] Comment on above: Performed By: #### E RUR #### [facility] [address] [place] [address] Dr. Tacho Pena UR MICRO IND NOT INDICATED Normal [facility] Comment on above: Performed By: #### E RUR #### [facility] [address] [place] [address] Dr. Tacho Pena Urobilinogen Qn (U) 0.2 {Darion'U}/dL Normal 0.2 - 1. 0 [facility] Comment on above: Performed By: #### E RUR #### [facility] [address] [place] [address] Dr. Tacho Pena PROF 14(COMP METB)on 022 Albumin [Mass/Vol] 3.4 g/dL Normal 3.4-5.0 [facility] Comment on above: Performed By: #### C MP #### [facility] [address] [place] [address] Dr. Tacho Pena Albumin/Globulin [Mass ratio] 1.1 {ratio} Normal [facility] Comment on above: Performed By: #### C MP #### [facility] [address] [place] [address] Dr. Tacho Pena ALP [Catalytic activity/Vol] 153 U/L Critically high 46-116 [facility] Comment on above: Performed By: #### C MP #### [facility] [address] [place] [address] Dr. Tacho Pena ALT [Catalytic activity/Vol] 16 U/L Normal 16-63 [facility] Comment on above: Performed By: #### C MP #### [facility] [address] [place] [address] Dr. Tacho Pena Anion gap [Moles/Vol] 13.2 mmol/L Normal [facility] Comment on above: Performed By: #### C MP #### [facility] [address] [place] [address] Dr. Tacho Pena AST [Catalytic activity/Vol] 12 U/L Critically low 15-37 [facility] Comment on above: Performed By: #### C MP #### [facility] [address] [place] [address] [address] Tacho Pena Bilirubin [Mass/Vol] 0.4 mg/dL Normal 0.2-1.0 [facility] Comment on above: Performed By: #### C MP #### [facility] [address] [place] [address] [address] Tacho Pena Calcium [Mass/Vol] 8.6 mg/dL Normal 8.5-10.1 [facility] Comment on above: Performed By: #### C MP #### [facility] [address] [place] [address] [address] Tacho Pena Chloride [Moles/Vol] 103 mmol/L Normal 98-107 [facility] Comment on above: Performed By: #### C MP #### [facility] [address] [place] [address] [address] Tacho Pena CO2 [Moles/Vol] 25.9 mmol/L Normal 21.0-32.0 [facility] Comment on above: Performed By: #### C MP #### [facility] [address] [place] [address] [address] Tacho Pena Creatinine [Mass/Vol] 0.91 mg/dL Normal 0.70-1.30 [facility] Comment on above: Performed By: #### C MP #### [facility] [address] [place] [address] [address] Tacho Pena EGFR-AF HONDURAN >60 Normal >=60 [facility] Comment on above: Performed By: #### C MP #### [facility] [address] [place] [address] [address] Tacho Pena EGFR-NON AF HONDURAN >60 Normal >=60 [facility] Comment on above: Performed By: #### C MP #### [facility] [address] [place] [address] [address] Tacho Pena Globulin (S) [Mass/Vol] 3.2 g/dL Normal [facility] Comment on above: Performed By: #### C MP #### [facility] [address] [place] [address] [address] Tacho Pena Glucose [Mass/Vol] 93 mg/dL Normal 74-106 [facility] Comment on above: Performed By: #### C MP #### [facility] [address] [place] [address] [address] Tacho Pena Potassium [Moles/Vol] 4.1 mmol/L Normal 3.5-5.1 [facility] Comment on above: Performed By: #### C MP #### [facility] [address] [place] [address] [address] Tacho Pena Protein [Mass/Vol] 6.6 g/dL Normal 6.4-8.2 [facility] Comment on above: Performed By: #### C MP #### [facility] [address] [place] [address] [address] Tacho Pena Sodium [Moles/Vol] 138 mmol/L Normal 136-145 [facility] Comment on above: Performed By: #### C MP #### [facility] [address] [place] [address] [address] Tacho Pena Urea nitrogen [Mass/Vol] 9.0 mg/dL Normal 7.0-18.0 [facility] Comment on above: Performed By: #### C MP #### [facility] [address] [place] [address] [address] Tacho Pena Urea nitrogen/Creatinine [Mass ratio] 9.9 mg/mg Normal [facility] Comment on above: Performed By: #### C MP #### [facility] [address] [place] [address] [address] Tacho Pena PROTIMEon 05-25-2022 INR Coag (PPP) [Relative time] 0.96 {INR} Normal [facility] Comment on above: Performed By: #### P T, PTT #### [facility] [address] [place] [address] [address] Tacho Pena INR GUIDELINES SEE BELOW Normal [facility] Comment on above: Result Comment: TRAVIS RED INR: 2.0 - 3.0 CONDITIONS NOT LISTED BELOW 2.5 - 3.5 FOR PROSTHETIC HEART VALVE REPLACEMENT 2.5 - 3.5 RECURRENT THROMBOSIS Performed By: #### P T, PTT #### [facility] [address] [place] [address] [address] Tacho Pena PT Coag (PPP) [Time] 10.4 s Normal 9.0-11.6 [facility] Comment on above: Performed By: #### P T, PTT #### [facility] [address] [place] [address] [address] Tacho Pena PTTon 05-25-2022 aPTT Coag (Bld) [Time] 28.4 s Normal 22.3-36.2 [facility] Comment on above: Performed By: #### P T, PTT #### [facility] [address] [place] [address] [address] Tacho Pena Covid-19 PCR ([facility])on 07-20 SARS-CoV-2 (COVID-19) RNA SHERLEY+probe Ql (Unsp spec) Detected Critically abnormal NOT DETECTED [facility] Comment on above: Result Comment: This test is not yet approved or cleared by the [place] FDA. When there are no FDA-approved or cleared tests available, and other criteria are met, FDA can make tests available under an emergency access mechanism called an Emergency Use Authorization (EUA). The EUA for this test is supported by the [place] of Health and Human Service's (HHS's) declaration [...] used). Performed By: #### C VDTBH #### [facility] [address] [place] [address] Dr. Tacho Pena XR CHEST 1 Von [...] MG POE Date: 2021-08-13 09:42 Normal [facility] XR RADIUS ULNA LEFT (2 VIEWS [...] Srini Powell MD 03/11/20 Final result Normal [facility] Vital Signs Date Time Vital Sign Value Performing Clinician Facility 05-23-2025 13:44-0400 Body mass index (BMI) [Ratio] 34.55 kg/m2 Saima Lacybert NURSING HOME ASSISTANT ADMINISTRATOR Work Phone: [facility] 05-23-2025 13:44-0400 Body temperature 99 [degF] Saima Lacybert NURSING HOME ASSISTANT ADMINISTRATOR Work Phone: [facility] 05-23-2025 13:44-0400 Body weight 109.23 kg Saima Lacybert NURSING HOME ASSISTANT ADMINISTRATOR Work Phone: [facility] 05-23-2025 13:44-0400 Diastolic blood pressure 80 mm[Hg] Saima Lacybert NURSING HOME ASSISTANT ADMINISTRATOR Work Phone: [facility] 05-23-2025 13:44-0400 Heart rate 90 /min Saima Lacybert NURSING HOME ASSISTANT ADMINISTRATOR Work Phone: [facility] 05-23-2025 13:44-0400 Respiratory rate 22 /min Saima Ferkristiebert NURSING HOME ASSISTANT ADMINISTRATOR Work Phone: [facility] 05-23-2025 13:44-0400 SaO2% (BldA) [Mass fraction] 96 % Saima Lacybert NURSING HOME ASSISTANT ADMINISTRATOR Work Phone: [facility] 05-23-2025 13:44-0400 Systolic blood pressure 106 mm[Hg] Saima Issa NURSING HOME ASSISTANT ADMINISTRATOR Work Phone: [facility] 02-15-2025 10:08-0400 Body height 177.8 cm Pelon Tobar MD Work Phone: [facility] 02-15-2025 10:08-0400 Body mass index (BMI) [Ratio] 33.86 kg/m2 Pelon Tobar MD Work Phone: [facility] 02-15-2025 10:08-0400 Body weight 107.05 kg Pelon Tobar MD Work Phone: [facility] 02-15-2025 10:08-0400 Diastolic blood pressure 63 mm[Hg] Pelon Tobar MD Work Phone: [facility] 02-15-2025 10:08-0400 Heart rate 68 /min Pelon Tobar MD Work Phone: [facility] 02-15-2025 10:08-0400 Systolic blood pressure 105 mm[Hg] Pelon Tobar MD Work Phone: [facility] 01-25-2025 10:19-0400 Body height 177.8 cm Pelon Tobar MD Work Phone: [facility] 01-25-2025 10:19-0400 Body mass index (BMI) [Ratio] 34.01 kg/m2 Pelon Tobar MD Work Phone: [facility] 01-25-2025 10:19-0400 Body weight 107.5 kg Pelon Tobar MD Work Phone: [facility] 01-25-2025 10:19-0400 Diastolic blood pressure 77 mm[Hg] Pelon Tobar MD Work Phone: [facility] 01-25-2025 10:19-0400 Heart rate 70 /min Pelon Tobar MD Work Phone: [facility] 01-25-2025 10:19-0400 Systolic blood pressure 108 mm[Hg] Pelon Tobar MD Work Phone: [facility] 01-18-2025 09:05-0400 Body mass index (BMI) [Ratio] 34.01 kg/m2 Saima Gabz NURSING HOME ASSISTANT ADMINISTRATOR Work Phone: [facility] 01-18-2025 09:05-0400 Body temperature 98.49 [degF] Saima Aichholz NURSING HOME ASSISTANT ADMINISTRATOR Work Phone: [facility] 01-18-2025 09:05-0400 Body weight 107.5 kg Saima Aichholz NURSING HOME ASSISTANT ADMINISTRATOR Work Phone: [facility] 01-18-2025 09:05-0400 Diastolic blood pressure 70 mm[Hg] Saima Aichholz NURSING HOME ASSISTANT ADMINISTRATOR Work Phone: [facility] 01-18-2025 09:05-0400 Heart rate 81 /min Saima Aichholz NURSING HOME ASSISTANT ADMINISTRATOR Work Phone: [facility] 01-18-2025 09:05-0400 Respiratory rate 18 /min Saima Aichholz NURSING HOME ASSISTANT ADMINISTRATOR Work Phone: [facility] 01-18-2025 09:05-0400 SaO2% (BldA) [Mass fraction] 97 % Saima Aichholz NURSING HOME ASSISTANT ADMINISTRATOR Work Phone: [facility] 01-18-2025 09:05-0400 Systolic blood pressure 108 mm[Hg] Saima Aichholz NURSING HOME ASSISTANT ADMINISTRATOR Work Phone: [facility] 12-07-2024 10:39-0500 Body mass index (BMI) [Ratio] 33.83 kg/m2 Saima Aichholz NURSING HOME ASSISTANT ADMINISTRATOR Work Phone: [facility] 12-07-2024 10:39-0500 Body temperature 98.1 [degF] Saima Aichholz NURSING HOME ASSISTANT ADMINISTRATOR Work Phone: [facility] 12-07-2024 10:39-0500 Body weight 106.96 kg Saima Aichholz NURSING HOME ASSISTANT ADMINISTRATOR Work Phone: [facility] 12-07-2024 10:39-0500 Diastolic blood pressure 84 mm[Hg] Saima Monroecristhianz NURSING HOME ASSISTANT ADMINISTRATOR Work Phone: [facility] 12-07-2024 10:39-0500 Heart rate 67 /min Saimamariano Monroecristhianz NURSING HOME ASSISTANT ADMINISTRATOR Work Phone: [facility] 12-07-2024 10:39-0500 Respiratory rate 18 /min Saimamariano Monroecristhianz NURSING HOME ASSISTANT ADMINISTRATOR Work Phone: [facility] 12-07-2024 10:39-0500 SaO2% (BldA) [Mass fraction] 97 % Saima Gabz NURSING HOME ASSISTANT ADMINISTRATOR Work Phone: [facility] 12-07-2024 10:39-0500 Systolic blood pressure 122 mm[Hg] Saima Monroecristhianz NURSING HOME ASSISTANT ADMINISTRATOR Work Phone: [facility] 11-23-2024 14:14-0500 Body height 177.8 cm Kolton Carreno DPM Work Phone: [facility] 11-23-2024 14:14-0500 Body mass index (BMI) [Ratio] 33.43 kg/m2 Kolton Rolle DPM Work Phone: [facility] 11-23-2024 14:14-0500 Body weight 105.69 kg Kolton Rolle DPM Work Phone: [facility] 11-10-2024 14:25-0500 Body height 177.8 cm Saima Luis Manuel NURSING HOME ASSISTANT ADMINISTRATOR Work Phone: [facility] 11-10-2024 14:25-0500 Body mass index (BMI) [Ratio] 33.63 kg/m2 Saima Bambiholz NURSING HOME ASSISTANT ADMINISTRATOR Work Phone: [facility] 11-10-2024 14:25-0500 Body temperature 98.1 [degF] Saima Gabz NURSING HOME ASSISTANT ADMINISTRATOR Work Phone: [facility] 11-10-2024 14:25-0500 Body weight 106.32 kg Saima Gabz NURSING HOME ASSISTANT ADMINISTRATOR Work Phone: [facility] 11-10-2024 14:25-0500 Diastolic blood pressure 88 mm[Hg] Siama Aichholz NURSING HOME ASSISTANT ADMINISTRATOR Work Phone: [facility] 11-10-2024 14:25-0500 Heart rate 75 /min Saima Aichholz NURSING HOME ASSISTANT ADMINISTRATOR Work Phone: [facility] 11-10-2024 14:25-0500 Respiratory rate 20 /min Saima Aichholz NURSING HOME ASSISTANT ADMINISTRATOR Work Phone: [facility] 11-10-2024 14:25-0500 SaO2% (BldA) [Mass fraction] 96 % Saima Aichholz NURSING HOME ASSISTANT ADMINISTRATOR Work Phone: [facility] 11-10-2024 14:25-0500 Systolic blood pressure 128 mm[Hg] Saima Aichholz NURSING HOME ASSISTANT ADMINISTRATOR Work Phone: [facility] 10-10-2024 13:48-0500 Body height 177.8 cm Saima Aichholz NURSING HOME ASSISTANT ADMINISTRATOR Work Phone: [facility] 10-10-2024 13:48-0500 Body mass index (BMI) [Ratio] 33.43 kg/m2 Saima Aichholz NURSING HOME ASSISTANT ADMINISTRATOR Work Phone: [facility] 10-10-2024 13:48-0500 Body temperature 97.81 [degF] Saima Aichholz NURSING HOME ASSISTANT ADMINISTRATOR Work Phone: [facility] 10-10-2024 13:48-0500 Body weight 105.69 kg Siama Aichholz NURSING HOME ASSISTANT ADMINISTRATOR Work Phone: [facility] 10-10-2024 13:48-0500 Diastolic blood pressure 84 mm[Hg] Saima Aichholz NURSING HOME ASSISTANT ADMINISTRATOR Work Phone: [facility] 10-10-2024 13:48-0500 Heart rate 85 /min Saima Aichholz NURSING HOME ASSISTANT ADMINISTRATOR Work Phone: [facility] 10-10-2024 13:48-0500 Respiratory rate 18 /min Saima Aichholz NURSING HOME ASSISTANT ADMINISTRATOR Work Phone: [facility] 10-10-2024 13:48-0500 SaO2% (BldA) [Mass fraction] 98 % Saima Issa NURSING HOME ASSISTANT ADMINISTRATOR Work Phone: [facility] 10-10-2024 13:48-0500 Systolic blood pressure 118 mm[Hg] Saima Issa NURSING HOME ASSISTANT ADMINISTRATOR Work Phone: [facility] 09-26-2024 17:55-0500 Body height 177.8 cm Saima Issa NURSING HOME ASSISTANT ADMINISTRATOR Work Phone: [facility] 09-26-2024 17:55-0500 Body mass index (BMI) [Ratio] 33.12 kg/m2 Saima Issa NURSING HOME ASSISTANT ADMINISTRATOR Work Phone: [facility] 09-26-2024 17:55-0500 Body temperature 97.81 [degF] Saima Issa NURSING HOME ASSISTANT ADMINISTRATOR Work Phone: [facility] 09-26-2024 17:55-0500 Body weight 104.69 kg Saima Issa NURSING HOME ASSISTANT ADMINISTRATOR Work Phone: [facility] 09-26-2024 17:55-0500 Diastolic blood pressure 88 mm[Hg] Saima Issa NURSING HOME ASSISTANT ADMINISTRATOR Work Phone: [facility] 09-26-2024 17:55-0500 Heart rate 87 /min Saima Issa NURSING HOME ASSISTANT ADMINISTRATOR Work Phone: [facility] 09-26-2024 17:55-0500 Respiratory rate 20 /min Saimamariano Issa NURSING HOME ASSISTANT ADMINISTRATOR Work Phone: [facility] 09-26-2024 17:55-0500 SaO2% (BldA) [Mass fraction] 97 % Saima Issa NURSING HOME ASSISTANT ADMINISTRATOR Work Phone: [facility] 09-26-2024 17:55-0500 Systolic blood pressure 122 mm[Hg] Saima Issa NURSING HOME ASSISTANT ADMINISTRATOR Work Phone: [facility] 12-22-2023 14:56-0500 Blood Pressure Location Mg NILL [facility] 12-22-2023 14:56-0500 Diastolic blood pressure 82 mm[Hg] Mg FARIAS [facility] 12-22-2023 14:56-0500 Heart rate 76 /min Mg FARIAS [facility] 12-22-2023 14:56-0500 Respiratory rate 16 /min Mg FARIAS [facility] 12-22-2023 14:56-0500 Systolic blood pressure 126 mm[Hg] Mg MCKEONL [facility] 11-25-2023 15:01-0500 Body height 177.8 cm Saima Issa NURSING HOME ASSISTANT ADMINISTRATOR Work Phone: [facility] 11-25-2023 15:01-0500 Body mass index (BMI) [Ratio] 36.13 kg/m2 Saimamariano Issa NURSING HOME ASSISTANT ADMINISTRATOR Work Phone: [facility] 11-25-2023 15:01-0500 Body temperature 97.81 [degF] Saimamariano Issa NURSING HOME ASSISTANT ADMINISTRATOR Work Phone: [facility] 11-25-2023 15:01-0500 Body weight 114.22 kg Saimamariano Issa NURSING HOME ASSISTANT ADMINISTRATOR Work Phone: [facility] 11-25-2023 15:01-0500 Diastolic blood pressure 86 mm[Hg] Saima Luis Manuel NURSING HOME ASSISTANT ADMINISTRATOR Work Phone: [facility] 11-25-2023 15:01-0500 Heart rate 86 /min Saima Gabz NURSING HOME ASSISTANT ADMINISTRATOR Work Phone: [facility] 11-25-2023 15:01-0500 Respiratory rate 19 /min Saima Luis Manuel NURSING HOME ASSISTANT ADMINISTRATOR Work Phone: [facility] 11-25-2023 15:01-0500 SaO2% (BldA) [Mass fraction] 98 % Saima Issa NURSING HOME ASSISTANT ADMINISTRATOR Work Phone: [facility] 11-25-2023 15:01-0500 Systolic blood pressure 142 mm[Hg] Saima Issa NURSING HOME ASSISTANT ADMINISTRATOR Work Phone: [facility] 06-02-2022 14:02-0400 Blood Pressure Location Mg FARIAS [facility] [place] 06-02-2022 14:02-0400 Diastolic blood pressure 83 mm[Hg] Mg MCKEONL [facility] [place] 06-02-2022 14:02-0400 Heart rate 73 /min Mg MCKEONL [facility] [place] 06-02-2022 14:02-0400 Respiratory rate 16 /min Mg MCKEONL [facility] 06-02-2022 14:02-0400 Systolic blood pressure 127 mm[Hg] Mg FARIAS [facility] 03-11-2020 16:10-0400 Body Temperature 98.6 [degF] [facility] [place] 03-11-2020 16:10-0400 BP Diastolic 84 mm[Hg] [facility]- [place] , [place] 03-11-2020 16:10-0400 BP Systolic 129 mm[Hg] [facility] [place] , [place] 03-11-2020 16:10-0400 Pulse (Heart Rate) 85 /min [facility] [place], [place] 03-11-2020 16:10-0400 [facility] [place] [facility] [place] 03-11-2020 16:10-0400 Respiratory Rate 16 /min [facility] [place] Encounters Encounter Date Encounter Type Care Provider Facility Start: 05-23-2025 End: 05-23-2025 Bamboo flowsheet Saima Issa NURSING HOME ASSISTANT ADMINISTRATOR Work Phone: [facility] Start: 05-23-2025 End: 05-23-2025 Bamboo flowsheet Saimamariano Issa NURSING HOME ASSISTANT ADMINISTRATOR Work Phone: [facility] Start: 05-23-2025 End: 05-23-2025 Office outpatient visit 25 minutes Saima Luis Manuel NURSING HOME ASSISTANT ADMINISTRATOR Work Phone: [facility] Comment on above: Other headache syndr ome (Primary Dx); Pulmonary emphysema, unspecified emphysema type (HCC); Thyroid nodule ; Cigarette nicotine dependence without complication; Tinea cruris Start: 02-15-2025 End: 02-15-2025 Bamboo flowsheet Pelon Tobar MD Work Phone: [facility] Start: 02-15-2025 End: 02-15-2025 Bamboo flowsheet Pelon Tobar MD Work Phone: [facility] Start: 02-15-2025 End: 02-15-2025 Office outpatient visit 25 minutes Pelon Tobar MD Work Phone: [facility] Comment on above: Thyroid nodule (CMS/ HCC) (Primary Dx) Start: 02-15-2025 End: 02-15-2025 ambulatory PELON TOBAR Not Available Start: 02-02-2025 End: 02-02-2025 Refill Saima Luis Manuel NURSING HOME ASSISTANT ADMINISTRATOR Work Phone: [facility] Comment on above: Pulmonary emphysema, unspecified emphysema type (CMS/HCC) Start: 02-01-2025 End: 02-01-2025 Refill Saima Luis Manuel NURSING HOME ASSISTANT ADMINISTRATOR Work Phone: [facility] Comment on above: Pulmonary emphysema, unspecified emphysema type (CMS/HCC) (Primary Dx) Start: 01-30-2025 End: 01-30-2025 ambulatory Pelon Tobar Jr [facility] Work Phone: Start: 01-30-2025 End: 01-30-2025 Departed Referred Pelon Tobar MD [facility] Start: 01-30-2025 End: 01-30-2025 ambulatory PELON TOBAR Facility:[facility] Start: 01-25-2025 End: 01-25-2025 Bamboo flowsheet Pelon Tobar MD Work Phone: [facility] Start: 01-25-2025 End: 01-25-2025 Bamboo flowsheet Pelon Tobar MD Work Phone: [facility] Start: 01-25-2025 End: 01-25-2025 Office outpatient new 45 minutes Pelon Tobar MD Work Phone: [facility] Comment on above: Thyroid nodule (CMS/ HCC) Start: 01-25-2025 End: 01-25-2025 ambulatory PELON Kristie EKATERINA Not Available Start: 01-18-2025 End: 01-18-2025 Bamboo flowsheet Saima Issa NURSING HOME ASSISTANT ADMINISTRATOR Work Phone: [facility] Start: 01-18-2025 End: 01-18-2025 Bamboo flowsheet Saima Luis Manuel NURSING HOME ASSISTANT ADMINISTRATOR Work Phone: [facility] Start: 01-18-2025 End: 01-18-2025 Office outpatient visit 25 minutes Saima Issa NURSING HOME ASSISTANT ADMINISTRATOR Work Phone: [facility] Comment on above: Pulmonary emphysema, unspecified emphysema type (CMS/HCC) (Primary Dx); Obesity (BMI 30-39.9); Thyroid nodule (CMS/HCC); Cigarette nicotine dependence without complication; Lung nodule Start: 01-18-2025 End: 01-18-2025 ambulatory SAIMA LUIS MANUEL Not Available Start: 01-16-2025 End: 01-16-2025 Clinisync Result Encounter Saima Issa NURSING HOME ASSISTANT ADMINISTRATOR Work Phone: [facility] Unsolicited Start: 01-16-2025 End: 01-16-2025 Clinisync Result Encounter Saima Issa NURSING HOME ASSISTANT ADMINISTRATOR Work Phone: [facility] Unsolicited Start: 01-09-2025 End: 01-09-2025 Clinisync Result Encounter Saima Lacybert NURSING HOME ASSISTANT ADMINISTRATOR Work Phone: [facility] Unsolicited Start: 01-09-2025 End: 01-09-2025 Clinisync Result Encounter Saima Monroepage NURSING HOME ASSISTANT ADMINISTRATOR Work Phone: [facility] Unsolicited Start: 01-09-2025 End: 01-09-2025 Orders Only Saima Luis Manuel NURSING HOME ASSISTANT ADMINISTRATOR Work Phone: [facility] Comment on above: Thyroid nodule (CMS/ HCC) (Primary Dx) Start: 12-16-2024 End: 12-21-2024 Clinisync Result Encounter Saima Monroepage NURSING HOME ASSISTANT ADMINISTRATOR Work Phone: [facility] Unsolicited Start: 12-16-2024 End: 12-21-2024 Clinisync Result Encounter Saima Luis Manuel NURSING HOME ASSISTANT ADMINISTRATOR Work Phone: [facility] Unsolicited Start: 12-07-2024 End: 12-07-2024 Bamboo flowsheet Saima Luis Manuel NURSING HOME ASSISTANT ADMINISTRATOR Work Phone: [facility] Start: 12-07-2024 End: 12-07-2024 Bamboo flowsheet Saima Lacybert NURSING HOME ASSISTANT ADMINISTRATOR Work Phone: [facility] Start: 12-07-2024 End: 12-07-2024 Office outpatient visit 15 minutes Saima Luis Manuel NURSING HOME ASSISTANT ADMINISTRATOR Work Phone: [facility] Comment on above: Chronic cough (Prima ry Dx); Weight loss, unintentional; Obesity (BMI 30-39.9); Tobacco user; Bilateral leg pain; Chronic pain of both feet Start: 12-07-2024 End: 12-07-2024 ambulatory SAIMA LUIS MANUEL Not Available Start: 12-05-2024 End: 12-05-2024 Telephone encounter Saima Luis Manuel NURSING HOME ASSISTANT ADMINISTRATOR Work Phone: [facility] Comment on above: Chronic cough (Prima ry Dx) Start: 11-23-2024 End: 11-23-2024 Office outpatient new 30 minutes Kolton S Aquilino DPM Work Phone: [facility] Comment on above: Porokeratosis (Prima ry Dx); Left foot pain; Chronic pain of both feet; Corns and callosities Start: 11-23-2024 End: 11-23-2024 ambulatory KOLTON ROLLE Not Available Start: 11-23-2024 End: 11-23-2024 Bamboo flowsheet Kolton Rolle DPM Work Phone: [facility] Start: 11-23-2024 End: 11-23-2024 Bamboo flowsheet Kolton Rolle DPM Work Phone: [facility] Start: 11-10-2024 End: 11-10-2024 Bamboo flowsheet Saima Issa NURSING HOME ASSISTANT ADMINISTRATOR Work Phone: [facility] Start: 11-10-2024 End: 11-10-2024 Bamboo flowsheet Saima Issa NURSING HOME ASSISTANT ADMINISTRATOR Work Phone: [facility] Start: 11-10-2024 End: 11-10-2024 Office outpatient visit 25 minutes Saima sIsa NURSING HOME ASSISTANT ADMINISTRATOR Work Phone: [facility] Comment on above: Chronic pain of both feet (Primary Dx); Diarrhea, unspecified type; Bilateral leg pain; Obesity (BMI 30-39.9); Weight loss, unintentional; Tobacco user; Marijuana smoker; PAD (peripheral artery disease) ([facility]); Chronic cough Start: 11-10-2024 End: 11-10-2024 ambulatory SAIMA ISSA Not Available Start: 10-10-2024 End: 10-10-2024 Bamboo flowsheet Saima Issa NURSING HOME ASSISTANT ADMINISTRATOR Work Phone: [facility] Start: 10-10-2024 End: 10-10-2024 Bamboo flowsheet Saima Issa NURSING HOME ASSISTANT ADMINISTRATOR Work Phone: [facility] Start: 10-10-2024 End: 10-10-2024 Office outpatient visit 25 minutes Saima Lacybert NURSING HOME ASSISTANT ADMINISTRATOR Work Phone: [facility] Comment on above: Bilateral leg pain ( Primary Dx); Obesity (BMI 30-39.9); Weight loss, unintentional; Tobacco user; Marijuana smoker; Diarrhea, unspecified type; PAD (peripheral artery disease) ([facility]) Start: 10-10-2024 End: 10-10-2024 ambulatory SAIMA AICHHOLZ Not Available Start: 10-01-2024 End: 10-01-2024 Clinisync Result Encounter Saima Monroepage NURSING HOME ASSISTANT ADMINISTRATOR Work Phone: [facility] Unsolicited Start: 10-01-2024 End: 10-01-2024 Clinisync Result Encounter Saimamariano Lacydayannaz NURSING HOME ASSISTANT ADMINISTRATOR Work Phone: [facility] Unsolicited Start: 09-30-2024 End: 09-30-2024 Clinisync Result Encounter Saima Gabz NURSING HOME ASSISTANT ADMINISTRATOR Work Phone: [facility] Unsolicited Start: 09-30-2024 End: 09-30-2024 Clinisync Result Encounter Saima Bambiholz NURSING HOME ASSISTANT ADMINISTRATOR Work Phone: [facility] Unsolicited Start: 09-26-2024 End: 09-26-2024 Office outpatient visit 25 minutes Saima Luis Manuel NURSING HOME ASSISTANT ADMINISTRATOR Work Phone: [facility] Comment on above: Weight loss, uninten tional (Primary Dx); Tobacco user; Obesity (BMI 30-39.9); Marijuana smoker; Chronic pain of right knee; Diarrhea, unspecified type Start: 09-26-2024 End: 09-26-2024 ambulatory SAIMA AICHHOLZ Not Available Start: 09-26-2024 End: 09-26-2024 Bamboo flowsheet Saima Aichholz NURSING HOME ASSISTANT ADMINISTRATOR Work Phone: [facility] Start: 09-26-2024 End: 09-26-2024 Bamboo flowsheet Saima Aichholz NURSING HOME ASSISTANT ADMINISTRATOR Work Phone: [facility] Start: 04-14-2024 End: 04-14-2024 ambulatory SAIMA FERKristieBERT Not Available Start: 02-03-2024 End: 02-04-2024 ambulatory Mg FARIAS Facility:[id number] Start: 12-22-2023 End: 12-23-2023 ambulatory Mg Penning[place] ZONIA Facility:[facility] Start: 12-22-2023 End: 12-22-2023 Patient encounter procedure Mg Pennington ZONIA General Surgery [facility] Start: 12-18-2023 ambulatory Mg FARIAS Facility:[facility] Start: 11-25-2023 End: 11-25-2023 Office outpatient visit 15 minutes Saima Luis Manuel NURSING HOME ASSISTANT ADMINISTRATOR Work Phone: [facility] Comment on above: Rash (Primary Dx); Marijuana smoker; Tobacco user; BMI 36.0-36.9,adult; Colon cancer screening Start: 11-25-2023 Bamboo flowsheet Saima Ferkristiebert NURSING HOME ASSISTANT ADMINISTRATOR Work Phone: [facility] Start: 11-25-2023 Bamboo flowsheet Saima Ferkristiebert NURSING HOME ASSISTANT ADMINISTRATOR Work Phone: [facility] Start: 09-16-2022 End: 09-16-2022 ambulatory MD Clive Phillips Work Phone: [facility] Work Phone: Start: 09-16-2022 End: 09-16-2022 Departed Referred MD Clive Phillips Work Phone: [facility] [place] Start: 07-10-2022 End: 07-10-2022 Patient encounter procedure Mg Gorge ZONIA [facility] [place] Start: 06-26-2022 End: 06-26-2022 Patient encounter procedure Mg FARIAS [facility] [place] Start: 06-02-2022 End: 06-02-2022 Patient encounter procedure Mg FARIAS [facility] [place] Start: 05-25-2022 End: 05-25-[address] JOSSY STACY Facility:[facility] Start: 08-13-2021 End: 08-13-2021 ambulatory RUDY YANG Facility:[facility] Start: 03-11-2020 End: 03-11-2020 Emergency department patient visit [facility] Start: 03-11-2020 End: 03-11-2020 Emergency department patient visit [facility] ED Comment on above: Dog bite of left upp er extremity, initial encounter (Primary Dx) Procedures Date Procedure Procedure Detail Performing Clinician Start: 01-16-2025 Us soft tissue head & neck real time imge docm Saima Issa NURSING HOME ASSISTANT ADMINISTRATOR Work Phone: Start: 01-09-2025 CT CHEST W CONTRAST Lis a Luis Manuel NURSING HOME ASSISTANT ADMINISTRATOR Work Phone: Start: 12-16-2024 XR CHEST 2V Saimamariano mendozaz NURSING HOME ASSISTANT ADMINISTRATOR Work Phone: Start: 12-16-2024 RT PULMONARY FUNCTION TEST Saima Issa NURSING HOME ASSISTANT ADMINISTRATOR Work Phone: Start: 12-16-2024 ALL HEMOGLOBIN Saima Fer hholz NURSING HOME ASSISTANT ADMINISTRATOR Work Phone: Start: 10-01-2024 OCCULT BLOOD* Saimamariano Monroeh bert NURSING HOME ASSISTANT ADMINISTRATOR Work Phone: Start: 09-30-2024 ALL CBC WITH AUTO DIFF Saima Issa NURSING HOME ASSISTANT ADMINISTRATOR Work Phone: Start: 02-03-2024 Colonoscopy Saima Duran olz NURSING HOME ASSISTANT ADMINISTRATOR Work Phone: Start: 06-16-2022 Inguinal hernioplasty Rosa [...] Activity Detail Author Start: 02-02-2034 Screening for malignant neoplasm of colon [facility] Start: 03-11-2030 DTaP/Tdap/Td vaccine (2 - Td) DTaP/Tdap/Td vaccine (2 - Td) [place], [place] Start: 07-12-2025 End: 07-12-2025 Patient encounter procedure 07/12/2025 11:20 AM EDT [facility] [address] [address] [place] [phone] Pelon Tobar MD [address] [facility] [address] [place] [address] [facility] Ot[facility] Start: 05-23-2025 End: 05-23-2025 Patient encounter procedure 05/23/2025 1:40 PM EDT Office Visit [facility] [address] [place] [phone] Saima Issa, TEO [address] [place] [phone] Pulmonary emphysema, unspecified emphysema type (HCC) (Primary Dx); Thyroid nodule ; Cigarette nicotine dependence without complication [facility] Comment on above: Pulmonary emphysema, unspecified emphyse ma type (HCC) (Primary Dx); Thyroid nodule ; Cigarette nicotine dependence without complication Start: 04-19-2025 End: 04-19-2025 Patient encounter procedure 04/19/2025 1:00 PM EDT Office Visit [facility] [address] [facility] [place] [phone] Saima Issa, TEO [address] [place] [address] [facility] Start: 02-15-2025 End: 02-15-2025 Patient encounter procedure [facility] Comment on above: Arrived Start: 01-25-2025 End: 01-25-2025 Patient encounter procedure 01/25/2025 10:30 AM EDT Office Visit [facility] [address] [facility] [address] [place] [address] Pelon Tobar MD [address] [facility] [address] [place] [address] Thyroid nodule (CMS/HCC) [facility] Comment on above: Thyroid nodule (CMS/HCC) Start: 01-18-2025 End: 01-18-2025 Patient encounter procedure [facility] Comment on above: Pulmonary emphysema, unspecified emphyse ma type (CMS/HCC) (Primary Dx); Obesity (BMI 30-39.9); Thyroid nodule (CMS/HCC); Cigarette nicotine dependence without complication Start: 01-09-2025 End: 01-09-2026 US Thyroid gland US thyroid Imaging Routine Thyroid nodule (CMS/HCC) Expected: 01/09/2025 (Approximate), Expires: 01/09/2026 [facility] Work Phone: Comment on above: Expected: 01/09/2025 (Approximate), Expi res: 01/09/2026 Start: 12-07-2024 End: 12-07-2024 Patient encounter procedure [facility] Comment on above: Chronic cough (Primary Dx); Weight loss, unintentional; Obesity (BMI 30-39.9); Tobacco user Start: 12-05-2024 End: 12-05-2025 XR Chest 2 Views XR chest 2 views Imaging Routine Chronic cough Expected: 12/05/2024 (Approximate), Expires: 12/05/2025 [facility] Work Phone: Comment on above: Expected: 12/05/2024 (Approximate), Expi res: 12/05/2025 Start: 11-30-2024 End: 11-30-2024 Patient encounter procedure 11/30/2024 2:20 PM EST Office Visit [facility] [address] [place] [address] Saima Issa, NURSING HOME ASSISTANT ADMINISTRATOR [address] [place] [address] [facility] Start: 11-23-2024 End: 11-23-2024 Patient encounter procedure 11/23/2024 2:15 PM EST Office Visit [facility] [address] [place] [phone] Kolton Rolle, DPM [address] [place], [place] [id number] Chronic pain of both feet [facility] Comment on above: Chronic pain of both feet Start: 11-10-2024 End: 11-10-2025 Creatinine [Mass/volume] in Serum or Plasma Creatinine Lab Routine Weight loss, unintentional Tobacco user Chronic cough Expected: 11/10/2024 (Approximate), Expires: 11/10/2025 [facility] Comment on above: Expected: 11/10/2024 (Approximate), Expi res: 11/10/2025 Start: 11-10-2024 End: 11-10-2025 CT Chest W contrast IV CT chest w IV contrast Imaging Routine Weight loss, unintentional Tobacco user Chronic cough Expected: 11/10/2024 (Approximate), Expires: 11/10/2025 [facility] Work Phone: Comment on above: Expected: 11/10/2024 (Approximate), Expi res: 11/10/2025 Start: 11-10-2024 End: 11-10-2024 Patient encounter procedure 11/10/2024 2:00 PM EST Office Visit [facility] [address] [place] [address] Saima Issa, NURSING HOME ASSISTANT ADMINISTRATOR [address] [place] [address] Diarrhea, unspecified type (Primary Dx); Bilateral leg pain; Obesity (BMI 30-39.9); Weight loss, unintentional; Tobacco user; Marijuana smoker [facility] Comment on above: Diarrhea, unspecified type (Primary Dx); Bilateral leg pain; Obesity (BMI 30-39.9); Weight loss, unintentional; Tobacco user; Marijuana smoker Start: 10-10-2024 End: 10-10-2024 Patient encounter procedure [facility] Comment on above: Obesity (BMI 30-39.9) (Primary Dx); Weight loss, unintentional; Tobacco user; Marijuana smoker Start: 09-26-2024 End: 09-26-2024 Patient encounter procedure 09/26/2024 7:00 PM EST [facility] [address] [place] [address] Saima Issa, NURSING HOME ASSISTANT ADMINISTRATOR [address] [place] [address] Tobacco user (Primary Dx); Obesity (BMI 30-39.9) [facility] Comment on above: Tobacco user (Primary Dx); Obesity (BMI 30-39.9) Start: 09-26-2024 End: 09-26-2025 C reactive protein [Mass/volume] in Serum or Plasma C-reactive protein Lab Routine Diarrhea, unspecified type Expected: 09/26/2024 (Approximate), Expires: 09/26/2025 [facility] Comment on above: Expected: 09/26/2024 (Approximate), Expi res: 09/26/2025 Start: 09-26-2024 End: 09-26-2025 CBC W Auto Differential panel - Blood CBC and differential Lab Routine Weight loss, unintentional Diarrhea, unspecified type Expected: 09/26/2024 (Approximate), Expires: 09/26/2025 [facility] Comment on above: Expected: 09/26/2024 (Approximate), Expi res: 09/26/2025 Start: 09-26-2024 End: 09-26-2025 Clostridioides difficile toxin A+B tcdA+tcdB genes [Presence] in Stool by SHERLEY with probe detection Clostridium difficile,EIA Microbiology Routine Diarrhea, unspecified type Expected: 09/26/2024 (Approximate), Expires: 09/26/2025 [facility] Comment on above: Expected: 09/26/2024 (Approximate), Expi res: 09/26/2025 Start: 09-26-2024 End: 09-26-2025 Comprehensive metabolic 2000 panel - Serum or Plasma Comprehensive metabolic panel Lab Routine Weight loss, unintentional Diarrhea, unspecified type Expected: 09/26/2024 (Approximate), Expires: 09/26/2025 [facility] Comment on above: Expected: 09/26/2024 (Approximate), Expi res: 09/26/2025 Start: 09-26-2024 End: 09-26-2025 Erythrocyte sedimentation rate Sedimentation rate, automated Lab Routine Diarrhea, unspecified type Expected: 09/26/2024 (Approximate), Expires: 09/26/2025 [facility] Comment on above: Expected: 09/26/2024 (Approximate), Expi res: 09/26/2025 Start: 09-26-2024 End: 09-26-2025 Measurement of occult blood in single stool specimen Occult blood x 1, stool Lab Routine Diarrhea, unspecified type Expected: 09/26/2024 (Approximate), Expires: 09/26/2025 [facility] Comment on above: Expected: 09/26/2024 (Approximate), Expi res: 09/26/2025 Start: 09-26-2024 End: 09-26-2025 Stool culture Stool culture Microbiology Routine Diarrhea, unspecified type Expected: 09/26/2024 (Approximate), Expires: 09/26/2025 [facility] Comment on above: Expected: 09/26/2024 (Approximate), Expi res: 09/26/2025 Start: 09-26-2024 End: 09-26-2025 Thyrotropin [Units/volume] in Serum or Plasma TSH Lab Routine Weight loss, unintentional Expected: 09/26/2024 (Approximate), Expires: 09/26/2025 [facility] Comment on above: Expected: 09/26/2024 (Approximate), Expi res: 09/26/2025 Start: 09-26-2024 End: 09-26-2025 Urinalysis complete panel - Urine Urinalysis with reflex microscopic (clean catch) Lab Routine Diarrhea, unspecified type Expected: 09/26/2024 (Approximate), Expires: 09/26/2025 [facility] Comment on above: Expected: 09/26/2024 (Approximate), Expi res: 09/26/2025 Start: 09-26-2024 End: 09-26-2025 XR Knee - right 3 Views XR knee 3 views right Imaging Routine Chronic pain of right knee Expected: 09/26/2024 (Approximate), Expires: 09/26/2025 [facility] Work Phone: Comment on above: Expected: 09/26/2024 (Approximate), Expi res: 09/26/2025 Start: 01-13-2024 End: 01-13-2024 Patient encounter procedure 01/13/2024 9:40 AM EDT Office Visit [facility] [address] [place] [address] Saima Issa, NURSING HOME ASSISTANT ADMINISTRATOR [address] [place] [id number] [facility] Start: 11-25-2023 End: 11-25-2023 Patient encounter procedure 11/25/2023 3:00 PM EST Office Visit [facility] [address] [place] [address] Saima Issa, TEO [address] [place] [id number] Arrived [facility] Comment on above: Arrived Start: 06-19-2023 Influenza vaccination Influenza Vaccine (#1) [facility] Start: 06-19-2020 Influenza vaccination Flu vaccine (Season Ended) [place], [place] Start: 2014 Lipid panel Lipid screen [place], [place] Start: 1989 HIV screening HIV screen [place] Start: 1980 Pneumococcal 0-64 years Vaccine (1 of 1 - PPSV23) Pneumococcal 0-64 years Vaccine (1 of 1 - PPSV23) [place], [place] Start: 1974 Screening for malignant neoplasm of colon [facility] Pulmonary function report Pulmonary Function Test Imaging Routine Chronic cough Tobacco user Ordered: 12/07/2024 [facility] Work Phone: Comment on above: Ordered: 12/07/2024 End: 03-11-2020 XR RADIUS ULNA LEFT (2 VIEWS) XR RADIUS ULNA LEFT (2 VIEWS) Imaging STAT Once for 1 Occurrences starting 03/11/2020 until 03/11/2020 [place] Comment on above: Once for 1 Occurrences starting 03/11/20 20 until 03/11/2020 XR RADIUS ULNA LEFT (2 VIEWS) XR RADIUS ULNA LEFT (2 VIEWS) Imaging STAT 03/11/2020 5:15 PM EDT [place] Immunizations Immunization Date Immunization Notes Care Provider Fa cility 03-11-2020 diphtheria, tetanus toxoids and acellular pertussis vaccine, unspecified formulation [place] 03-11-2020 tetanus toxoid, reduced diphtheria toxoid, and acellular pertussis vaccine, adsorbed [place] NEGATED: Highlighted row has not occurred!12-22-2023 influenza virus vaccine, unspecified formulation [facility] Payers Date Payer Category Payer Self-pay 2025 Medicaid [id number] 2021 Medicaid [facility] MEDICAID [facility] MEDICAID [id number] 2021-Present [address] [place] [address] [id number] 2021 Medicaid (Managed Care) [facility] MEDICAID [id number] 2019 Unknown NATALYA NIEVES MARINE xxxxxxxxxxxx 2019-Present [phone] [address] [place] [address] xxxxxxxxxxxx [id number] 1974 Unknown [id number] 2.16.840.1.179084.3.579.2. 173 1974 Unknown [id number] 2.16.840.1.813402.3.579.2. 593 1974 Unknown [id number] 2.16.840.1.265343.3.579.2. 593 1974 Unknown [id number] 2.16.840.1.915127.3.579.2. 727 1974 Unknown [id number] 2.16.840.1.978180.3.579.2. 727 1974 Unknown [id number] 2.16.840.1.700112.3.579.2. 718 1974 Unknown [id number] 2.16.840.1.360749.3.579.2. 1259 1974 Unknown [id number] 2.16.840.1.746724.3.579.2. 1259 1974 Unknown [id number] 2.16.840.1.293207.3.579.2. 1259 1974 Unknown [id number] 2.16.840.1.591972.3.579.2. 1259 1974 Unknown [id number] 2.16.840.1.852204.3.579.2. 1259 1974 Unknown [id number] 2.16.840.1.048672.3.579.2. 1259 1974 Unknown [id number] 2.16.840.1.983824.3.579.2. 1259 1974 Unknown [id number] 2.16.840.1.706142.3.579.2. 9 1974 Unknown [id number] 2.16.840.1.759739.3.579.2. 1259 1959 Unknown [id number] 1959 Unknown [id number] Medicare Medicare [id number] Unknown Other1 (STD) [id number] Unknown [id number] 2.16.840.1.149759.3.579.2. 531 Social History Date Type Detail Facility Start: 03-11-2020 End: 11-23-2024 Tobacco smoking status NHIS Current every day smoker [place] Start: 03-11-2020 End: 01-11-2024 Cigarettes smoked current (pack per day) - Reported [place] Start: 03-11-2020 Alcohol intake Current non-dr mechanic insulator of alcohol (finding) [place] Start: 1975 Sex Assigned At Not on file [place] Exposure to SARS-CoV -2 (event) Unable to assess [place] Start: 06-02-2022 End: 12-22-2023 Heavy tobacco smoker (finding) [facility] [place] Never [facility] [place] Start: 11-16-2023 End: 01-11-2024 Male [facility] Start: 1975 Sex Assigned At Male F [facility] History of tobacco use Cigarette Smoker [facility] Start: 11-25-2023 End: 05-23-2025 Alcohol intake Lifetime non-drinker (finding) [facility] Start: 11-25-2023 Alcohol Comment caffine: soda: 6-8daily [facility] Do you belong to any clubs or organizations such as buddhism groups, unions, fraternal or athletic groups, or school groups? No [facility] Are you now , , , , never or living with a partner? [facility] How often to you hav e a drink containing alcohol? Never [facility] Work Phone: Start: 02-01-2025 Sex Male (finding) [facility] Equipment Procedure Code Equipment Code Equipment [...] 12-22-2023 Functional Status N/A [facility] 06-02-2022 N/A [facility] [place] Clinical Notes 11-25-2023 to 05-23-2025 Saima Issa NP - 05/23/2025 2:23 PM EDLOULOU CHACKO - 05/23/2025 1:40 PM Jennifer Issa NP - 05/23/2025 1:40 PM Jennifer Issa NP - 05/23/2025 6:55 AM EDTPatient Instructions Note Date & Type Note Facility 05-23-2025 History of Present illness Narrative Associated Problem(s): Other headache syndrome Non specific pattern Recommend drinking 64 oz of water daily and trial an over the counter loratadine allergy pill to see if this helps if not better contact office in the next few weeks Couple weeks he has had an ongoing sl headache- he takes tylenol which will help maybe for a few hrs or a day or so but then comes right back. Last headache was Thursday. Images from the original note were not included. Jayden Su is a 49 y.o. male presents with chief complaint of Pulmonary emphysema, unspecified emphysema type HPI: BORJAS: X2 weeks, intermittent, tylenol helps 4 per day. No vision changes, right frontal, no trauma, no NV, irritating pain, no allergy/sinus sxs, no ear pain No hx of BORJAS, does not drink a lot of water, drinks pepsi and does not as much when it hot out, could be a link No neck pain/stiffness, no stroke type symptoms Breathing: cough clear phlegm, no rescue inhaler, minimal wheezing noted does use symbicort SUBJECTIVE: MEDICATIONS: Current Outpatient Medications Medication Instructions albuterol HFA 90 mcg/act inhaler 2 puffs, Inhalation, Every 6 hours PRN ammonium lactate (Amlactin) 12 % cream Topical, Daily budesonide-formoterol (Symbicort) 160-4.5 MCG/ACT inhaler 2 puffs, Inhalation, 2 times daily, Rinse mouth with water after use to reduce aftertaste and incidence of candidiasis. Do not swallow. ALLERGIES: Allergies Allergen Reactions Penicillin V Unknown Penicillins REVIEW OF SYMPTOMS: Review of Systems Constitutional: Negative for activity change, appetite change and unexpected weight change. HENT: Negative for ear pain, nosebleeds, sneezing, trouble swallowing and voice change. Eyes: Negative for pain, discharge and visual disturbance. Respiratory: Negative for apnea, chest tightness and wheezing. Cardiovascular: Negative for leg swelling. Gastrointestinal: Negative for abdominal distention, blood in stool, constipation and diarrhea. Genitourinary: Negative for decreased urine volume, difficulty urinating, dysuria and hematuria. Skin: Negative for color change. Neurological: Positive for headaches. Negative for dizziness, tremors and seizures. Psychiatric/Behavioral: [...] Date CYST REMOVAL Removed as a child HERNIA REPAIR family history includes Cancer in his maternal grandfather. OBJECTIVE: Visit Vitals BP 106/80 (BP Location: Left arm, Patient Position: Sitting, BP Cuff Size: Large adult) Pulse 90 Temp 99 F (Temporal) Resp 22 Wt 240 lb 12.8 oz SpO2 96% BMI 34.55 kg/m Smoking Status Every Day BSA 2.32 m Physical Exam Vitals and nursing note reviewed. Constitutional: Appearance: Normal appearance. HENT: Head: Normocephalic. Right Ear: External ear normal. Left Ear: External ear normal. Ears: Comments: excess cerumen Nose: Nose normal. No congestion or rhinorrhea. Mouth/Throat: Mouth: Mucous membranes are moist. Pharynx: Oropharynx is clear. No oropharyngeal exudate or posterior oropharyngeal erythema. Eyes: Extraocular Movements: Extraocular movements intact. Conjunctiva/sclera: Conjunctivae normal. Pupils: Pupils are equal, round, and reactive to light. Neck: Vascular: No carotid bruit. Comments: Nodule left thyroid Cardiovascular: Rate and Rhythm: Normal rate and regular rhythm. Pulses: Normal pulses. Heart sounds: Normal heart sounds. Pulmonary: Effort: Pulmonary effort is normal. Breath sounds: Normal breath sounds. No wheezing or rhonchi. Abdominal: General: Bowel sounds are normal. There is no distension. Palpations: Abdomen is soft. There is no mass. Musculoskeletal: General: Normal range of motion. Cervical back: Neck supple. Right lower leg: No edema. Left lower leg: No edema. Lymphadenopathy: Cervical: No cervical adenopathy. Skin: General: Skin is warm and dry. Capillary Refill: Capillary refill takes 2 to 3 seconds. Findings: Rash (tinea suprapubic) present. Neurological: General: No focal deficit present. Mental Status: He is alert. Cranial Nerves: No cranial nerve deficit. Sensory: No sensory deficit. Motor: No weakness. Psychiatric: Mood and Affect: Mood normal. Behavior: Behavior normal. Thought Content: Thought content normal. Judgment: Judgment normal. ASSESSMENT AND PLAN: No follow-ups on file. Problem List Items Addressed This Visit Emphysema/COPD (HCC) - Primary PFT: mod copd/emphysema CT chest: 3 mm nodule (01/10) fu in 12 months Recommend smoking cessation inhalers: breztri and albuterol Relevant Medications budesonide-formoterol (Symbicort) 160-4.5 MCG/ACT inhaler Thyroid nodule Reviewed [facility] notes Cigarette nicotine dependence without complication The patient has been advised of the risks of continued smoking: stroke, CA, all forms of cancer, lung disease, and . Options for quitting smoking include: cold turkey, hypnosis, acupuncture, nicotine replacement meds (gum, lozenges, and patches), Buproprion, and Varenicline. At this time pt is encouraged to evaluate their goals for wanting to quit smoking, and reach out to provider when ready to start this process Tinea cruris Relevant Medications clotrimazole (Lotrimin) 1 % cream Other headache syndrome Associated Problem(s): Cigarette nicotine dependence without complication The patient has been advised of the risks of continued smoking: stroke, CA, all forms of cancer, lung disease, and . Options for quitting smoking include: cold turkey, hypnosis, acupuncture, nicotine replacement meds (gum, lozenges, and patches), Buproprion, and Varenicline. At this time pt is encouraged to evaluate their goals for wanting to quit smoking, and reach out to provider when ready to start this process Associated Problem(s): Thyroid nodule Reviewed Tim[facility] notes Associated Problem(s): Emphysema/COPD (HCC) PFT: mod copd/emphysema CT chest: 3 mm nodule (01/10) fu in 12 months Recommend smoking cessation inhalers: breztri and albuterol documented in this encounter [facility] 05-23-2025 Instructions Saima Issa NP - 05/23/2025 1:40 PM EDT Headache: 64 oz of water daily, also over the counter claratin allergy meds to see if helps headache, it may be either related to some allergies or more likely dehydration, pepsi does not hydrate you If you do this for 3 weeks and not better call office Rash: cream twice a day for 14 days documented in this encounter [facility] 02-15-2025 History of Present illness Narrative Subjective Patient ID: Jayden Su is a 49 y.o. male who presents for Thyroid Nodule FNA [place] 1 Family History Problem Relation Name Age of Onset Cancer Maternal Grandfather Active Ambulatory Problems Diagnosis Date Noted Left inguinal hernia 11/25/2023 OAB (overactive bladder) 11/25/2023 Miliaria 11/25/2023 Lump on face 11/25/2023 Elevated alkaline phosphatase level 11/25/2023 Marijuana smoker 11/25/2023 Rash 11/25/2023 Colon cancer screening 11/25/2023 Plantar fasciitis 01/13/2024 Obesity (BMI 30-39.9) 04/14/2024 Chronic pain of right knee 09/26/2024 Weight loss, unintentional 09/26/2024 Diarrhea 09/26/2024 PAD (peripheral artery disease) ([facility]/HCC) 10/10/2024 Bilateral leg pain 10/10/2024 Chronic cough 11/10/2024 Chronic pain of both feet 11/10/2024 Emphysema/COPD ([facility]/HCC) 12/21/2024 Thyroid nodule ([facility]) 01/09/2025 Cigarette nicotine dependence without complication 01/18/2025 Lung nodule 01/18/2025 Resolved Ambulatory Problems Diagnosis Date Noted COVID 11/25/2023 Tobacco user 11/25/2023 BMI 36.0-36.9,adult 11/25/2023 Centrilobular emphysema (CMS/HCC) 12/21/2024 Emphysema, unspecified 01/18/2025 No Additional Past Medical History Past Surgical History: Procedure Laterality Date CYST REMOVAL Removed as a child HERNIA REPAIR Allergies Allergen Reactions Penicillin V Unknown Penicillins Current Outpatient Medications on File Prior to Visit Medication Sig Dispense Refill albuterol HFA 90 mcg/act inhaler Inhale 2 puffs every 6 (six) hours if needed for shortness of breath or wheezing 18 g 0 ammonium lactate (Amlactin) 12 % cream Apply topically Daily 140 g 3 budesonide-formoterol (Symbicort) 160-4.5 MCG/ACT inhaler Inhale 2 puffs in the morning and 2 puffs before bedtime. Rinse mouth with water after use to reduce aftertaste and incidence of candidiasis. Do not swallow. 10.2 g 5 No current facility-administered medications on file prior to visit. Objective Last Recorded Vitals Vitals: 02/15/25 1008 BP: 105/63 Pulse: 68 ENT Physical Exam Constitutional Appearance: patient appears well-developed, well-nourished and well-groomed, Communication/Voice: communication appropriate for developmental age; vocal quality normal; Assessment/Plan Diagnoses and all orders for this visit: Thyroid nodule (CMS/HCC) FNA was not diagnostic, but was reassuring given that there was not sig cellularity, which is not surprising given the nodule is cystic. I will plan to follow with periodic US and arrange removal if growth noted documented in this encounter [facility] 01-30-2025 Note Education [employer] Endocrinology Thyroid Nodule A thyroid nodule is an isolated growth of thyroid cells that forms a lump in the thyroid gland. The thyroid gland is a butterfly-shaped gland found in the lower front of the neck. It sends chemical messengers (hormones) through the blood to all parts of the body. These hormones are important in regulating body temperature and helping the body use energy. Thyroid nodules are common. Most are not cancerous (are benign). You may have one nodule or several nodules. There are different types of thyroid nodules. They include nodules that: ? Grow and fill with fluid (thyroid cysts). ? Produce too much thyroid hormone (hot nodules or hyperthyroid). ? Produce no thyroid hormone (cold nodules or hypothyroid). ? Form from cancer cells (thyroid cancers). What are the causes? In most cases, the cause of thyroid nodules is not known. What increases the risk? The following factors may make you more likely to develop thyroid nodules: ? Age. Thyroid nodules are more common in people who are older than 45 years. ? Female gender. ? A family history that includes: ? Thyroid nodules. ? Pheochromocytoma. ? Thyroid carcinoma. ? Hyperparathyroidism. ? Certain thyroid diseases, such as Enrike's thyroiditis. ? Lack of iodine in your diet. ? A history of head and neck radiation, such as from cancer treatments. ? Type 2 diabetes. What are the signs or symptoms? In many cases, there are no symptoms. If you have symptoms, they may include: ? A lump in your lower neck. ? Feeling pressure, fullness, or a tickle in your throat. ? Pain in your neck, jaw, or ear. ? Having trouble swallowing or breathing. Hot nodules may cause: ? Weight loss. ? Warm, flushed skin. ? Feeling hot. ? Feeling nervous. ? A rapid or irregular heartbeat. Cold nodules may cause: ? Weight gain. ? Dry skin. ? Hair loss, brittle hair, or both. ? Feeling cold. ? Fatigue. Thyroid cancer nodules may cause: ? Hard nodules that can be felt along the thyroid gland. ? Hoarseness. ? Lumps in the tissue (lymph nodes) near your thyroid gland. How is this diagnosed? A thyroid nodule may be felt by your health care provider during a physical exam. This condition may also be diagnosed based on your symptoms. You may also have tests, including: ? Blood tests to check how well your thyroid is working. ? An ultrasound. This may be done to confirm the diagnosis. ? A biopsy. This involves taking a sample from the nodule and looking at it under a microscope. ? A thyroid scan. This test creates an image of the thyroid gland using a radioactive tracer. ? Imaging tests such as an MRI or CT scan. These may be done if: ? A nodule is large. ? A nodule is blocking your airway. ? Cancer is suspected. How is this treated? Treatment depends on the cause and size of your nodule or nodules. If a nodule is benign, treatment may not be necessary. Your health care provider may monitor the nodule to see if it goes away without treatment. If a nodule continues to grow, is cancerous, or does not go away, treatment may be needed. Treatment may include: ? Having a cystic nodule drained with a needle. ? Ablation therapy. In this treatment, alcohol is injected into the area of the nodule to destroy the cells. Ablation with heat may also be used. This is called thermal ablation. ? Radioactive iodine. In this treatment, radioactive iodine is given as a pill or liquid that you drink. This substance causes the thyroid nodule to shrink. ? Surgery to remove the nodule or nodules. Part or all of your thyroid gland may also need to be removed. ? Medicines to treat hyperthyroidism. Follow these instructions at home: ? Pay attention to any changes in your thyroid nodule or nodules. ? Take [id number] and prescription medicines only as told by your health care provider. ? Keep all follow-up visits. This is important. Contact a health care provider if: ? You have trouble sleeping. ? You have muscle weakness. ? You have significant weight loss without changing your eating habits. ? You feel nervous. ? You have trouble swallowing. ? You have increased swelling. ? You have a rapid or irregular heartbeat. Get help right away if: ? You have chest pain. ? You faint or lose consciousness. ? Your nodule makes it hard for you to breathe. These symptoms may be an emergency. Get help right away. Call 911. ? Do not wait to see if the symptoms will go away. ? Do not drive yourself to the hospital. Summary ? A thyroid nodule is an isolated growth of thyroid cells that forms a lump in your thyroid gland. ? Thyroid nodules are common. Most are not cancerous. ? Your health care provider may monitor the nodule to see if it goes away without treatment. If a nodule continues to grow, is cancerous, or does not go away, treatment may be needed. ? Treatment depends on the cause an (more content not included)... [facility] 01-25-2025 History of Present illness Narrative Subjective Patient ID: Jayden Su is a 49 y.o. male who presents for Thyroid Nodule Pt had a chronic cough and PCP ordered a CT chest. Incidentally found to have a fairly large left thyroid mass. Subsequent US showed mult small RT nodules and a [id number] TR3 multiloculated cyst with a ST central component on the left. TSH normal in September. Review of Systems All other systems reviewed and are negative. Family History Problem Relation Name Age of Onset Cancer Maternal Grandfather Active Ambulatory Problems Diagnosis Date Noted Left inguinal hernia 11/25/2023 OAB (overactive bladder) 11/25/2023 Miliaria 11/25/2023 Lump on face 11/25/2023 Elevated alkaline phosphatase level 11/25/2023 Marijuana smoker 11/25/2023 Rash 11/25/2023 Colon cancer screening 11/25/2023 Plantar fasciitis 01/13/2024 Obesity (BMI 30-39.9) 04/14/2024 Chronic pain of right knee 09/26/2024 Weight loss, unintentional 09/26/2024 Diarrhea 09/26/2024 PAD (peripheral artery disease) ([facility]/HCC) 10/10/2024 Bilateral leg pain 10/10/2024 Chronic cough 11/10/2024 Chronic pain of both feet 11/10/2024 Emphysema/COPD ([facility]/HCC) 12/21/2024 Thyroid nodule ([facility]/HCC) 01/09/2025 Cigarette nicotine dependence without complication 01/18/2025 Lung nodule 01/18/2025 Resolved Ambulatory Problems Diagnosis Date Noted COVID 11/25/2023 Tobacco user 11/25/2023 BMI 36.0-36.9,adult 11/25/2023 Centrilobular emphysema ([facility]/HCC) 12/21/2024 Emphysema, unspecified 01/18/2025 No Additional Past Medical History Past Surgical History: Procedure Laterality Date CYST REMOVAL Removed as a child HERNIA REPAIR Allergies Allergen Reactions Penicillin V Unknown Penicillins Current Outpatient Medications on File Prior to Visit Medication Sig Dispense Refill albuterol HFA 90 mcg/act inhaler Inhale 2 puffs every 6 (six) hours if needed for shortness of breath or wheezing 18 g 0 ammonium lactate (Amlactin) 12 % cream Apply topically Daily 140 g 3 Vajqcbg-Wgyxmuejjbz-Ktneoigymo (Breztri Aerosphere) 160-9-4.8 MCG/ACT aerosol Inhale 2 puffs in the morning and 2 puffs before bedtime. Rinse mouth after use. 10.7 g 2 No current facility-administered medications on file prior to visit. Objective Last Recorded Vitals Vitals: 01/25/25 1019 BP: 108/77 Pulse: 70 ENT Physical Exam Constitutional Appearance: patient appears well-developed and well-nourished, Head and Face Appearance: head appears normal and face appears atraumatic; Ear Ear comments: Barrera ears normal Nose External Nose: nares patent bilaterally; external nose normal; Internal Nose: nasal mucosa normal; Oral Cavity/Oropharynx Lips: normal; Teeth: normal; Gums: gingiva normal; Tongue: normal; Oral mucosa: normal; Hard palate: normal; Neck Neck: neck normal; neck palpation normal; Thyroid: thyroid mass present; Thyroid comments: Thyroid mass c/w CT and US Respiratory Inspection: breathing unlabored; normal breathing rate; Auscultation: breath sounds are clear; Cardiovascular Inspection: extremities are warm and well perfused; no peripheral edema present; Auscultation: regular rate and rhythm; Assessment/Plan Diagnoses and all orders for this visit: Thyroid nodule (CMS/HCC) - Ambulatory referral to ENT Pt has a fairly large cystic mass of the left thyroid. I will arrange for an FNA and therapeutic aspiration. If path benign and fluid does not re accumulate I will follow with periodic US. Given the size recommend removal if recurs. documented in this encounter [facility] 01-18-2025 History of Present illness Narrative Associated Problem(s): Lung nodule Fu CT chest in 1 year Images from the original note were not included. Jayden Su is a 49 y.o. male presents with chief complaint of No chief complaint on file. HPI: Here to review testing CXR: normal, CT: 3mm nodule right, and emphysema Still with cough: clear mucus, no acute dyspnea, +wheezing noted, also had PFT: COPD/emphysema Thyroid US: 3 nodules, and larger cystic nodule left: no difficulty swallowing, no family hx of thyroid cancers SUBJECTIVE: MEDICATIONS: Current Outpatient Medications Medication Instructions ammonium lactate (Amlactin) 12 % cream Topical, Daily ALLERGIES: Allergies Allergen Reactions Penicillin V Unknown Penicillins REVIEW OF SYMPTOMS: Review of Systems Constitutional: Negative for activity change, appetite change and unexpected weight change. HENT: Positive for rhinorrhea. Negative for ear pain, nosebleeds, sneezing, trouble swallowing and voice change. Eyes: Negative for pain, discharge and visual disturbance. Respiratory: Positive for cough, shortness of breath and wheezing. Negative for apnea and chest tightness. Cardiovascular: Negative for leg swelling. Gastrointestinal: Negative for abdominal distention, blood in stool, constipation and diarrhea. Genitourinary: Negative for decreased urine volume, difficulty urinating, dysuria and hematuria. Skin: Negative for color change. Neurological: Negative [...] his maternal grandfather. OBJECTIVE: Visit Vitals BP 108/70 (BP Location: Left arm, Patient Position: Sitting, BP Cuff Size: Large adult) Pulse 81 Temp 98.5 F (Temporal) Resp 18 Wt 237 lb SpO2 97% BMI 34.01 kg/m Smoking Status Every Day BSA 2.31 m Physical Exam Vitals and nursing note reviewed. Constitutional: Appearance: Normal appearance. HENT: Head: Normocephalic. Right Ear: External ear normal. Left Ear: External ear normal. Nose: Nose normal. Mouth/Throat: Mouth: Mucous membranes are moist. Pharynx: Oropharynx is clear. Eyes: Extraocular Movements: Extraocular movements intact. Conjunctiva/sclera: Conjunctivae normal. Neck: Comments: Palpable abnormality left thyroid Cardiovascular: Rate and Rhythm: Normal rate and regular rhythm. Pulses: Normal pulses. Heart sounds: Normal heart sounds. Pulmonary: Effort: Pulmonary effort is normal. Breath sounds: Rhonchi present. Comments: Moist hacky cough Abdominal: General: Bowel sounds are normal. Palpations: Abdomen is soft. Skin: General: Skin is warm and dry. Capillary Refill: Capillary refill takes 2 to 3 seconds. Comments: clubbing noted to fingers Neurological: General: No focal deficit present. Mental Status: He is alert. Psychiatric: Mood and Affect: Mood normal. Behavior: Behavior normal. Thought Content: Thought content normal. Judgment: Judgment normal. ASSESSMENT AND PLAN: No follow-ups on file. Problem List Items Addressed This Visit Obesity (BMI 30-39.9) Discussed with patient their BMI (actual, verses recommended). We have also discussed lifestyle modifications: attempts to perform physical activity as chronic conditions allow, also to monitor dietary intake: increasing protein/fruits/veggies and lowering carb intake (unless contraindicated). Limit sodas, juices, and sugary drinks. Emphysema/COPD (CMS/HCC) - Primary PFT: mod copd/emphysema CT chest: 3 mm nodule (01/10) fu in 12 months Recommend smoking cessation Add inhalers: breztri and albuterol Relevant Medications albuterol HFA 90 mcg/act inhaler Zcuvqrk-Qhsdlkvbmrc-Balplbrumb (Breztri Aerosphere) 160-9-4.8 MCG/ACT aerosol Thyroid nodule (CMS/HCC) thyroid: 01/16/25: 3 nodules on right : [id number], 0r8a1ih, 0m4n4xe, left: 4.8x3.5x3.7cm:cystic multi loculated nodule Will refer to ENT Relevant Orders Ambulatory referral to ENT Cigarette nicotine dependence without complication The patient has been advised of the risks of continued smoking: stroke, CA, all forms of cancer, lung disease, and . Options for quitting smoking include: cold turkey, hypnosis, acupuncture, nicotine replacement meds (gum, lozenges, and patches), Buproprion, and Varenicline. At this time pt is encouraged to evaluate their goals for wanting to quit smoking, and reach out to provider when ready to start this process Associated Problem(s): Cigarette nicotine dependence without complication The patient has been advised of the risks of continued smoking: stroke, CA, all forms of cancer, lung disease, and . Options for quitting smoking include: cold turkey, hypnosis, acupuncture, nicotine replacement meds (gum, lozenges, and patches), Buproprion, and Varenicline. At this time pt is encouraged to evaluate their goals for wanting to quit smoking, and reach out to provider when ready to start this process Associated Problem(s): Thyroid nodule (CMS/HCC) US thyroid: 01/16/25: 3 nodules on right : [id number], 1s9l5ki, 5g4b5xe, left: 4.8x3.5x3.7cm:cystic multi loculated nodule Will refer to ENT Associated Problem(s): Obesity (BMI 30-39.9) Discussed with patient their BMI (actual, verses recommended). We have also discussed lifestyle modifications: attempts to perform physical activity as chronic conditions allow, also to monitor dietary intake: increasing protein/fruits/veggies and lowering carb intake (unless contraindicated). Limit sodas, juices, and sugary drinks. Associated Problem(s): Emphysema/COPD (CMS/HCC) PFT: mod copd/emphysema CT chest: 3 mm nodule (01/10) fu in 12 months Recommend smoking cessation Add inhalers: breztri and albuterol documented in this encounter [facility] 01-18-2025 Instructions Saima Issa NP - 01/18/2025 9:00 AM EDT Inhalers: albuterol: only use if needed for shortness of breath or wheezing, this may cause feel jittery for about 10 mins after use Will also add a daily medication to take, make sure rinse mouth after use Thyroid nodule: will refer to ENT dr tobar they should call you documented in this encounter [facility] 12-07-2024 History of Present illness Narrative Associated [...] of the risks of continued smoking: stroke, CA, all forms of cancer, lung disease, and [...] of the risks of continued smoking: stroke, CA, all forms of cancer, lung disease, and [...] PFT as well documented in this encounter [facility] 12-07-2024 Instructions Saima Issa NP - 12/07/2024 10:30 AM EST We will check chest xray: you can walk in to do that We will order pulmonary function testing (breathing test) [facility] will call you documented in this encounter [facility] 12-05-2024 Telephone encounter Note Contact pt, his insurance will not approve a CT chest, they want us to start with a CXR, I have an order for this, fax it to where ever he wants and we will go from there [facility] 12-05-2024 Miscellaneous Notes Contact pt, his insurance will not approve a CT chest, they want us to start with a CXR, I have an order for this, fax it to where ever he wants and we will go from there documented in this encounter [facility] 12-05-2024 History of Present illness Narrative Associated Problem(s): Chronic cough Insurance will not cover CT chest 11/28/24 We will start with cxr then documented in this encounter [facility] 11-23-2024 History of Present illness Narrative [...] Kolton Rolle DPM documented in this encounter [facility] 11-10-2024 History of Present illness Narrative Associated Problem(s): Chronic pain of both feet Has multiple callouses and pain bilat feet Also pes planus Refer to podiatry Associated Problem(s): PAD (peripheral artery disease) ([facility]) Normal segmental pressures Associated Problem(s): Weight loss, unintentional Had labs completed, gained 3 pounds since last visit No new symptoms Pt would like to wait to see if things improve Fu 4 weeks Sore dry spot on bottom of left foot heel that can be painful using old cream that he had from his rink rat about a year ago Images from the [...] of the risks of continued smoking: stroke, CA, all forms of cancer, lung disease, and [...] of the risks of continued smoking: stroke, CA, all forms of cancer, lung disease, and [...] use of bentyl. documented in this encounter [facility] 11-10-2024 Instructions Saima Issa NP - 11/10/2024 2:00 PM EST Foot doctor: Dr Rolle ([place]) they should call Weight loss: lung CT scan [facility] documented in this encounter [facility] 10-10-2024 History of Present illness Narrative Associated Problem(s): PAD (peripheral artery disease) ([facility]/HCC) Check FABRIZIO's with segmental pressures Associated Problem(s): [...] of the risks of continued smoking: stroke, CA, all forms of cancer, lung disease, and [...] continues to improve PAD (peripheral artery disease) (CMS/HCC) Check FABRIZIO's with segmental pressures Bilateral leg pain - Primary Differentials: PAD, lumbar radiculopathy, pes planus Will give hand out on stretching exercises Associated Problem(s): Tobacco user The patient has been advised of the risks of continued smoking: stroke, CA, all forms of cancer, lung disease, and [...] pounds this year documented in this encounter [facility] 10-10-2024 Instructions Saima Issa NP - 10/10/2024 1:40 PM EST Order test on blood flow in legs: will send order to [facility], they should call you, if no call in 2 weeks, call them to schedule: [phone] Try increasing the fiber in your diet documented in this encounter [facility] 09-26-2024 History of Present illness Narrative [...] of the risks of continued smoking: stroke, CA, all forms of cancer, lung disease, and [...] of the risks of continued smoking: stroke, CA, all forms of cancer, lung disease, and [...] pounds this year documented in this encounter [facility] 09-26-2024 Instructions Saima Issa NP - 09/26/2024 7:00 PM EST Knee pain: xray knee Diarrhea and weight loss: check labs and stool samples Dicyclomine as needed for cramping abd documented in this encounter [facility] 12-22-2023 Note Chief Complaint consultation for [...] vaccine, inactivated - Not Given Patient Refuses [facility] Comment on above: Result Comment: Elec tronically [...] Appointments Appointment Date:06/09/2022 12:30:00 PM Scheduled Provider: Location:[facility] Appointment Type:Surgical PAT FT Appointment Date:06/09/2022 01:30:00 PM Scheduled Provider: Location:[facility] Appointment Type:Surgery PAT COVID Testing Appointment Date:06/16/2022 08:00:00 AM Scheduled Provider: Location:[facility] Appointment Type:Surgery FT [facility] Evaluation + Plan note Future Appointments Appointment Date:07/10/2022 10:40:00 AM Scheduled Provider:Mg FARIAS MD Location:[facility] Appointment Type:GS Post Op 15 [facility] Evaluation note No assessment inform ation [facility] Work Phone: Evaluation note Diagnosis Rash- Primary [...] Diarrhea, unspecified type PAD (peripheral artery disease) ([facility]) Unspecified peripheral vascular disease documented in this encounter [facility] Healthcare[facility] note* Diagnosis Rash- Primary Rash [...] Corns and callosities documented in this encounter [facility]* Diagnosis Rash- Primary Rash [...] disorder Marijuana smoker PAD (peripheral artery disease) ([facility]) Unspecified peripheral vascular disease Chronic cough [...] Diarrhea, unspecified type PAD (peripheral artery disease) ([facility]) Unspecified peripheral vascular disease Chronic pain of both feet- Primary Diarrhea, unspecified type Bilateral leg pain Pain in soft tissues of limb Obesity (BMI 30-39.9) Weight loss, unintentional Loss of weight Tobacco user Tobacco use disorder Marijuana smoker PAD (peripheral artery disease) ([facility]) Unspecified peripheral vascular disease Chronic cough Cough Chronic cough- Primary Cough Chronic cough- Primary Cough Weight loss, unintentional Loss of weight Obesity (BMI 30-39.9) Tobacco user Tobacco use disorder Bilateral leg pain Pain in soft tissues of limb Chronic pain of both feet documented in this encounter [facility] Healthcare[facility] note* Diagnosis Rash- Primary Rash [...] uninodular goiter documented in this encounter [facility]* [...] of limb Chronic pain of both feet Pulmonary emphysema, unspecified emphysema type (CMS/HCC)- Primary Obesity (BMI 30-39.9) Thyroid nodule (CMS/HCC) Nontoxic uninodular goiter Cigarette nicotine dependence without complication Lung nodule Other diseases of lung, not elsewhere classified documented in this encounter [facility]* [...] of limb Chronic pain of both feet Pulmonary emphysema, unspecified emphysema type (CMS/HCC)- Primary Obesity (BMI 30-39.9) Thyroid nodule (CMS/HCC) Nontoxic uninodular goiter Cigarette nicotine dependence without complication Lung nodule Other diseases of lung, not elsewhere classified Thyroid nodule (CMS/HCC) Nontoxic uninodular goiter documented [facility] encounter [facility] [...] of limb Chronic pain of both feet Pulmonary emphysema, unspecified emphysema type (CMS/HCC)- Primary Obesity (BMI 30-39.9) Thyroid nodule (CMS/HCC) Nontoxic uninodular goiter Cigarette nicotine dependence without complication Lung nodule Other diseases of lung, not elsewhere classified Pulmonary emphysema, unspecified emphysema type (CMS/HCC)- Primary documented in this encounter [facility]* [...] of limb Chronic pain of both feet Pulmonary emphysema, unspecified emphysema type (CMS/HCC)- Primary Obesity (BMI 30-39.9) Thyroid nodule (CMS/HCC) Nontoxic uninodular goiter Cigarette nicotine dependence without complication Lung nodule Other diseases of lung, not elsewhere classified Pulmonary emphysema, unspecified emphysema type (CMS/HCC) documented in this encounter [facility]* Diagnosis Rash- Primary Rash [...] of limb Chronic pain of both feet Pulmonary emphysema, unspecified emphysema type (CMS/HCC)- Primary Obesity (BMI 30-39.9) Thyroid nodule (CMS/HCC) Nontoxic uninodular goiter Cigarette nicotine dependence without complication Lung nodule Other diseases of lung, not elsewhere classified Thyroid nodule (CMS/HCC)- Primary Nontoxic uninodular goiter documented in this encounter [facility]* [...] Diarrhea, unspecified type PAD (peripheral artery disease) Unspecified peripheral vascular disease Chronic pain of both feet- Primary Diarrhea, unspecified type Bilateral leg pain Pain in soft tissues of limb Obesity (BMI 30-39.9) Weight loss, unintentional Loss of weight Tobacco user Tobacco use disorder Marijuana smoker PAD (peripheral artery disease) Unspecified peripheral vascular disease Chronic cough Cough Chronic cough- Primary Cough Chronic cough- Primary Cough Weight loss, unintentional Loss of weight Obesity (BMI 30-39.9) Tobacco user Tobacco use disorder Bilateral leg pain Pain in soft tissues of limb Chronic pain of both feet Pulmonary emphysema, unspecified emphysema type (HCC)- Primary Obesity (BMI 30-39.9) Thyroid nodule Nontoxic uninodular goiter Cigarette nicotine dependence without complication Lung nodule Other diseases of lung, not elsewhere classified Other headache syndrome- Primary Pulmonary emphysema, unspecified emphysema type (HCC) Thyroid nodule Nontoxic uninodular goiter Cigarette nicotine dependence without complication Tinea cruris Dermatophytosis of groin and perianal area documented [facility] this [facility] Narrative No data available for this section [facility] Discharge instructions No data available for this section [facility] Progress note No data available for this section [facility] Reason for referral (narrative)* Consultation (Routine) - Authorized Specialty Diagnoses / Procedures Referred By Contac t Referred To Contact Dermatology Diagnoses Rash Procedures NC OFFICE/OUTPATIENT NEW HIGH MDM 60 MINUTES Saima Issa NP [address] [place] [address] Amita Nguyen, [employer] EXAMINER-GUARD MANAGER [address] [place] [address] Referral ID Status Reason Start Date Expiration Date Visits Requested Visits Authorized [id number] Authorized Specialty Services Required 11/25/2023 05/23/2024 1 1 * Consultation (Routine) - Pending Review Specialty Diagnoses / Procedures Referred By Contac t Referred To Contact General Surgery Diagnoses Colon cancer screening Procedures NC OFFICE/OUTPATIENT NEW HIGH MDM 60 MINUTES Saima Issa NP [address] [place] [address] Mg Farias MD [address] [place] [address] [address], [address] [place] [address] Referral ID Status Reason Start Date Expiration Date Visits Requested Visits Authorized [id number] Pending Review Specialty Services Required 11/25/2023 05/23/2024 1 1 [facility] Discharge Instructions * Attachments The following attachments cannot be sent through Care Everywhere. * Bites: Animal (Iranian) documented in this encounter Assessments Diagnosis Dog bite of left upper extremity, initial encounter Advance Directives Documents on File Type Date Recorded Patient [employer] Expl anation Advance Directives and Living Will Power of Vascular Ultrasound Technologist Advance Directive Response Recorded Date/ Time Advance Directives No August 1:43pm Summary Purpose Family History No Family History [...] 10 Specialty Diagnoses / Procedures Referred By Contac t Referred To Contact Podiatry Diagnoses Chronic pain of both feet Procedures NC OFFICE/OUTPATIENT NEW HIGH MDM 60 MINUTES Saima Issa NP [address] [place] [address] Phone: tel: fax: Kolton Rolle, [address] [place] [address] Phone: tel: fax: Referral ID Status Reason Start Date Expiration Date V isits Requested Visits Authorized [id number] Closed Specialty Services Required 11/10/2024 05/09/2025 1 1 Reason Comments Thyroid Nodule Specialty Diagnoses / Procedures Referred By Contac t Referred To Contact Otolaryngology Diagnoses Thyroid nodule (CMS/HCC) Procedures NC OFFICE/OUTPATIENT NEW HIGH [facility] 60 MINUTES Saima Issa NP [address] [place] [address] Phone: tel: fax: Pelon Tobar MD [address] [address] Phone: tel: fax: Referral ID Status Reason Start Date Expiration Date V isits Requested Visits Authorized [id number] Closed Specialty Services Required 01/18/2025 07/17/2025 1 1 Reason Comments Pulmonary emphysema, unspecified emphyse ma type (unrecognized sect ion and content) No Status Records FoundNo Status Records FoundNo Status Records FoundNo Status Records FoundNo Status Records FoundNo Status Records Found INFORMATION SOURCE (unrecogn ized section and content) DATE CREATED AUTHOR 03/11/2020 Haleigh naranjo DATE CREATED AUTHOR AUTHOR'S ORGANIZ ATION 05/26/2022 [facility] DATE CREATED AUTHOR AUTHOR'S ORGANIZ ATION 02/16/2024 [facility] DATE CREATED AUTHOR AUTHOR'S ORGANIZ ATION 02/02/2025 [facility] DATE CREATED AUTHOR AUTHOR'S ORGANIZ ATION 02/14/2025 [facility] DATE CREATED AUTHOR AUTHOR'S ORGANIZ ATION 02/16/2025 [facility] d[facility] Specialists [facility] Care Team (unrecognized sect ion and content) Team Status: Inactive Member Role Status Dates Clive Phillips MD Attending Provider Active Electrical Subcontractor Relationship Specialty Start Date End Date Samuel Santiago MD [address] [place] [phone] PCP - General Family Medicine 11/16/23 Saima Issa NP [address] [place] [address] Referring Physician Nurse Practitioner 05/06/23 Electrical Subcontractor Relationship Specialty Start Date End Date Samuel Santiago MD [address] [place] [phone] PCP - General Family Medicine 11/16/23 Saima Issa NP [address] [place] [address] Referring Physician Nurse Practitioner 05/06/23 Electrical Subcontractor Relationship Specialty Start Date End Date Samuel Santiago MD [address] [place] [address] PCP - General Family Medicine 11/16/23 Saima Issa NP [address] [place] [address] [facility] 04/18/24 Saima Issa NP [address] [place] [address] Referring Physician Nurse Practitioner 05/06/23 Electrical Subcontractor Relationship Specialty Start Date End Date Samuel Santiago MD [address] [place] [address] PCP - General Family [facility] 11/16/23 Saima Issa NP [address] [place] [address] [facility] 04/18/24 Saima Issa NP [address] [place] [address] Referring Physician Nurse Practitioner 05/06/23 Electrical Subcontractor Relationship Specialty Start Date End Date Samuel Santiago MD [address] [place] [phone] PCP - General Family [facility] 11/16/23 Saima Issa NP [address] [place] [address] [facility] 04/18/24 Saima Issa NP [address] [place] [address] Referring Physician Nurse Practitioner 05/06/23 Electrical Subcontractor Relationship Specialty Start Date End Date Samuel Santiago MD [address] [place] [address] PCP - General [facility] 11/16/23 Saima Issa NP [address] [place] [address] [facility] 04/18/24 Saima Issa NP [address] [place] [address] Referring Physician Nurse Practitioner 05/06/23 Electrical Subcontractor Relationship Specialty Start Date End Date Samuel Santiago MD [address] [place] [phone] PCP - [facility] 11/16/23 Saima Issa NP [address] [place] [phone] [facility] 04/18/24 Saima Issa NP [address] [place] [address] Referring Physician Nurse Practitioner 05/06/23 Electrical Subcontractor Relationship Specialty Start Date End Date Samuel Santiago MD [address] [place] [phone] PCP - [facility] 11/16/23 Saima Issa NP [address] [place] [address] [facility] 04/18/24 Saima Issa NP [address] [place] [address] Referring Physician Nurse Practitioner 05/06/23 Electrical Subcontractor Relationship Specialty Start Date End Date Samuel Santiago MD [address] [place] [address] PCP - General Family [facility] 11/16/23 Saima Issa NP [address] [place] [address] [facility] 04/18/24 Saima Issa NP [address] [place] [address] Referring Physician Nurse Practitioner 05/06/23 Electrical Subcontractor Relationship Specialty Start Date End Date Samuel Santiago MD [address] [place] [address] PCP - [facility] 11/16/23 Saima Issa NP [address] [place] [address] PCP [facility] 04/18/24 Saima Issa NP [address] [place] [address] Referring Physician Nurse Practitioner 05/06/23 Electrical Subcontractor Relationship Specialty Start Date End Date Samuel Santiago MD [address] [place] [address] PCP - General Family Medicine 11/16/23 Saima Issa NP [address] [place] [address] [facility] 04/18/24 Saima Issa NP [address] [place] [address] Referring Physician Nurse Practitioner 05/06/23 Electrical Subcontractor Relationship Specialty Start Date End Date Samuel Santiago MD [address] [place] [address] PCP - [facility] 11/16/23 Saima Issa NP [address] [place] [address] [facility] 04/18/24 Saima Issa NP [address] [place] [address] Referring Physician Nurse Practitioner 05/06/23 Electrical Subcontractor Relationship Specialty Start Date End Date Samuel Santiago MD [address] [place] [address] PCP - [facility] 11/16/23 Saima Issa NP [address] [place] [address] [facility] 04/18/24 Saima Issa NP [address] [place] [address] Referring Physician Nurse Practitioner 05/06/23 Electrical Subcontractor Relationship Specialty Start Date End Date Samuel Santiago MD [address] [place] [address] PCP - General [facility] 11/16/23 Saima Issa NP [address] [place] [address] [facility] 04/18/24 Saima Issa NP [address] [place] [address] Referring Physician Nurse Practitioner 05/06/23 Electrical Subcontractor Relationship Specialty Start Date End Date Samuel Santiago MD [address] [place] [address] PCP - [facility] 11/16/23 Saima Issa NP [address] [place] [address] [facility] 04/18/24 Saima Issa NP [address] [place] [address] Referring Physician Nurse Practitioner 05/06/23 Electrical Subcontractor Relationship Specialty Start Date End Date Samuel Santiago MD [address] [place] [address] PCP - General Family Medicine 11/16/23 Saima Issa NP [address] [place] [address] PCP - [facility] 04/18/24 Saima Issa NP [address] [place] [address] Referring Physician Nurse Practitioner 05/06/23 Electrical Subcontractor Relationship Specialty Start Date End Date Samuel Santiago MD [address] [place] [address] PCP - [facility] 11/16/23 Saima Issa NP [address] [place] [address] [facility] 04/18/24 Saima Issa NP [address] [place] [address] Referring Physician Nurse Practitioner 05/06/23 Electrical Subcontractor Relationship Specialty Start Date End Date Samuel Santiago MD [address] [place] [address] PCP - [facility] 11/16/23 Saima Issa NP [address] [place] [address] PCP [facility] 04/18/24 Saima Issa NP [address] [place] [address] Referring Physician Nurse Practitioner 05/06/23 Electrical Subcontractor Relationship Specialty Start Date End Date Samuel Santiago MD [address] [place] [address] PCP - [facility] 11/16/23 Saima Issa NP [address] [place] [address]1002 [facility] 04/18/24 Saima Issa NP [address] [place] [address] Referring Physician Nurse Practitioner 05/06/23 Electrical Subcontractor Relationship Specialty Start Date End Date Samuel Santiago MD [address] [place] [address] PCP - [facility] 11/16/23 Saima Issa NP [address] [place] [address] PCP [facility] 04/18/24 Saima Issa NP [address] [place] [address] Referring Physician Nurse Practitioner 05/06/23 Electrical Subcontractor Relationship Specialty Start Date End Date Samuel Santiago MD [address] [place] [address] PCP - General Family Medicine 11/16/23 Saima Issa NP [address] [place] [address]10[address] PCP - [facility] 04/18/24 Saima Issa NP [address] [place] [address] Referring Physician Nurse Practitioner 05/06/23 Team Status: Inactive Member Role Status Dates Pelon Tobar Jr, MD Attending Provider Active Start: January 30, 2025 End: January 30, 2025 Electrical Subcontractor Relationship Specialty Start Date End Date Samuel Santiago MD [address] [place] [address] PCP - General [facility] 11/16/23 Saima Issa NP [address] [place] [address] [facility] - [facility] 04/18/24 Saima Issa NP [address] [place] [address] Referring Physician Nurse Practitioner 05/06/23 Electrical Subcontractor Relationship Specialty Start Date End Date Samuel Santiago MD [address] [place] [address] PCP - General Family [facility] 11/16/23 Saima Issa NP [address] [place] [address] [facility] 04/18/24 Saima Issa NP [address] [place] [address] Referring Physician Nurse Practitioner 05/06/23 Electrical Subcontractor Relationship Specialty Start Date End Date Samuel Santiago MD [address] [place] [address] PCP - General Family [facility] 11/16/23 Saima Issa NP [address] [place] [address] [facility] 04/18/24 Saima Issa NP [address] [place] [address] Referring Physician Nurse Practitioner 05/06/23 Electrical Subcontractor Relationship Specialty Start Date End Date Samuel Santiago MD [address] [place] [address] PCP - [facility] Family [facility] 11/16/23 Saima Issa NP [address] [place] [address]1002 [facility] 04/18/24 Saima Issa NP [address] [place] [address] Referring Physician Nurse Practitioner 05/06/23 Electrical Subcontractor Relationship Specialty Start Date End Date Samuel Santiago MD [address] [place] [address] PCP - General Family [facility] 11/16/23 Saima Issa NP [address] [place] [address] PCP - [facility] 04/18/24 Saima Issa NP [address] [place] [address] Referring Physician Nurse Practitioner 05/06/23 Goals [...] BE BASED ON THE PRIMARY CLINICAL RECORDS. [employer] [facility] provides no warranty or guarantee of the accuracy or completeness of information in this document.
== END 2025-07-05 13:36 | disposition home or self-care (01) ==
LOC: US 13:36
PROVIDERS: PCP Nurse Practitioner; Visit Provider Otolaryngology
DX: E04.1 Nontoxic single thyroid nodule (principal)
CPT/HCPCS: 76536